=== PATIENT | male | born 1960 | race Caucasian/White ===

== ENCOUNTER 2025-09-22 07:32 | Day surgery (SDC) | payer MEDICARE, SELFPAY ==
[2025-09-22] VITALS (10 sets, daily range): BP systolic 64–116; BP diastolic 53–86; PULSE 65–85; RESP 16–18; TEMP 36.3–36.9; O2SAT 93–98; BMI 33.7
--- NOTE | 2025-09-22 07:41 | PCM.HP.STD ---
HPI - General General Date of Admission: 09/22/25 Date of Service: 09/22/25 Chief Complaint: GERD and screening colonoscopy HPI Narrative MOHINI RODRIGUEZ, is a 65 M who presents [ Chief Complaint: I want to get an upper and lower GI Details: - long history of GERD - esophageal burning - Tums PRN - has not needed this since starting Omeprazole - Omeprazole daily for the past couple months - reports last colon was at least 12 years ago - denies any family h/o colon CA - personal h/o prostate CA and a rare throat CA - surgery, chemo and radiation to throat 2011, constant trouble swallowing, does not produce enough saliva - no issues with intubation - denies any coughing with swallowing - denies any change in bowel habits - hemorrhoids, can see blood on toilet tissue - reports he also sees more bleeding when taking NSAIDS PFSH Medical History Loss of hearing Wears glasses Cancer Arthritis High cholesterol Back pain Difficulty swallowing History of diverticulitis Gastric reflux Non-smoker Leg cramps History of edema Hx of fracture of pelvis History of deviated nasal septum Prostate cancer 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 Obesity Home Medications ?Medication ?Instructions ?Recorded ?Last Taken ?Type cetirizine 5 mg tablet 5 mg PO QDAY PRN allergy symptoms 08/01/25 Unknown History coenzyme Q10 10 mg capsule 10 mg PO QDAY 08/01/25 Unknown History krill oil 500 mg capsule 500 mg PO DAILY 08/01/25 Unknown History milk thistle seed extract 175 mg 175 mg PO QDAY 08/01/25 Unknown History capsule multivitamin 1 tab PO QAM 08/01/25 Unknown History omeprazole 20 mg tablet,delayed 20 mg PO QDAY 08/01/25 Unknown History release tizanidine 2 mg capsule 2 mg PO Q8H PRN muscle spasticity 08/01/25 Unknown History aspirin 81 mg tablet,delayed 81 mg PO DAILY 09/21/25 Unknown History release clopidogrel 75 mg tablet 75 mg PO DAILY 09/21/25 Unknown History Allergy/AdvReac Type Severity Reaction Status Date / Time No Known Allergies Allergy Verified 09/21/25 14:04 Surgical History Hx of vascular surgery History of umbilical hernia repair Hx of colonoscopy History of throat surgery Social History Smoking Status: Never smoker alcohol intake: never substance use type: does not use ROS Constitutional Constitutional: Denies fatigue, fever(s), poor appetite, weight gain or weight loss Gastrointestinal Gastrointestinal: Denies belching, bloating, change in bowel habits, change in stool character, chewing difficulty, coffee ground emesis, constipation, cramping, diarrhea, dyspepsia, dysphagia, early satiety, excessive flatus, fecal incontinence, heartburn, hematemesis, hematochezia, hemorrhoids, loose stools, melena, nausea, odynophagia, rectal bleeding, tenesmus, vomiting or weight changes Physical Exam Const alert, oriented x3, no apparent distress and healthy appearing General Appearance: cooperative GI normal to inspection, nondistended, normoactive bowel sounds, soft to palpation, non-tender and non-distended Percussion: normal to percussion Rectal Exam: deferred Assessment & Plan Assessment/Plan (1) GERD (gastroesophageal reflux disease): (2) Screening for colon cancer: PLAN: Assessment and Plan Assessment and Plan (1) Screening for colon cancer: Status: Acute (2) GERD (gastroesophageal reflux disease): Status: Acute Plan 64-year-old male with a history of prostate cancer and hybrid throat cancer, now presenting with concerns surrounding gastrointestinal health, namely chronic Gastroesophageal Reflux Disease (GERD) and suspected hiatal hernia. His GERD symptoms are presently managed with omeprazole. He also experiences dysphagia secondary to prior throat surgeries and treatments. Given the frequency and nature of his symptoms, appropriate consideration for both upper GI and lower GI endoscopy is warranted at this time. Patient Instructions: Colon & EGD - patient has Golytely at home]
--- OUTSIDE RECORDS SUMMARY | 2025-09-22 07:52 | XMS RPT_ITS | CCD ---
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 Name Role Phone Lenin Palacios Unavailable Unavailable LEUKHARDTWILD Unavailable Unavailable LEUKHARDT, WILD H Unavailable Unavailable LEUKHARDT, WILD H Unavailable Unavailable Lenin Palacios Unavailable Unavailable Marko, Lynette A Unavailable Unavailable Marko, Lynette A Unavailable Unavailable Lenin Palacios Unavailable Unavailable ERICK ALTAMIRANO Unavailable Unavailable Unknown, Referring Provider Unavailable Unav ailable Unavailable Unavailable Malik Palacios MD Primary Care Provider [phone] Markel BARBER, Domenica Unavailable [phone] Nav Moctezuma PA-C Unavailable [phone] Nav Moctezuma PA-C Unavailable Wild Stewart MD Unavailable Sadaf TREVINO, Kimberlyn Unavailable [phone] Malik Palacios MD Primary Care Provider MALIK PALACIOS Primary Care Unavailable Unavailable Primary Care Provider Unavailzaria Dejesus MD, Christopher Bledsoe Primary Care Provider Frank Devries APRN, CNP S Unavailable Roddy ACEVES - ONDINA, Frank S Unavailable Mihai Thomas MD Unavailable [phone] Nav Mas MD Unavailable Teri Bose MD Unavailable Norma CLEMONS, Dr. Phelps Primary Care Physician [phone] Dr. Lenin Palacios MD Referring Provider Jonas SHORTHAND REPORTER-C, Ani Attending Physician [phone] Norma, Lenin Primary Care Unavailable Lenin Palacios Referring Unavailable Ani Mcdaniel Attending Unavailable Arturok, Lenin Primary Care Unavailable Crow Becker Attending Unavailable TERI BOSE Referring Unavailable TERI BOSE Attending Unavailable ANJELICA, CHRISTOPHER Primary Care Unavailable ANJELICA, CHRISTOPHER Primary Care Unavailable MARIEL PEREYRAY Attending Unavailable ANJELICA, CHRISTOPHER Primary Care Unavailable NABEEL BANKS Attending Unavailable RODDY, FRANK Referring Unavailable ANJELICA, CHRISTOPHER Primary Care Unavailable NETNAV LECHUGA Attending Unavailable ANJELICA, CHRISTOPHER Primary Care Unavailable NAV BRISCOE Attending Unavailable TERI BOSE Attending Unavailable ANJELICA, CHRISTPOHER Primary Care Unavailable RODDY, FRANK Referring Unavailable ANJELICA, CHRISTOPHER Primary Care Unavailable HARTZLER, CAT Referring Unavailable HARTZLERCAT Attending Unavailable NETHING, NAV Attending Unavailable NETHING NAV Admitting Unavailable ANJELICA, CHRISTOPHER Primary Care Unavailable ANJELICA, CHRISTOPHER Primary Care Unavailable HARTZLER, CAT Attending Unavailable HARTZLER, CAT Referring Unavailable ANJELICA, CHRISTOPHER Primary Care Unavailable HARTZLER, CAT Referring Unavailable HARTZLER, CAT Attending Unavailable TERI BOSE Attending Unavailable ANJELICA, CHRISTOPHER Primary Care Unavailable ANJELICA, CHRISTOPHER Primary Care Unavailable ANJELICA, CHRISTOPHER Primary Care Unavailable RODDY FRANK Attending Unavailable MILAN STEELE Attending Unavailable ANJELICA, CHRISTOPHER Primary Care Unavailable RODDY, FRANK Referring Unavailable ANJELICA, CHRISTOPHER Primary Care Unavailable RODDYMARIELY Attending Unavailable RODDY, FRANK Referring Unavailable ANJELICA, CHRISTOPHER Primary Care Unavailable RODDY FRANK Attending Unavailable RODDY, FRANK Referring Unavailable ANJELICA, CHRISTOPHER Primary Care Unavailable RODDY FRANK Attending Unavailable RODDY, FRANK Referring Unavailable ANJELICA, CHRISTOPHER Primary Care Unavailable RODDYMARIELY Attending Unavailable Allergies Allergy Classification Reported Allergen(s) Allergy Type Date of Onset Reaction(s) Facility (20 sources) Dog; Translations: [DOGS] Propensity to adverse reactions (disorder) 1 Cough, Other: See Comments [facility] Repository (20 sources) Seasonal allergy; Translations: [SEASONAL ALLERGIES] Propensity to adverse reactions (disorder) 1 Cough, Other: See Comments [facility] Repository (20 sources) Seasonal allergy Propensity to adverse reactions 5 [facility] Medications Current Medications Medication Drug Class(es) Dates Sig (Normalized) Sig (Original) aspirin 81 mg delayed release oral tablet (5 sources) Platelet Aggregation Inhibitor, Nonsteroidal Anti-inflammatory Drug Start: 08-17-2025 End: 08-17-2026 take 1 tablet by mouth once daily aspirin 81 MG EC tablet Take 1 tablet (81 mg) by mouth daily. 30 tablet 11 08/17/2025 08/17/2026 Active Calcium Carbonate (3 sources) calcium carbonate (TUMS ORAL) Take by mouth as needed (Heart Burn). Active cephalexin 500 mg oral capsule (1 source) Cephalosporin Antibacterial Start: 08-18-2024 End: 08-25-2024 take 1 capsule by mouth three times daily cephALEXin (KEFLEX) 500 mg capsule Take 1 capsule by mouth three times a day for 7 days. 21 capsule 08/18/2024 08/25/2024 Active cetirizine hydrochloride 5 mg oral tablet (20 sources) Histamine-1 Receptor Antagonist Start: 08-01-2025 take 1 tablet by mouth once daily as needed Cetirizine HCl ( ZYRTEC PO) Take by mouth as needed. Active CETIRIZINE HCL/PSEUDOEPHEDRINE (ZYRTEC-D ORAL) (18 sources) Start: 08-01-2023 take 1 tablet by mouth once daily as needed CETIRIZINE HCL/PSEUDOEPHEDRINE (ZYRTEC-D ORAL) Take 1 tablet by mouth once daily as needed (allergies). 08/01/2023 Active Start: 08-01-2023 take 1 tablet by anitha th once daily as needed CETIRIZINE HCL/PSEUDOEPHEDRINE (ZYRTEC-D ORAL) Take 1 tablet by mouth once daily as needed (allergies). 0 08/01/2023 Active Start: 08-01-2023 CETIRIZINE HCL /PSEUDOEPHEDRINE (ZYRTEC-D ORAL) Take 1 tablet by mouth as needed (allergies). 0 08/01/2023 Active CETIRIZINE HCL/P SEUDOEPHEDRINE (ZYRTEC-D ORAL) Take 1 tablet by mouth as needed. 0 Active Comment on above: Take 1 tablet by anitha th as needed. Take 1 tablet by anitha th as needed (allergies). Take 1 tablet by anitha th once daily as needed (allergies). clopidogrel 75 mg oral tablet (5 sources) P2Y12 Platelet Inhibitor Start: 2024 End: 2025 take 1 tablet by mouth once daily clopidogrel (Plavix) 75 MG tablet Take 1 tablet (75 mg) by mouth daily. 30 tablet 11 08/17/2025 08/17/2026 Active CPAP (18 sources) Start: 2015 CPAP Indications: Obstructive sleep apnea Initiate Auto PAP @ 6-20 cm of water with heated humidification. Mask (per patient preference) optional chin strap (if indicated) , filters, tubing, humidifier and lifetime supplies. 1 Device 0 12/15/2015 Active Comment on above: Initiate Auto PAP @ 6-20 cm of water with heated humidification. Mask (per patient preference) optional chin strap (if indicated) , filters, tubing, humidifier and lifetime supplies. cyanocobalamin, vitamin B-12, (VITAMIN B-12 ORAL) (3 sources) cyanocobalamin, vitamin B-12, (VITAMIN B-12 ORAL) Take by mouth once daily. Active Dandelion root extract (3 sources) DANDELION ROOT O RAL Take by mouth once daily. Active diphenhydrAMINE 12.5 mg/5 mL lidocaine visc 2% MAALOX 200-200-20 mg/5 mL oral liquid 1:1:1 (ARM-CPD) (1 source) Start: 2023 End: 2023 take 5 mL by mouth every eight hours as needed diphenhydrAMINE 12.5 mg/5 mL lidocaine visc 2% MAALOX 200-200-20 mg/5 mL oral liquid 1:1:1 (ARM-CPD) Take 5 mL by mouth three times a day as needed for up to 5 days. Swish and spit 75 mL 08/18/2024 08/23/2024 Active doxycycline hyclate 100 mg oral tablet (1 source) Tetracycline-class Drug Start: 2023 End: 2023 doxycycline (VIBRA-TABS) 100 mg tablet Take 1 tablet by mouth two times a day for 7 days. Wait 2 hours between other medications/suppleme nts 14 tablet 08/18/2024 08/25/2024 Active 0.3 ml enoxaparin sodium 100 mg/ml prefilled syringe (12 sources) Low Molecular Weight Heparin Start: 2022 End: 2022 inject 30 mg by subcutaneous injection every twelve hours enoxaparin (LOVENOX) 30 mg/0.3 mL injection Inject 0.3 mL subcutaneously every 12 hours for 41 doses. 12.3 mL 0 07/29/2023 08/19/2023 Active Comment on above: Inject 0.3 mL subcut aneously every 12 hours for 41 doses. Esomeprazole (3 sources) Proton Pump Inhibitor esomeprazole magnesium (NEXIUM ORAL) Take by mouth as needed (Heartburn). Active krill oil 500 mg oral capsule (1 source) Start: 2024 take 1 mg by mouth once daily KRILL OIL ORAL (3 sources) KRILL OIL ORAL T jag by mouth once daily. Active KRILL OIL PO (20 sources) KRILL OIL PO Mario e by mouth. Active lidocaine 0.04 mg/mg medicated patch (4 sources) Antiarrhythmic, Amide Local Anesthetic Start: 2022 End: 2022 apply 1 dose transdermal route once daily lidocaine (SALONPAS) 4 % patch Apply 1 Patch as directed once daily for 5 days. 5 Patch 0 07/29/2023 08/03/2023 Active Comment on above: Apply 1 Patch as dir ected once daily for 5 days. Milk Thistle Seed Extract (20 sources) Start: 2024 take 1 capsule by mouth once daily take 1 tablet by mouth once erlinda y milk thistle 175 MG tablet Take 175 mg by mouth daily. Active MILK THISTLE ORA L Take by mouth once daily. Active Multiple Vitamin (multivitamin) tablet (20 sources) take 1 tablet by mouth once daily Multiple Vitamin (multivitamin) tablet Take 1 tablet by mouth daily. Active multivit-min/ferrous fumarate (MULTI VITAMIN ORAL) (18 sources) Start: 08-01-2023 take 1 tablet by mouth once daily multivit-min/ferrous fumarate (MULTI VITAMIN ORAL) Take 1 tablet by mouth once daily. 08/01/2023 Active Start: 08-01-2023 take 1 tablet by anitha th once daily multivit-min/ferrous fumarate (MULTI VITAMIN ORAL) Take 1 tablet by mouth once daily. 0 08/01/2023 Active multivit-min/mookie hiram fumarate (MULTI VITAMIN ORAL) Take by mouth. 0 Active Comment on above: Take by mouth. Take 1 tablet by anitha th once daily. Multivitamin tablet (1 source) Start: 08-01-2025 nystatin [id number] unt/ml oral suspension (1 source) Polyene Antifungal Start: 08-18-2024 End: 08-25-2024 take 5 mL by mouth four times daily nystatin (MYCOSTATIN) 100,000 units/mL oral liquid Take 5 mL by mouth four times daily for 28 doses. Swish and swallow. 140 mL 08/18/2024 08/25/2024 Active omeprazole 20 mg delayed release oral tablet (20 sources) Proton Pump Inhibitor Start: 08-01-2025 take 1 tablet by mouth once daily Start: 05-09-2025 End: 11-05-2025 take 1 capsule by mouth once daily omeprazole (PriLOSEC) [address] capsule Indications: Upper abdominal pain Take 1 capsule (20 mg) by mouth daily. Do not crush or chew. 90 capsule 1 05/09/2025 11/05/2025 Active PHOSPHATIDYL SERINE, BULK, MISC (3 sources) PHOSPHATIDYL SER INE, BULK, MISC NeruoPS Active tiZANidine 2 mg oral capsule (20 sources) Central alpha-2 Adrenergic Agonist Start: take 2 tablets by mouth every eight hours Start: 05-09-2025 tiZANidine (Za naflex) 2 MG tablet Indications: Muscle spasms of neck Take 1 tablet by mouth every 8 hours as needed for muscle spasms. May take 2 tablets before bed if needed. 30 tablet 05/09/2025 Active ubidecarenone 10 mg oral cap raymond (20 sources) Start: 08-01-2025 Walker misc (17 sources) Start: 07-29-2023 Walker misc In dications: Closed minimally displaced zone I fracture of sacrum, initial encounter (HCC) , Closed fracture of transverse process of lumbar vertebra, initial encounter (HCC) 1 Device once daily. Wheeled walker 1 Each 07/29/2023 Active Start: 07-29-2023 Walker misc In dications: Closed minimally displaced zone I fracture of sacrum, initial encounter (HCC) , Closed fracture of transverse process of lumbar vertebra, initial encounter (HCC) 1 Device once daily. Wheeled walker 1 Each 0 07/29/2023 Active Comment on above: 1 Device once daily. Wheeled walker Completed/Discontinued Medications Medication Drug Class(es) Dates Sig (Normalized) Sig (Original) acetaminophen 500 mg oral tablet (19 sources) Start: 07-19-2025 End: 07-19-2025 1,000 mg, Oral, Once, On Fri07/19/25 at 0745, For 1 dose, Preprocedure, Administer 60 minutes prior to surgery. Start: 07-29-2023 take 2 tablets by [facility] every six hours as needed acetaminophen (TYLENOL) 325 mg tablet Take 2 tablets by mouth every 6 hours as needed for pain. 07/29/2023 Active Comment on above: Take [address] [facility] every 6 hours as needed for pain. acetaminophen 325 mg / oxyCODONE hydrochloride 5 mg oral tablet (5 sources) Opioid Agonist Start: 08-01-2025 End: 08-02-2025 Oxycodone-Acetaminophen 5-325 mg tablet Discontinued 1 {tbl} PO EVERY 6 HOURS as needed 0 July 31, 2025 11:00pm August 02, 2025 10:19am Start: 07-19-2025 End: 07-24-2025 take 1 tablet by mouth every six hours as needed for pain oxyCODONE-acetaminophen (Percocet) 5-325 MG tablet Indications: Right testicular pain , Cyst of epididymis Take 1 tablet by mouth every 6 hours as needed for severe pain (7-10) for up to 5 days. 15 tablet 07/19/2025 07/24/2025 Active calcium chloride 0.0014 meq/ml / potassium chloride 0.004 meq/ml / sodium chloride 0.103 meq/ml / sodium lactate 0.028 meq/ml injectable solution (2 sources) Start: 07-19-2025 End: 07-19-2025 take 50 mL intravenously every hour 50 mL/hr, IntraVENous, Continuous, Starting on Fri07/19/25 at 0745, Preprocedure, Upon admission to sameday - please start iv if patient does not have iv access. Use 500ml NS for patients on dialysis. cyclobenzaprine hydrochloride 10 mg oral tablet (5 sources) Muscle Relaxant Start: 08-21-2023 End: 08-26-2023 take 1 tablet by mouth every eight hours as needed cyclobenzaprine (FLEXERIL) 10 mg tablet Take 1 tablet by mouth every 8 hours as needed for up to 5 days. 10 tablet 0 08/21/2023 08/26/2023 End: 05-09-2025 take 1 tablet by mouth three times daily as needed for muscle spasms cyclobenzaprine (Flexeril) 5 MG tablet Take 5 mg by mouth 3 times daily as needed for muscle spasms. 05/09/2025 Discontinued (Formulary change) Comment on above: Take 1 tablet by anitha every 8 hours as needed for up to 5 days. 1 ml diphenhydrAMINE hydrochloride 50 mg/ml cartridge (2 sources) Histamine-1 Receptor Antagonist Start: 07-19-20 End: 07-19-20 12.5 mg, IntraVENous, Once PRN, itching, Starting on Fri07/19/25 at 0944, For 1 dose, Recovery (only) docusate sodium 50 mg / sennosides, mcfp 8.6 mg oral tablet (6 sources) Start: 07-29-20 End: 08-05-20 take 1 tablet by mouth twice daily senna-docusate (SENNA-S) 8.6-50 mg per tablet Take 1 tablet by mouth two times a day for 7 days. 14 tablet 0 07/29/2023 08/05/2023 Comment on above: Take 1 tablet by [facility] two times a day for 7 days. Glucosamine (2 sources) Glucosamine CAPS TAKE 1 CAPSULE DAILY WITH MEALS. Quantity: 0 Refills: 0 Ordered: 13-Dec-2021 DO Active 1 ml HYDROmorphone hydrochloride 1 mg/ml cartridge (4 sources) Opioid Agonist Start: 07-19-20 End: 07-19-20 0.5 mg, IntraVENous, Every 5 min PRN, severe pain (7-10), Starting on Fri07/19/25 at 0944, For 4 doses, Recovery (only), For Phase I. If Phase II oral narcotics have been administered in the last 60 minutes, do not administer IV narcotics unless specifically approved by provider. Start: 07-19-2025 End: 07-19-2025 0.25 mg, IntraVENous, Every 5 min PRN, moderate pain (4-6), Starting on Fri07/19/25 at 0944, For 4 doses, Recovery (only), For Phase I. If Phase II oral narcotics have been administered in the last 60 minutes, do not administer IV narcotics unless specifically approved by provider. iopamidol (Isovue-370) 76 % injection 75 mL (4 sources) Start: 08-18-2025 End: 08-18-2025 take 75 mL intravenously once as needed 75 mL, IntraVENous, IMG once PRN, contrast, Starting on Karmen 08/18/25 at 1239, For 1 dose Start: 05-24-2025 End: 05-24-2025 take 75 mL intravenously once as needed 75 mL, IntraVENous, IMG once PRN, contrast, Starting on Fri05/24/25 at 1238, For 1 dose labetalol (Normodyne,Trandate) injection 5 mg (2 sources) Start: 07-19-2025 End: 07-19-2025 labetalol (Normodyne,Trandate) injection 5 mg 1 ml LORazepam 2 mg/ml injection (2 sources) Benzodiazepine Start: 07-19-2025 End: 07-19-2025 0.5 mg, IntraVENous, Once PRN, for anxiety or muscle spasm., Starting on Fri07/19/25 at 0944, For 1 dose, Recovery (only), For IV doses dilute dose with 1ml NS. Multi Vitamin TABS (2 sources) Multi Vitamin TA BS TAKE 1 TABLET DAILY. Quantity: 0 Refills: 0 Ordered: 13-Dec-2021 DO Active 2 ml ondansetron 2 mg/ml injection (2 sources) Serotonin-3 Receptor Antagonist Start: 07-19-2025 End: 07-19-2025 4 mg, IntraVENous, Once PRN, nausea, Starting on Fri07/19/25 at 0944, For 1 dose, Recovery (only), Initial antiemetic therapy. oxyCODONE (16 sources) Opioid Agonist Start: 07-19-2025 End: 07-19-2025 take 1 tablet by mouth every four hours as needed for pain oxyCODONE (Roxicodone) immediate release tablet 5 mg Start: 08-19-2023 take 1 tablet by anitha th every eight hours as needed for pain oxyCODONE IR (ROXICODONE) 5 mg immediate release tablet Indications: Closed minimally displaced zone I fracture of sacrum, initial encounter (HCC) Take 1 tablet by mouth every 8 hours as needed for pain. for pain. 10 tablet 0 08/19/2023 Active Start: 07-29-2023 End: 08-05-2023 take 1 tablet by mouth every six hours as needed oxyCODONE IR (ROXICODONE) 5 mg immediate release tablet Indications: Closed minimally displaced zone I fracture of sacrum, initial encounter ([facility]) Take 1-2 tablets by mouth every 6 hours as needed for pain. for pain. 21 tablet 0 08/06/2023 Active Comment on above: Take 1 tablet by anitha th every 6 hours as needed for pain for up to 7 days. Take 1-2 tablets by mouth every 6 hours as needed for pain. for pain. Take 1 tablet by anitha th every 8 hours as needed for pain. for pain. raNITIdine (15 sources) Histamine-2 Receptor Antagonist RANITIDINE HCL (ZANTAC ORAL) Take 1 tablet by mouth as needed. 0 Active Comment on above: Take 1 tablet by anitha th as needed. rosuvastatin calcium 40 mg oral tablet (2 sources) HMG-CoA Reductase Inhibitor Start: 2 take 1 tablet by mouth once daily Rosuvastatin Calcium 40 MG Oral Tablet TAKE 1 TABLET DAILY. Quantity: 90 Refills: 3 Ordered: 13-Dec-[address] MD Start : 13-Dec-2021 Active 50 ml sodium chloride 9 mg/ml injection (8 sources) Start: 5 End: 5 500 mL, IntraVENous, at 1,000 mL/hr, Administer over 0.5 Hours, PRN, Anti-nausea, Starting on Fri07/19/25 at 0944, Recovery (only), Indications: Anti-nausea Start: 07-19-2025 End: 07-19-2025 5-40 mL, IntraVENous, PRN, l ine care, After every IV line use, Starting on Fri07/19/25 at 0735, Preprocedure, For Line Patency: Peripheral IV = 5 mL; Midline or Central Line = 10 mL/lumen. If following IV push medication, administer flush at same rate as the IV push. Flush volume is determined by type of infusion therapy being given. For non-viscous solutions use: Peripheral IV = 5 mL Midline or Central Line = 10 mL/lumen For viscous solutions (i.e. blood components, parenteral nutrition, contrast media, or after obtaining blood sample) use: Peripheral IV = 10 mL Midline or Central Line = 20 mL/lumen Start: 07-19-2025 End: 07-19-2025 take 5-40 mL intravenously every twelve hours 5-40 mL, IntraVENous, Every 12 hours, First dose on Fri07/19/25 at 0745, Preprocedure, For Line Patency: Peripheral IV = 5 mL; Midline or Central Line = 10 mL/lumen. If following IV push medication, administer flush at same rate as the IV push. Flush volume is determined by type of infusion therapy being given. For non-viscous solutions use: Peripheral IV = 5 mL Midline or Central Line = 10 mL/lumen For viscous solutions (i.e. blood components, parenteral nutrition, contrast media, or after obtaining blood sample) use: Peripheral IV = 10 mL Midline or Central Line = 20 mL/lumen Problems Active Problems Problem Classification Problem Date Documented Date Episodic/Chronic Adjustment disorders (18 sources) Adjustment disorder with mixed anxiety and depressed mood; Translations: [Adjustment disorder with mixed anxiety and depressed mood] Onset: 11-30-2012 11-30-2012 Chronic Alcohol-related disorders (18 sources) Nondependent alcohol abuse in remission; Translations: [Alcohol abuse, in remission] Onset: 11-30-2012 11-30-2012 Chronic Cancer of head and neck (2 sources) History of malignant neoplasm of ear, nose AND/OR throat; Translations: [Personal history of malignant neoplasm of other and unspecified oral cavity and pharynx] Episodic Cancer of prostate (3 sources) History of malignant neoplasm of prostate; Translations: [Personal history of malignant neoplasm of prostate] 06-28-2025 Episodic Diabetes mellitus without complication (20 sources) Prediabetes; Translations: [Prediabetes] Onset: 06-06-2025 06-08-2025 Episodic Disorders of lipid metabolism (20 sources) Hyperlipidemia; Translations: [Hyperlipidemia, unspecified] Onset: 05-09-2025 05-09-2025 Chronic Esophageal disorders (3 sources) Gastroesophageal reflux disease; Translations: [Gastro-esophageal reflux disease without esophagitis] Onset: 08-22-2025 08-02-2025 Chronic Malignant neoplasm without specification of site (18 sources) Malignant neoplastic disease; Translations: [Malignant (primary) neoplasm, unspecified] Onset: 11-17-2011 11-17-2011 Chronic Mood disorders (18 sources) Depressive disorder; Translations: [Depression] Onset: 10-29-2012 10-29-2012 Chronic Neoplasms of unspecified nature or uncertain behavior (5 sources) 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; Translations: [Neoplasm of uncertain behavior of skin] Onset: 07-18-2025 06-08-2025 Episodic Occlusion or stenosis of precerebral arteries (20 sources) Carotid artery stenosis; Translations: [Occlusion and stenosis of carotid artery without mention of cerebral infarction] Onset: 05-09-2025 Resolved: 05-09-2025 05-09-2025 Chronic Other ear and sense organ disorders (18 sources) Hearing loss; Translations: [Unspecified hearing loss, unspecified ear] Onset: 11-20-2012 11-20-2012 Chronic Other fractures (1 source) Closed fracture sacrum; Translations: [Minimally displaced Zone I fracture of sacrum, initial encounter for closed fracture] 08-06-2023 Episodic Other fractures (19 sources) Compression fracture of lumbar spine; Translations: [Wedge compression fracture of first lumbar vertebra, initial encounter for closed fracture] 05-30-2025 Episodic Other fractures (2 sources) Wedge compression fracture of third lumbar vertebra, initial encounter for closed fracture; Translations: [Wedge compression fracture of third lumbar vertebra, initial encounter for closed fracture (HCC)] Onset: 07-18-2025 Episodic Other fractures (2 sources) Wedge compression fracture of first lumbar vertebra, initial encounter for closed fracture; Translations: [Wedge compression fracture of first lumbar vertebra, initial encounter for closed fracture (HCC)] Onset: 06-08-2025 Episodic Other liver diseases (20 sources) Steatosis of liver; Translations: [Fatty (change of) liver, not elsewhere classified] Onset: 05-30-2025 05-30-2025 Chronic Other liver diseases (2 sources) Fatty (change of) liver, not elsewhere classified; Translations: [Fatty (change of) liver, not elsewhere classified] Onset: 05-30-2025 Chronic Other male genital disorders (11 sources) Pain of right testicle; Translations: [Right testicular pain] 05-09-2025 Episodic Other male genital disorders (15 sources) Cyst of epididymis; Translations: [Cyst of epididymis] Onset: 06-08-2025 05-30-2025 Episodic Other male genital disorders (11 sources) Adult hydrocele; Translations: [Hydrocele, unspecified] 05-30-2025 Episodic Other male genital disorders (1 source) Spermatocele; Translations: [Spermatocele of epididymis, unspecified] 08-03-2025 Episodic Other male genital disorders (2 sources) Spermatocele of epididymis, unspecified; Translations: [Spermatocele of epididymis, unspecified] Onset: 08-03-2025 Episodic Other male genital disorders (2 sources) Hydrocele, unspecified; Translations: [Hydrocele, unspecified] Onset: 06-08-2025 Episodic Other male genital disorders (1 source) Cyst of epididymis; Translations: [Cyst of epididymis] Onset: 06-08-2025 Episodic Other male genital disorders (2 sources) Right testicular pain; Translations: [Right testicular pain] Onset: 06-08-2025 Episodic Other nutritional; endocrine; and metabolic disorders (20 sources) Obesity caused by energy imbalance; Translations: [Class 1 obesity due to excess calories without serious comorbidity with body mass index (BMI) of 33.0 to 33.9 in adult] Onset: 05-09-2025 05-09-2025 Chronic Other nutritional; endocrine; and metabolic disorders (2 sources) Other obesity due to excess calories; Translations: [Other obesity due to excess calories] Onset: 05-09-2025 Chronic Other nutritional; endocrine; and metabolic disorders (2 sources) Body mass index (BMI) 33.0-33.9, adult; Translations: [Body mass index (BMI) 33.0-33.9, adult] Onset: 05-09-2025 Chronic Residual codes; unclassified (18 sources) Obstructive sleep apnea syndrome; Translations: [Obstructive sleep apnea (adult) (pediatric)] Onset: 11-15-2012 11-15-2012 Chronic Residual codes; unclassified (2 sources) History of antineoplastic chemotherapy; Translations: [Personal history of antineoplastic chemotherapy] Episodic Skin and subcutaneous tissue infections (3 sources) Cellulitis of right lower limb; Translations: [Cellulitis of right lower limb] Onset: 08-16-2024 08-16-2024 Episodic Transient cerebral ischemia (6 sources) Amaurosis fugax; Translations: [Amaurosis fugax] Onset: 08-12-2025 08-12-2025 Chronic Unclassified (1 source) Unknown / UNK(Unknown) Onset: 02-24-2018 Unclassified (2 sources) Other; Translations: [Other] Onset: 06-28-2025 Unclassified (1 source) Obesity, class 1; Translations: [Obesity, class 1] Onset: 05-09-2025 Past or Other Problems Problem Classification Problem Date Documented Da te Episodic/Chronic Abdominal pain (15 sources) Upper abdominal pain; Translations: [Upper abdominal pain, unspecified] Onset: 05-24-2025 05-09-2025 Episodic Administrative/social admission (5 sources) First encounter by subject; Translations: [Persons encountering health services in other specified circumstances] Onset: 05-09-2025 05-09-2025 Episodic Cancer of prostate (20 sources) Malignant tumor of prostate; Translations: [Malignant neoplasm of prostate] Onset: 03-24-2007 Resolved: 05-09-2025 09-19-2020 Chronic Cancer; other and unspecified primary (20 sources) History of malignant neoplasm of neck; Translations: [Personal history of malignant neoplasm of other organs and systems] Onset: 05-09-2025 05-09-2025 Episodic Cancer; other and unspecified primary (2 sources) Personal history of malignant neoplasm of other organs and systems; Translations: [Personal history of malignant neoplasm of other organs and systems] Onset: 05-09-2025 Episodic Crushing injury or internal injury (18 sources) Traumatic pneumothorax; Translations: [Traumatic pneumothorax, initial encounter] Onset: 02-23-2018 03-24-2018 Episodic E Codes: Fall (20 sources) Fall from ladder; Translations: [Fall on and from ladder, initial encounter] Onset: 02-23-2018 Resolved: 02-24-2018 07-29-2023 Episodic Other aftercare (18 sources) Radiotherapy follow-up; Translations: [Encounter for follow-up examination after completed treatment for conditions other than malignant neoplasm] Onset: 06-26-2012 06-26-2012 Episodic Other aftercare (18 sources) Follow-up status; Translations: [Encounter for follow-up examination after completed treatment for conditions other than malignant neoplasm] Onset: 06-26-2012 06-26-2012 Episodic Other connective tissue disease (20 sources) Muscle spasm of cervical muscle of neck; Translations: [Other muscle spasm] Onset: 05-09-2025 05-09-2025 Episodic Other connective tissue disease (2 sources) Other muscle spasm; Translations: [Other muscle spasm] Onset: 05-09-2025 Episodic Other ear and sense organ disorders (18 sources) Tinnitus; Translations: [Tinnitus, unspecified ear] Onset: 11-20-2012 11-20-2012 Episodic Other fractures (18 sources) Multiple closed fractures of pelvis with disruption of pelvic mcgrath; Translations: [Multiple fractures of pelvis with unstable disruption of pelvic ring, initial encounter for closed fracture] Onset: 07-28-2023 07-29-2023 Episodic Other fractures (17 sources) Closed fracture of multiple ribs; Translations: [Multiple fractures of ribs, right side, subsequent encounter for fracture with routine healing] Onset: 07-29-2023 07-29-2023 Episodic Other fractures (17 sources) Closed fracture lumbar vertebra, transverse process ; Translations: [Unspecified fracture of unspecified lumbar vertebra, subsequent encounter for fracture with routine healing] Onset: 07-29-2023 07-29-2023 Episodic Other injuries and conditions due to external causes (3 sources) Traumatic injury; Translations: [Injury, unspecified, initial encounter] Onset: 02-22-2018 Resolved: 02-24-2018 02-24-2018 Episodic Other screening for suspected conditions (not mental disorders or infectious disease) (20 sources) Patient encounter status; Translations: [Encounter for screening for malignant neoplasm of colon] Onset: 05-09-2025 05-09-2025 Episodic Other skin disorders (3 sources) Mass of neck; Translations: [Localized swelling, mass and lump, neck] Onset: 11-01-2011 Resolved: 12-06-2011 12-06-2011 Episodic Other upper respiratory disease (20 sources) Deviated nasal septum; Translations: [Deviated nasal septum] Onset: 11-20-2012 Resolved: 05-09-2025 11-20-2012 Episodic Pleurisy; pneumothorax; pulmonary collapse (1 source) Pneumothorax, unspecified; Translations: [Pneumothorax, unspecified] Onset: 02-22-2018 Episodic Secondary malignancies (20 sources) Secondary malignant neoplasm of lymph nodes of neck; Translations: [Secondary and unspecified malignant neoplasm of lymph nodes of head, face and neck] Onset: 12-06-2011 Resolved: 05-09-2025 09-30-2017 Chronic Unclassified (1 source) Unspecified fall, initial encounter Onset: 02-22-2018 Unclassified (3 sources) Patient encounter status 05-09-2025 Unclassified (1 source) Obesity, class 1; Translations: [Obesity, class 1] Onset: 06-08-2025 Results Test Name Value Interpretation Reference Range Facility [id number] 08-24-2025 [id number] Messaged Maureen [facility] th, MECHANICAL MANUFACTURING TECHNICIAN-CATTYMAN from Anesthesia, via Secure Chat, regarding patient having taken Krill oil, milk thistle and Neuro-PS on 08/23/25 and surgery is on 08/25/25. Maureen replied, via Secure Chat, it is okay. [facility] [id number] 08-23-2025 [id number] Medication List Accurate as of August 23, 2025 8:55 AM. Always use your most recent med list. aspirin 81 MG EC tablet Take 1 tablet (81 mg) by mouth daily. Medication Adjustments for Surgery: Take morning of surgery Notes to patient: CONTINUE TO TAKE PRIOR TO SURGERY clopidogrel 75 MG tablet Commonly known as: Plavix Take 1 tablet (75 mg) by mouth daily. Medication Adjustments for Surgery: Take morning of surgery Notes to patient: CONTINUE TO TAKE PRIOR TO SURGERY. coenzyme Q-10 10 MG capsule Medication Adjustments for Surgery: Hold morning of surgery KRILL OIL PO Medication Adjustments for Surgery: Hold morning of surgery milk thistle 175 MG tablet Medication Adjustments for Surgery: Hold morning of surgery multivitamin tablet Medication Adjustments for Surgery: Hold morning of surgery NON FORMULARY Medication Adjustments for Surgery: Hold morning of surgery Notes to patient: NEURO -PS SUPPLEMENT omeprazole [address] capsule Commonly known as: PriLOSEC Take 1 capsule (20 mg) by mouth daily. Do not crush or chew. Medication Adjustments for Surgery: Take morning of surgery QC TUMERIC COMPLEX PO Medication Adjustments for Surgery: Hold morning of surgery tiZANidine 2 MG tablet Commonly known as: Zanaflex Take 1 tablet by mouth every 8 hours as needed for muscle spasms. May take 2 tablets before bed if needed. Medication Adjustments for Surgery: Take morning of surgery Notes to patient: IF NEEDED ZYRTEC PO Medication Adjustments for Surgery: Take morning of surgery Additional Instructions: You may take your prescription pain medication. You may take Tylenol for pain. NO Motrin, ibuprofen or Advil for 24 hours prior to surgery or longer if instructed by your surgeon. NO Aleve or Naprosyn for 5 days prior to surgery or longer if instructed by your surgeon. IF YOU TAKE BLOOD THINNERS OR ASPIRIN: CONTINUE TO TAKE ASPIRIN AND PLAVIX MEDICATION PRIOR TO SURGERY. Follow any instructions given to you by Dr. BOSE Shower with an antibacterial soap such as Dial or Safeguard or shower kit provided to you before coming to the hospital. No makeup, lotion, powder, deodorant or body sprays. No hair products. Remove all jewelry and leave it at home. Wear loose comfortable clothing to go home in. You may brush your teeth morning of surgery. Do not wear contacts day of surgery. No marijuana (THC), smoking, vaping, chewing tobacco, snuff, cigars, or alcohol for 24 hours prior to surgery. Please arrange for a responsible adult to drive you home after your surgery and that there is a responsible adult with you for 24 hours post discharge. If you have specific questions, please call your surgeon. You will receive a call the day before your surgery to verify your arrival time and date. You will be asked to arrive at least two hours prior to your scheduled surgery time. Please bring your [facility] Surgical folder and medication list with you day of surgery. We encourage you to write down any questions you may have for the surgeon, anesthesiologist, or other members of the surgical team and bring it with you the day of surgery. Please bring photo ID and insurance information. Normal [facility] [id number] 08-23-2025 [id number] Messaged Mari richards MA, at Dr. Bose's office, via Secure Chat, regarding if patient is supposed to be on a Statin medication prior to surgery. Mari replied, via Secure Chat, Dr Bose started him on Plavix and ASA. Statin possible post op. Normal [facility] BASIC METABOLIC PANELon 08-13 Anion gap [Moles/Vol] 6 mmol/L Normal - [facility] Comment on above: Performed By: #### L AB15 ####Universal Banker: TERESA DANIELS ([id number])[facility] ([facility])[address] [place] [address] Calcium [Mass/Vol] 9.3 mg/dL Normal 8.8-10.0 [facility] Comment on above: Performed By: #### L AB15 ####[employer] Banker: TERESA DANIELS ([phone])[facility] ([facility])[address] [place] [address] Chloride [Moles/Vol] 108 mmol/L High 98-107 [facility] Comment on above: Performed By: #### L AB15 ####[employer] Banker: TERESA DANIESL ([id number])[facility] ([facility])[address] [place] [address] CO2 [Moles/Vol] 26 mmol/L Normal 23-31 [facility] Comment on above: Performed By: #### L AB15 ####[employer] Banker: TERESA DANIELS ([id number])[facility] ([facility])[address] [place] [address] Creatinine [Mass/Vol] 0.96 mg/dL Normal 0.67-1.27 [facility] Comment on above: Performed By: #### L AB15 ####[employer] Banker: TERESA DANIELS ([id number])[facility] ([facility])[address] [place] [address] GLOMERULAR FILTRATION RATE ML/MIN/1.73 SQ M.PREDICTED 87.7 mL/min/1.73m*2 Normal >60.0 [facility] Comment on above: Result Comment: Calc ulation based on the Chronic Kidney Disease Epidemiology Collaboration (CKD-EPI) equation refit without adjustment for race Performed By: #### L AB15 ####[employer] Banker: TERESA DANIELS ([id number])[facility] ([facility])[address] [place] [address] [place] Glucose [Mass/Vol] 94 mg/dL Normal 82-115 [facility] Comment on above: Performed By: #### L AB15 ####[employer] Banker: TERESA DANIELS ([id number])[facility] ([facility])[address] [place] [address] [place] Potassium [Moles/Vol] 4.4 mmol/L Normal 3.5-5.1 [facility] Comment on above: Result Comment: Plas ma potassium values may be up to 0.5 mmol/L lower than serum values. Performed By: #### L AB15 ####[employer] Banker: TERESA DANIELS ([id number])[facility] ([facility])[address] [place] [address] Sodium [Moles/Vol] 140 mmol/L Normal 136-145 [facility] Comment on above: Performed By: #### L AB15 ####Universal Banker: TERESA DANIELS ([id number])[facility])[address] [place] [address] Urea nitrogen [Mass/Vol] 16 mg/dL Normal 9-23 [facility] Comment on above: Performed By: #### L AB15 ####Universal Banker: TERESA DANIELS ([phone])[facility])[address] [place] [address] BLOOD TYPE AND SCREEN GELon 08-23-2025 ABO GROUPING O Normal [facility] Comment on above: Performed By: #### L [id number] ####[employer] Banker: TERESA DANIELS ([id number])[facility] ([facility])[address] [place] [address] RH TYPE IN BLOOD Negative Normal [facility] Comment on above: Performed By: #### L [id number] ####Universal Banker: TERESA DANIELS ([id number])[facility] ([facility])[address] [place] [address] CBC (HEMOGRAM)on 08-23-2025 Erythrocyte distribution width (RBC) [Ratio] 13.0 % Normal 11.5-15.0 [facility] Comment on above: Performed By: #### L [id number] ####[employer] Banker: TERESA DANIELS ([id number])[facility] ([facility])[address] [place] [address] Hematocrit (Bld) [Volume fraction] 45.0 % Normal 40.0-52.0 [facility] Comment on above: Performed By: #### L [id number] ####[employer] Banker: TERESA DANIELS ([id number])[facility] ([facility])[address] [place] [address] Hemoglobin (Bld) [Mass/Vol] 14.9 g/dL Normal 13.0-18.0 [facility] Comment on above: Performed By: #### L [id number] ####[employer] Banker: TERESA DANIELS ([id number])[facility] ([facility])[address] [place] [address] MCH (RBC) [Entitic mass] 31.4 pg Normal 26.0-34.0 [facility] Comment on above: Performed By: #### L [id number] ####Universal Banker: TERESA DANIELS ([id number])[facility])[address] [place] [address] MCHC 33.1 % Normal 30.5-36.0 [facility] Comment on above: Performed By: #### L [id number] ####[employer] Banker: TERESA DANIELS ([id number])[facility] ([facility])[address] [place] [address] MCV (RBC) [Entitic vol] 94.9 fL Normal 77.0-99.0 [facility] Comment on above: Performed By: #### L AB294 ####Universal Banker: TERESA DANIELS ([phone])[facility])[address] [place] [address] Platelet mean volume (Bld) [Entitic vol] 9.4 fL Normal 9.0-12.7 [facility] Comment on above: Performed By: #### L [id number] ####Universal Banker: TERESA DANIELS ([id number])[facility])[address] [place] [address] Platelets (Bld) [#/Vol] 198 10*3/uL Normal 140-440 [facility] Comment on above: Performed By: #### L AB294 ####[employer] Banker: TERESA DANIELS ([id number])[facility])[address] [place] [address] RBC (Bld) [#/Vol] 4.74 10*6/uL Normal 4.40-5.90 [facility] Comment on above: Performed By: #### L [id number] ####Universal Banker: TERESA DANIELS ([id number])[facility])[address] [place] [address] WBC (Bld) [#/Vol] 3.5 10*3/uL Low 3.6-10.7 [facility] Comment on above: Performed By: #### L [id number] ####Universal Banker: TERESA DANIELS ([id number])[facility])[address] [place] [address] PRU TEST (P2Y12)on 5 PRU TEST (P2Y12) 157 Low >=180 [facility] Comment on above: Result Comment: >180 - 376 PRU [P2Y12 Reaction Units] - No drug present 10-180 PRU [P2Y12 Reaction Units] - Decreased platelet reactivity to P2Y12 inhibitor. Performed By: #### L [id number] #### [employer] Banker: TERESA DANIELS ([id number]) [facility]) [address] [place] [address] Progress Noteon 08-23-2025 Progress Note [facility] Rodriguez : 1960 Primary Care Physician: Christopher Dejesus MD The patient and/or family/surrogate voluntarily agreed to participate in ACP services. Has and will bring in dos Patient?s cognitive capacity: A/o x3 Code Status: [x] [FULL CODE - Continue all advanced life support: CPR,intubation,invasive procedures] [_] [DNR-CCA - DO NOT do CPR, intubation] [_] [DNR-PROPERTY ACCOUNTANT - Comfort care only] [_] DNR form [was/was not] signed Summary of discussion: The patient health care POA/ surrogate is the following: Adriana Rodriguez . [Condition that instigated the ACP on this DOS, relevant PMH, functional status, goals of care, and whom this was discussed with including names and relationship to the patient, and any relevant advance care documentation discussion] I answered all the patient/family questions that I could within the range and scope of the current medical situation. We discussed the medical conditions, risks, benefits, outcomes, and goals of care at this time for the patient's medical issues at hand in the face of the patient's chronic issues and current presentation. Total time spent: 3 minutes were spent discussing the patient's resuscitation status, advance care planning, and end of life care, with patient and/or family/surrogate. Mely Machado, KETAN - CATTYMAN Acute care solutions 08/23/2025, 8:51 AM Normal [facility] 36on 08-19-2025 36 Vascular Surgery Scheduling Surgery TRANSCAROTID ARTERY REVASCULARIZATION Date/time 08/25/2025 @ 12:00 PM ICD 10 I65.22 CPT 91680 PAT 08/23/2025 @ 8:00 AM Clearance NONE Device NONE Anticoagulants Comment: Keep taking ASA and plavix Meds NO VITAMINS THE DAY OF SURGERY Mailed/MC message 08/22/2025 PO/OV 09/07/25 @ 10:15 AM Notified 08/19/2025 Authorization [id number] [employer]eps ISABELLA PERDOMO [employer] Equipment NONE Normal [facility] CT NECK ANGIO W AND WO IV CO NTRASTon 08-18-2025 CT NECK ANGIO W AND WO IV CONTRAST Patient Name: MOHINI RODRIGUEZ : 1960 [facility]#: [id number] Exam Date/Time: 08/18/2025 12:39 Procedure: CT NECK ANGIO W AND WO IV CONTRAST Ordering Provider: BOSE ANDREW Reason For Exam: Carotid artery stenosis; surigcal planning, right ICA stenosis on duplex with amaurosis fugax CT NECK ANGIO W AND WO IV CONTRAST HISTORY: Carotid artery stenosis; surigcal planning, right ICA stenosis on duplex with amaurosis fugax TECHNIQUE: CTA of the neck was performed after the intravenous administration of contrast. Post-processed 3-D images were created, reviewed and archived. Contrast: IV administration of 75 cc Isovue-370 Dose reduction was employed with automated exposure control. COMPARISON: Duplex ultrasound 08/12/2025 RESULT: NECK: Soft tissues: The mandibular gland is not identified, either absent or atrophic. Spine: Alignment is normal. Mild spondylosis. Lungs: Mild emphysematous changes of the imaged upper lungs. CT ARTERIOGRAM: EXTRACRANIAL CIRCULATION: Aortic arch and branch vessels: Conventional 3-vessel arch branch anatomy. Mixed atherosclerotic plaques of the proximal right subclavian artery with mild stenosis. Carotid Stenosis: Right Common: Mixed atherosclerotic plaques with approximately 4 cm segment of mild stenosis of the mid to distal common carotid artery. Additional [id number]-[id number] focal stenosis of the distal common carotid artery just proximal to the bifurcation. Right Internal Carotid Plaque: Severe plaque, mixed, predominantly noncalcified Right Internal Carotid Stenosis (% by NASCET Criteria): Approximately 90% Left Common: Mixed atherosclerotic plaques with approximately 3 cm segment of mild stenosis of the mid to distal common carotid artery. Left Internal Carotid Plaque: Mild mixed atherosclerotic plaque Left Internal Carotid Stenosis (% by NASCET Criteria): Approximately 20% Cervical Vertebral Arteries: Atherosclerotic calcification of the right subclavian artery near the origin of the right vertebral artery with up to mild stenosis of the right vertebral artery origin. Otherwise the dominant right vertebral artery is patent. Diminutive left vertebral artery with nonenhancement of the origin, V1, proximal V2 and V3 segments. Segmental patency noted of the V2 segment at the C2-C4 levels. Enhancement of diminutive left V4 segment is visualized, likely due to retrograde flow/collaterals. There may be a superimposed severe stenosis/occlusion of the mid left V4 segment (series 3 image 474). IMPRESSION: Mixed atherosclerotic plaque of the proximal right cervical ICA with high-grade, approximately 90% stenosis by NASCET criteria. Approximately 20% stenosis of the left cervical ICA by NASCET criteria. Diminutive left V4 segment with long segments of nonenhancement concerning for superimposed severe stenoses/occlusion, age uncertain. Mild to moderate focal stenosis of the distal right common carotid artery and additional mild long segment stenoses of both common carotid arteries. Additional mild stenoses as described. CRITICAL TEST RESULT COMMUNICATION: Notification of these findings was made to TERI BOSE via [employer] Secure Chat on 08/18/2025 1:39 PM EST. Receipt was confirmed. Report Dictated on Electronically Signed By: Denny Zee MD Electronically Signed Date/Time: 08/18/2025 1:39 PM EST Fu r sided blockage seen on US. Normal [facility] CTA Neck vessels WO and W co ntrast Fan 08-18-2025 Mixed atherosclerotic plaque of the proximal right cervical ICA with high-grade, approximately 90% stenosis by NASCET criteria. Approximately 20% stenosis of the left cervical ICA by NASCET criteria. Diminutive left V4 segment with long segments of nonenhancement concerning for superimposed severe stenoses/occlusion, age uncertain. Mild to moderate focal stenosis of the distal right common carotid artery and additional mild long segment stenoses of both common carotid arteries. Additional mild stenoses as described. CRITICAL TEST RESULT COMMUNICATION: Notification of these findings was made to TERI BOSE via [employer] Secure Chat on 08/18/2025 1:39 PM EST. Receipt was confirmed. Report Dictated on Electronically Signed By: Denny Zee MD Electronically Signed Date/Time: 08/18/2025 1:39 PM EST [facility] [place] [facility] Patient Name[facility]LLER : 1960 [id number] Exam Date/Time: 08/18/2025 12:39 Procedure: CT NECK ANGIO W AND WO IV CONTRAST Ordering Provider: BOSE ANDREW Reason For Exam: Carotid artery stenosis; surigcal planning, right ICA stenosis on duplex with amaurosis fugax CT NECK ANGIO W AND WO IV CONTRAST HISTORY: Carotid artery stenosis; surigcal planning, right ICA stenosis on duplex with amaurosis fugax TECHNIQUE: CTA of the neck was performed after the intravenous administration of contrast. Post-processed 3-D images were created, reviewed and archived. Contrast: IV administration of 75 cc Isovue-370 Dose reduction was employed with automated exposure control. COMPARISON: Duplex ultrasound 08/12/2025 RESULT: NECK: Soft tissues: The mandibular gland is not identified, either absent or atrophic. Spine: Alignment is normal. Mild spondylosis. Lungs: Mild emphysematous changes of the imaged upper lungs. CT ARTERIOGRAM: EXTRACRANIAL CIRCULATION: Aortic arch and branch vessels: Conventional 3-vessel arch branch anatomy. Mixed atherosclerotic plaques of the proximal right subclavian artery with mild stenosis. Carotid Stenosis: Right Common: Mixed atherosclerotic plaques with approximately 4 cm segment of mild stenosis of the mid to distal common carotid artery. Additional [id number] focal stenosis of the distal common carotid artery just proximal to the bifurcation. Right Internal Carotid Plaque: Severe plaque, mixed, predominantly noncalcified Right Internal Carotid Stenosis (% by NASCET Criteria): Approximately 90% Left Common: Mixed atherosclerotic plaques with approximately 3 cm segment of mild stenosis of the mid to distal common carotid artery. Left Internal Carotid Plaque: Mild mixed atherosclerotic plaque Left Internal Carotid Stenosis (% by NASCET Criteria): Approximately 20% Cervical Vertebral Arteries: Atherosclerotic calcification of the right subclavian artery near the origin of the right vertebral artery with up to mild stenosis of the right vertebral artery origin. Otherwise the dominant right vertebral artery is patent. Diminutive left vertebral artery with nonenhancement of the origin, V1, proximal V2 and V3 segments. Segmental patency noted of the V2 segment at the C2-C4 levels. Enhancement of diminutive left V4 segment is visualized, likely due to retrograde flow/collaterals. There may be a superimposed severe stenosis/occlusion of the mid left V4 segment (series 3 image 474). [facility] [place] RAD[facility]OLOG[facility] Denny Zee MD - 08/18/2025 Patient Name: MOHINI RODRIGUEZ : 1960 [id number] Exam Date/Time: 08/18/2025 12:39 Procedure: CT NECK ANGIO W AND WO IV CONTRAST Ordering Provider: BOSE ANDREW Reason For Exam: Carotid artery stenosis; surigcal planning, right ICA stenosis on duplex with amaurosis fugax CT NECK ANGIO W AND WO IV CONTRAST HISTORY: Carotid artery stenosis; surigcal planning, right ICA stenosis on duplex with amaurosis fugax TECHNIQUE: CTA of the neck was performed after the intravenous administration of contrast. Post-processed 3-D images were created, reviewed and archived. Contrast: IV administration of 75 cc Isovue-370 Dose reduction was employed with automated exposure control. COMPARISON: Duplex ultrasound 08/12/2025 RESULT: NECK: Soft tissues: The mandibular gland is not identified, either absent or atrophic. Spine: Alignment is normal. Mild spondylosis. Lungs: Mild emphysematous changes of the imaged upper lungs. CT ARTERIOGRAM: EXTRACRANIAL CIRCULATION: Aortic arch and branch vessels: Conventional 3-vessel arch branch anatomy. Mixed atherosclerotic plaques of the proximal right subclavian artery with mild stenosis. Carotid Stenosis: Right Common: Mixed atherosclerotic plaques with approximately 4 cm segment of mild stenosis of the mid to distal common carotid artery. Additional [id number] focal stenosis of the distal common carotid artery just proximal to the bifurcation. Right Internal Carotid Plaque: Severe plaque, mixed, predominantly noncalcified Right Internal Carotid Stenosis (% by NASCET Criteria): Approximately 90% Left Common: Mixed atherosclerotic plaques with approximately 3 cm segment of mild stenosis of the mid to distal common carotid artery. Left Internal Carotid Plaque: Mild mixed atherosclerotic plaque Left Internal Carotid Stenosis (% by NASCET Criteria): Approximately 20% Cervical Vertebral Arteries: Atherosclerotic calcification of the right subclavian artery near the origin of the right vertebral artery with up to mild stenosis of the right vertebral artery origin. Otherwise the dominant right vertebral artery is patent. Diminutive left vertebral artery with nonenhancement of the origin, V1, proximal V2 and V3 segments. Segmental patency noted of the V2 segment at the C2-C4 levels. Enhancement of diminutive left V4 segment is visualized, likely due to retrograde flow/collaterals. There may be a superimposed severe stenosis/occlusion of the mid left V4 segment (series 3 image 474). IMPRESSION: Mixed atherosclerotic plaque of the proximal right cervical ICA with high-grade, approximately 90% stenosis by NASCET criteria. Approximately 20% stenosis of the left cervical ICA by NASCET criteria. Diminutive left V4 segment with long segments of nonenhancement concerning for superimposed severe stenoses/occlusion, age uncertain. Mild to moderate focal stenosis of the distal right common carotid artery and additional mild long segment stenoses of both common carotid arteries. Additional mild stenoses as described. CRITICAL TEST RESULT COMMUNICATION: Notification of these findings was made to TERI BOSE via [employer] Secure Chat on 08/18/2025 1:39 PM EST. Receipt was confirmed. Report Dictated on Electronically Signed By: Denny Zee MD Electronically Signed Date/Time: 08/18/2025 1:39 PM EST [facility] Style on Screen Radiology Study observation (narrative) [facility] CTA Neck vessels WO and W co ntrast IVOrdered By: Denny Zee on 08-18-2025 [employer] Work Phone: 36on 08-17-2025 36 Thank you Jolanta. Normal [facility] 36 Faxed to number provided. Normal [facility] Style on Screen [facility] 36 Name of caller: Adriana Contact phone number: [phone] Relationship to Patient: patient Provider: Dr Dejesus Practice: [facility] MARTINE[facility] Chief Complaint/Reason for Call: Adriana called stating they need the results from the sonogram sent to [facility], Dr Adorno. Their fax is [phone]. Their phone number is [phone]. Please advise. Best time of day caller can be reached: any Patient advised that office/PCP has 24-48 business hours to return their call: Yes [facility] Office Visiton 08-17-2025 Follow-up visit [id number] Chelsea Rodriguez selene S 1960 M [place] Provider Department Center 08/17/2025 [id number] HORTA [facility] JEANINE BAR None Family History Problem Relation Age of Onset Breast cancer Mother Ovarian cancer Mother Prostate cancer Brother Pancreatic cancer Maternal Grandmother Cancer Mother Cancer Maternal Grandmother Family Status - Relation Status Age at Mother Father Sister Alive Brother Alive Maternal Grandmother Maternal Grandfather Paternal Grandmother Paternal Grandfather Level of Service:86119 [place] OFFICE/OUTPATIENT NEW MODERATE MDM 45 MINUTES Reason for Visit and Comments: New Patient [542] - (ref Frank Pereyra SHORTHAND REPORTER) SHORTHAND REPORTER eval for carotid stenosis over 70%- amaurosis fugax 08/12/25, CU 08/12/[address] [facility] VASC US CAROTID ARTERY DUPLE X BILATERALon 08-15-2025 VAS US CAROTID ARTERY DUPLEX BILATERAL This is a summary report. The complete report is available in the patient's medical record. If you cannot access the medical record, please contact the sending organization for a detailed fax or copy. Patient Name: MOHINI RODRIGUEZ : 1960 Exam Date/Time: 08/12/2025 13:39 Procedure: VASC US CAROTID ARTERY DUPLEX BILATERAL Ordering Provider: PEREYRA HOLLY Reason For Exam: Amaurosis fugax BILATERAL CAROTID ULTRASOUND: CLINICAL INDICATION: Amaurosis fugax, involving the right eye. TECHNIQUE: Two-dimensional, Color-flow and spectral Doppler sonography of the extracranial arterial circulation was performed. COMPARISON: None. FINDINGS: RIGHT: Plaque: Moderate echogenic shadowing and non-shadowing plaque identified CCA peak systolic: 66 cm/sec CCA end diastolic: 19 cm/sec ICA peak systolic: 237 cm/sec ICA end diastolic: 108 cm/sec ICA/CCA ratio: 3.6 Estimated ICA stenosis: Greater than 70% ECA systolic: 93 cm/sec Vertebral: Antegrade LEFT: Plaque: Mild degree of atherosclerotic plaque CCA peak systolic: 105 cm/sec CCA end diastolic: 34 cm/sec ICA peak systolic: 112 cm/sec ICA end diastolic: 44 cm/sec ICA/CCA ratio: 1.1 Estimated ICA stenosis: Less than 50% ECA systolic: 81 cm/sec Vertebral: Antegrade IMPRESSION: 1. Significant stenosis in the right proximal internal carotid artery in the range of greater than 70 percent luminal narrowing. Vascular surgery evaluation recommended 2. No hemodynamically significant in the stenosis in the left internal carotid artery 3. Patent antegrade vertebral arteries This radiologist maintains RVT certification. Reference: Measurement of carotid stenosis is a ratio based on conventional angiographic data from the NASCET trials with the smallest caliber of the internal carotid as the numerator and normal post-stenotic internal carotid caliber as denominator. Stenosis based upon Society of Radiologists in Ultrasound consensus (2002): <50%: ICA PS <125 cm/sec, ICA ED <40 cm/sec, ICA/CCA ratio <2.0 50-69%: ICA PS 125-230 cm/sec , ICA ED 40-100 cm/sec, ICA/CCA ratio 2-4 >70%: ICA PS >230 cm/sec, ICA ED >100 cm/sec, ICA/CCA ratio >4 Recommended Modification of Stenosis estimation from IAC (2022): <50%: ICA PS <180 cm/sec, ICA ED <40 cm/sec, ICA/CCA ratio <2.0 50-69%: ICA PS 180-230 cm/sec , ICA ED 40-100 cm/sec, ICA/CCA ratio 2-4 >70%: ICA PS >230 cm/sec, ICA ED >100 cm/sec, ICA/CCA ratio >4 CRITICAL TEST RESULT COMMUNICATION: I communicated these findings via [employer] Secure Chat to FRANK PEREYRA on 08/15/2025 at 12:32 PM EST. Message was acknowledged. Report Dictated on Electronically Signed By: Lenin Adair MD Electronically Signed Date/Time: 08/15/2025 12:[address] [facility] 36on 08-10-2025 36 Labs faxed marko smith via right fax. [facility] 36 Called and spoke aneglica Quintana and his , Adriana, on the phone. States they recently saw Dr. Adorno at the [facility] who diagnosed him with amaurosis fugax and is recommending he get a bilateral carotid ultrasound completed. Would also like us to fax his labs from 05/09/2025 to their office. Fax number is [phone]. Please fax labs per request and order placed for carotid ultrasound. Provided with phone number for central scheduling. [facility] 36 Name of caller: Adriana Contact phone number: [phone] Relationship to Patient: spouse/SO Provider: Roddy Practice: Karli MATRINEZ Chief Complaint/Reason for Call: Adriana states this patient needs lab work and a sonogram done as well for carotid artery states this is what the eye doctor said. Please advise Adriana for further questions. Best time of day caller can be reached: any Patient advised that office/PCP has 24-48 business hours to return their call: Yes [facility] Office Visiton 08-03-2025 Follow-up visit [id number] SrinivasChelsea Jimenez 1960 M Date Provider Department Center 08/03/2025 [id number] BRISCOE [facility] URO None Family History Problem Relation Age of Onset Breast cancer Mother Ovarian cancer Mother Prostate cancer Brother Pancreatic cancer Maternal Grandmother Cancer Mother Cancer Maternal Grandmother Family Status - Relation Status Age at Mother Father Sister Alive Brother Alive Maternal Grandmother Maternal Grandfather Paternal Grandmother Paternal Grandfather Level of Service:16949 [place] POSTOP FOLLOW UP VISIT RELATED TO ORIGINAL PX Reason for Visit and Comments: Post-op [483] - Orchiectomy [facility] Progress Noteon 08-03-2025 Progress Note Nav Briscoe, MSN, A PRN, AGNP-C 08/03/2025 Urology Office Visit [facility] UROLOGY [address], [address] [facility] [id number] PATIENT NAME: Mohini Rodriguez DATE OF : 1960 REFERRING PROVIDER: No ref. provider found PCP: Christopher Dejesus MD TODAY'S DATE: 08/03/2025 Visit type: Established patient HPI: Mohini is a 64 y.o. male who presents today with chief complaints of: post surgery Referral/records review: N\A -- Urology history: 07/19/2025: Nething: right simple orchiectomy Patient states that is not having pain. Not having drainage. Wore a jock strap for the initial healing. Denies fever. Anjelica is monitoring PSA for history of brachytherapy/prostate cancer in 2003. Review of Systems: All pertinent positives and negatives per HPI as stated above. Medical History[1] Surgical History[2] Allergies[3] Physical Exam: BP 124/72 Physical Exam Vitals and nursing note reviewed. Constitutional: General: He is not in acute distress. Appearance: Normal appearance. He is not ill-appearing or toxic-appearing. Pulmonary: Effort: Pulmonary effort is normal. Genitourinary: Comments: Surgical incisions sites clean and dry. Absent right testicle. No bruising, erythema, swelling. Neurological: Mental Status: He is alert and oriented to person, place, and time. Psychiatric: Behavior: Behavior normal. Judgment: Judgment normal. Pertinent Labs: CBC: Lab Results Component Value Date WBC 3.2 (L) 05/09/2025 HGB 16.3 05/09/2025 HCT 49.2 05/09/2025 MCV 97.6 05/09/2025 PLT 183 05/09/2025 CMP: Lab Results Component Value Date CO2 24 05/09/2025 BUN 14 05/09/2025 CREATININE 1.00 05/09/2025 GLUCOSE 42 (L) 05/09/2025 ALT 42 05/09/2025 AST 29 05/09/2025 ALKPHOS 65 05/09/2025 Hemoglobin A1C: Lab Results Component Value Date HGBA1C 6.0 (H) 05/09/2025 Imaging and results/record review: Imaging: N\A Other results/records reviewed: N\A Assessment and Plan: Diagnosis Plan 1. Spermatocele Diagnosis 1: Spermatocele Tissue pathology reviewed: spermatocele Continue wearing supportive underwear Continue using ice as needed Continue using NSAIDS as needed for pain control. 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 Restrictions: Avoid strenuous activity (running, jumping etc.) for 1 weeks, avoid heavy lifting/pushing/pulling (>20 lb) for 5 days, avoid driving/operating heavy machinery for 1 week or while on narcotics for pain, avoid submerging into bath tub/hot tub/swimming pool for 2-3 weeks. All patient questions answered. Patient voiced understanding. Patient agreed with treatment plan. Discussed adverse effects and side effects of medication treatment. Follow up: as needed Nav Briscoe, MSN, MECHANICAL MANUFACTURING TECHNICIAN, AGNP-C [facility] Urology Please note that portions of this chart were dictated using [employer] electronic voice recognition software. It is possible that typos and/or omissions and/or substitutions of words and/or phrases may exist, which may alter the intended meaning of the dictating provider. 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 Nasal septal deviation 11/20/2012 Pelvis fracture (HCC) Prostate cancer (HCC) 2003 Throat cancer (HCC) [2] Past Surgical History: Procedure Laterality Date NASAL SEPTUM SURGERY ORCHIECTOMY Right 07/19/2025 simple orchiectomy PELVIC FRACTURE SURGERY PROSTATE SURGERY 2004 REPAIR INCIS HERNIA W MESH (HISTORICAL) THROAT SURGERY [3] Allergies Allergen Reactions Seasonal Normal [facility] Gastroenterology Visit Repor ton 08-02-2025 Gastroenterology Visit Report [facility] Gastroenterology [address] [place] [address] OFFICE VISIT Date of Service: 08/02/25 MR#: [id number] Acct: [id number] Name: MOHINI RODRIGUEZ Rep #: [id number] : 1960 Provider: LUNA corbett Age/Sex: 64/M Location: [facility] Status: Signed Intake Vital Signs 08/02/25 11:22 Height 6 ft 2 in Weight: 262 lb 2 oz BMI 33.6 BP 115/79 Respiration 16 Pulse 80 Temp 98.2 F Temp Source Temporal Pulse Oximetry (%) 95 Oxygen Delivery Method room air Intake Visit Reasons: PRE SCOPE ABDOMINAL ISSUES Chief Complaint: I want to get an upper and lower GI Complex Human Resources Manager Required: No Accompanied by: Is patient in pain?: No Allergies No Known Allergies Allergy (Verified 08/02/25 11:27) Medications ???Medication ???Instructions ???Recorded ???Confirmed ???Type cetirizine 5 mg tablet 5 mg PO QDAY PRN 08/01/25 08/01/25 History coenzyme Q10 10 mg capsule 10 mg PO QDAY 08/01/25 08/01/25 Hi story krill oil 500 mg capsule mg PO .QD 08/01/25 08/01/25 Histor y milk thistle seed extract 175 mg 175 mg PO QDAY 08/01/25 08/01/25 H istory capsule multivitamin 1 tab PO QAM 08/01/25 08/01/25 His tory omeprazole 20 mg tablet,delayed 20 mg PO QDAY 08/01/25 08/01/25 Hi story release tizanidine 2 mg capsule 2 mg PO Q8H PRN 08/01/25 08/01/25 History Have you fallen in the past year?: No PFSH Medical History Prostate cancer 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 Nasal septal deviation Stenosis of carotid artery Muscle spasms of neck Obesity History of malignant neoplasm of neck Social History Smoking Status: Never smoker alcohol intake: never substance use type: does not use HPI HPI Chief Complaint: I want to get an upper and lower GI Details: - long history of GERD - esophageal burning - Tums PRN - has not needed this since starting Omeprazole - Omeprazole daily for the past couple months - reports last colon was at least 12 years ago - denies any family h/o colon CA - personal h/o prostate CA and a rare throat CA - surgery, chemo and radiation to throat 2011, constant trouble swallowing, does not produce enough saliva - no issues with intubation - denies any coughing with swallowing - denies any change in bowel habits - hemorrhoids, can see blood on toilet tissue - reports he also sees more bleeding when taking NSAIDS ROS Const Constitutional: No fatigue, fever(s) or weight change ENT ENT: No difficulty swallowing Gastro GI: No abdominal pain, belching, bloating, change in bowel habits, change in stool character, coffee ground emesis, constipation, cramping, diarrhea, heartburn, difficulty swallowing, feeling full early, excessive flatus, incontinent of stools, Vomiting blood/hematemesis, Blood in stool, loose stools, Black,tarry stools, nausea/dyspepsia, pain with swallowing, vomiting or other Musc Musculoskeletal: No joint pain Skin Skin: No yellowing of the eye or itchy eyes Psych Psychiatric: No anxiety and No depression Endo Endocrine: No fatigue or weight change Aller/Imm Allergy/Immunologic: No itchy eyes Jordan/Lymp Hematologic/Lymphatic: No easy bleeding or easy bruising ROS Narrative - Gastrointestinal: Reports acid reflux, dysphagia with dry foods, variable bowel habits, hemorrhoid bleeding. Denies recent esophageal pain or blockage. - Otorhinolaryngological: Reports xerostomia; denies recent esophageal pain or obstructive sensations when swallowing. - Neurological: Denies persistent pain but acknowledges dysphagia-related challenges. - Respiratory: Denies current breathing issues or symptoms suggestive of GERD-related lung symptoms. - Musculoskeletal: Reports past significant falls leading to pelvic fractures. - Family history: Reports 's colon cancer stage 4, unspecified cancer history in maternal lineage. Exam Const General: cooperative, healthy appearing, no acute distress and well developed Nutritional Appearance: well nourished and overweight Orientation: alert and oriented x3 HENMT Head: normocephalic Ears: hearing grossly normal bilaterally Mouth: moist mucous membranes Teeth and gingiva: dentition normal Eyes Conjunctivae: conjunctivae normal Sclera: sclerae normal Neck Neck: normal visual inspection, full ROM and trachea midline Resp Effort Inspection: normal respiratory effort, able to speak in complete sentences and symmetric chest movement Neuro General: patient alert and patient oriented x3 Cranial Nerves: other (CN's grossly intact, non-focal exam) Cognition: normal cognition Speech: speech normal Gait: normal gait Psych Appearance: grossly normal (more content not included)... Normal [facility] 36on 07-20-2025 36 Spoke with pt [facility] 36on 07-19-2025 36 FU scheduled 5 @1pm with LV Alyson at [address] [facility] 36 FU alyson in 2-4 weeks [facility] Nursing Noteon 07-19-2025 Nursing Note Phase II indicated, pt awake and talking, VS stable, pt dressed and ambulated to wheelchair without difficulty, home going instructions reviewed with patient, verbal understanding demonstrated and opportunity given for questions Pt and family verbalized understanding of recovery instructions, pt verbalized a readiness to be discharged home. Pt discharged home via wheelchair accompanied by RN/volunteer. Pt has had all their belongings returned to them at discharge [facility] Nursing Note Pt received from OR via cart, spont. Resp. With MALWARE ANALYST in attendance. Placed on monitor. Monitor alarms on in PACU [facility] Op Noteon 07-19-2025 Op Note Operative Report Pre Op Diagnosis Right spermatic cysts, right Orchalgia Post Op Diagnosis Same, Right hydrocele Operating Simple Right orchiectomy Surgeon Nething Relationship Mgr none EBL 5ml Specimen right testicle Fluids crystalloid Drains none Indications This is a 64 year old male who presents with scrotal discomfort related to right scrotal Hydrocele and Spermatocele. After having a discussion on the surgical and nonsurgical options and all risks, benefits and alternatives he does wish to proceed forward with surgical removal. He has elected for orchiectomy over spermatocelectomy, hydrocelectomy Operative Report Patient was brought to the operative suite. A thorough time out was performed and everyone present was in agreement. He was placed on the table in the supine position. SCDs were on and functional. Pressure points padded. Anesthesia was induced and maintained by the OR team. He was prepped and draped in a usual sterile fashion. A midline incision in the scrotal raphe was made and dissection was carried down through the subcuticular tissue. The plane of dissection was carried down the right side and the scrotal dartos divided. The testicle and Hydrocele and Spermatocele were delivered. The spermatic cord was isolated. Lipoma was dissected away from spermatic cord. The cord was in two packets, isolating the vas deferens The cords was ligated using 2-0 vicryl and the spermatic cord divided and testicle removed The two packets were suture ligated using 2-0 vicryl There was no bleeding A 2 layer closure of the tunica vaginalis and scrotal dartos was performed using 3-0 vicryl. The wound was irrigated. The skin was closed using 4-0 monocryl. 10ml Lidocaine was instilled into the incision. Patient was awoken from anesthesia and tolerated this well. [facility] Office Visiton 07-18-2025 Follow-up visit [id number] Chelsea Rodriguez 1960 M Date Provider Department Center 07/18/2025 [id number] PEREYRA [facility] Family History Problem Relation Age of Onset Breast cancer Mother Ovarian cancer Mother Prostate cancer Brother Pancreatic cancer Maternal Grandmother Cancer Mother Cancer Maternal Grandmother Family Status - Relation Status Age at Mother Father Sister Alive Brother Alive Maternal Grandmother Maternal Grandfather Paternal Grandmother Paternal Grandfather Level of Service:82722 [place] OFFICE/OUTPT VISIT,PROCEDURE ONLY Reason for Visit and Comments: Procedure [88] - Shave biopsy- back [facility] Progress Noteon 07-18-2025 Progress Note Patient Mohini Escamilla ow 64 y.o. male, presents today with Chief Complaint Patient presents with Procedure . HPI- Mohini Rodriguez presents today for a shave biopsy of a lesion on his upper back that has been present for over a year, but it can become itchy and irritated. Uncertain if it has changed in size or appearance. Medical History[1] Surgical History[2] Family History[3] Social History Socioeconomic History Marital status: Spouse name: Not on file Number of children: Not on file Years of education: Not on file Highest education level: Not on file Occupational History Not on file Tobacco Use Smoking status: Never Smokeless tobacco: Never Vaping Use Vaping status: Never Used Substance and Sexual Activity Alcohol use: Not Currently Drug use: Never Sexual activity: Not Currently Partners: Female Other Topics Concern Not on file Social History Narrative Not on file Social Drivers of Health Financial Resource Strain: Low Risk (05/08/2025) Overall Financial Resource Strain (CARDIA) Difficulty of Paying Living Expenses: Not hard at all Food Insecurity: No Food Insecurity (05/08/2025) Hunger Vital Sign Worried About Running Out of Food in the Last Year: Never true Ran Out of Food in the Last Year: Never true Transportation Needs: No Transportation Needs (05/08/2025) PRAPARE - Transportation Lack of Transportation (Medical): No Lack of Transportation (Non-Medical): No Physical Activity: Insufficiently Active (05/08/2025) Exercise Vital Sign Days of Exercise per Week: 1 day Minutes of Exercise per Session: 10 min Stress: No Stress Concern Present (05/08/2025) [employer] [place] [employer] - Occupational Stress Questionnaire Feeling of Stress : Not at all Social Connections: Socially Integrated (05/08/2025) Social Connection and Isolation Panel [NHANES] Frequency of Communication with Friends and Family: More than three times a week Frequency of Social Gatherings with Friends and Family: More than three times a week Attends Scientology Services: More than 4 times per year Active Member of Clubs or Organizations: Yes Attends Club or Organization Meetings: More than 4 times per year Marital Status: Intimate Partner Violence: Not At Risk (05/08/2025) Humiliation, Afraid, Rape, and Kick questionnaire Fear of Current or Ex-Partner: No Emotionally Abused: No Physically Abused: No Sexually Abused: No Housing Stability: Unknown (05/08/2025) Housing Stability Vital Sign Unable to Pay for Housing in the Last Year: No Number of Times Moved in the Last Year: Not on file Homeless in the Last Year: No Health Maintenance Topic Date Due Colorectal Cancer Screening Never done Derm Melanoma Skin Check Never done Influenza Vaccine (1) Never done COVID-19 Vaccine (1 - season) Never done DTaP/Tdap/Td Vaccines (1 - Tdap) 05/09/2026 (Originally 1978) Pneumococcal Vaccine: 50+ Years (1 of 1 - PCV) 05/09/2026 (Originally 2009) Zoster Vaccines (1 of 2) 05/09/2026 (Originally 2009) Hepatitis C Screening 05/09/2026 (Originally 1977) Diabetes Screening 05/09/2026 Depression Screening 06/08/2026 Lipid Panel 05/09/2030 RSV Immunization for Adults (1 - 1-dose 75+ series) 2034 Medicare Advantage Annual Wellness Visit Completed Medicare Initial Physical (IPPE) Completed RSV Immunization under 20 Months Aged Out HIB Vaccines Aged Out Hepatitis B Vaccines Aged Out IPV Vaccines Aged Out Hepatitis A Vaccines Aged Out Meningococcal Vaccine Aged Out Rotavirus Vaccines Aged Out HPV Vaccines Aged Out Meningococcal B Vaccine Aged Out MMR Vaccines Discontinued Allergies[4] Review of Systems Skin: Raised area upper back. There were no vitals taken for this visit. Physical Exam Constitutional: General: He is not in acute distress. Appearance: He is not ill-appearing or diaphoretic. Pulmonary: Effort: Pulmonary effort is normal. Skin: General: Skin is warm and dry. Comments: Raised, brown, scaling lesion noted on right upper back. Neurological: Mental Status: He is alert and oriented to person, place, and time. Psychiatric: Mood and Affect: Mood normal. Behavior: Behavior normal. Thought Content: Thought content normal. Judgment: Judgment normal. Shave Biopsy: Reason: Neoplasm of uncertain behavior Location: upper back Size: 1 cm Procedure Consent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 Occupational Stress Questionnaire Feeling of Stress : Not at all Social Connections: Socially Integrated (05/08/2025) Social Connection and Isolation Panel [NHANES] Frequency of Communication with Friends and Family: More than three times a week Frequency of Social Gatherings with Friends and Family: More than three times a week Attends Scientology Services: More than 4 times per year Active Member of Clubs or Organizations: Yes Attends Club or Organization Meetings: More than 4 times per year Marital Status: Intimate Partner Violence: Not At Risk (05/08/2025) Humiliation, Afraid, Rape, and Kick questionnaire Fear of Current or Ex-Partner: No Emotionally Abused: No Physically Abused: No Sexually Abused: No Housing Stability: Unknown (05/08/2025) Housing Stability Vital Sign Unable to Pay for Housing in the Last Year: No Number of Times Moved in the Last Year: Not on file Homeless in the Last Year: No Family History: Medications Prior to Admission medications Medication Sig Start Date End Date Taking? Authorizing Provider Cetirizine HCl (ZYRTEC PO) Take by mouth as needed. Yes Historical Provider, coenzyme Q-10 10 MG capsule Take 10 mg by mouth daily. Yes Historical Provider, KRILL OIL PO Take by mouth. Yes Historical Provider, milk thistle 175 MG tablet Take 175 mg by mouth daily. Yes Historical Provider, Multiple Vitamin (multivitamin) tablet Take 1 tablet by mouth daily. Yes Historical Provider, omeprazole (PriLOSEC) [address] capsule Take 1 capsule (20 mg) by mouth daily. Do not crush or chew. 05/09/25 11/05/25 Yes KETAN Holguin CNP tiZANidine (Zanaflex) 2 MG tablet Take 1 tablet by mouth every 8 hours as needed for muscle spasms. May take 2 tablets before bed if needed. 05/09/25 Yes KETAN Holguin CNP Vitals: BP (!) 135/91 Physical Exam General: alert, appears stated age, and cooperative Abdomen: soft and nondistended Back: straight, CVA tenderness absent : Right testicular cysts Labs: WBC Lab Results Component Value Date WBC 3.2 (L) 05/09/2025 BMP Lab Results Component Value Date CO2 24 05/09/2025 BUN 14 05/09/2025 CREATININE 1.00 05/09/2025 GLUCOSE 42 (L) 05/09/2025 CALCIUM 9.5 05/09/2025 PSA No results found for: PSA UANo results found for: APPEARANCE, COLORU, LABSPEC, LABPH, URINE, GLUCOSEU, UROBILINOGEN, BILIRUBINUR, OCBU Review: ULTRASOUND SCROTUM: CLINICAL INDICATION: right testicular pain. TECHNIQUE: Ultrasonographic evaluation of the scrotal contents, including color flow and spectral Doppler imaging was performed. COMPARISON: None. FINDINGS: RIGHT: Testicle: Normal in size and echotexture without focal lesion. Normal color and Doppler wavefo (more content not included)... [facility] 06-27-2025 36 We have been unable to reach your patient to schedule their testing. Test Name: Physical Therapy 1st Attempt: 06.24.25 2nd Attempt: 06.27.[address] [facility] 36on 06-17-2025 36 Adriana notified [place] [id number] Does not care about location maybe in [place] and see when he is able to get in Normal [facility] 36 Does he have a prefe rence for location? [facility] [id number] 06-16-2025 [id number] Received voicemail f rom Adriana about scheduling. Called back and spoke with her, let her know it will be a 6-8 month wait before he can be scheduled for consultation. Let her know they can be referred to another GI office for a sooner appointment if they would like. She will contact his PCP. No further questions at this time. [facility] 36on 06-16-2025 36 Name of caller: Adriana Contact phone number: [phone] Relationship to Patient: spouse/SO Provider: Anjelica Practice: [facility] Chief Complaint/Reason for Call: The patient states the patient needs a new referral for Gastroenterology because the current referral office is scheduling 6 to 8 months out. They do not want to wait that long. Please advise. Note: The patient Insurance on file is correct. Best time of day caller can be reached: After 9:00 am Patient advised that office/PCP has 24-48 business hours to return their call: Yes [facility] Office Visiton 06-14-2025 Follow-up visit [id number] Chelsea Rodriguez 1960 M lEmira Provider Department Center 06/14/2025 [id number] VALENZUELA [facility] URO None Family History Problem Relation Age of Onset Breast cancer Mother Ovarian cancer Mother Prostate cancer Brother Pancreatic cancer Maternal Grandmother Cancer Mother Cancer Maternal Grandmother Family Status - Relation Status Age at Mother Father Sister Alive Brother Alive Maternal Grandmother Maternal Grandfather Paternal Grandmother Paternal Grandfather Level of Service:30748 [place] OFFICE/OUTPATIENT NEW MODERATE MDM 45 MINUTES Reason for Visit and Comments: New Patient [542] Testicle Pain [260] - Patient states he has pain in the right testicle and some cysts on that side [facility] Progress Noteon 06-14-2025 Progress Note . Urology Office Visit [facility] [address], [address] [facility] [id number] Visit type: New Patient Reason for Visit: New Patient and Testicle Pain (Patient states he has pain in the right testicle and some cysts on that side) Assessment and Plan Diagnoses and all orders for this visit: Testicular pain, right Comments: Ongoing for 35 years and getting worse. History of epididymal cysts that are getting larger. Not currently taking anything for pain. Cyst of epididymis Comments: Ongoing for 35 yrs. Cysts are getting larger/ more painful. Patient would like to discuss sx options for removal. Will schedule with Dr. Mas to discuss. Orders: - [facility] Urology Hydrocele in adult - [facility] Urology No follow-ups on file. Subjective HPI Mohini is a 64-year-old male referred for complaints of right testicle pain. Ongoing for about 35 years. 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 Does not do any follow up. Pt has cysts of the right testicle that he states he has known about but states the cysts are getting bigger. Pt states they don't typically bother him until he moves and feels they hit a nerve and states the pain is so bad that he sometimes just wants to cut them out. Ongoing x 35 years. Does pain radiate? Does not radiate. Pain characteristics (dull, sharp, throbbing, aching): sharp Pain on a scale of 1-10: 4-5/10 now. Will shoot to a 10/10 when shifting positing. Any trauma or injury? denies Recent strenuous activity, heavy lifting or long distance travel: denies Swelling, redness, or warmth: denies Any lumps noted: yes Concern for STI: no History of surgeries in the groin or scrotum? denies DEJA from 05/24/25 showed: IMPRESSION: 1. No intratesticular lesion 2. Several simple cysts in the region of the right epididymis largest measuring up to 4.7 cm 3. Simple hydroceles Assessment/plan: Epididymal cysts have been ongoing for 35 years. Pain is getting worse and cysts are getting bigger. Pt would like to discuss surgical removal of cysts. Plan to schedule with Dr. Mas to discuss surgical options. Review of Systems Allergies[1] Current Medications[2] Medical History[3] Social History[4] Surgical History[5] Surgical History[6] Family History[7] Objective BP 129/82 (BP Location: Right arm, Patient Position: Sitting, BP Cuff Size: Large adult) Pulse 69 Physical Exam Constitutional: Appearance: Normal appearance. Neurological: Mental Status: He is alert. Psychiatric: Mood and Affect: Mood normal. Behavior: Behavior normal. Thought Content: Thought content normal. Data Reviewed POCT: Labs: Imaging/Testing: Chart Clean Up: There are no discontinued medications. Nabeel Banks, MECHANICAL MANUFACTURING TECHNICIAN - [employer] 06/14/2025 10:41 AM [1] Allergies Allergen Reactions Seasonal [2] Current Outpatient Medications: Cetirizine HCl (ZYRTEC PO), Take by mouth as needed., Disp: , Rfl: coenzyme Q-10 10 MG capsule, Take 10 mg by mouth daily., Disp: , Rfl: KRILL OIL PO, Take by mouth., Disp: , Rfl: milk thistle 175 MG tablet, Take 175 mg by mouth daily., Disp: , Rfl: Multiple Vitamin (multivitamin) tablet, Take 1 tablet by mouth daily., Disp: , Rfl: omeprazole (PriLOSEC) [address] capsule, Take 1 capsule (20 mg) by mouth daily. Do not crush or chew., Disp: 90 capsule, Rfl: 1 tiZANidine (Zanaflex) 2 MG tablet, Take 1 tablet by mouth every 8 hours as needed for muscle spasms. 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 Pelvis fracture (HCC) Prostate cancer (HCC) 2004 Throat cancer ([facility]) [4] Social History Socioeconomic History Marital status: Tobacco Use Smoking status: Never Smokeless tobacco: Never Vaping Use Vaping status: Never Used Substance and Sexual Activity Alcohol use: Not Currently Drug use: Not Currently Sexual activity: Not Currently Partners: Female Social Drivers of Health Financial Resource Strain: Low Risk (05/08/2025) Overall Financial Resource Strain (CARDIA) Difficulty of Paying Living Expenses: Not hard at all Food Insecurity: No Food Insecurity (05/08/2025) Hunger Vital Sign Worried About Running Out of Food in the Last Year: Never true Ran Out of Food in the Last Year: Never true Transportation Needs: No Transportation Needs (05/08/2025) PRAPARE - Transportation Lack of Transportation (Medical): No Lack of Transportation (Non-Medical): No Physical Activity: Insufficiently Active (05/08/2025) Exercise Vital Sign Days of Exercise per Week: 1 day Minutes of Exercise per Session: 10 min (more content not included)... [facility] Office Visiton 06-10-2025 Follow-up visit [id number] Chelsea Rodriguez 1960 M Date Provider Department Center 06/10/2025 [id number] STEELE [facility] NROSURG None Family History Problem Relation Age of Onset Breast cancer Mother Ovarian cancer Mother Prostate cancer Brother Pancreatic cancer Maternal Grandmother Family Status - Relation Status Age at Mother Father Sister Alive Brother Alive Maternal Grandmother Maternal Grandfather Paternal Grandmother Paternal Grandfather Level of Service:02159 [place] OFFICE/OUTPATIENT NEW MODERATE MDM 45 MINUTES Reason for Visit and Comments: New Patient [542] - Compression fracture of L1 vertebr [facility] Progress Noteon 06-10-2025 Progress Note NEUROSURGERY CONSULT NOTE Patient Name: Mohini Rodriguez Patient : 1960 PCP: Christopher Dejesus MD History of Present Illness: 64 y.o. male presents as a referral for lumbar compression fractures. He has a history of longstanding low back pain. He denies any recent traumas or inciting events. He states he did fall off a ladder several years ago. No recent physical therapy, no bracing. He had a CT abdomen completed recently which reported age-indeterminate L1 and L3 compression fractures. He is here to establish care with a neurosurgeon. Chief Complaint Patient presents with New Patient Compression fracture of L1 vertebr Past Medical History: Medical History[1] Past Surgical History: Surgical History[2] Home Medications: Prior to Admission medications Medication Sig Start Date End Date Taking? Authorizing Provider coenzyme Q-10 10 MG capsule Take 10 mg by mouth daily. Yes Historical Provider, KRILL OIL PO Take by mouth. Yes Historical Provider, milk thistle 175 MG tablet Take 175 mg by mouth daily. Yes Historical Provider, Multiple Vitamin (multivitamin) tablet Take 1 tablet by mouth daily. Yes Historical Provider, omeprazole (PriLOSEC) [address] capsule Take 1 capsule (20 mg) by mouth daily. Do not crush or chew. 05/09/25 11/05/25 Yes KETAN Holguin CNP tiZANidine (Zanaflex) 2 MG tablet Take 1 tablet by mouth every 8 hours as needed for muscle spasms. May take 2 tablets before bed if needed. Patient taking differently: as needed. Take 1 tablet by mouth every 8 hours as needed for muscle spasms. May take 2 tablets before bed if needed. 05/09/25 Yes KETAN Holguin CNP Allergies: Seasonal Social History: TOBACCO: reports that he has never smoked. He has never used smokeless tobacco. ETOH: reports that he does not currently use alcohol. RECREATIONAL DRUG USE: Social History Substance and Sexual Activity Drug Use Not Currently Family History: Family History[3] Review of Systems: Review of Systems Negative unless otherwise documented Physical Examination: Vitals: 06/10/25 1116 BP: 93/63 Pulse: 91 Physical Exam Neurological Exam Awake and alert, oriented BUE 5/5 No drift BLE 5/5 SILT DTR 2+ Negative Pace's Lumbar tenderness to palpation Results Labs: Last 24hrs No results found for this or any previous visit (from the past 24 hours). Radiology Personal review: CT abd/pelvis reviewed and discussed. We also reviewed historical scans and compared the reports to his current studies. My interpretation is documented below. ASSESSMENT / PLAN : Mohini presents to clinic to establish care having known lumbar compression fractures. Neurological exam reassuring. He is non focal with mild lower back pain. We reviewed his CT and discussed its findings. Imaging shows L1, L3 compression deformities. No significant retropulsion. When compared to prior OSH radiological reports these were present prior and overall appear chronic in nature. He is not interested in lumbar bracing or more invasive interventions at this time. This is reasonable given his level of functioning, intact exam and their chronic appearance. I did discuss lifestyle changes with Mohini to try and limit exacerbating maneuvers while we pursue conservative management. We'll proceed with 6 weeks of physical therapy and have Mohini return to clinic at that time for re assessment and re evaluation of his progress. Milan Steele MD [facility] Neurosurgery Diagnosis Plan 1. Closed compression fracture of L3 vertebra, initial encounter ([facility]) External referral to Physical Therapy 2. Compression fracture of L1 vertebra, initial encounter ([facility]) [facility] Neurosurgery Spine Surgery External referral to Physical Therapy I have spent 45 minutes reviewing previous notes, test results, and face to face with the patient discussing the diagnosis and importance of compliance with the treatment plan, as well as documenting on the day of the visit. 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 37on 06-08-2025 37 Personalized Prevent ative Plan for Mohini Rodriguez - 06/08/2025 Medicare offers a range of preventative health benefits. Some of the tests and screenings are paid in full while others may be subject to a deductible, co-insurance, and / or copay. Some of these benefits include a comprehensive review of your medical history including lifestyle, illnesses that may run in your family, and various assessments and screenings as appropriate. After reviewing your medical record and screening and assessments performed today, your provider may have ordered immunizations, labs, imaging, and / or referrals for you. A list of these orders (if applicable) as well as your Preventative Care list are included within your After Visit Summary for your review. Referred to Department: [facility] - [place] Address: [address] Referred to Department: [facility] Gastroenterology - [place] Address: [address] [place] [address] Other Preventative Recommendations: A preventive eye exam by an eyewear consultant is recommended every 1-2 years to screen for glaucoma, cataracts, macular degeneration, and other eye disorders. A preventive dental visit is recommended every 6 months. Try to get at least 150 minutes of exercise per week or 10,000 steps per day on a pedometer. You need 1200-1500mg of calcium and 9541-8165 international units of vitamin D per day. It is possible to meet your calcium requirement with diet alone, but a vitamin D supplement is usually necessary to meet this goal. When exposed to the sun, use a sunscreen that protects against both UVA and UVB radiation with an SPF of 30 or greater. Reapply every 2-3 hours or after sweating, drying off with a towel, or swimming. Always wear a seat belt when traveling in a car. Always wear a helmet when riding a bicycle or a motorcycle [facility] No Panel Informationon 06-08 [facility] Office Visiton 06-08-2025 Follow-up visit [id number] Chelsea Rodriguez 1960 M Date Provider Department Center 06/08/2025 [id number] PEREYRA [facility] Family History Problem Relation Age of Onset Breast cancer Mother Ovarian cancer Mother Prostate cancer Brother Pancreatic cancer Maternal Grandmother Family Status - Relation Status Age at Mother Father Sister Alive Brother Alive Maternal Grandmother Maternal Grandfather Paternal Grandmother Paternal Grandfather Level of Service:[id number] [place] INITIAL PREVENTIVE EXAM Reason for Visit and Comments: Results [95] - Discuss results Medicare Annual Wellness Visit Initial [676] - Mole on back that is changing in color and size Discuss ordering of colonoscopy [facility] Progress Noteon 06-08-2025 Progress Note [facility] [place] [address] [address] [facility] [address] Dept: [phone] Dept Chief Complaint: Mohini Rodriguez is an 64 y.o. male here for an annual wellness visit. Assessment/Plan : Assessment & Plan Routine general medical examination at health care facility - Encouraged a healthy diet low in cholesterol and saturated fats. - Encouraged regular exercise. Orders: ECG 12 lead - CLINIC PERFORMED Mixed hyperlipidemia - Chronic, not well controlled - Continues to decline medication for management of cholesterol levels - Discussed a healthy diet low in cholesterol and saturated fats and the importance of regular cardiovascular exercise - Will plan to recheck levels again in 5 months for follow up Fatty liver - Discussed a healthy diet low in cholesterol and saturated fats and the importance of regular cardiovascular exercise Compression fracture of L1 vertebra, initial encounter (HCC) - Chronic, stable - Pain is relatively well controlled - Follow up with specialist as scheduled Prediabetes - Discussed a healthy diet low in carbohydrates and sugar and the importance of regular exercise - Will recheck hemoglobin A1c in 5 months for follow up Hydrocele in adult - Chronic, stable - Experiencing right testicular pain - Provided referral information to call and schedule appointment with urologist Cyst of epididymis - Chronic, stable - Experiencing right testicular pain - Provided referral information to call and schedule appointment with urologist Pain in right testicle - Chronic, stable - Experiencing right testicular pain - Provided referral information to call and schedule appointment with urologist Class 1 obesity due to excess calories without serious comorbidity with body mass index (BMI) of 33.0 to 33.9 in adult - Chronic, stable - Discussed the importance of a healthy diet and regular exercise 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 - Return for shave biopsy I have reviewed and reconciled the medication list with the patient today. Current Outpatient Medications Medication Sig Dispense Refill coenzyme Q-10 10 MG capsule Take 10 mg by mouth daily. KRILL OIL PO Take by mouth. milk thistle 175 MG tablet Take 175 mg by mouth daily. Multiple Vitamin (multivitamin) tablet Take 1 tablet by mouth daily. omeprazole (PriLOSEC) [address] capsule Take 1 capsule (20 mg) by mouth daily. Do not crush or chew. 90 capsule 1 tiZANidine (Zanaflex) 2 MG tablet Take 1 tablet by mouth every 8 hours as needed for muscle spasms. May take 2 tablets before bed if needed. 30 tablet 0 No current facility-administered medications for this visit. Also reviewed during this visit: The following health maintenance schedule was reviewed with the patient and provided in printed form in the after visit summary: Health Maintenance Topic Date Due Medicare Initial Physical (IPPE) Never done Colorectal Cancer Screening Never done DTaP/Tdap/Td Vaccines (1 - Tdap) 05/09/2026 (Originally 1978) Pneumococcal Vaccine: 50+ Years (1 of 1 - PCV) 05/09/2026 (Originally 2009) Zoster Vaccines (1 of 2) 05/09/2026 (Originally 2009) Hepatitis C Screening 05/09/2026 (Originally 1977) COVID-19 Vaccine (1 - 2023-25 season) 2026 (Originally 06/13/2024) Influenza Vaccine (1) 06/13/2025 Diabetes Screening 05/09/2026 Depression Screening 06/08/2026 Lipid Panel 05/09/2030 RSV Immunization for Adults (1 - 1-dose 75+ series) 2034 Medicare Advantage Annual Wellness Visit Completed RSV Immunization under 20 Months Aged Out HIB Vaccines Aged Out Hepatitis B Vaccines Aged Out IPV Vaccines Aged Out Hepatitis A Vaccines Aged Out Meningococcal Vaccine Aged Out Rotavirus Vaccines Aged Out HPV Vaccines Aged Out Meningococcal B Vaccine Aged Out MMR Vaccines Discontinued List of current healthcare providers: Patient Care Team: Christopher Dejesus MD as PCP - General (Family Medicine) Frank Pereyra APRN - [place] as Nurse Practitioner (Nurse Practitioner Family) Mihai Thomas MD as Surgeon (Urology) Orders Placed This Encounter Procedures ECG 12 lead - CLINIC PERFORMED Reason for exam:: Other Explanatory comment:: AWV- Welcome Review of Systems Constitutional: Negative for chills and fever. HENT: Positive for hearing loss. Negative for trouble swallowing. Eyes: Negative for pain and visual disturbance. Respiratory: Negative for cough, chest tightness, shortness of breath and wheezing. Cardiovascular: Negative for chest pain, palpitations and leg swelling. Gastrointestinal: Negative for abdominal distention, blood in stool, constipation and diarrhea. Endocrine: Negative for polydipsia, polyphagia and polyuria. Genitourinary: Positive for testicular pain (right). Negative for difficulty urinating, dysuria and hematuria. Skin: Positive for color change (more content not included)... [facility] Progress Note - Discussed a health y diet low in cholesterol and saturated fats and the importance of regular cardiovascular exercise [facility] Progress Note - Chronic, stable - Discussed the importance of a healthy diet and regular exercise [facility] Progress Note - Chronic, not well controlled - Continues to decline medication for management of cholesterol levels - Discussed a healthy diet low in cholesterol and saturated fats and the importance of regular cardiovascular exercise - Will plan to recheck levels again in 5 months for follow up [facility] Progress Note - Discussed a health y diet low in carbohydrates and sugar and the importance of regular exercise - Will recheck hemoglobin A1c in 5 months for follow up [facility] 29on 05-30-2025 29 Addended by: FRANK PEREYRA on: 05/30/2025 11:18 AM Modules accepted: Orders Normal [facility] CT ABDOMEN W IV CONTRASTon 0 05-29-2025 CT ABDOMEN W IV CONTRAST Patient Name: MOHINI RODRIGUEZ : 1960 Exam Date/Time: 05/24/2025 12:38 Procedure: CT ABDOMEN W IV CONTRAST Ordering Provider: PEREYRA HOLLY Reason For Exam: upper abdominal pain, history of neck cancer CT ABDOMEN WITH CONTRAST CLINICAL INDICATION: upper abdominal pain, history of neck cancer. TECHNIQUE: Multidetector spiral transaxial sequence was performed through the abdomen with dynamic intravenous infusion of contrast media. Coronal and sagittal reconstructions were reviewed as well. Dose reduction was employed with automated exposure control. COMPARISON: None. FINDINGS: Chest base: Normal. Liver: Diminished attenuation throughout the liver relative the spleen corresponds to fatty infiltration. No focal lesion. Biliary tree: No biliary dilatation. No calcified gallstones Spleen: Normal. Adrenals: Normal. Pancreas: Normal. Kidneys: Symmetric contrast enhancement without evidence of hydronephrosis. No focal renal lesion is identified. Free fluid: None. Lymphadenopathy: None. Aorta: Normal caliber with atherosclerotic calcification. Bowel: No dilatation is noted. Osseous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 2% MAALOX 200-200-20 mg/5 mL oral liquid 1:1:1 ([facility]) Take 5 mL by mouth three times a day as needed for up to 5 days. Swish and spit doxycycline 100 mg tablet Commonly known as: vibra-tabs Take 1 tablet by mouth two times a day for 7 days. Wait 2 hours between other medications/supplements nystatin 100,000 units/mL oral liquid Commonly known as: MYCOSTATIN Take 5 mL by mouth four times daily for 28 doses. Swish and swallow. CONTINUE taking these medications acetaminophen 325 mg tablet Commonly known as: TYLENOL Take 2 tablets by mouth every 6 hours as needed for pain. CPAP Initiate Auto PAP @ 6-20 cm of water with heated humidification. Mask (per patient preference) optional chin strap (if indicated) , filters, tubing, humidifier and lifetime supplies. DANDELION ROOT ORAL KRILL OIL ORAL MILK THISTLE ORAL MULTI VITAMIN ORAL NEXIUM ORAL PHOSPHATIDYL SERINE (more content not included)... Normal [facility] CREATININE BLDon 08-18-2024 Creatinine [Mass/Vol] 0.70 mg/dL Low 0.73-1.22 [facility] Comment on above: Order Comment: Speci men Type: BLOOD SPECIMEN Ordering Facility: [facility] Address: [address] [place] [address] Performed By: #### 2 4321-2 #### [facility] CLIA [id number] [address] [place] [address] [place] Creatinine and Glomerular filtration rate.predicted panel (S/P/Bld) 103 mL/min/1.73m??? Normal >=60 [facility] Comment on above: Order Comment: Speci men Type: BLOOD SPECIMEN Ordering Facility: [facility] Address: [address], [place] [address] Result Comment: Samaria means Glomerular Filtration Rate (eGFR) is calculated using the 2020 CKD-EPI creatinine equation. This equation utilizes serum creatinine, sex, and age as parameters. The creatinine assay has traceable calibration to isotope dilution-mass spectrometry. Refer to KDIGO guidelines for clinical interpretation. In patients with unstable renal function, e.g. those with acute kidney injury, the eGFR may not accurately reflect actual GFR. Performed By: #### 2 4321-2 #### [facility] CLIA [id number] [address] CONSULT PROGon 08-17-2024 CONSULT PROG HNO ID: [id number] Author: BERNA PATRICK RPh Service: Pharmacy Author Type: Pharmacist Type: Consult Progress Note Filed: 08/17/2024 07:27 Note Text: PHARMACY VANCOMYCIN DOSING NOTE Patient Name: Mohini Rodriguez Admission Date: 08/15/2024 Date of Consult: 08/17/2024 Time of Consult: 7:18 AM Indication: Skin/soft tissue Goal Range: 10-20 mcg/mL RECOMMENDATIONS/PLAN: Pharmacy consulted for vancomycin dosing for Mohini Rodriguez, a 63 year old male. 1. Patient is currently ordered Vancomycin 1.75 g IV q12h. Today is day 3 of therapy. 2. The most recent vancomycin level was 12.2 mcg/mL drawn at 0627 on 08/17. This is a 10 hour level on the 3rd day of therapy. 3. The present dose of vancomycin is the recommended dosage for this patient at this time. Continue therapy as prescribed. Seeing as patient is at therapeutic level, continuing with current dose. 4. The next vancomycin level has been ordered for 08/19 @0730. (Completed) Level ordered prior to fifth dose to ensure patient is therapeutic as today's level was drawn early. If next level is therapeutic, can consider ordering on the fifth day. We will follow patient renal function, vancomycin levels and doses with you during the course of therapy. Additional recommendations will appear in follow up notes. If you have any questions, please contact Berna Patrick at [facility]. Age: [age] year old Allergies: ALLERGIES Allergen Reactions Dogs Cough, Other: See Comments Nasal congestion Seasonal Allergies Cough, Other: See Comments Nasal congestion Last 3 Encounter Wt Readings: Date: Wt: 08/15/2024 112.5 kg (248 lb) 09/09/2023 113.4 kg (250 lb) 08/21/2023 113.4 kg (250 lb) Last 1 Encounter Ht Readings: Date: Ht: 08/15/2024 189 cm (6' 2.41) CrCl: 104.3 mL/min Temp (24hrs), Av.2 ?C (98.9 ?F), Min:36.9 ?C (98.5 ?F), Max:37.4 ?C (99.4 ?F) - Current Temp: 37.4 ?C (99.4 ?F) Labs BUN (mg/dL) Date Value 08/16/2024 14 08/15/2024 13 08/21/2023 12 Creatinine (mg/dL) Date Value 08/16/2024 0.96 08/15/2024 1.05 08/21/2023 0.88 WBC (k/uL) Date Value 08/16/2024 12.58 (H) 08/15/2024 13.01 (H) 08/21/2023 6.78 Vancomycin Levels: Vancomycin (ug/mL) Date/Time Value 08/17/2024 0627 12.2 Berna Patrick, [facility] Normal [facility] US DVT LOWER RTon 08-17-2024 US DVT LOWER RT * * *Final Report* * * DATE OF EXAM: Aug 17 2024 11:31AM [facility] 1007 - US DVT LOWER RT / PROCEDURE REASON: Leg pain or tenderness * * * * Physician Interpretation * * * * EXAMINATION: RIGHT LOWER EXTREMITY DEEP VENOUS ULTRASOUND WITH DOPPLER IMAGING CLINICAL HISTORY: Lower extremity swelling and pain TECHNIQUE: Grayscale with compression maneuvers, color Doppler and spectral Doppler imaging of the right proximal deep veins was performed. Grayscale with compression maneuvers of the peroneal and posterior tibial veins was performed. The right great and small saphenous veins were evaluated at their insertion to the deep system. The contralateral common femoral vein was imaged for comparison. Images were obtained and stored in a permanent archive. MQ: [id number] COMPARISON: CT pelvis 08/15/2024, 07/27/2023 RESULT: RIGHT LOWER EXTREMITY PROXIMAL DEEP VEINS Distal External Iliac, Common Femoral and proximal Profunda Veins: Compression: Normal Doppler: Normal, spontaneous respirophasic flow. Normal response to augmentation. Femoral vein: Compression: Normal Doppler: Normal, spontaneous flow. Normal response to augmentation. Popliteal vein: Compression: Normal Doppler: Normal, spontaneous flow. Normal response to augmentation. CALF DEEP VEINS Peroneal veins: Normal compression. Posterior tibial veins: Normal compression. Gastrocnemius and Soleal veins: Not imaged. SUPERFICIAL VEINS Great saphenous: Patent and compressible at insertion into common femoral vein; not otherwise assessed. Small Saphenous: Patent and compressible in the proximal calf, not otherwise assessed. Mildly prominent lymph node within the right groin measuring 14 mm in short axis. This shows a normal echogenic fatty hilum and likely represents a hyperplastic node. LEFT LOWER EXTREMITY (FOR COMPARISON) Common Femoral Vein: Compression: Normal Doppler: Normal, spontaneous respirophasic flow. Normal response to augmentation. IMPRESSION: Negative study for proximal DVT in the right lower extremity. Negative study for calf DVT in the right lower extremity. Negative study for superficial thrombophlebitis in the imaged segments of the right lower extremity. Firer [employer]que Kil[employer]: [facility] Transcribe Date/Time: Aug 17 2024 4:01P Dictated by : RAYNE FLORES MD This examination was interpreted and the report reviewed and electronically signed by: RAYNE FLORES MD on Aug 17 2024 4:03PM EST [id number] Normal [facility] Vancomycin random [Mass/Vol] on 08-17-2024 Vancomycin [Mass/Vol] 12.2 ug/mL Normal 10.0-20.0 [facility] Comment on above: Order Comment: Speci men Type: BLOOD SPECIMENOrdering Facility: [facility] Address: [address] [place] [address] Result Comment: Refe rence ranges and high/low indicator flags are provided as general guidelines only. The treating physician must determine appropriate target levels/dosing based on the specific clinical situation. Performed By: #### 4 091-5 ####[facility] [id number] [place] [address] [place] Basic metabolic 2000 panelon 08-16-2024 Anion gap [Moles/Vol] 11 mmol/L Normal 8-15 [facility] Comment on above: Order Comment: Speci men Type: BLOOD SPECIMEN Ordering Facility: [facility] Address: [address] [place] [address] Performed By: #### 2 4321-2 #### [facility] CLIA [id number] 1 [place] [address] [place] Calcium [Mass/Vol] 8.5 mg/dL Normal 8.5-10.2 [facility] Comment on above: Order Comment: Speci men Type: BLOOD SPECIMEN Ordering Facility: [facility] Address: [address] [place] [address] Performed By: #### 2 4321-2 #### [facility] CLIA [id number] [address] [place] Chloride [Moles/Vol] 99 mmol/L Normal 98-107 [facility] Comment on above: Order Comment: Speci men Type: BLOOD SPECIMEN Ordering Facility: [facility] Address: [address] [place] [address] Performed By: #### 2 4321-2 #### [facility] CLIA [id number] [address] [place] CO2 [Moles/Vol] 22 mmol/L Normal 22-30 [facility] Comment on above: Order Comment: Speci men Type: BLOOD SPECIMEN Ordering Facility: [facility] Address: [address] [place] [address] Performed By: #### 2 4321-2 #### [facility] CLIA [id number] [address] [place] Creatinine [Mass/Vol] 0.96 mg/dL Normal 0.73-1.22 [facility] Comment on above: Order Comment: Speci men Type: BLOOD SPECIMEN Ordering Facility: [facility] Address: [address] [place] [address] Performed By: #### 2 4321-2 #### [facility] CLIA [id number] 1 [place] [address] [place] Creatinine and Glomerular filtration rate.predicted panel (S/P/Bld) 88 mL/min/1.73m??? Normal >=60 [facility] Comment on above: Order Comment: Reynaldo john Type: BLOOD SPECIMEN Ordering Facility: [facility] Address: [address] [place] [address] Result Comment: Samaria mated Glomerular Filtration Rate (eGFR) is calculated using the 2020 CKD-EPI creatinine equation. This equation utilizes serum creatinine, sex, and age as parameters. The creatinine assay has traceable calibration to isotope dilution-mass spectrometry. Refer to KDIGO guidelines for clinical interpretation. In patients with unstable renal function, e.g. those with acute kidney injury, the eGFR may not accurately reflect actual GFR. Performed By: #### 2 4321-2 #### [facility] CLIA [id number] [address] [place] [address] [place] Glucose [Mass/Vol] 117 mg/dL High 74-99 [facility] Comment on above: Order Comment: Reynaldo john Type: BLOOD SPECIMEN Ordering Facility: [facility] Address: [address] [place] [address] Result Comment: The [place] Diabetes Association (ADA) provides guidance for cutoff values for fasting glucose and random glucose. The ADA defines fasting as no caloric intake for at least 8 hours. Fasting plasma glucose results between 100 to 125 mg/dL indicate increased risk for diabetes (prediabetes). Fasting plasma glucose results greater than or equal to 126 mg/dL meet the criteria for diagnosis of diabetes. In the absence of unequivocal hyperglycemia, results should be confirmed by repeat testing. In a patient with classic symptoms of hyperglycemia or hyperglycemic crisis, random plasma glucose results greater than or equal to 200 mg/dL meet the criteria for diagnosis of diabetes. Reference: Standards of Medical Care in Diabetes 2016, [place] Diabetes Association. Diabetes Care. 2016.39(Suppl 1). Performed By: #### 2 4321-2 #### [facility] CLIA [id number] [address] [place] [address] [place] Potassium [Moles/Vol] 3.9 mmol/L Normal 3.7-5.1 [facility] Comment on above: Order Comment: Speci men Type: BLOOD SPECIMEN Ordering Facility: [facility] Address: [address] [place] [address] Performed By: #### 2 4321-2 #### [facility] CLIA [id number] [address] STATES OF [facility] Sodium [Moles/Vol] 132 mmol/L Low 136-144 [facility] Comment on above: Order Comment: Speci men Type: BLOOD SPECIMEN Ordering Facility: [facility] Address: [address] [place] [address] Performed By: #### 2 4321-2 #### [facility] CLIA [id number] [address] [place] Urea nitrogen [Mass/Vol] 14 mg/dL Normal 9-24 [facility] Comment on above: Order Comment: Speci men Type: BLOOD SPECIMEN Ordering Facility: [facility] Address: [address] [place] [address] Performed By: #### 2 4321-2 #### [facility] CLIA [id number] [address] [place] CBC panel Auto (Bld)on 08-16 Erythrocyte distribution width (RBC) [Ratio] 13.7 % Normal 11.5-15.0 [facility] Comment on above: Order Comment: Speci men Type: BLOOD SPECIMENOrdering Facility: [facility] Address: [address] [place] [address] Performed By: #### 5 8410-2 ####[facility] [id number] [address] Hematocrit (Bld) [Volume fraction] 39.1 % Normal 39.0-51.0 [facility] Comment on above: Order Comment: Speci men Type: BLOOD SPECIMENOrdering Facility: [facility] Address: [address] [place] [address] Performed By: #### 5 8410-2 ####[facility] [id number] [address] [place] Hemoglobin (Bld) [Mass/Vol] 13.0 g/dL Normal 13.0-17.0 [facility] Comment on above: Order Comment: Speci men Type: BLOOD SPECIMENOrdering Facility: [facility] Address: [address] [place] [address] Performed By: #### 5 8410-2 ####[facility]CL[facility] [id number] [address] MCH (RBC) [Entitic mass] 31.9 pg Normal 26.0-34.0 [facility] Comment on above: Order Comment: Speci men Type: BLOOD SPECIMENOrdering Facility: [facility] Address: [address] [place] [address] Performed By: #### 5 8410-2 ####[facility] [id number] [address] [facility] MCHC (RBC) [Mass/Vol] 33.2 g/dL Normal 30.5-36.0 [facility] Comment on above: Order Comment: Speci men Type: BLOOD SPECIMENOrdering Facility: [facility] Address: [address] [place] [address] Performed By: #### 5 8410-2 ####[facility] [id number] [address] [facility] MCV (RBC) [Entitic vol] 95.8 fL Normal 80.0-100.0 [facility] Comment on above: Order Comment: Speci men Type: BLOOD SPECIMENOrdering Facility: [facility] Address: [address] [place] [address] Performed By: #### 5 8410-2 ####[facility] [id number] [address] Nucleated RBC (Bld) [#/Vol] 10*3/uL Normal <0.01 [facility] Comment on above: Order Comment: Speci men Type: BLOOD SPECIMENOrdering Facility: [facility] Address: [address] [place] [address] Performed By: #### 5 8410-2 ####[facility]IA [id number] [address] [place] Platelet mean volume (Bld) [Entitic vol] 9.0 fL Normal 9.0-12.7 [facility] Comment on above: Order Comment: Speci men Type: BLOOD SPECIMENOrdering Facility: [facility] Address: [address] [place] [address] Performed By: #### 5 8410-2 ####[facility]IA [id number] [address] [place] Platelets (Bld) [#/Vol] 142 10*3/uL Low 150-400 [facility] Comment on above: Order Comment: Speci men Type: BLOOD SPECIMENOrdering Facility: [facility] Address: [address] [place] [address] Performed By: #### 5 8410-2 ####[facility]CLIA [id number] [place] [address] [place] RBC (Bld) [#/Vol] 4.08 10*6/uL Low 4.20-6.00 [facility] Comment on above: Order Comment: Speci men Type: BLOOD SPECIMENOrdering Facility: [facility] Address: [address] [place] [address] Performed By: #### 5 8410-2 ####[facility]CLIA [id number] [address] [place] WBC (Bld) [#/Vol] 12.58 10*3/uL High 3.70-11.00 [facility] Comment on above: Order Comment: Speci men Type: BLOOD SPECIMENOrdering Facility: [facility] Address: [address] [place] [address] Performed By: #### 5 8410-2 ####[facility]CLIA [id number] [address] OF [facility] CONSULTon 08-16-2024 CONSULT HNO ID: [id number] Author: WILD STEWART MD Service: Orthopaedic Surgery Author Type: Physician Type: Consults Filed: 08/16/2024 10:43 Note Text: ORTHOPAEDIC SURGERY CONSULT Pt: MOHINI RODRIGUEZ Date of Consultation: 08/16/2024 Physician Consulted: Dr. Stewart Reason for Consultation: concern for septic arthritis HPI: 63 year old male presented to [facility] with worsening lower back and hip pain. Patient states he's had chronic lower back pain but this morning he woke up with excruciating pain in his hips and lower back. Pt states right hip worse than left and describes the back pain as back where my glutes are. Pt denies pain radiating down his legs. Denies numbness or tingling. He was unable to ambulate due to the pain and needed to use a wheelchair. He reports a remote fall about a month ago but states it did not result in the severe pain he is experiencing today. Pt reports a temperature of 105 F that was taken at home. He has been experiencing fevers and chills. Of note, patient previously underwent pelvic fixation with Dr. Stewart 07/2023. PAST MEDICAL HISTORY Diagnosis Date Multiple closed fractures of pelvis with unstable disruption of pelvic mcgrath (HCC) 07/28/2023 Neck mass 10/2011 Cancerous mass -Radiation Prostate cancer (HCC) 2006 Tongue cancer (HCC) PAST SURGICAL HISTORY Procedure Laterality Date BIOPSY TONGUE,WOOD LAST MAKER 10/15 PAST SURGICAL HISTORY OF 2006 seed implanted for prostate RPR UMBILICAL HRNA 5 YRS/> REDUCIBLE 2005 Hernia repair, umbilical >5yr TONSILLECTOMY HX 11/2011 right side for cancer Allergies: Dogs and Seasonal Allergies Current Facility-Administered Medications Medication Dose Route Frequency NaCl 0.9% iv flush bag 20 mL INTRAVENOUS PRN iv contrast (radiology procedure) INTRAVENOUS DIRECTED PRN iv contrast (radiology procedure) INTRAVENOUS DIRECTED PRN Current Outpatient Medications Medication Sig oxyCODONE IR (ROXICODONE) 5 mg immediate release tablet Take 1 tablet by mouth every 8 hours as needed for pain. for pain. acetaminophen (TYLENOL) 325 mg tablet Take 2 tablets by mouth every 6 hours as needed for pain. Walker misc 1 Device once daily. Wheeled walker multivit-min/ferrous fumarate (MULTI VITAMIN ORAL) Take 1 tablet by mouth once daily. RANITIDINE HCL (ZANTAC ORAL) Take 1 tablet by mouth as needed. CETIRIZINE HCL/PSEUDOEPHEDRINE (ZYRTEC-D ORAL) Take 1 tablet by mouth once daily as needed (allergies). CPAP Initiate Auto PAP @ 6-20 cm of water with heated humidification. Mask (per patient preference) optional chin strap (if indicated) , filters, tubing, humidifier and lifetime supplies. FAMILY HISTORY Problem Relation Age of Onset Cancer Mother Cancer Maternal Grandmother Negative for family history of bleeding and clotting disorders. Social History Tobacco Use Smoking status: Never Smokeless tobacco: Never Vaping Use Vaping status: Never Used Substance Use Topics Alcohol use: No Comment: Previous heavy drinker. quit 9 yrs ago Drug use: No Comment: Remote use ROS: 10 pt ROS neg except in HPI O: Vitals: BP 94/64 Pulse (!) 97 Temp 37.8 ?C (100.1 ?F) (Oral) Resp 23 Wt 112.5 kg (248 lb) SpO2 (!) 93% BMI 31.84 kg/m? Physical exam: General: Alert, answers all questions appropriately, no acute distress. Cooperative throughout entire interview and exam Left Lower Extremity: Some pain with passive range of motion. Able to actively range left hip. No pain with short arc ROM. Positive TIAGO test. Alignment normal. No gross deformities. No swelling, ecchymosis, or erythema. No open wounds or lacerations. Compartments of the thigh and leg are soft and compressible. The patient tolerates passive stretch of the digits SILT Rangel/Sa/DP/SP/T. Motor intact EHL/DF/PF. DP/PT pulses palpable; BCR all digits. Right Lower Extremity Some pain with passive range of motion. Able to actively range right hip. No pain with short arc ROM. Positive TIAGO test. Area of possible cellulitis distal lower leg Alignment normal. No gross deformities. No open wounds or lacerations. Compartments of the thigh and leg are soft and compressible. The patient tolerates passive stretch of the digits SILT Rangel/Sa/DP/SP/T. Motor intact EHL/DF/PF. DP/PT pulses palpable; BCR all digits. Labs: BMP: Sodium 135 08/15/2024 Potassium 3.8 08/15/2024 Chloride 101 08/15/2024 CO2 20 08/15/2024 BUN 13 08/15/2024 Creatinine, Whole Blood (iSTAT) 1.05 08/15/2024 Glucose 119 08/15/2024 CBC: WBC 13.01 08/15/2024 HGB 14.5 08/15/2024 Hematocrit 43.0 08/15/2024 Platelet Count 163 08/15/2024 COAGS: APTT 25.9 07/27/2023 PT INR 1.0 07/27/2023 SED RATE/CRP: CRP 2.2 08/15/2024 Imaging: -XR of the hips and pelvis: Reviewed and demonstrates no acute fractures or dislocations. Prior surgical fixation of the pelvis is visualized with stable hardware. -CT abdomen and pelvis: Reviewed and demons (more content not included)... Normal [facility] CONSULT PROGon 08-16-2024 CONSULT PROG HNO ID: [id number] Author: MARY KAY PRAKASH RPh Service: Pharmacy Author Type: Pharmacist Type: Consult Progress Note Filed: 08/16/2024 04:00 Note Text: PHARMACY VANCOMYCIN DOSING NOTE Patient Name: Mohini Rodriguez Admission Date: 08/15/2024 Date of Consult: 08/16/2024 Time of Consult: 3:57 AM Indication: Skin/soft tissue Goal Range: 10-20 mcg/mL RECOMMENDATIONS/PLAN: Pharmacy consulted for vancomycin dosing for Mohini Rodriguez, a 63 year old male. 1. Patient is currently ordered Vancomycin 1.75 g IV q12h. Today is day 2 of therapy. First dose was 08/15 2. No vancomycin level has been drawn for this dosing regimen. 3. The present dose of vancomycin is the recommended dosage for this patient at this time. Continue therapy as prescribed. Will get level before 4th dose 4. The next vancomycin level has been ordered for 730 on 08/17. (Completed) We will follow patient renal function, vancomycin levels and doses with you during the course of therapy. Additional recommendations will appear in follow up notes. If you have any questions[place] [phone]. Age: [age] year old Allergies: ALLERGIES Allergen Reactions Dogs Cough, Other: See Comments Nasal congestion Seasonal Allergies Cough, Other: See Comments Nasal congestion Last 3 Encounter Wt Readings: Date: Wt: 08/15/2024 112.5 kg (248 lb) 09/09/2023 113.4 kg (250 lb) 08/21/2023 113.4 kg (250 lb) Last 1 Encounter Ht Readings: Date: Ht: 08/15/2024 189 cm (6' 2.41) CrCl: 95.4 mL/min Temp (24hrs), Av.3 ?C (99.1 ?F), Min:36.2 ?C (97.2 ?F), Max:37.8 ?C (100.1 ?F) - Current Temp: 36.2 ?C (97.2 ?F) Labs BUN (mg/dL) Date Value 08/15/2024 13 08/21/2023 12 07/29/2023 14 Creatinine (mg/dL) Date Value 08/15/2024 1.05 08/21/2023 0.88 07/29/2023 0.87 WBC (k/uL) Date Value 08/15/2024 13.01 (H) 08/21/2023 6.78 07/29/2023 4.95 Vancomycin Levels: No results found for: ORAL Prakash [facility] ED NOTEon 08-16-2024 ED NOTE HNO ID: [id number] Author: JAMES SUAZO RN Service: ? Author Type: Registered Nurse Type: ED Notes Filed: 08/16/2024 03:25 Note Text: Inpatient RN informed this RN she has no further questions on patient. [facility] ED PROV NOTEon 08-16-2024 ED PROV NOTE HNO ID: [id number] Author: BREE ANN MD Service: Emergency Medicine Author Type: Resident Type: ED Provider Notes Filed: 09/10/2024 22:45 Note Text: -- Attestation signed by Bree Ann MD at 09/10/2024 10:45 PM Signature: Bree Ann MD Date: 09/10/2024 Time: 10:45 PM -- ED CONTINUATION OF CARE NOTE Code Status: Prior Assumed care from: Dr. Weir Presentation / Findings / Interventions / Plan / Items to Follow Up: Briefly, 63-year-old male presenting to the emergency department for evaluation of fever. Severe pain in his right hip and ischial region initially. Also had some erythema to the right lower leg. Concern for septic arthritis versus right lower extremity cellulitis. Did meet sepsis criteria with a leukocytosis of 13 and a lactate of 2.0. Given fluids, covered with vancomycin and Rocephin. Pending formal orthopedic consultation. Clinical Impressions as of 08/16/24 0227 Sepsis (HCC) Cellulitis of right lower extremity Medical Decision Making Orthopedic surgery saw and evaluated the patient at the bedside. No indication for taking the patient to the operating room. They stated that they would follow the patient inpatient and should he be admitted to the medical team. Do believe he requires IV antibiotics given his sepsis. At this time the source is right lower extremity cellulitis. Spoke with the [facility] inpatient medical team, accepted the patient for admission. Adolfo Mcdermott Emergency Medicine Resident Physician, PGY-2 [facility] This note was created using [employer] dictation software. Every attempt was made to proofread, however you may find errors regardless of how insignificant they may be. They are purely unintentional and if there are any concerns regarding this dictation, please do not hesitate to call the dictating provider for clarification. SIGNATURE: Adolfo Mcdermott DO PATIENT NAME: Mohini Rodriguez DATE: August 16, 2024 TIME: 2:27 AM PAGER/CONTACT #: ADOLFO MCDERMOTT 08/16/24 [id number] BREE ANN 09/10/24 2245 Normal [facility] HISTORY PHYSICALon HISTORY PHYSICAL HNO ID: [id number] Author: CORBY SEALS II, MD Service: Hospital Medicine Author Type: Physician Type: H&P Filed: 08/16/2024 04:24 Note Text: DEPARTMENT OF HOSPITAL MEDICINE HISTORY AND PHYSICAL EXAM SERVICE DATE: 08/16/2024 SERVICE TIME: 3:09 AM Primary Care Physician: Malik Palacios MD NIGHT AND WEEKEND COVERAGE: From 7am - 7pm, please call Sound attending After 7pm, please call cross cover pager #[phone] ASSESSMENT AND PLAN: 1) Cellulitis of RLE, right hip pain - Admit to Inpatient - Vancomycin 1.75 g Q12H IV, will monitor BMP daily for renal function - ceftriaxone 1 g IV daily - morphine 4 mg IV Q6H prn mod/severe pain - BMP in am - CBC in am - ortho consult Chief Complaint:, No pain, right hip pain HPI: Mohini Rodriguez is a 63 year old male with history of tongue Ca and hx of prostate CA who presents to the hospital due to progressively worsening abdominal pain and right hip pain that started shortly after breakfast yesterday. The patient also endorses fevers but denies any other symptoms, such as shortness of breath, cough, wheezing, chest pain, palpitations, nausea, vomiting, diarrhea, dysuria or lower extremity swelling. He has a erythematous rash on the anterior aspect of his right méndez. Labs revealed WBCs of 13.01, otherwise normal CBC, Na of 135, Cr of 1.05 (baseline 1.00) and bicarb of 20. CT L-Spine w/ recon data showed multilevel degenerative disc disease, multilevel canal stenosis which appears to be severe at L3-L4 and at least moderate at L2-L3 and L4-L5. CT HIP W IVCON RIGHT showed no acute pathology. CT Abd/Pelvis w/ contrast showed mild colonic diverticulosis. Portable CXR showed no acute pathology. XR HIP BILATERAL 5V PEL/AP/LAT EACH HIP showed no acute pathology. XR right ankle showed no acute pathology. The ED gave 1.0L NS, 650 of Tylenol, 0.5 of Dilaudid, 4 of morphine and started vanc and ceftriaxone. ########################## ########################## # ########################## ########################## # ########################## ########################## # OTHER HISTORY################### ################### ########################## ########################## # ########################## ########################## # ########################## ########################## # ROS: Negative except those noted in HPI above PHYSICAL EXAM GENERAL: Alert, no distress, cooperative SKIN : Warm, dry intact, no open lesions, no rashes HEAD / SINUSES : Normocephalic, atraumatic, oral mucosa moist EYES : PERRLA, EOMI NECK : No jugulovenous distention, Supple, no adenopathy LUNGS : Lungs clear to auscultation, no wheezes, rhonchi, or rales CARDIAC : RRR, Normal S1 and S2; no rubs, murmurs, or gallops ABDOMEN : Abdomen soft, non - tender, BS normal, No masses or organomegaly EXTREMITIES : Extremities normal, no deformities, edema, clubbing or skin discoloration erythematous, warm and tender rash on the anterior aspect of right méndez. Rash has been outlined in pen. NEURO : Sensation grossly intact, Cranial nerves II - XII intact, moves all 4 extremities, speech was clear and coherent - no chronic morejon All pertinent labs, imaging, medical Hx, Surgical Hx, Family Hx, Social Hx, home medications, and allergies reviewed. See below. 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 quit 9 yrs ago Drug use: No Comment: Remote use HOME MEDICATIONS ALLERGIES Dogs Cough, Other: See Comments Seasonal Allergies Cough, Other: See Comments VITALS BP: 95/68 HR: 96 RR: 22 Temp: 100.1 LABS Na: 135 (L) K: 3.8 Cr: 1.05 bicarb: 20 (L) glucose: 119 (H) A Ca: 9.2 total protein: 6.7 (more content not included)... Normal [facility] Lactate (Bld) [Moles/Vol]on 08-16-2024 Lactate [Moles/Vol] 1.6 mmol/L Normal 0.5-2.2 [facility] Comment on above: Order Comment: Speci men Type: BLOOD SPECIMENOrdering Facility: [facility] Address: [address] [place] [address] Performed By: #### 3 2693-4 ####[facility] [id number] [address] Urinalysis complete panel (U )on 08-16-2024 Bilirubin Ql (U) Negative Normal Negative [facility] Comment on above: Order Comment: Speci men Type: BLOOD SPECIMEN Ordering Facility: [facility] Address: [address] [place] [address] Performed By: #### 2 4321-2 #### [facility] CLIA [id number] [address] Clarity (Unsp spec) Clear Normal Clear [facility] Comment on above: Order Comment: Speci men Type: BLOOD SPECIMEN Ordering Facility: [facility] Address: [address] [place] [address] Performed By: #### 2 4321-2 #### [facility] CLIA [id number] [address] Color (U) Yellow Normal yellow [facility] Comment on above: Order Comment: Speci men Type: BLOOD SPECIMEN Ordering Facility: [facility] Address: [address] [place] [address] Performed By: #### 2 4321-2 #### [facility] CLIA [id number] [address] Epithelial cells LM.HPF (Urine sed) [#/Area] Few Abnormal None Seen [facility] Comment on above: Order Comment: Speci men Type: BLOOD SPECIMEN Ordering Facility: [facility] Address: [address] [place] [address] Performed By: #### 2 4321-2 #### [facility] CLIA [id number] [address] OF [place] Glucose Test strip (U) [Mass/Vol] Negative Normal Trace, Negative [facility] Comment on above: Order Comment: Speci men Type: BLOOD SPECIMEN Ordering Facility: [facility] Address: [address] [place] [address] Performed By: #### 2 4321-2 #### [facility] CLIA [id number] [address] Hemoglobin Ql (U) Negative Normal Negative, Trace [facility] Comment on above: Order Comment: Speci men Type: BLOOD SPECIMEN Ordering Facility: [facility] Address: [address] [place] [address] Performed By: #### 2 4321-2 #### [facility] CLIA [id number] [address] [facility] Hyaline casts (Urine sed) [#/Area] 1-3 /LPF Abnormal 0 /LPF [facility] Comment on above: Order Comment: Speci men Type: BLOOD SPECIMEN Ordering Facility: [facility] Address: [address] [place] [address] Performed By: #### 2 4321-2 #### [facility] CLIA [id number] [address] OF [place] Ketones Ql (U) Negative Normal Negative, Trace [facility] Comment on above: Order Comment: Speci men Type: BLOOD SPECIMEN Ordering Facility: [facility] Address: [address] [place] [address] Performed By: #### 2 4321-2 #### [facility] CLIA [id number] [address] [place] Leukocyte esterase Test strip Ql (U) Negative Normal Negative, 25 Maddie/uL [facility] Comment on above: Order Comment: Speci men Type: BLOOD SPECIMEN Ordering Facility: [facility] Address: [address] [place] [address] Performed By: #### 2 4321-2 #### [facility] CLIA [id number] [address] [place] Nitrite Ql (U) Negative Normal Negative [facility] Comment on above: Order Comment: Speci men Type: BLOOD SPECIMEN Ordering Facility: [facility] Address: [address] [place] [address] Performed By: #### 2 4321-2 #### [facility] CLIA [id number] [address] pH (U) 6.0 [pH] Normal 5.0-8.0 [facility] Comment on above: Order Comment: Speci men Type: BLOOD SPECIMEN Ordering Facility: [facility] Address: [address] [place] [address] Performed By: #### 2 4321-2 #### [facility] CLIA [id number] [address] [place] Protein (U) [Mass/Vol] Trace Normal Trace, Negative [facility] Comment on above: Order Comment: Speci men Type: BLOOD SPECIMEN Ordering Facility: [facility] Address: [address] [place] [address] Performed By: #### 2 4321-2 #### [facility] CLIA [id number] [address] STATES OF [facility] RBC LM.HPF (Urine sed) [#/Area] 0-3 /HPF Normal 0-3 /HPF [facility] Comment on above: Order Comment: Speci men Type: BLOOD SPECIMEN Ordering Facility: [facility] Address: [address] [place] [address] Performed By: #### 2 4321-2 #### [facility] CLIA [id number] [address] OF [place] Specific gravity (U) [Rel density] >1.040 High 1.005-1.030 [facility] Comment on above: Order Comment: Speci men Type: BLOOD SPECIMEN Ordering Facility: [facility] Address: [address] [place] [address] Performed By: #### 2 4321-2 #### [facility] CLIA [id number] [address] [place] Urobilinogen Ql (U) Normal Normal Normal [facility] Comment on above: Order Comment: Speci men Type: BLOOD SPECIMEN Ordering Facility: [facility] Address: [address] [place] [address] Performed By: #### 2 4321-2 #### [facility] CLIA [id number] [address] WBC LM.HPF (Urine sed) [#/Area] 0-5 /HPF Normal 0-5 /HPF [facility] Comment on above: Order Comment: Speci men Type: BLOOD SPECIMEN Ordering Facility: [facility] Address: [address] [place] [address] Performed By: #### 2 4321-2 #### [facility] CLIA [id number] [address] Bacteria Bld Culton 08-15-20 24 Bacteria identified Cx Nom (Bld) CULTURE, BLOOD: No growth 5 days Normal [facility] Comment on above: Performed By: #### 6 00-7 ####[facility]CLIA [id number] [address] CBC W Auto Differential pane l (Bld)on 08-15-2024 Basophils (Bld) [#/Vol] 10*3/uL Normal <0.11 [facility] Comment on above: Order Comment: Speci men Type: BLOOD SPECIMENOrdering Facility: [facility] Address: [address] [place] [address] Performed By: #### 5 7021-8 ####[facility]ORYCLIA [id number] [address] Basophils/100 WBC (Bld) 0.2 % Normal [facility] Comment on above: Order Comment: Speci men Type: BLOOD SPECIMENOrdering Facility: [facility] Address: [address] [place] [address] Performed By: #### 5 7021-8 ####[facility]ORYCLIA [id number] [address] Differential cell count method Nom (Bld) Auto Normal [facility] Comment on above: Order Comment: Speci men Type: BLOOD SPECIMENOrdering Facility: [facility] Address: [address] [place] [address] Performed By: #### 5 7021-8 ####[facility] [id number] [address] Eosinophils (Bld) [#/Vol] 10*3/uL Normal <0.46 [facility] Comment on above: Order Comment: Speci men Type: BLOOD SPECIMENOrdering Facility: [facility] Address: [address] [place] [address] Performed By: #### 5 7021-8 ####[facility] [id number] [address] Eosinophils/100 WBC (Bld) 0.0 % Normal [facility] Comment on above: Order Comment: Speci men Type: BLOOD SPECIMENOrdering Facility: [facility] Address: [address] [place] [address] Performed By: #### 5 7021-8 ####[facility]ORYCLIA [id number] [address] Erythrocyte distribution width (RBC) [Ratio] 13.6 % Normal 11.5-15.0 [facility] Comment on above: Order Comment: Speci men Type: BLOOD SPECIMENOrdering Facility: [facility] Address: [address] [place] [address] Performed By: #### 5 7021-8 ####[facility]CL[facility] [id number] [address] Hematocrit (Bld) [Volume fraction] 43.0 % Normal 39.0-51.0 [facility] Comment on above: Order Comment: Speci men Type: BLOOD SPECIMENOrdering Facility: [facility] Address: [address] [place] [address] Performed By: #### 5 7021-8 ####[facility]CLIA [id number] [address] Hemoglobin (Bld) [Mass/Vol] 14.5 g/dL Normal 13.0-17.0 [facility] Comment on above: Order Comment: Speci men Type: BLOOD SPECIMENOrdering Facility: [facility] Address: [address] [place] [address] Performed By: #### 5 7021-8 ####[facility]CLIA [id number] [place] [address] [place] Immature granulocytes (Bld) [#/Vol] 0.06 10*3/uL Normal <0.10 [facility] Comment on above: Order Comment: Speci men Type: BLOOD SPECIMENOrdering Facility: [facility] Address: [address] [place] [address] Performed By: #### 5 7021-8 ####[facility]ORYCLIA [id number] [place] [address] [place] Immature granulocytes/100 WBC (Bld) 0.5 % Normal [facility] Comment on above: Order Comment: Speci men Type: BLOOD SPECIMENOrdering Facility: [facility] Address: [address] [place] [address] Performed By: #### 5 7021-8 ####[facility]ORYCLIA [id number] [place] [address] [place] Lymphocytes (Bld) [#/Vol] 0.42 10*3/uL Low 1.00-4.00 [facility] Comment on above: Order Comment: Speci men Type: BLOOD SPECIMENOrdering Facility: [facility] Address: [address] [place] [address] Performed By: #### 5 7021-8 ####[facility]CLIA [id number] [place] [address] [place] Lymphocytes/100 WBC (Bld) 3.2 % Normal [facility] Comment on above: Order Comment: Speci men Type: BLOOD SPECIMENOrdering Facility: [facility] Address: [address] [place] [address] Performed By: #### 5 7021-8 ####[facility]ORYCLIA [id number] [address] MCH (RBC) [Entitic mass] 32.2 pg Normal 26.0-34.0 [facility] Comment on above: Order Comment: Speci men Type: BLOOD SPECIMENOrdering Facility: [facility] Address: [address] [place] [address] Performed By: #### 5 7021-8 ####[facility]ORYCLIA [id number] [address] [place] MCHC (RBC) [Mass/Vol] 33.7 g/dL Normal 30.5-36.0 [facility] Comment on above: Order Comment: Speci men Type: BLOOD SPECIMENOrdering Facility: [facility] Address: [address] [place] [address] Performed By: #### 5 7021-8 ####[facility]ORYCLIA [id number] [address] [place] MCV (RBC) [Entitic vol] 95.3 fL Normal 80.0-100.0 [facility] Comment on above: Order Comment: Speci men Type: BLOOD SPECIMENOrdering Facility: [facility] Address: [address] [place] [address] Performed By: #### 5 7021-8 ####[facility]ORYCLIA [id number] [address] [place] Monocytes (Bld) [#/Vol] 1.06 10*3/uL High <0.87 [facility] Comment on above: Order Comment: Speci men Type: BLOOD SPECIMENOrdering Facility: [facility] Address: [address] [place] [address] Performed By: #### 5 7021-8 ####[facility]ORYCLIA [id number] [address] Monocytes/100 WBC (Bld) 8.1 % Normal [facility] Comment on above: Order Comment: Speci men Type: BLOOD SPECIMENOrdering Facility: [facility] Address: [address] [place] [address] Performed By: #### 5 7021-8 ####[facility]ORYCLIA [id number] [address] [place] Neutrophils (Bld) [#/Vol] 11.45 10*3/uL High 1.45-7.50 [facility] Comment on above: Order Comment: Speci men Type: BLOOD SPECIMENOrdering Facility: [facility] Address: [address] [place] [address] Performed By: #### 5 7021-8 ####[facility] LABORATORYCLIA [id number] [address] [place] Neutrophils/100 WBC (Bld) 88.0 % Normal [facility] Comment on above: Order Comment: Speci men Type: BLOOD SPECIMENOrdering Facility: [facility] Address: [address] [place] [address] Performed By: #### 5 7021-8 ####[facility] LABORATORYCLIA [id number] [address] [facility] Nucleated RBC (Bld) [#/Vol] 10*3/uL Normal <0.01 [facility] Comment on above: Order Comment: Speci men Type: BLOOD SPECIMENOrdering Facility: [facility] Address: [address] [place] [address] Performed By: #### 5 7021-8 ####[facility] LABORATORYCLIA [id number] [address] Nucleated RBC/100 WBC (Bld) [Ratio] 0.0 /100 WBC Normal [facility] Comment on above: Order Comment: Speci men Type: BLOOD SPECIMENOrdering Facility: [facility] Address: [address] [place] [address] Performed By: #### 5 7021-8 ####[facility] LABORATORYCLIA [id number] [address] Platelet mean volume (Bld) [Entitic vol] 9.3 fL Normal 9.0-12.7 [facility] Comment on above: Order Comment: Speci men Type: BLOOD SPECIMENOrdering Facility: [facility] Address: [address] [place] [address] Performed By: #### 5 7021-8 ####[facility] LABORATORYCLIA [id number] [address] STATES OF [facility] Platelets (Bld) [#/Vol] 163 10*3/uL Normal 150-400 [facility] Comment on above: Order Comment: Speci men Type: BLOOD SPECIMENOrdering Facility: [facility] Address: [address] [place] [address] Performed By: #### 5 7021-8 ####[facility] LABORATORYCLIA [id number] [place] [address] [place] RBC (Bld) [#/Vol] 4.51 10*6/uL Normal 4.20-6.00 [facility] Comment on above: Order Comment: Speci men Type: BLOOD SPECIMENOrdering Facility: [facility] Address: [address] [place] [address] Performed By: #### 5 7021-8 ####[facility] LABORATORYCLIA [id number] [address] STATES OF [facility] WBC (Bld) [#/Vol] 13.01 10*3/uL High 3.70-11.00 [facility] Comment on above: Order Comment: Speci men Type: BLOOD SPECIMENOrdering Facility: [facility] Address: [address] [place] [address] Performed By: #### 5 7021-8 ####[facility] LABORATORYCLIA [id number] [address] OF [place] CRP SerPl-mCncon 08-15-2024 CRP [Mass/Vol] 2.2 mg/dL High <0.9 [facility] Comment on above: Order Comment: Speci men Type: BLOOD SPECIMENOrdering Facility: [facility] Address: [address] [place] [address] Performed By: #### 2 4323-8, 1988-02 ####[facility] LABORATORYCLIA [id number] [place] [address] [place] [address] ABD/PEL W IVCONon 03-[address]BD/PEL W IVCON * * *Final Report* * * DATE OF EXAM: Aug 15 2024 7:52PM [facility] 0530 - CT ABD/PEL W IVCON / PROCEDURE REASON: Abdominal abscess/infection suspected * * * * Physician Interpretation * * * * EXAMINATION: CT ABDOMEN AND PELVIS WITH IV CONTRAST; CT right hip with contrast CLINICAL HISTORY: Abdominal pain and back pain and right hip pain TECHNIQUE: CT of the abdomen and pelvis was performed using standard technique, scanning from just above the dome of the diaphragm to the symphysis pubis. Axial, coronal and sagittal reformatted images were created of the right hip. MQ: CTAP_3 Contrast: IV: 100 ml of Omnipaque 350 : ml of CT Radiation dose: Integrated Dose-length product (DLP) for this visit = 1676 mGy*cm. CT Dose Reduction Employed: Automated exposure control(AEC) and iterative recon COMPARISON: CT abdomen 07/27/2023 RESULT: CT ABDOMEN PELVIS: Liver: No mass. Biliary: No bile duct dilation. Gallbladder is unremarkable. Spleen: No mass. No splenomegaly. Pancreas: No mass or duct dilation. Adrenals: No mass. Kidneys: No mass, calculus or hydronephrosis. GI tract: No dilation or wall thickening. Stomach and small bowel are unremarkable. Mild colonic diverticulosis. Appendix appears normal. Lymph nodes: No abdominal or pelvic lymphadenopathy. Mesentery/Peritoneum: No ascites or mass. Retroperitoneum: No mass. Vasculature: No aortic aneurysm. Major abdominal vasculature appears patent. Pelvis: No mass, ascites or fluid collection. There are brachytherapy seeds within the prostate. Bones/Soft Tissues: Lumbar spine will be reported separately. CT PELVIS AND RIGHT HIP: There is a large screw which traverses the right SI joint and much of the sacrum. No osseous abnormality surrounding the screw. There is no evidence of sacral fracture or osseous destructive change. Prior right superior ramus fracture appears healed. There is a screw which traverses the right superior acetabulum and ramus. Right inferior pubic ramus fracture has healed. There is no evidence of a new fracture. No suspicious osseous lesion. No fracture or suspicious osseous lesion of the right hip. No evidence of a joint effusion. The soft tissues surrounding the right hip are unremarkable. Lower thorax: Unremarkable. Localizer images: IMPRESSION: CT ABDOMEN AND PELVIS: 1. No acute intra-abdominal abnormality is seen 2. Mild colonic diverticulosis CT RIGHT HIP: 1. No acute osseous abnormality is seen. Prior fractures appear healed. Firer Bisque Kiln: FLORI Transcribe Date/Time: Aug 15 2024 8:39P Dictated by : PAULIE SHOOK MD This examination was interpreted and the report reviewed and electronically signed by: PAULIE SHOOK MD on Aug 15 2024 8:48PM EST [id number] Normal [facility] CT HIP W IVCON RTon 08-15-20 CT HIP W IVCON RT * * *Final Report* * * DATE OF EXAM: Aug 15 2024 7:52PM [facility] 0047 - CT HIP W IVCON RT / PROCEDURE REASON: Prior pelvic fixation, now septic with hip pain * * * * Physician Interpretation * * * * EXAMINATION: CT ABDOMEN AND PELVIS WITH IV CONTRAST; CT right hip with contrast CLINICAL HISTORY: Abdominal pain and back pain and right hip pain TECHNIQUE: CT of the abdomen and pelvis was performed using standard technique, scanning from just above the dome of the diaphragm to the symphysis pubis. Axial, coronal and sagittal reformatted images were created of the right hip. MQ: CTAP_3 Contrast: IV: 100 ml of Omnipaque 350 : ml of CT Radiation dose: Integrated Dose-length product (DLP) for this visit = 1676 mGy*cm. CT Dose Reduction Employed: Automated exposure control(AEC) and iterative recon COMPARISON: CT abdomen 07/27/2023 RESULT: CT ABDOMEN PELVIS: Liver: No mass. Biliary: No bile duct dilation. Gallbladder is unremarkable. Spleen: No mass. No splenomegaly. Pancreas: No mass or duct dilation. Adrenals: No mass. Kidneys: No mass, calculus or hydronephrosis. GI tract: No dilation or wall thickening. Stomach and small bowel are unremarkable. Mild colonic diverticulosis. Appendix appears normal. Lymph nodes: No abdominal or pelvic lymphadenopathy. Mesentery/Peritoneum: No ascites or mass. Retroperitoneum: No mass. Vasculature: No aortic aneurysm. Major abdominal vasculature appears patent. Pelvis: No mass, ascites or fluid collection. There are brachytherapy seeds within the prostate. Bones/Soft Tissues: Lumbar spine will be reported separately. CT PELVIS AND RIGHT HIP: There is a large screw which traverses the right SI joint and much of the sacrum. No osseous abnormality surrounding the screw. There is no evidence of sacral fracture or osseous destructive change. Prior right superior ramus fracture appears healed. There is a screw which traverses the right superior acetabulum and ramus. Right inferior pubic ramus fracture has healed. There is no evidence of a new fracture. No suspicious osseous lesion. No fracture or suspicious osseous lesion of the right hip. No evidence of a joint effusion. The soft tissues surrounding the right hip are unremarkable. Lower thorax: Unremarkable. Localizer images: IMPRESSION: CT ABDOMEN AND PELVIS: 1. No acute intra-abdominal abnormality is seen 2. Mild colonic diverticulosis CT RIGHT HIP: 1. No acute osseous abnormality is seen. Prior fractures appear healed. Firer Bisque Kiln: FLORI Transcribe Date/Time: Aug 15 2024 8:39P Dictated by : PAULIE SHOOK MD This examination was interpreted and the report reviewed and electronically signed by: PAULIE SHOOK MD on Aug 15 2024 8:48PM EST [id number] Normal [facility] CT LUMBAR SPINE W RECON DATA -NBon 08-15-2024 CT LUMBAR SPINE W RECON DATA -NB * * *Final Report* * * DATE OF EXAM: Aug 15 2024 7:52PM [facility] 0481 - CT LUMBAR SPINE W RECON DATA -NB / PROCEDURE REASON: Low back pain, trauma * * * * Physician Interpretation * * * * EXAMINATION: CT LUMBAR SPINE W RECON DATA -NB CLINICAL HISTORY: Low back pain, trauma; back pain and right hip pain TECHNIQUE: Spiral, high resolution axial unenhanced images were obtained from the thoracolumbar junction to the sacrum with sagittal and coronal planar reconstructions. MQ: CTLSPWO_3 CT Radiation dose: Integrated Dose-Length Product (DLP) for this visit = 1676 mGy*cm. CT Dose Reduction Employed: Automated exposure control(AEC) and iterative recon COMPARISON: CT abdomen 07/27/2023 RESULT: Counting reference: Lumbosacral junction. For the purposes of this report, L4-5 is considered the level of the iliac crest and assume there are 5 lumbar-type vertebrae. Anatomic variant: None. Child And Adolescent Psychiatrist (topogram) images: Alignment: Alignment is anatomic. Bone marrow /fracture: No evidence of a lytic or blastic process in the visualized spine. Moderate to severe chronic fracture of L1. No significant change compared to prior. There is a mild chronic fracture superior endplate of L3, similar compared to prior. No evidence of a new fracture. No suspicious osseous lesion. Paraspinal soft tissues: The paraspinal soft tissues planes are maintained. Lower thoracic spine: The visualized lower thoracic bony canal and foramina are patent. L1-L2: There is posterior disc osteophyte. There is at least a moderate central canal stenosis. Mild bilateral foraminal stenosis. L2-L3: There is degenerative disc disease with loss of disc height. There is mild broad-based posterior disc bulging. There are congenitally shortened pedicles with facet arthritis and ligamentum flavum thickening. There is at least a moderate appearing spinal canal stenosis. Mild bilateral foraminal stenosis. L3-L4: Degenerative disc disease with loss of disc height and broad-based posterior disc osteophyte. Congenitally shortened pedicles, ligamentum flavum thickening and facet arthritis appear to contribute to a severe central canal stenosis. L4-L5: Severe degenerative disc space narrowing. Broad-based posterior disc bulging. Congenitally shortened pedicles, ligamentum flavum thickening and facet arthritis. At least moderate appearing central canal stenosis. L5-S1: Severe degenerative disc space narrowing with no significant central canal stenosis. Sacrum and iliac wings: The visualized sacrum and iliac wings are within normal limits. IMPRESSION: 1. No evidence of acute fracture. There are chronic fractures as detailed above. 2. Multilevel degenerative disc disease as detailed above. Multilevel canal stenosis which appears to be severe at L3-L4 and at least moderate at L2-L3 and L4-L5. This could be further assessed with MRI. Anatomic Lumbar Variant: None. L4-5 is considered the level of the iliac crest and assume there are 5 lumbar-type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 Normal [facility] CHEST 1 VIEWon 03-25-2018 CHEST 1 VIEW Performed at [facility] APPROVED BY: Corby Alfonso MD EXAM TITLE: PA VIEW OF THE CHEST DATE: 03/25/2018 13:50 COMPARISON: 03/21/2018, 02/24/2018, 02/23/2018 CLINICAL INDICATION/HISTORY: Right pleural effusion. The patient is immediately status post ultrasound-guided right thoracentesis. TECHNIQUE: A single PA view of the chest is presented. FINDINGS: Tubes and lines: None Cardiomediastinal silhouette: The cardiac silhouette is within normal limits. The thoracic aorta and mediastinum are unremarkable. The pulmonary vascularity is within normal limits. Lungs and pleura: There is slight blunting of the right costophrenic angle suspicious for small residual right pleural effusion. The left costophrenic angle is clear. There is eventration of the right hemidiaphragm. No focal infiltrates are identified. There is no evidence of pneumothorax. IMPRESSION: 1. Interval decrease in right pleural effusion without evidence of pneumothorax. 2. Otherwise no significant interval change and no acute disease. Normal [facility] US THORACENTESIS WITH IMAGIN G GUIDANCE [id number] 03-25-2018 US THORACENTESIS WITH IMAGING GUIDANCE [id number] Performed at [facility] APPROVED BY: Lynette Zhu CNP EXAM TITLE: ULTRASOUND GUIDED RIGHT THORACENTESIS DATE: 03/25/2018 12:51 COMPARISON: Chest x-ray dated 03/21/2018 CLINICAL INDICATION/HISTORY: Right-sided pleural effusion TECHNIQUE: Informed consent was obtained from the patient. The patient was placed in an erect position with the arms over a tray table and ultrasound interrogated the right hemithorax. An appropriate skin entrance site was identified, prepped, and anesthetized. Under ultrasound guidance a 4-St Helenian Yueh needle was passed into the pleural space and fluid was aspirated with the aid of a vacuum bottle. A specimen was not sent for laboratory analysis. An image was captured documenting the needle in the pleural space. FINDINGS: Ultrasound reveals a moderate amount of fluid. 400 cc of dark sonali fluid was obtained. IMPRESSION: Technically successful ultrasound-guided right thoracentesis yielded 400 cc of dark sonali fluid which was sent for laboratory analysis. A follow-up chest radiograph will be obtained to determine the presence or absence of pneumothorax. Normal [facility] CHEST 2 VIEWS [id number] 2017 CHEST 2 VIEWS [id number] Performed at [facility] APPROVED BY: ROCCO MARTINEZ MD EXAMINATION: CHEST RADIOGRAPH (2 VIEW FRONTAL & LATERAL) Clinical History: Removal of chest tube. Right lung injury. MQ: XC2_5Comparison: 02/24/2018 RESULT: There is no pneumothorax. Persistent blunting of the right costophrenic angle, consistent with a stable pleural effusion. The heart is normal in size. There is mild biapical pleural thickening. Mild bibasilar atelectasis. There is no pulmonary venous congestion. The heart is normal in size. Thoracic aorta is somewhat tortuous. There is mild multilevel degenerative change within the thoracic spine. Stable mild wedge compression deformity seen involving a midthoracic vertebral body. IMPRESSION: No pneumothorax. Persistent right-sided pleural effusion. Normal [facility] Basic Panelon 02-24-2018 Creatinine 0.95 mg/dL Normal 0.67-1.17 [facility] Comment on above: Performed By: #### P 8 ####[facility] [place] [address] Glucose mass conc 121 mg/dL High 70-99 [facility] Comment on above: Performed By: #### P 8 ####[place] [address] Urea nitrogen 10 mg/dL Normal 7-18 [facility] Comment on above: Performed By: #### P 8 ####[place] [address] Anion gap 7 mmol/L Low 8-16 [facility] Comment on above: Performed By: #### P 8 ####[facility] [place] [address] Calcium 8.6 mg/dL Normal 8.5-10.1 [facility] Comment on above: Performed By: #### P 8 ####[facility] [place] [address] CO2 28 mmol/L Normal 21-32 [facility] Comment on above: Performed By: #### P 8 ####[facility] [place] [address] Chloride 110 mmol/L High 98-107 [facility] Comment on above: Performed By: #### P 8 ####[place] [address] Potassium molar conc 4.2 mmol/L Normal 3.5-5.1 [facility] Comment on above: Performed By: #### P 8 ####[facility] [place], [place] [address] Sodium 141 mmol/L Normal 136-145 [facility] Comment on above: Performed By: #### P 8 ####[facility] [place], [place] [address] CHEST 1 VIEWon 02-24-2018 CHEST 1 VIEW Performed at [facility] APPROVED BY: Brady Marrufo MD EXAMINATION: CHEST RADIOGRAPH (SINGLE VIEW AP OR PA) Clinical History: The patient is a 57-year-old male suffered a traumatic pneumothorax and has been treated with a Heimlich-type chest tube. The chest tube has been clamped for approximately 2 hours.M: XC1_4Comparison: Chest radiograph from earlier on the same day at 8:17 AM as well as chest radiographs from the past 2 days. RESULT: Lines, tubes, and devices: The Heimlich chest tube is unchanged in position with the pigtail in the apex of the right hemithorax. Lungs and pleura: There is no residual or recurrent pneumothorax. No consolidation. No lung mass. No pleural effusion. Cardiomediastinal silhouette: Normal cardiomediastinal silhouette. Other: The right hemidiaphragm remains slightly elevated but unchanged. No other abnormality is appreciated. IMPRESSION: There is no evidence of residual or recurrent pneumothorax after the Heimlich chest tube was clamped for 2 hours. Following this chest radiograph the patient proceeded to the interventional suite and the tube was removed and a Vaseline dressing was applied to the skin entrance site. Normal [facility] CHEST 2 VIEWSon 02-24-2018 CHEST 2 VIEWS Performed at [facility] APPROVED BY: Lenin Plasencia MD EXAMINATION: CHEST RADIOGRAPH (2 VIEW FRONTAL & LATERAL) Clinical History: Status post right pleural catheter removal.MQ: XC2_5Comparison: Daily prior chest radiographs. RESULT: Two frontal chest radiographs are submitted. Lines, tubes, and devices: Right-sided pleural catheter is no longer visualized. Lungs and pleura: No definitive pneumothorax. No acute parenchymal consolidation. No sizable pleural effusion. Cardiomediastinal silhouette: Stable cardiac and mediastinal silhouette. Other: None. IMPRESSION: Interval removal of right-sided pleural catheter. No definitive pneumothorax. A wet reading is made available at time of dictation as requested. Normal [facility] CHEST 2 VIEWS Performed at [facility] APPROVED BY: Destin Brandon MD EXAMINATION: CHEST RADIOGRAPH (2 VIEW FRONTAL & LATERAL) Clinical History: Follow-up pigtail catheter placement. MQ: XC2_5Comparison: 02/23/2018 at 2048 RESULT: Lines, tubes, and devices: Right-sided pigtail catheter overlying the superior and lateral portion of the right chest. Lungs and pleura: Lungs are grossly clear. No pneumothorax. Cardiomediastinal silhouette: Heart size normal. Other: None. IMPRESSION: Right-sided pigtail chest tube in stable position. No residual right-sided pneumothorax. Normal [facility] Hemogramon 02-24-2018 Erythrocyte distribution width Auto Ratio (RBC) 13.2 % Normal 11.6-14.4 [facility] Comment on above: Performed By: #### C BC1 ####[place] [address] Erythrocytes (RBC) 3.97 mil/cmm Low 4.63-6.08 [facility] Comment on above: Performed By: #### C BC1 ####[place] [address] Hematocrit (HCT) 39.0 % Low 40.1-51.0 [facility] Comment on above: Performed By: #### C BC1 ####[place] [address] Hemoglobin mass conc (Bld) 12.7 g/dL Low 13.7-17.5 [facility] Comment on above: Performed By: #### C BC1 ####[place] [address] MCH 32.0 pg Normal 25.7-32.2 [facility] Comment on above: Performed By: #### C BC1 ####[place] [address] MCHC mass conc (RBC) 32.6 % Normal 32.3-36.5 [facility] Comment on above: Performed By: #### C BC1 ####[place] [address] MCV 98.2 fL High 83.2-95.6 [facility] Comment on above: Performed By: #### C BC1 ####[place] [id number] Platelet mean volume (PMV) 9.6 fL Normal 8.7-12.0 [facility] Comment on above: Performed By: #### C BC1 ####[place] [id number] Platelets 136 thou/cmm Low 141-365 [facility] Comment on above: Performed By: #### C BC1 ####[place] [address] RDW SD 47.6 fl High 36.1-45.8 [facility] Comment on above: Performed By: #### C BC1 ####[place] [address] WBC (Leukocytes) 4.50 thou/cmm Normal 4.23-9.07 [facility] Comment on above: Performed By: #### C BC1 ####[place] [id number] MDRD GFRon 02-24-2018 eGFR (non-black) mL/min/{1.73_m2} Normal >60mL/m in/1. 73m2 [facility] Comment on above: Result Comment: If t he patient is , multiply the result by 1.210. Performed By: #### G FR ####[place] [address] Basic Panelon 02-23-2018 Creatinine 0.97 mg/dL Normal 0.67-1.17 [facility] Comment on above: Performed By: #### P 8 ####[place] [address] Anion gap 8 mmol/L Normal 8-16 [facility] Comment on above: Performed By: #### P 8 ####[place] [address] CO2 30 mmol/L Normal 21-32 [facility] Comment on above: Performed By: #### P 8 ####[facility] [place], [place] [address] Glucose mass conc 109 mg/dL High 70-99 [facility] Comment on above: Performed By: #### P 8 ####[facility] [place], [place] [address] Urea nitrogen 14 mg/dL Normal 7-18 [facility] Comment on above: Performed By: #### P 8 ####[facility] [place], [place] [address] Calcium 8.8 mg/dL Normal 8.5-10.1 [facility] Comment on above: Performed By: #### P 8 ####[facility] [place] [address] Chloride 107 mmol/L Normal 98-107 [facility] Comment on above: Performed By: #### P 8 ####[facility] [place] [address] Potassium molar conc 4.1 mmol/L Normal 3.5-5.1 [facility] Comment on above: Performed By: #### P 8 ####[facility] [place] [address] Sodium 141 mmol/L Normal 136-145 [facility] Comment on above: Performed By: #### P 8 ####[facility] [place], [place] [address] CHEST 1 VIEWon 02-23-2018 CHEST 1 VIEW Performed at [facility] APPROVED BY: Irvin Ortez MD EXAMINATION: CHEST RADIOGRAPH (PORTABLE SINGLE VIEW AP) Exam Date/Time: 02/23/2018 8:51 PMClinical History: Follow-up for right pneumothorax status post chest tube placement.M: XCP_3Comparison: Chest x-ray earlier the same day. RESULT: See impression. IMPRESSION: Limitations: None. Lines, tubes, and devices: Interval placement of right pleural pigtail catheter, directed towards the medial right lung apex. Lungs and pleura: No visualized pneumothorax. Stable mild bibasilar atelectasis. No sizable pleural effusion. Cardiomediastinal silhouette: Remains stable. Other: Visualized osseous structures are unchanged. Normal [facility] CHEST 2 VIEWSon 02-23-2018 CHEST 2 VIEWS Performed at [facility] APPROVED BY: Paulie Shook MD EXAMINATION: CHEST RADIOGRAPH (2 VIEW FRONTAL & LATERAL) Indication: Recent fall off a ladder; right-sided pneumothorax with painM: XC2_3Comparison: Chest x-ray done the prior day RESULT: Lines, tubes, and devices: None. Lungs and pleura: There is a moderate-sized right apical pneumothorax. This measures 4 cm at the apex and has increased compared to the prior, however the differences could be related to positioning. There is mild bibasilar subsegmental atelectasis. Small right-sided pleural effusion. Cardiomediastinal silhouette: Normal cardiomediastinal silhouette. Other: Bony thorax is unremarkable for the patient's age. The right-sided ribs are not well assessed. IMPRESSION: Moderate right apical pneumothorax as detailed above. No evidence of tension component. This is suspected to have increased in size compared to the exam done the prior day. Small right pleural effusion with basilar atelectasis. Normal [facility] Hemogramon 02-23-2018 Erythrocyte distribution width Auto Ratio (RBC) 13.3 % Normal 11.6-14.4 [facility] Comment on above: Performed By: #### C BC1 ####[place] [address] Erythrocytes (RBC) 3.90 mil/cmm Low 4.63-6.08 [facility] Comment on above: Performed By: #### C BC1 ####[facility] [place] [address] Hematocrit (HCT) 38.4 % Low 40.1-51.0 [facility] Comment on above: Performed By: #### C BC1 ####[facility] [place] [address] Hemoglobin mass conc (Bld) 12.6 g/dL Low 13.7-17.5 [facility] Comment on above: Performed By: #### C BC1 ####[facility] [place], [place] [address] MCH 32.3 pg High 25.7-32.2 [facility] Comment on above: Performed By: #### C BC1 ####[facility] [place], [place] [address] MCHC mass conc (RBC) 32.8 % Normal 32.3-36.5 [facility] Comment on above: Performed By: #### C BC1 ####[facility] [place], [place] [address] MCV 98.5 fL High 83.2-95.6 [facility] Comment on above: Performed By: #### C BC1 ####[address] [address] Platelet mean volume (PMV) 9.7 fL Normal 8.7-12.0 [facility] Comment on above: Performed By: #### C BC1 ####[address] [address] Platelets 151 thou/cmm Normal 141-365 [facility] Comment on above: Performed By: #### C BC1 ####[place] [id number] RDW SD 47.8 fl High 36.1-45.8 [facility] Comment on above: Performed By: #### C BC1 ####[address] [address] WBC (Leukocytes) 4.70 thou/cmm Normal 4.23-9.07 [facility] Comment on above: Performed By: #### C BC1 ####[address] [address] MDRD GFRon 02-23-2018 eGFR (non-black) mL/min/{1.73_m2} Normal >60mL/m in/1. 73m2 [facility] Comment on above: Result Comment: If t he patient is , multiply the result by 1.210. Performed By: #### G FR ####[address] [address] PLEURAL DRAINAGE W/CATH WITH IMAGE GUIDANCE [id number] 02-23-2018 PLEURAL DRAINAGE W/CATH WITH IMAGE GUIDANCE [address] Performed at [facility] APPROVED BY: Brady Marrufo MD EXAM TITLE: RIGHT-SIDED HEIMLICH-TYPE CHEST TUBE PLACEMENT WITH FLUOROSCOPIC GUIDANCE DATE: 02/23/2018 14:00 COMPARISON: Chest radiographs from today and February 22, 2018 CLINICAL INDICATION/HISTORY: The patient is a 57-year-old male with posttraumatic pneumothorax which is increasing in size. TECHNIQUE: The risks benefits and alternatives to the procedure were explained to the patient and his daughter. The patient understands and agrees to the procedure. With fluoroscopic guidance an appropriate skin entrance site in the anterolateral chest between the second and third ribs was identified, prepped, and anesthetized. The trocar was placed into the Heimlich chest tube and was directed up the lateral right pleural space with the pigtail formed. The assembly was then hooked to wall suction and the pneumothorax was evacuated. The Heimlich chest tube was secured to the skin. 3 minutes and 1 seconds of fluoroscopy time was utilized during the procedure. 3 spot films were obtained. There were no apparent complications. Fluoroscopic Radiation dose: Integrated dose-area product (DAP) for this visit = 31 mGy*cm. FINDINGS: The Heimlich chest tube passes superiorly and medially from the entrance site and the pigtail forms in the apex of the right hemithorax. Following placement of the catheter and application of wall suction the pneumothorax was resolved. The patient's difficulty breathing improved. IMPRESSION: Technically successful placement of Heimlich type chest tube for evacuation of worsening posttraumatic right pneumothorax. The patient is scheduled for clamping of chest tube followed by chest radiograph one hour later tomorrow around noon. Normal [facility] Protimeon 02-23-2018 INR Coag RelTime (PPP) 1.07 {INR} Normal [facility] Comment on above: Result Comment: Jama dard Therapy 2.0-3.0High Dose 2.5-3.5 Performed By: #### P T ####[place] [address] Prothrombin time (PT) Coag time (PPP) 11.2 s Normal 9.3-11.9 [facility] Comment on above: Performed By: #### P T ####[place] [address] CBC and Differentialon 02-22 Abs Baso 0.03 k/uL Normal <0.11 [facility] Comment on above: Performed By: #### C BCDIF, CMP ####[facility] [address] [place] [address] Abs Taylor 0.59 k/uL Normal <0.87 [facility] Comment on above: Performed By: #### C BCDIF, CMP ####[place] [address] Abs Neut 4.53 k/uL Normal 1.45-7.50 [facility] Comment on above: Performed By: #### C BCDIF, CMP ####[place] [address] Basophils/100 WBC Auto (Bld) 0.5 % Normal [facility] Comment on above: Performed By: #### C BCDIF, CMP ####[place] [address] Eosinophils Auto #/vol (Bld) 0.12 10*3/uL Normal <0.46 [facility] Comment on above: Performed By: #### C BCDIF, CMP ####[place] [address] Eosinophils/100 WBC Auto (Bld) 1.9 % Normal [facility] Comment on above: Performed By: #### C BCDIF, CMP ####[place] [address] Erythrocyte distribution width Auto Ratio (RBC) 13.5 % Normal 11.5-15.0 [facility] Comment on above: Performed By: #### C BCDIF, CMP ####[place] [address] Hematocrit Auto Volume Fraction (Bld) 45.2 % Normal 39.0-51.0 [facility] Comment on above: Performed By: #### C BCDIF, CMP ####[place] [address] Hemoglobin mass conc (Bld) 15.0 g/dL Normal 13.0-17.0 [facility] Comment on above: Performed By: #### C BCDIF, CMP ####[place] [address] Lymphocytes Auto #/vol (Bld) 0.97 10*3/uL Low 1.00-4.00 [facility] Comment on above: Performed By: #### C BCDYANA CMP ####[place] [address] Lymphocytes/100 WBC Auto (Bld) 15.5 % Normal [facility] Comment on above: Performed By: #### C BCDYANA, CMP ####[place] [address] MCH Auto Entitic mass (RBC) 32.1 pG Normal 26.0-34.0 [facility] Comment on above: Performed By: #### C KENYETTA CMP ####[place] [address] MCHC Auto mass conc (RBC) 33.2 g/dL Normal 30.5-36.0 [facility] Comment on above: Performed By: #### C KENYETTA CMP ####[place] [address] MCV Auto Entitic volume (RBC) 96.6 fL Normal 80.0-100.0 [facility] Comment on above: Performed By: #### C BCDYANA CMP ####[place] [address] Monocytes/100 WBC Auto (Bld) 9.5 % Normal [facility] Comment on above: Performed By: #### C BCDYANA, CMP ####[place] [address] Neutrophils/100 WBC Auto (Bld) 72.6 % Normal [facility] Comment on above: Performed By: #### C BCSWETAF, CMP ####[place] [address] Platelet mean volume Auto Entitic volume (Bld) 9.5 fL Normal 9.0-12.7 [facility] Comment on above: Performed By: #### C BCDIF, CMP ####[place] [address] Platelets Auto #/vol (Bld) 191 10*3/uL Normal 150-400 [facility] Comment on above: Performed By: #### C BCDIF, CMP ####[facility] [address] [place] [address] RBC Auto #/vol (Bld) 4.68 10*6/uL Normal 4.20-6.00 [facility] Comment on above: Performed By: #### C BCDIF, CMP ####[facility] [address] [place] [address] WBC Auto #/vol (Bld) 6.24 10*3/uL Normal 3.70-11.00 [facility] Comment on above: Performed By: #### C BCDIF, CMP ####[facility] [id number] [place] [address] CHEST 1 VIEWon 02-22-2018 CHEST 1 VIEW Performed at [facility] APPROVED BY: Lenin Plasencia MD PORTABLE FRONTAL CHEST, 1910 HOURS: CLINICAL INDICATION: Known pneumothorax. COMPARISON: Chest radiograph and CT chest study 09/16/2012. The radiograph is obtained in apical lordotic patient position and underpenetrated. Multiple monitoring wires overlie the chest. Mild asymmetric elevation of the right hemidiaphragm with blunted lateral costophrenic angle. Small right apical pneumothorax. No parenchymal consolidation. Midline cardiac and mediastinal structures with prominent cardiac silhouette. Air below the right hemidiaphragm presumed within bowel. Mild levoscoliosis of the thoracic spine. IMPRESSION: Small right apical pneumothorax. Normal [facility] CK, Total and CKMBon 018 CK enzyme act/vol 179 U/L Normal 51-298 [facility] Comment on above: Performed By: #### C KCKMB ####[facility] [address] [place] [address] CK MB % 1.8 % Normal 0.0-4.0 [facility] Comment on above: Performed By: #### C KCKMB ####[facility] [address] [place] [address] MB 3.2 ng/mL Normal <7.7 [facility] Comment on above: Performed By: #### C KCKMB ####[facility] [address] [place] [address] CT ABD/PEL W IVCONon 05-13-[address] ABD/PEL W IVCON * * *Final Report* * *DATE OF EXAM: Feb 22 2018 4:39PM [facility] 0530 - CT ABD/PEL W IVCON / REASON: Trauma--Right flank pain * * * * Physician Interpretation * * * * EXAMINATION: CT CHEST WITH CONTRASTCT ABDOMEN AND PELVIS WITH CONTRASTHISTORY: Trauma--Right flank painTECHNIQUE: Spiral CT acquisition following IV contrast.Contrast:IV: 150 mL of Omnipaque 300CT Radiation dose: Integrated Dose-length product (DLP) for this visit = 1184 mGy*cm.CT Dose Reduction Employed: Automated exposure control (AEC)COMPARISON: Chest CT 08/21/2012 and PET/CT 04/13/2012RESULT:Chest:Randle itations: Streak artifact in the lung apices.Lines, tubes, and devices: None.Lung parenchyma and pleura: The central airways are patent. There is a small-moderate right pneumothorax. Atelectasis in the right middle lobe. Trace right pleural effusion. No suspicious pulmonary nodule.Thoracic inlet, heart, and mediastinum: No lymphadenopathy in the axillary, mediastinal, or hilar regions. The thoracic aorta and main pulmonary artery are normal in caliber. The cardiac chambers are normal in size. Coronary artery atherosclerotic calcifications are noted, although the study is not optimized for coronary assessment. No pericardial effusion or thickening.Bones and soft tissues: No acute osseous abnormality. Thoracic spondylosis. Chest wall is unremarkable.Abdomen and pelvis:Liver: No mass.Biliary: No bile duct dilation. Gallbladder is unremarkable.Spleen: No mass. No splenomegaly.Pancreas: No mass or duct dilation.Adrenals: No mass.Kidneys: No mass, calculus or hydronephrosis.Vasculature : The celiac axis and SMA are patent. The portal vein and branches, splenic vein, SMV, and hepatic veins are patent. There are atherosclerotic calcifications without aneurysmal dilation.GI tract: No dilation or wall thickening. Mild colonic diverticulosis. Appendix within normal limits.Lymph nodes: No abdominal or pelvic lymphadenopathy.Mesentery/ Peritoneum: No ascites or mass.Pelvis: No mass, ascites or fluid collection. Brachytherapy seeds in the prostate.Bones/Soft Tissues: Degenerative changes. Compression deformities of the inferior endplate of L1 and superior endplate of L3 appear chronic. No acute osseous abnormality.IMPRESSION:ARTIS ST:SMALL-MODERATE RIGHT PNEUMOTHORAX WITH TRACE RIGHT PLEURAL EFFUSION. NO RIB FRACTURE IS SEEN.ABDOMEN AND PELVIS:NO ACUTE TRAUMATIC INJURY IN THE ABDOMEN OR PELVIS.COMMUNICATION: Communicated with: Dr. Altamirano on 02/22/2018 at 17:10.Firer Bisque Kiln: FLORI Transcribe Date/Time: Feb 22 2018 4:57PDictated by : ANIA GOULD MDThis examination was interpreted and the report reviewed and electronically signed by: ANIA GOULD MD on Feb 22 2018 5:10PM [id number] [facility] CHEST W IVCONon 8 CT CHEST W IVCON * * *Final Report* * *DATE OF EXAM: Feb 22 2018 4:39PM [facility] 0539 - CT CHEST W IVCON / REASON: Trauma--Rib pain on right side * * * * Physician Interpretation * * * * EXAMINATION: CT CHEST WITH CONTRASTCT ABDOMEN AND PELVIS WITH CONTRASTHISTORY: Trauma--Right flank painTECHNIQUE: Spiral CT acquisition following IV contrast.Contrast:IV: 150 mL of Omnipaque 300CT Radiation dose: Integrated Dose-length product (DLP) for this visit = 1184 mGy*cm.CT Dose Reduction Employed: Automated exposure control (AEC)COMPARISON: Chest CT 08/21/2012 and PET/CT 04/13/2012RESULT:Chest:Randle itations: Streak artifact in the lung apices.Lines, tubes, and devices: None.Lung parenchyma and pleura: The central airways are patent. There is a small-moderate right pneumothorax. Atelectasis in the right middle lobe. Trace right pleural effusion. No suspicious pulmonary nodule.Thoracic inlet, heart, and mediastinum: No lymphadenopathy in the axillary, mediastinal, or hilar regions. The thoracic aorta and main pulmonary artery are normal in caliber. The cardiac chambers are normal in size. Coronary artery atherosclerotic calcifications are noted, although the study is not optimized for coronary assessment. No pericardial effusion or thickening.Bones and soft tissues: No acute osseous abnormality. Thoracic spondylosis. Chest wall is unremarkable.Abdomen and pelvis:Liver: No mass.Biliary: No bile duct dilation. Gallbladder is unremarkable.Spleen: No mass. No splenomegaly.Pancreas: No mass or duct dilation.Adrenals: No mass.Kidneys: No mass, calculus or hydronephrosis.Vasculature : The celiac axis and SMA are patent. The portal vein and branches, splenic vein, SMV, and hepatic veins are patent. There are atherosclerotic calcifications without aneurysmal dilation.GI tract: No dilation or wall thickening. Mild colonic diverticulosis. Appendix within normal limits.Lymph nodes: No abdominal or pelvic lymphadenopathy.Mesentery/ Peritoneum: No ascites or mass.Pelvis: No mass, ascites or fluid collection. Brachytherapy seeds in the prostate.Bones/Soft Tissues: Degenerative changes. Compression deformities of the inferior endplate of L1 and superior endplate of L3 appear chronic. No acute osseous abnormality.IMPRESSION:ARTIS ST:SMALL-MODERATE RIGHT PNEUMOTHORAX WITH TRACE RIGHT PLEURAL EFFUSION. NO RIB FRACTURE IS SEEN.ABDOMEN AND PELVIS:NO ACUTE TRAUMATIC INJURY IN THE ABDOMEN OR PELVIS.COMMUNICATION: Communicated with: Dr. Altamirano on 02/22/2018 at 17:10.Firer Bisque Kiln: FLORI Transcribe Date/Time: Feb 22 2018 4:57PDictated by : ANIA GOULD MDThis examination was interpreted and the report reviewed and electronically signed by: ANIA GOULD MD on Feb 22 2018 5:10PM [id number] Normal [facility] Comp Metabolic Panelon 02-22 Albumin mass conc 4.7 g/dL Normal 3.9-4.9 [facility] Comment on above: Performed By: #### C MARYAN KUMARI ####[facility] [address] [place] [address] ALP enzyme act/vol 69 U/L Normal 36-108 [facility] Comment on above: Performed By: #### C KENYETTA CMP ####[facility] [address] [place] [address] ALT enzyme act/vol 47 U/L Normal 10-54 [facility] Comment on above: Performed By: #### C KENYETTA CMP ####[facility] [id number] [place] [address] Anion gap 3 molar conc 14 mmol/L Normal 9-18 [facility] Comment on above: Performed By: #### C KENYETTA CMP ####[facility] [address] [place] [address] AST enzyme act/vol 40 U/L Normal 14-40 [facility] Comment on above: Performed By: #### C BCDIF, CMP ####[facility] [address] [place] [address] Bilirubin mass conc 0.5 mg/dL Normal 0.2-1.3 [facility] Comment on above: Performed By: #### C BCDIF, CMP ####[facility] [address] [place] [address] Calcium mass conc 9.8 mg/dL Normal 8.5-10.2 [facility] Comment on above: Performed By: #### C BCDIF, CMP ####[facility] [address] [place] [address] Chloride molar conc 101 mmol/L Normal 97-105 [facility] Comment on above: Performed By: #### C BCDIF, CMP ####[facility] [address] [place] [address] CO2 molar conc 26 mmol/L Normal 22-30 [facility] Comment on above: Performed By: #### C BCDIF, CMP ####[facility] [address] [place] [address] Creatinine mass conc 0.98 mg/dL Normal 0.73-1.22 [facility] Comment on above: Performed By: #### C BCDIF, CMP ####[facility] [address] [place] [address] eGFR- Amer. >60 Normal [facility] Comment on above: Performed By: #### C BCDIF, CMP ####[facility] [address] [place] [address] GFR/1.73 sq M predicted among non-blacks MDRD vol rate/area (S/P/Bld) mL/min/{1.73_m2} Normal [facility] Comment on above: Result Comment: eGFR (Estimated GFR) Units of measure: mL/min/1.73 meters squaredeGFR is derived from the reexpressed MDRD Study equation using the following parameters: serum creatinine, age, gender and race. The creatinine assay has been calibrated to be traceable to IDMS.An eGFR <60 mL/min/1.73m2 for >3 months is consistent with chronic kidney disease. Refer to KDOQI guidelines for clinical interpretation.In patients with unstable renal function, e.g. those with acute kidney injury, the eGFR may not accurately reflect actual GFR. Performed By: #### C MARYAN KUMARI ####[facility] [address] [place] [address] Glucose mass conc 126 mg/dL High 74-99 [facility] Comment on above: Result Comment: The [place] [employer] Association (ADA) provides guidance for cutoff values for fasting glucose and random glucose. The ADA defines fasting as no caloric intake for at least 8 hours. Fasting plasma glucose results between 100 to 125 mg/dL indicate increased risk for diabetes (prediabetes).Fasting plasma glucose results greater than or equal to 126 mg/dL meet the criteria for diagnosis of diabetes. In the absence of unequivocal hyperglycemia, results should be confirmed by repeat testing. In a patient with classic symptoms of hyperglycemia or hyperglycemic crisis, random plasma glucose results greater than or equal to 200 mg/dL meet the criteria for diagnosis of diabetes.Reference: Standards of Medical Care in Diabetes 2016, [place] [employer]. Diabetes Care. 2016.39(Suppl 1). Performed By: #### C MARYAN KUMARI ####[place] [address] Potassium molar conc 4.3 mmol/L Normal 3.7-5.1 [facility] Comment on above: Performed By: #### C MARYAN KUMARI ####[place] [address] Protein mass conc 7.7 g/dL Normal 6.3-8.0 [facility] Comment on above: Performed By: #### C MARYAN KUMARI ####[place] [address] Sodium molar conc 141 mmol/L Normal 136-144 [facility] Comment on above: Performed By: #### C MARYAN KUMARI ####[place] [address] Urea nitrogen mass conc 13 mg/dL Normal 9-24 [facility] Comment on above: Performed By: #### C MARYAN KUMARI ####[place] [address] ED NOTEon 02-22-2018 ED NOTE HNO ID: [id number] thor: Nicky Espino (Rn), RNService: (none)Author Type: Registered NurseType: ED NotesFiled: 02/22/2018 6:29 PMNote Text: Pt was transferred Per ground critical care [facility] Pt was transferredwith his personal belongings Family Is bedside [facility] ED NOTE HNO ID: [id number] Author: Nicky Espino (Rn), RN Service: (none) Author Type: Registered Nurse Type: ED Notes Filed: 02/22/2018 6:06 PM Note Text: Pt report was called to [facility] ER To Myriam BARBER [facility] ED NOTE HNO ID: [id number] thor: Nicky Espino (Rn), RNService: (none)Author Type: Registered NurseType: ED NotesFiled: 02/22/2018 5:15 PMNote Text: Pt is in a position of semi comfort He is SOB with any movementBreathing is regular although his breaths are shallow [facility] ED NOTE HNO ID: [id number] Author: Nicky Espino (Rn), RN Service: (none) Author Type: Registered Nurse Type: ED Notes Filed: 02/22/2018 5:13 PM Note Text: Dr Altamirano rounds and is talking to the pt and to his family members at the bedside [facility] ED NOTE HNO ID: [id number] thor: Erick Altamirano, MDService: (none)Author Type: PhysicianType: ED NotesFiled: 02/22/2018 6:10 PMNote Text:Attending NoteI have personally performed a face to face assessment of the patient andhave reviewed the PA/THREADING MACHINE FEEDER AUT[employer]ATIC note. My germain findings include:History - Mr. Rodriguez is a pleasant 57-year-old male survivor of throatcancer resenting today after he slipped from a ladder and fell, hittingthe right side of his chest after falling about 6 feet, with a lot ofdiscomfort over his lower anterior right ribs. He doesn't have as muchabdominal discomfort. He denies nausea or vomiting, but is having troubletaking a deep breath and breathing in general because of the right-sidedlower chest discomfort. He denies hitting his head or injuring his heador his neck or his middle of his back. He denies any unilateral weaknessor numbness or trouble speaking or swallowing.Exam - mild tachycardia, R lower rib obvious discomfort and tenderness, ?RUQ tenderness, clear lungs, no resp distress, no focal midline C/T/Lspine tenderness or step off, moves all 4 extremitiesAssessment/Plan - Mr. Rodriguez is pleasant 57-year-old male presentingtoday after he fell from a ladder onto a retaining wall, injuring hisright lower chest. We will obtain CT of the chest/abdomen/pelvis andreassess, also w/ labs and pain control.R small-mod ptx, minimal effusion (presumably blood). Doing well. accepts to [facility] as a trauma transfer. Gave O2, held off onthoracostomy for now as tolerating ptx well clinically, discussed w/ himthere is (very low) [facility] of [facility] could do [facility] here, but reasonable and probably appropriate towait for higher level of care as not flying.Other additions or changes: NoneSignature: Erick Altamirano, MDDate: 02/22/2018Time: 4:19 PM [facility] ED NOTE HNO ID: [id number] thor: Krupa Altamirano (Rn), RNService: Emergency MedicineAuthor Type: Registered NurseType: ED NotesFiled: 02/22/2018 3:51 PMNote Text:Pt was standing on a ladder, fell off onto a brick retaining wall,injuring the right side of his chest [facility] ED PROV NOTEon 02-22-2018 Protein mass conc HNO ID: [id number] thor: Sol Friedman (Pa-C)Service: (none)Author Type: Physician AssistantType: ED Provider NotesFiled: 02/22/2018 5:45 PMNote Text: -------Attestation signed by Erick Altamirano MD at 02/22/2018 6:11 PMAttending NoteI have personally performed a face to face assessment of the patient and?havereviewed the PA/THREADING MACHINE FEEDER AUTOMATIC note.?My germain findings include:History - Mr. Rodriguez is a pleasant 57-year-old male survivor of throat cancerresenting today after he slipped from a ladder and fell, hitting the right sideof his chest after falling about 6 feet, with a lot of discomfort over hislower anterior right ribs. He doesn't have as much abdominal discomfort. Hedenies nausea or vomiting, but is having trouble taking a deep breath andbreathing in general because of the right-sided lower chest discomfort. Hedenies hitting his head or injuring his head or his neck or his middle of hisback. He denies any unilateral weakness or numbness or trouble speaking orswallowing.Exam - mild tachycardia, R lower rib obvious discomfort and tenderness, ? RUQtenderness, clear lungs, no resp distress, no focal midline C/T/L spinetenderness or step off, moves all 4 extremitiesAssessment/Plan - Mr. Rodriguez is pleasant 57-year-old male presenting todayafter he fell from a ladder onto a retaining wall, injuring his right lowerchest. We will obtain CT of the chest/abdomen/pelvis and reassess, also w/labs and pain control.?R small-mod ptx, minimal effusion (presumably blood). Doing well. Dr. Luevanoaccepts to [facility]. 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 Patient states that he was ontop of a 5 foot step ladder and due to the latter being slippery becauseit was raining the patient's foot slipped and he fell onto the nearbybrick retaining wall landing on the right side of his chest. The patientdenies striking his head or LOC. He states he felt as if the pain wasknocked out of him however after taking a few deep breaths he was able toget up and ambulate. He immediately noticed severe pain in the rightanterior and side of his chest as well as his right flank prompting him tocome to the ED. The patient states that any movement at all includingbreathing exacerbates his pain. He is unable to find a comfortableposition however does feel standing is the most mitigating pain relief.He did not take anything before coming to the ED for pain. He denies anydizziness, head pain, acute visual disturbances, neck pain, hemoptysis,nausea or vomiting, abdominal pain, gross hematuria, focal weakness ornumbness in the extremities or confusion. No current anticoagulationtherapy.PAS T MEDICAL HISTORYDiagnosis Date- Neck mass 10/2011 Cancerous mass -Radiation- Prostate cancer (HCC) 2006- Tongue cancer (HCC)PAST SURGICAL HISTORYProcedure Laterality Date- BIOPSY TONGUE,WOOD LAST MAKER 10/15- PAST SURGICAL HISTORY OF 2006 seed implanted for prostate- REPAIR UMBILICAL IGNACIO,5+Y/O,REDUC 2005 Hernia repair, umbilical >5yr- TONSILLECTOMY HX 11/2011 right side for cancerFAMILY HISTORYProblem Relation Age of Onset- Cancer Mother- Cancer Maternal GrandmotherSocial HistorySocial History Main Topics- Smoking status: Never Smoker- Smokeless tobacco: Never Used- Alcohol use No Comment: Previous heavy drinker. quit 9 yrs ago- Drug use: No Comment: Remote use- Sexual activity: Yes Partners: FemaleALLERGIESAllergen Reactions- Dogs Cough, Other: See Comments Nasal congestion- Seasonal Allergies Cough, Other: See Comments Nasal congestionReview of SystemsConstitutional: Negative for chills and fever.Eyes: Negative for visual disturbance.Respiratory: Positive for shortness of breath (2/2 to pain per patient).Negative for cough.Cardiovascular: Positive for chest pain (right anterior and lateral (justunder axililary region) pain 2/2 to blunt trauma). Negative for legswelling.Gastrointestin al: Negative for abdominal pain, nausea and vomiting.Genitourinary: Negative for difficulty urinating and hematuria.Musculoskeletal: Positive for back pain (right flank). Negative for neckpain.Skin: Negative for wound.Neurological: Negative for dizziness, syncope, speech difficulty,weakness, light-headedness, numbness and headaches.Hematological: Does not bruise/bleed easily.Psychiatric/Behavio ral: Negative for confusion.Physical ExamBP 135/83 Pulse 83 Temp (Src) 97.6 (Oral) Resp 20 SpO2 100%Physical ExamConstitutional: He is oriented to person, place, and time. He appearswell-developed and well-nourished. He appears distressed (Patient appearsto be very uncomfortable 2/2 to pain, grimacing and yelling out in painduring exam as well as with any movement at all).HENT:Head: Normocephalic and atraumatic.Mouth/Throat: Oropharynx is clear and moist.Eyes: Conjunctivae and EOM are normal. Pupils are equal, round, andreactive to light.Neck: Neck supple.No cervical midline tenderness to percussion or step-offs.Cardiovascular: Normal rate and regular rhythm.Pulmonary/Chest: He is in respiratory distress (mild respiratory distress2/2 to pain ). He has no wheezes. He has no rales. He exhibits tenderness(no ecchymosis initially noted. no open wounds. Very tender with minimalpalpation over right anterior chest wall and laterally just distal toaxillary region. no rib step-offs palpated ).There are diminished breath sounds in right upper lung field.Abdominal: Soft. He exhibits distension (obese). He exhibits no mass.There is no tenderness. There is no rebound and no guarding.No ecchymosis noted to abdominal wall.Genitourinary:Genitou rinary Comments: No ecchymosis noted to right flank region howeverpatient reports severe pain with minimal palpation over right flank.Musculoskeletal:DE LEON x 4.Spine: no ecchymosis or open wounds appreciated over posterior torso. Nomidline spine ttp or step-offs.Neurological: He is alert and oriented to person, place, and time. Nocranial nerve deficit.Skin: Skin is warm and dry.Nursing note and vitals reviewed.Diagnostic TestingResults for orders placed or performed during the hospital encounter of02/22/18CBC + DIFFResult Value Ref Range WBC 6.24 3.70 - 11.00 k/uL RBC 4.68 4.20 - 6.00 m/uL Hemoglobin 15.0 13.0 - 17.0 g/dL Hematocrit 45.2 39.0 - 51.0 % MCV 96.6 80.0 - 100.0 fL MCH 32.1 26.0 - 34.0 pG MCHC 33.2 30.5 - 36.0 g/dL RDW-CV 13.5 11.5 - 15.0 % Platelet Count 191 150 - 400 k/uL MPV 9.5 9.0 - 12.7 fL Neut% 72.6 % Abs Neut (ANC) 4.53 1.45 - 7.50 k/uL Lymph% 15.5 % Abs Lymph 0.97 (L) 1.00 - 4.00 k/uL Taylor% 9.5 % Abs Taylor 0.59 <0.87 k/uL Eosin% 1.9 % Abs Eosin 0.12 <0.46 k/uL Baso% 0.5 % Abs Baso 0.03 <0.11 k/uLCOMP METABOLIC PANELResult Value Ref Range Protein, Total 7.7 6.3 - 8.0 g/dL Albumin 4.7 3.9 - 4.9 g/dL Calcium 9.8 8.5 - 10.2 mg/dL Bilirubin, Total 0.5 0.2 - 1.3 mg/dL Alkaline Phosphatase 69 36 - 108 U/L AST 40 14 - 40 U/L Glucose 126 (H) 74 - 99 mg/dL BUN 13 9 - 24 mg/dL Creatinine 0.98 0.73 - 1.22 mg/dL Sodium 141 136 - 144 mmol/L Potassium 4.3 3.7 - 5.1 mmol/L Chloride 101 97 - 105 mmol/L CO2 26 22 - 30 mmol/L Anion Gap 14 9 - 18 mmol/L ALT 47 10 - 54 U/L eGFR- >60 eGFR-All Other Races >60 .CK TOTAL AND CK-MBResult Value Ref Range CK 179 51 - 298 U/L MB 3.2 <7.7 ng/mL CK MB % 1.8 0.0 - 4.0 %TROPONIN TResult Value Ref Range Troponin T <0.010 0.000 - 0.029 ng/mLTYPE + SCREENResult Value Ref Range ABO/RH(D) O NEGATIVE Antibody Screen NEG Order Type Blood Bank Blood Bank Historical Ab Scr Status NEGATIVECT ABD/PEL W IVCON (Final result)Result time 02/22/18 17:12:19Final result by Radiology, Oru In (02/22/18 17:12:19)Impression: IMPRESSION:CHEST:SMALL-MOD ERATE RIGHT PNEUMOTHORAX WITH TRACE RIGHT PLEURAL EFFUSION. ?NORIB FRACTURE IS SEEN.ABDOMEN AND PELVIS:NO ACUTE TRAUMATIC INJURY IN THE ABDOMEN OR PELVIS.COMMUNICATION: ?Communicated with: Dr. Altamirano on 02/22/2018 at 17:10.Firer [employer]: FLORI ?Transcribe Date/Time: Feb 22 2018 ?4:57PDictated by : ANIA GOULD MDThis examination was interpreted and the report reviewed andelectronically signed by:ANIA GOULD MD on Feb 22 2018 ?5:10PM ?ESTProceduresMedical Decision MakingMDMThis is a 57-year-old male who presents to the ED with right sided chestand flank pain that developed following blunt trauma to the right side ofthe chest wall after a mechanical fall off a 5 foot step ladder. Uponarrival to the ED the patient is visibly uncomfortable howeverhemodynamically stable. There is no hypoxia. He does have some mildrespiratory distress secondary to the pain. Routine labs obtained andrelatively unremarkable. The CT imaging of his chest, abdomen and pelviswith IV contrast noteworthy for a mild to moderate right sidedpneumothorax. No other acute cardiopulmonary or intra-abdominal findingsper the radiologist. Given the patient has a traumatic pneumothorax he'llbe transferred to a trauma center, see ED attending note for documentedphysician to physician discussion regarding trauma transfer.ED Course / Clinical Impression-Given Dilaudid for pain-hydrated with IVF's-2 L oxygen NC supplemental ordered.Clinical Impressions as of Feb 23 1728Pneumothorax on rightPlanThe patient was TRANSFERRED to: Trauma CenterCondition at time of disposition: stableSIGNATURE: Nan Evans (Maame) Ddqaqs10/13/18 1745Erick Altamirano MD02/22/18 1811 [facility] PROGRESSon 02-22-2018 Protein mass conc HNO ID: [id number] thor: Elaine (Ct) Yasmany Henao, CTService: (none)Author Type: Clinical TechnicianType: Progress NotesFiled: 09/29/2018 6:29 PMNote Text: Radiology Service Progress NotePATIENT NAME: Mohini RodriguezMRN: [id number] OF SERVICE: February 22, 2018TIME: 4:40 PMPATIENT IDENTITY VERIFICATION COMPLETED USING TWO (2) METHODS: Patientconfirmed name verbally and ID band matches..PATIENT GENDER DATA: MalePATIENT RELEVANT IMPLANT DATA REVIEWED: YesCONTRAST INDUCED NEPHROPATHY RISK FACTORS: Not applicableCREATININE:Creat inineDate Value Ref Range Vqowak0209/24/2017 1.06 0.73 - 1.22 mg/dL Final03/21/2017 0.99 0.73 - 1.22 mg/dL Final12/22/2012 0.80 0.70 - 1.40 mg/dL Final eGFR-All Other RacesDate Value Ref Range Utadex0609/24/2017 >60 . FinalComment:eGFR (Estimated GFR) Units of measure: mL/min/1.73 meters squaredeGFR is derived from the reexpressed MDRD Study equation using thefollowingparameters: serum creatinine, age, gender and race. The creatinine assayhasbeen calibrated to be traceable to IDMS.An eGFR <60 mL/min/1.73m2 for >3 months is consistent with chronic kidneydisease. Refer to KDOQI guidelines for clinical interpretation.In patients with unstable renal function, e.g. those with acute kidneyinjury,the eGFR may not accurately reflect actual GFR. eGFR- AmericanDate Value Ref Range Ncenqb6309/24/2017 >60 Final P.O.C.T. RESULTS: POC done: Yes, See Lab Tab February 22, 2018RADIOLOGIST NOTIFIED?: NoALLERGIES: Reviewed and unchangedCONTRAST ALLERGY: NO.PERIPHERAL IV ACCESS: Inpatient: see LDA documentationRADIOLOGY DEPARTMENT: CT; Exam(s) Completed: Chest Abdomen PelvisSIGNED BY: Elaine Henao, CTMay 2017 4:40 PM Normal [facility] Troponin Ton 02-22-2018 Troponin T.cardiac mass conc ug/L Normal 0.000-0.029 [facility] Comment on above: Performed By: #### T NT ####[facility] [id number] [phone] Type and Screenon 02-22-2018 ABO/RH(D) Negative Normal [facility] Comment on above: Performed By: #### C BCDIF, CMP ####[facility] [id number] [phone] XR PELVIS 1V AP [facility] Vital Signs Date Time Vital Sign Value Performing Clinician Facility 08-17-2025 15:22-0500 Body height 188 cm Teri Bose MD Work Phone: [facility] 08-17-2025 15:22-0500 Body mass index (BMI) [Ratio] 33.64 kg/m2 Teri Bose MD Work Phone: [facility] 08-17-2025 15:22-0500 Body weight 118.84 kg Teri Bose MD Work Phone: [facility] 08-17-2025 15:22-0500 Diastolic blood pressure 86 mm[Hg] Teri Bose MD Work Phone: [facility] 08-17-2025 15:22-0500 Heart rate 86 /min Teri Bose MD Work Phone: [facility] 08-17-2025 15:22-0500 Respiratory rate 18 /min Teri Bose MD Work Phone: [facility] 08-17-2025 15:22-0500 SaO2% (BldA) [Mass fraction] 97 % Teri Bose MD Work Phone: [facility] 08-17-2025 15:22-0500 Systolic blood pressure 130 mm[Hg] Teri Bose MD Work Phone: [facility] 08-03-2025 13:15-0400 Diastolic blood pressure 72 mm[Hg] Nav Briscoe MECHANICAL MANUFACTURING TECHNICIAN - [employer] Work Phone: [facility] 08-03-2025 13:15-0400 Systolic blood pressure 124 mm[Hg] Nav Briscoe MECHANICAL MANUFACTURING TECHNICIAN - [employer] Work Phone: [facility] 08-02-2025 11:22-0400 Body height 187.[address] Lenin Palacios MD Work Phone: [facility] 08-02-2025 11:22-0400 Body mass index (BMI) [Ratio] 33.6 kg/m2 Dr. Lenin Palacios MD Work Phone: [facility] 08-02-2025 11:22-0400 Body temperature 98.2 [degF] Dr. Lenin Palacios MD Work Phone: [facility] 08-02-2025 11:22-0400 Body weight 118.[address] eLnin Palacios MD Work Phone: [facility] 08-02-2025 11:22-0400 Diastolic blood pressure 79 mm[Hg] Dr. Lenin Palacios MD Work Phone: [facility] 08-02-2025 11:22-0400 Heart rate 80 /min Dr. Lenin Palacios MD Work Phone: [facility] 08-02-2025 11:22-0400 Respiratory rate 16 /min Dr. Lenin Palacios MD Work Phone: [facility] 08-02-2025 11:22-0400 SaO2% (BldA) [Mass fraction] 95 % Dr. Lenin Palacios MD Work Phone: [facility] 08-02-2025 11:22-0400 Systolic blood pressure 115 mm[Hg] Dr. Lenin Palacios MD Work Phone: [facility] 07-19-2025 11:00-0400 Body temperature 98.01 [degF] Nav Mas MD Work Phone: [facility] [employer] 07-19-2025 11:00-0400 Diastolic blood pressure 66 mm[Hg] Nav Mas MD Work Phone: [facility] 07-19-2025 11:00-0400 Heart rate 60 /min Nav Mas MD Work Phone: [facility] 07-19-2025 11:00-0400 Respiratory rate 16 /min Nav Mas MD Work Phone: [facility] 07-19-2025 11:00-0400 SaO2% (BldA) [Mass fraction] 97 % Nav Mas MD Work Phone: [facility] 07-19-2025 11:00-0400 Systolic blood pressure 110 mm[Hg] Nav Mas MD Work Phone: [facility] 07-19-2025 07:54-0400 Body mass index (BMI) [Ratio] 33.13 kg/m2 Nav Mas MD Work Phone: [facility] 07-19-2025 07:54-0400 Body weight 117.03 kg Nav Mas MD Work Phone: [facility] 06-28-2025 08:50-0400 Diastolic blood pressure 91 mm[Hg] Nav Mas MD Work Phone: [facility] 06-28-2025 08:50-0400 Systolic blood pressure 135 mm[Hg] Nav Mas MD Work Phone: [facility] 06-14-2025 09:51-0400 Diastolic blood pressure 82 mm[Hg] Nabeel Banks APRN - [employer] Work Phone: [facility] [employer] 06-14-2025 09:51-0400 Heart rate 69 /min Nabeel Gombaski MECHANICAL MANUFACTURING TECHNICIAN - [employer] Work Phone: [facility] [employer] 06-14-2025 09:51-0400 Systolic blood pressure 129 mm[Hg] Nabeel Banks MECHANICAL MANUFACTURING TECHNICIAN - [employer] Work Phone: [facility] [employer] 06-10-2025 11:16-0400 Body height 188 cm Milan Steele MD Work Phone: [facility] [employer] 06-10-2025 11:16-0400 Body mass index (BMI) [Ratio] 33.77 kg/m2 Milan Steele MD Work Phone: [facility] [employer] 06-10-2025 11:16-0400 Body weight 119.3 kg Milan Steele MD Work Phone: [facility] 06-10-2025 11:16-0400 Diastolic blood pressure 63 mm[Hg] Milan Steele MD Work Phone: [facility] 06-10-2025 11:16-0400 Heart rate 91 /min Milan Steele MD Work Phone: [facility] [employer] 06-10-2025 11:16-0400 Systolic blood pressure 93 mm[Hg] Milan Steele MD Work Phone: [facility] [employer] 06-08-2025 13:10-0400 Body height 188 cm Frank Pereyra MECHANICAL MANUFACTURING TECHNICIAN - [employer] Work Phone: [facility] [employer] 06-08-2025 13:10-0400 Body mass index (BMI) [Ratio] 33.92 kg/m2 Frank Pereyra MECHANICAL MANUFACTURING TECHNICIAN - [employer] Work Phone: [facility] [employer] 06-08-2025 13:10-0400 Body weight 119.84 kg Frank Pereyra MECHANICAL MANUFACTURING TECHNICIAN - [employer] Work Phone: [facility] [employer] 06-08-2025 13:10-0400 Diastolic blood pressure 71 mm[Hg] Frank Pereyra MECHANICAL MANUFACTURING TECHNICIAN - [employer] Work Phone: [facility] [employer] 06-08-2025 13:10-0400 Heart rate 86 /min Frank Pereyra MECHANICAL MANUFACTURING TECHNICIAN - [employer] Work Phone: [facility] 06-08-2025 13:10-0400 SaO2% (BldA) [Mass fraction] 94 % Frank Pereyra MECHANICAL MANUFACTURING TECHNICIAN - [employer] Work Phone: [facility] 06-08-2025 13:10-0400 Systolic blood pressure 109 mm[Hg] Frank Pereyra MECHANICAL MANUFACTURING TECHNICIAN - [employer] Work Phone: [facility] 05-09-2025 09:58-0400 Diastolic blood pressure 62 mm[Hg] Frank Pereyra MECHANICAL MANUFACTURING TECHNICIAN - [employer] Work Phone: [facility] 05-09-2025 09:58-0400 Systolic blood pressure 106 mm[Hg] Frank Pereyra MECHANICAL MANUFACTURING TECHNICIAN - [employer] Work Phone: [facility] 05-09-2025 09:23-0400 Body height 188 cm Frank Pereyra MECHANICAL MANUFACTURING TECHNICIAN - [employer] Work Phone: [facility] 05-09-2025 09:23-0400 Body mass index (BMI) [Ratio] 33.66 kg/m2 Frank Pereyra MECHANICAL MANUFACTURING TECHNICIAN - [employer] Work Phone: [facility] 05-09-2025 09:23-0400 Body weight 118.93 kg Frank Pereyra MECHANICAL MANUFACTURING TECHNICIAN - [employer] Work Phone: [facility] 05-09-2025 09:23-0400 Heart rate 80 /min Frank Pereyra MECHANICAL MANUFACTURING TECHNICIAN - [employer] Work Phone: [facility] [employer] 05-09-2025 09:23-0400 SaO2% (BldA) [Mass fraction] 95 % Frank Pereyra MECHANICAL MANUFACTURING TECHNICIAN - [employer] Work Phone: [facility] [employer] 08-21-2023 09:49-0500 Body temperature 98.4 [degF] Kimberlyn Talavera PT Work Phone: [facility] 08-21-2023 09:49-0500 Diastolic blood pressure 84 mm[Hg] Kimberlyn Talavera PT Work Phone: [facility] 08-21-2023 09:49-0500 Heart rate 102 /min Kimberlyn Talavera PT Work Phone: [facility] 08-21-2023 09:49-0500 Respiratory rate 22 /min Kimberlyn Talavera PT Work Phone: [facility] 08-21-2023 09:49-0500 SaO2% (BldA) [Mass fraction] 97 % Kimberlyn Talavera PT Work Phone: [facility] 08-21-2023 09:49-0500 Systolic blood pressure 140 mm[Hg] Kimberlyn Talavera PT Work Phone: [facility] 08-18-2023 14:08-0500 Body temperature 97.81 [degF] Kati Harley REPAIR DEPARTMENT SUPERVISOR Work Phone: [facility] 08-18-2023 14:08-0500 Diastolic blood pressure 78 mm[Hg] Kati Harley REPAIR DEPARTMENT SUPERVISOR Work Phone: [facility] 08-18-2023 14:08-0500 Heart rate 72 /min Kati Harley REPAIR DEPARTMENT SUPERVISOR Work Phone: [facility] 08-18-2023 14:08-0500 Respiratory rate 18 /min Kati Harley REPAIR DEPARTMENT SUPERVISOR Work Phone: [facility] 08-18-2023 14:08-0500 SaO2% (BldA) [Mass fraction] 95 % Kati Harley REPAIR DEPARTMENT SUPERVISOR Work Phone: [facility] 08-18-2023 14:08-0500 Systolic blood pressure 120 mm[Hg] Kati Harley REPAIR DEPARTMENT SUPERVISOR Work Phone: [facility] 08-12-2023 13:10-0400 Body height 188 cm Wild Stewart MD Work Phone: [facility] 08-12-2023 13:10-0400 Body weight 114.58 kg Wild Stewart MD Work Phone: [facility] 08-12-2023 13:10-0400 Respiratory rate 20 /min Wild Stewart MD Work Phone: [facility] 08-12-2023 10:08-0400 Body temperature 96.49 [degF] Kati Harley REPAIR DEPARTMENT SUPERVISOR Work Phone: [facility] 08-12-2023 10:08-0400 Diastolic blood pressure 76 mm[Hg] Kati Harley REPAIR DEPARTMENT SUPERVISOR Work Phone: [facility] 08-12-2023 10:08-0400 Heart rate 79 /min Kati Harley REPAIR DEPARTMENT SUPERVISOR Work Phone: [facility] 08-12-2023 10:08-0400 Respiratory rate 18 /min Kati Harley REPAIR DEPARTMENT SUPERVISOR Work Phone: [facility] 08-12-2023 10:08-0400 SaO2% (BldA) [Mass fraction] 97 % Kati Harley REPAIR DEPARTMENT SUPERVISOR Work Phone: [facility] 08-12-2023 10:08-0400 Systolic blood pressure 118 mm[Hg] Kati Harley REPAIR DEPARTMENT SUPERVISOR Work Phone: [facility] 08-06-2023 11:43-0400 Body temperature 97.59 [degF] Kati Harley REPAIR DEPARTMENT SUPERVISOR Work Phone: [facility] 08-06-2023 11:43-0400 Diastolic blood pressure 84 mm[Hg] Kati Harley REPAIR DEPARTMENT SUPERVISOR Work Phone: [facility] 08-06-2023 11:43-0400 Heart rate 84 /min Kati Harley REPAIR DEPARTMENT SUPERVISOR Work Phone: [facility] 08-06-2023 11:43-0400 Respiratory rate 18 /min Kati Harley REPAIR DEPARTMENT SUPERVISOR Work Phone: [facility] 08-06-2023 11:43-0400 SaO2% (BldA) [Mass fraction] 95 % Kati Harley REPAIR DEPARTMENT SUPERVISOR Work Phone: [facility] 08-06-2023 11:43-0400 Systolic blood pressure 118 mm[Hg] Kati Harley REPAIR DEPARTMENT SUPERVISOR Work Phone: [facility] 08-04-2023 11:37-0400 Body temperature 98.29 [degF] Kati Harley REPAIR DEPARTMENT SUPERVISOR Work Phone: [facility] 08-04-2023 11:37-0400 Diastolic blood pressure 78 mm[Hg] Kati Harley REPAIR DEPARTMENT SUPERVISOR Work Phone: [facility] 08-04-2023 11:37-0400 Heart rate 73 /min Kati Harley REPAIR DEPARTMENT SUPERVISOR Work Phone: [facility] 08-04-2023 11:37-0400 Respiratory rate 18 /min Kati Harley REPAIR DEPARTMENT SUPERVISOR Work Phone: [facility] 08-04-2023 11:37-0400 SaO2% (BldA) [Mass fraction] 97 % Kati Harley REPAIR DEPARTMENT SUPERVISOR Work Phone: [facility] 08-04-2023 11:37-0400 Systolic blood pressure 118 mm[Hg] Kati Harley REPAIR DEPARTMENT SUPERVISOR Work Phone: [facility] 08-01-2023 12:02-0400 Body temperature 97.7 [degF] Kimberlyn Talavera PT Work Phone: [facility] 08-01-2023 12:02-0400 Diastolic blood pressure 68 mm[Hg] Kimberlyn Prado-Chicho PT Work Phone: [facility] 08-01-2023 12:02-0400 Heart rate 83 /min Kimberlyn Talavera PT Work Phone: [facility] 08-01-2023 12:02-0400 Respiratory rate 18 /min Kimberlyn Talavera PT Work Phone: [facility] 08-01-2023 12:02-0400 SaO2% (BldA) [Mass fraction] 95 % Kimberlyn Talavera PT Work Phone: [facility] 08-01-2023 12:02-0400 Systolic blood pressure 138 mm[Hg] Kimberlyn Prado-Chicho PT Work Phone: [facility] 12-20-2021 11:08-0500 Body height 187.96 cm Referring Provider Unknown HE-Olscgdparf-[place] [address] Work Phone: 12-20-2021 11:08-0500 Body mass index (BMI) [Ratio] 32.1 kg/m2 Referring Provider Unknown NC-Nnalwnoyho-[place] [address] Work Phone: 12-20-2021 11:08-0500 Body surface area Derived from formula 2.39 m2 Referring Provider Unknown BD-Wrlixrucze-[place] [address] Work Phone: 12-20-2021 11:08-0500 Body temperature 97.6 [degF] Referring Provider Unknown EH-Gdnbaucdmh-N[place] [address] Work Phone: 12-20-2021 11:08-0500 Body weight 113.4 kg Referring Provider Unknown NQ-Kvfntlbuoy-Fkkx [place] [address] Work Phone: 12-13-2021 11:31-0500 Body temperature 97.1 [degF] Referring Provider Unknown OL-Eaxibceyap-Zyla ia 101 Work Phone: 12-13-2021 11:31-0500 Diastolic blood pressure 82 mm[Hg] Referring Provider Unknown TJ-Fdrhlpayhk-Ewde ia 101 Work Phone: 12-13-2021 11:31-0500 Heart rate 96 /min Referring Provider Unknown SW-Cyvpstcqat-Ledw ia 101 Work Phone: 12-13-2021 11:31-0500 Respiratory rate 18 /min Referring Provider Unknown XK-Jagceqictt-Dxrh ia 101 Work Phone: 12-13-2021 11:31-0500 SaO2% (BldA) [Mass fraction] 98 % Referring Provider Unknown RB-Uqkcwpqlwk-Dglp ia 101 Work Phone: 12-13-2021 11:31-0500 Systolic blood pressure 134 mm[Hg] Referring Provider Unknown EE-Ovmivcdikw-Aarz ia 101 Work Phone: Encounters Encounter Date Encounter Type Care Provider Facility Start: 09-22-2025 ambulatory Lenin Palacios Facility :[facility] Start: 08-23-2025 End: 08-23-2025 ambulatory [facility] Start: 08-23-2025 End: 08-23-2025 Encounter for other preprocedural examination TERI BOSE [facility] Start: 08-18-2025 End: 08-18-2025 Subsequent hospital visit by physician Teri Bose MD Work Phone: [facility] Comment on above: Stenosis of right ca rotid artery greater than 50% Start: 08-18-2025 End: 08-18-2025 ambulatory Teri Bose MD Work Phone: [facility] [place] Comment on above: Carotid stenosis, sy mptomatic w/o infarct, right (Primary Dx); Symptomatic stenosis of right carotid artery Start: 08-17-2025 End: 08-17-2025 ambulatory TERI BOSE [facility] Start: 08-17-2025 End: 08-17-2025 Office outpatient new 45 minutes Teri Bose MD Work Phone: [facility] Comment on above: Stenosis of right ca rotid artery greater than 50% (Primary Dx) Start: 08-17-2025 End: 08-17-2025 Telephone encounter Christopher Dejesus MD Work Phone: [facility] Comment on above: Record Request Start: 08-15-2025 End: 08-15-2025 Follow-up encounter Frank Pereyra APRN - CATTYMAN Work Phone: [facility] Comment on above: Vascular US carotid artery duplex bilateral Start: 08-12-2025 End: 08-12-2025 ambulatory [facility] Start: 08-12-2025 End: 08-12-2025 Subsequent hospital visit by physician Frank Pereyra MECHANICAL MANUFACTURING TECHNICIAN - CATTYMAN Work Phone: [facility] Comment on above: Amaurosis fugax Start: 08-03-2025 End: 08-03-2025 ambulatory [facility] Start: 08-03-2025 End: 08-03-2025 Postop follow up visit related to original px Nav Briscoe MECHANICAL MANUFACTURING TECHNICIAN - CATTYMAN Work Phone: [facility] Comment on above: Spermatocele (Primar y Dx) Start: 08-02-2025 End: 08-02-2025 Patient encounter procedure Ani CARRASCO -[facility] Work Phone: Start: 08-02-2025 End: 08-02-[address] Lenin Palacios MD Work Phone: -[facility] Start: 07-19-2025 End: 07-19-2025 Telephone encounter Nav Mas MD Work Phone: [facility] [place] Start: 07-19-2025 End: 07-19-2025 ambulatory NAV NETMEMAYTE [facility] Start: 07-19-2025 End: 07-19-2025 Subsequent hospital visit by physician Nav Mas MD Work Phone: [facility] MAIN OR Comment on above: Right testicular melvi n; Cyst of epididymis Start: 07-18-2025 End: 07-18-2025 Patient encounter procedure Frank Pereyra MECHANICAL MANUFACTURING TECHNICIAN - CATTYMAN Work Phone: [facility] Comment on above: 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) Start: 07-18-2025 End: 07-18-2025 ambulatory [facility] Start: 07-18-2025 End: 07-18-2025 ambulatory [facility] Start: 07-18-2025 End: 07-18-2025 Follow-up encounter Cat Solis PA-C Work Phone: [facility] [employer] [facility] [employer] [facility] Comment on above: Compression fracture of L1 vertebra, initial encounter (HCC) (Primary Dx); Closed compression fracture of L3 vertebra, initial encounter (HCC) Start: 07-12-2025 End: 07-12-2025 Follow-up encounter Cat Solis PA-C Work Phone: [facility] Comment on above: Compression fracture of L1 vertebra, initial encounter (HCC) (Primary Dx) Start: 07-12-2025 End: 07-12-2025 ambulatory [facility] Start: 07-07-2025 End: 07-07-2025 ambulatory Cat Solis PA-C Work Phone: [facility] Comment on above: Compression fracture of L1 vertebra, initial encounter (HCC); Closed compression fracture of L3 vertebra, initial encounter (HCC) Start: 07-06-2025 End: 07-06-2025 ambulatory [facility] Start: 06-28-2025 End: 06-28-2025 Telephone encounter Nav Mas MD Work Phone: [facility] Comment on above: Surgery Scheduling Start: 06-28-2025 End: 06-28-2025 Office outpatient visit 25 minutes Nav Mas MD Work Phone: [facility] Comment on above: Testicular pain, rig ht (Primary Dx); Cyst of epididymis; History of prostate cancer Start: 06-28-2025 End: 06-28-2025 [facility] Start: 06-27-2025 End: 06-28-2025 Telephone encounter Cat Solis PA-C Work Phone: [facility] Central Scheduling Comment on above: Other (Scheduling) Start: 06-14-2025 End: 06-14-2025 Office outpatient new 45 minutes Nabeel Banks APRN - ONDINA Work Phone: [facility] Comment on above: Testicular pain, rig ht (Primary Dx); Cyst of epididymis; Hydrocele in adult Start: 06-14-2025 End: 06-14-2025 [facility] Start: 06-10-2025 End: 06-10-2025 Office outpatient new 45 minutes Milan Steele MD Work Phone: [facility] Comment on above: Closed compression f racture of L3 vertebra, initial encounter (HCC) (Primary Dx); Compression fracture of L1 vertebra, initial encounter (HCC) Start: 06-10-2025 End: 06-10-2025 ambulatory MILAN STEELE [facility] Start: 06-08-2025 End: 06-08-2025 ambulatory CHRISTOPHER ANJELICA [facility] Start: 06-08-2025 End: 06-08-2025 Encounter for general adult medical examination without abnormal findings FRANK RODDY [facility] Start: 06-08-2025 End: 06-08-2025 Assay of hemosiderin, quant Frank Pereyra MECHANICAL MANUFACTURING TECHNICIAN - CATTYMAN Work Phone: [facility] Work Phone: Start: 06-08-2025 End: 06-08-2025 Patient encounter procedure Frank Pereyra MECHANICAL MANUFACTURING TECHNICIAN - CATTYMAN Work Phone: [facility] Comment on above: Routine general medi dayana examination at health care facility (Primary Dx); Mixed hyperlipidemia; Fatty liver; Compression fracture of L1 vertebra, initial encounter ([facility]); Prediabetes; Hydrocele in adult; Cyst of epididymis; Pain in right testicle; Class 1 obesity due to excess calories without serious comorbidity with body mass index (BMI) of 33.0 to 33.9 in adult; 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 Start: 05-30-2025 End: 05-30-2025 Telephone encounter Mihai Thomas MD Work Phone: [facility] [place] Start: 05-24-2025 End: 05-24-2025 Subsequent hospital visit by physician Frank Pereyra MECHANICAL MANUFACTURING TECHNICIAN - CATTYMAN Work Phone: [facility] Comment on above: Pain in right testic le History of malignant neoplasm of neck; Upper abdominal pain Start: 05-24-2025 End: 05-24-2025 ambulatory CHRISTOPHERNOE DEJESUS [facility] Start: 05-10-2025 End: 05-12-2025 Follow-up encounter Christopher Dejesus MD Work Phone: [facility] Comment on above: Comprehensive metabo lic panel, CBC auto differential, Lipid panel, Additional followed-up results: 3 Comprehensive metabo lic panel, CBC auto differential, Lipid panel, Additional followed-up results: 4 Start: 05-09-2025 End: 05-09-2025 Office outpatient new 30 minutes Frank Pereyra MECHANICAL MANUFACTURING TECHNICIAN - CATTYMAN Work Phone: [facility] Comment on above: [facility]counter to [facility] (Primary Dx); History of malignant neoplasm of neck; Muscle spasms of neck; Upper abdominal pain; Hyperlipidemia, unspecified hyperlipidemia type; Class 1 obesity due to excess calories without serious comorbidity with body mass index (BMI) of 33.0 to 33.9 in adult; Pain in right testicle; Screening for colon cancer; Screening for deficiency anemia; Screening for diabetes mellitus; Screening for prostate cancer Start: 05-09-2025 End: 05-09-2025 Office outpatient new 45 minutes Frank Pereyra MECHANICAL MANUFACTURING TECHNICIAN - CATTYMAN Work Phone: [facility] Comment on above: Encounter to [facility] (Primary Dx); History of malignant neoplasm of neck; Muscle spasms of neck; Upper abdominal pain; Hyperlipidemia, unspecified hyperlipidemia type; Class 1 obesity due to excess calories without serious comorbidity with body mass index (BMI) of 33.0 to 33.9 in adult; Pain in right testicle; Screening for colon cancer; Screening for deficiency anemia; Screening for diabetes mellitus; Screening for prostate cancer Start: 05-09-2025 End: 05-09-2025 ambulatory CHRISTOPHER ANJELICA [facility] Start: 04-27-2025 End: 04-27-2025 Telephone encounter Christopher Dejesus MD Work Phone: [facility] Comment on above: New Patient Start: 09-08-2024 End: 09-08-2024 Telephone encounter Malik Palacios MD Work Phone: N[facility] Comment on above: Transition Of Care Start: 09-01-2024 End: 09-01-2024 Telephone encounter Malik Palacios MD Work Phone: [facility] Start: 08-23-2024 End: 08-23-2024 Telephone encounter Nina Morales MD [facility] Department Comment on above: Fabric Transition of Care Start: 08-15-2024 Emergency department patient visit MALIK ORTEGATAK Facility:[facility] Start: 08-22-2023 End: 08-22-2023 Home visit Kimberlyn Sadaf PT Work Phone: [facility] Comment on above: PT AGENCY DC WO VISI T Start: 08-21-2023 End: 08-21-2023 Home visit Kimberlyn MirlauradarnellLuis PT Work Phone: [facility] Comment on above: PT REASSESSMENT Start: 08-18-2023 End: 08-18-2023 Home visit Kati Souza REPAIR DEPARTMENT SUPERVISOR Work Phone: [facility] Comment on above: REPAIR DEPARTMENT SUPERVISOR ROUTINE Start: 08-12-2023 End: 08-12-2023 Patient encounter procedure Wlid [place] MD Work Phone: [facility] Comment on above: Multiple closed frac tures of pelvis with unstable disruption of pelvic ring with routine healing, subsequent encounter (Primary Dx) Start: 08-12-2023 End: 08-12-2023 Home visit Kati Souza REPAIR DEPARTMENT SUPERVISOR Work Phone: [facility] Comment on above: REPAIR DEPARTMENT SUPERVISOR ROUTINE Start: 08-07-2023 End: 08-07-2023 Home visit Radha Silva OT/L Work Phone: [facility] Comment on above: OT EVAL Start: 08-06-2023 End: 08-06-2023 Orders Only Wild [place] MD Work Phone: [facility] Comment on above: Closed minimally dis placed zone I fracture of sacrum, initial encounter (HCC) (Primary Dx) REPAIR DEPARTMENT SUPERVISOR ROUTINE Start: 08-05-2023 End: 08-05-2023 Home visit Sintia Rosenthal RN Work Phone: [facility] Comment on above: CARE COORDINATION Start: 08-04-2023 End: 08-04-2023 Home visit Kati Souza REPAIR DEPARTMENT SUPERVISOR Work Phone: [facility] Comment on above: REPAIR DEPARTMENT SUPERVISOR ROUTINE Start: 08-01-2023 Telephone encounter Wild [place] MD Work Phone: [facility] Comment on above: Appointment Start: 08-01-2023 End: 08-01-2023 Home visit Kimberlyn Talavera PT Work Phone: [facility] Comment on above: PT SOC Start: 07-30-2023 Patient Outreach Domenica hopkins RN Work Phone: [employer] Comment on above: Transition Of Care ( TCM Initial [facility] Discharge 07/29/23/) Start: 07-29-2023 Telephone encounter Verna clement Work Phone: [facility] Comment on above: Home Care (Confirmat ion call) Start: 11-19-2022 ambulatory Malik quiñonez MD Work Phone: Family Practice Start: 12-20-2021 Phys/qhp telephone evaluation 11-20 min Referring Provider Unknown EZ-Ncmmhkyemv-Cwbvaqeh 320 Work Phone: Start: 12-13-2021 Office outpatient ne w 20 minutes Referring Provider Unknown AI-Srvarizgbe-Ctyzpd 101 Work Phone: Start: 03-25-2018 End: 03-25-2018 Evaluation and management of inpatient Lynette Zhu Facility:[facility] Start: 03-21-2018 Ambulatory WILD ARBOLEDA Facility:[facility] Start: 02-22-2018 End: 02-24-2018 Evaluation and management of inpatient Lenin Palacios Facility:[facility] Start: 02-22-2018 End: 02-22-2018 Emergency department patient visit [facility] Procedures Date Procedure Procedure Detail Performing Clinician Start: 08-23-2025 Antibody screen TERI BOSE Comment on above: Performed By: #### L [id number] ####[employer]er: TERESA DANIELS ([phone])[facility] ([facility])[address] [place] [address] Start: 08-18-2025 Ct angiography neck w/contrast/noncontrast Teri Bose MD Work Phone: Start: 06-08-2025 Ecg routine ecg w/le ast 12 lds w/i&r Frank Pereyra MECHANICAL MANUFACTURING TECHNICIAN - CATTYMAN Work Phone: Start: 06-08-2025 Adult depression screening assessment Frank Pereyra MECHANICAL MANUFACTURING TECHNICIAN - CATTYMAN Work Phone: Start: 05-09-2025 Complete blood count with white cell differential, automated Frank Pereyra MECHANICAL MANUFACTURING TECHNICIAN - CATTYMAN Work Phone: Start: 05-09-2025 Comprehensive metabo lic panel Frank Pereyra MECHANICAL MANUFACTURING TECHNICIAN - CATTYMAN Work Phone: Start: 05-09-2025 Lipid panel Frank Ashford MECHANICAL MANUFACTURING TECHNICIAN - CATTYMAN Work Phone: Start: 05-09-2025 PSA TOTAL (SCREENING) H zohra Pereyra MECHANICAL MANUFACTURING TECHNICIAN - CATTYMAN Work Phone: Start: 05-09-2025 Lipid 1996 panel - S marybeth or Plasma Frank Pereyra MECHANICAL MANUFACTURING TECHNICIAN - CATTYMAN Work Phone: Start: 05-08-2025 Adult depression screening assessment Frank Pereyra MECHANICAL MANUFACTURING TECHNICIAN - CATTYMAN Work Phone: Start: 08-12-2023 Radiologic examinati on pelvis 1/2 views Wild [place] MD Work Phone: Start: 2020 Lipid 1996 panel - S marybeth or Plasma Verna Shannon Work Phone: Start: 02-22-2018 Antibody screen ERICK ALTAMIRANO Comment on above: Performed By: #### C BCDIF, CMP ####[place] [phone] Start: 07-27-2012 Colonoscopy Malik myles MD Work Phone: History of radiation therapy History of radiation therapy Referring Provider Unknown Operation on tongue Referrin g Provider Unknown Tonsillectomy Referring Prov ider Unknown Plan of Treatment Date Care Activity Detail Author Start: 2034 RSV Immunization for Adults (1 - 1-dose 75+ series) RSV Immunization for Adults (1 - 1-dose 75+ series) [facility] Start: 2034 RSV Vaccine (1 - 1-d ose 75+ series) RSV Vaccine (1 - 1-dose 75+ series) [facility] Start: 05-09-2030 Lipid panel Lipid Panel [facility] Start: 08-16-2027 Diabetes Screening Diabetes Screenin g [facility] Start: 08-21-2026 Diabetes Screening Diabetes Screenin g [facility] Start: 07-29-2026 Diabetes Screening Diabetes Screenin g [facility] Start: 06-08-2026 Depression Screening Depression Scre ening [facility] Start: 05-09-2026 COVID-19 Vaccine ( season) COVID-19 Vaccine ( season) [facility] Comment on above: Postponed from 06/13 (Patient Refused) Start: 05-09-2026 Diabetes mellitus screening Diabetes Screening [facility] Start: 05-09-2026 DTaP/Tdap/Td Vaccine s (1 - Tdap) DTaP/Tdap/Td Vaccines (1 - Tdap) [facility] Comment on above: Postponed from 09/14 (Patient Refused) Start: 05-09-2026 Hepatitis C screening Hepatitis C Sc reening [facility] Comment on above: Postponed from 09/14 (Patient Refused) Start: 05-09-2026 Pneumococcal Vaccine : 50+ Years (1 of 1 - PCV) Pneumococcal Vaccine: 50+ Years (1 of 1 - PCV) [facility] Comment on above: Postponed from 09/14 (Patient Refused) Start: 05-09-2026 Zoster Vaccines (1 o f 2) Zoster Vaccines (1 of 2) [facility] Comment on above: Postponed from 09/14 (Patient Refused) Start: 05-08-2026 Depression Screening Depression Scre ening [facility] Start: 11-08-2025 [facility] Start: 10-10-2025 End: 10-10-2025 Patient encounter procedure 10/10/2025 1:20 PM EST Office Visit [facility] [address] [place] [address] Frank Pereyra, MECHANICAL MANUFACTURING TECHNICIAN - CATTYMAN [address] [facility] [address] [facility] Start: 09-19-2025 PROSTATE CANCER SCREENING DISCUSSION PROSTATE CANCER SCREENING DISCUSSION [facility] Start: 09-19-2025 Prostate specific antigen measurement Prostate Cancer Screening Discussion [facility] Start: 2025 Lipid 1996 panel - Serum or Plasma Lipid Screening [facility] Start: 2025 Lipid panel Lipid Screening [facility] Start: 2025 LIPID SCREEN LIPID SCREEN [facility] Start: 08-25-2025 Subsequent hospital visit by physician 08/25/2025 Hospital Encounter [facility] MAIN OR [address] [place] [phone] Teri Bose MD [address] [place] [address] [facility] OR Start: 08-18-2025 Subsequent hospital visit by physician 08/18/2025 12:45 PM EST Hospital Encounter [facility] CT [address] [place] [address] Teri Bose MD [address] [place] [address] [facility] [address] Start: 08-17-2025 End: 08-17-2025 Patient encounter procedure 08/17/2025 3:15 PM EST Office Visit [facility] [address] [place] [phone] Teri Bose MD [address] [place] [address] [facility] Start: 08-17-2025 End: 08-17-2026 CTA Neck vessels WO and W contrast IV CTA neck angio w and wo IV contrast Imaging STAT Stenosis of right carotid artery greater than 50% Expected: 08/17/2025, Expires: 08/17/2026 [facility] Work Phone: Comment on above: Expected: 08/17/2025 , Expires: 08/17/2026 Start: 08-03-2025 End: 08-03-2025 Patient encounter procedure 08/03/2025 1:00 PM EDT Office Visit [facility] [place] [address] [place] [address] Nav Briscoe APRN - CATTYMAN [address] [place] [address] [facility] [place] Start: 07-28-2025 End: 07-28-2025 Follow-up encounter 07/28/2025 9:45 AM EDT Follow-Up [facility] Therapy at [address] [place] [address] Cat Solis PA-C [address] [place] [id number] Juan Gama, PT [facility] Start: 07-26-2025 End: 07-26-2025 Follow-up encounter 07/26/2025 12:30 PM EDT Follow-Up [facility] at [address] [place] [address] Cat Solis PA-C [address] [place] [address] Juan Gama, PT [facility] Start: 07-22-2025 End: 07-22-2025 Patient encounter procedure 07/22/2025 11:00 AM EDT Office Visit [facility] [address] [phone] Milan Steele MD [address] [place] [address] [facility]ly Start: 07-19-2025 End: 07-19-2025 Admission to same day surgery center 07/19/2025 8:30 AM EDT - 07/19/2025 9:30 AM EDT Surgery [facility] MAIN OR [address] [place] [phone] Nav Mas MD [address] [place] [address] RIGHT SIMPLE ORCHIECTOMY [33058 (CPT )] [facility] MAIN OR Comment on above: RIGHT SIMPLE ORCHIEC PARRIS [51740 (CPT )] Start: 07-19-2025 End: 07-19-2025 Anesthesia consultation 07/19/2025 8:30 AM EDT Anesthesia Event [facility] MAIN OR [address] [place] [phone] Loida Alcala APRN - CATTYMAN [address] [place] [id number] [facility] MAIN OR Start: 07-19-2025 Subsequent hospital visit by physician 07/19/2025 8:30 AM EDT Hospital Encounter [facility] MAIN OR [address] [place] [phone] Nav Mas MD [address] [place] [address] [facility] MAIN OR Start: 07-19-2025 End: 07-19-2025 Orchiectomy simple scrotal/inguinal approach [facility] Operating Room Start: 07-18-2025 End: 07-18-2025 Patient encounter procedure 07/18/2025 2:00 PM EDT [facility] [address] [place] [address] Frank Pereyra, MECHANICAL MANUFACTURING TECHNICIAN - CATTYMAN [address] [facility] [address] [facility] [place] [address] [facility] Start: 07-18-2025 End: 07-18-2025 Follow-up encounter 07/18/2025 11:00 AM EDT Follow-Up [facility] at [address] [place] [address] Cat Solis PA-C [address] [place] [address] Franck Raymundo PTA [facility] at [facility] Start: 07-12-2025 End: 07-12-2025 Follow-up encounter 07/12/2025 11:15 AM EDT Follow-Up [facility] at [address] [place] [address] Cat Solis PA-C [address] [place] [address] Juan Gama, PT [facility] Start: 07-06-2025 End: 07-06-2025 Admission to establishment 07/06/2025 12:00 PM EDT Pre-Admission Testing [facility] Pre-Admit Testing [address] [facility] [place] [address] [facility] Pre-Admit Testing Start: 07-02-2025 End: 07-02-2025 ambulatory 07/02/2025 12:00 PM EDT Evaluation [facility] at [address] [place] [address] Cat Solis PA-C [address] [place] [address] Juan Gama, PT [facility] at [facility] Start: 06-28-2025 End: 06-28-2025 Patient encounter procedure 06/28/2025 8:50 AM EDT Office Visit [facility] [place] [address] [place] [id number] Nav Mas MD [address] [place] [address] [facility] Start: 06-14-2025 End: 06-14-2025 Patient encounter procedure 06/14/2025 10:00 AM EDT Office Visit [facility] [place] [address] [place] [address] Nabeel Banks, MECHANICAL MANUFACTURING TECHNICIAN - [place] [address] [place] [address] [facility] Start: 06-13-2025 COVID-19 Vaccine ( season) COVID-19 Vaccine () [facility] Start: 06-13-2025 Influenza vaccination Influenza Vacc ine (#1) [facility] Start: 06-10-2025 End: 06-10-2025 Patient encounter procedure 06/10/2025 11:15 AM EDT Office Visit [facility] [address] [id number] Milan Steele MD [address] [place] [id number] [facility] Start: 06-08-2025 End: 06-08-2025 Patient encounter procedure 06/08/2025 1:00 PM EDT Office Visit [facility] [address] [place] [address] Frank Pereyra, MECHANICAL MANUFACTURING TECHNICIAN - CATTYMAN [address] [facility] [place] [address] [facility] Start: 05-09-2025 End: 05-09-2026 CBC W Auto Differential panel - Blood CBC auto differential Lab Routine History of malignant neoplasm of neck Muscle spasms of neck Upper abdominal pain Hyperlipidemia, unspecified hyperlipidemia type Class 1 obesity due to excess calories without serious comorbidity with body mass index (BMI) of 33.0 to 33.9 in adult Screening for deficiency anemia Expected: 05/09/2025 (Approximate), Expires: 05/09/2026 [facility] on Screen Comment on above: Expected: 05/09/2025 (Approximate), Expires: 05/09/2026 Start: 05-09-2025 End: 05-09-2026 Comprehensive metabolic 1998 panel - Serum or Plasma Comprehensive metabolic panel Lab Routine Muscle spasms of neck Upper abdominal pain Hyperlipidemia, unspecified hyperlipidemia type Class 1 obesity due to excess calories without serious comorbidity with body mass index (BMI) of 33.0 to 33.9 in adult Screening for diabetes mellitus Expected: 05/09/2025 (Approximate), Expires: 05/09/2026 [facility] on Screen Comment on above: Expected: 05/09/2025 (Approximate), Expires: 05/09/2026 Start: 05-09-2025 End: 05-09-2026 CT Abdomen W contrast IV CT abdomen w IV contrast Imaging Routine History of malignant neoplasm of neck Upper abdominal pain Expected: 05/09/2025, Expires: 05/09/2026 [facility] on Screen System Work Phone: Comment on above: Expected: 05/09/2025 , Expires: 05/09/2026 Start: 05-09-2025 End: 05-09-2026 Hemoglobin A1c measurement Hemoglobin A1c Lab Routine Screening for diabetes mellitus Expected: 05/09/2025 (Approximate), Expires: 05/09/2026 [facility] Style on Screen Comment on above: Expected: 05/09/2025 (Approximate), Expires: 05/09/2026 Start: 05-09-2025 End: 05-09-2026 Lipid 1996 panel - Serum or Plasma Lipid panel Lab Routine Hyperlipidemia, unspecified hyperlipidemia type Expected: 05/09/2025 (Approximate), Expires: 05/09/2026 [facility] on Screen Comment on above: Expected: 05/09/2025 (Approximate), Expires: 05/09/2026 Start: 05-09-2025 End: 05-09-2026 PSA screening PSA Screening Lab Routine Screening for prostate cancer Expected: 05/09/2025 (Approximate), Expires: 05/09/2026 [facility] on Screen Comment on above: Expected: 05/09/2025 (Approximate), Expires: 05/09/2026 Start: 05-09-2025 End: 05-09-2026 US Scrotum and testicle US scrotum Imaging Routine Pain in right testicle Expected: 05/09/2025, Expires: 05/09/2026 [facility] Comment on above: Expected: 05/09/2025 , Expires: 05/09/2026 Start: 10-13-2024 Medicare Advantage Annual Wellness Visit Medicare Advantage Annual Wellness Visit [facility] Start: 06-13-2024 Covid-19 Vaccine ( season) Covid-19 Vaccine ( season) [facility] Start: 06-13-2024 Influenza vaccination Influenza Vacc ine (#1) [facility] Start: 2023 DIABETES SCREEN DIABETES SCREEN [facility] Start: 06-13-2023 Influenza vaccination Influenza Vacc ine (#1) [facility] Start: 07-27-2022 Colonoscopy COLONOSCOPY [facility] Start: 07-27-2022 COLORECTAL CANCER SCREENING COLORECTAL CANCER SCREENING [facility] Start: 07-27-2022 Screening for malign ant neoplasm of colon [facility] Start: 06-27-2022 RADHA, Provider : Jim Lane, Status: Pen, Time: 2:00 PM RADHA, Provider: Jim Lane, Status: Pen, Time: 2:00 PM [id number] 320 Work Phone: Start: 06-13-2022 Influenza vaccination INFLUENZA (#1) [facility] Start: 12-20-2021 RADHA, Provider : Jim Lane, Status: Pen, Time: 10:50 AM RADHA, Provider: Jim Lane, Status: Pen, Time: 10:50 AM [id number] Work Phone: Start: 2019 RSV Immunization for Adults (1 - Risk 60-74 years 1-dose series) RSV Immunization for Adults (1 - Risk 60-74 years 1-dose series) [facility] Start: 2019 RSV Vaccine (1 - 1-d ose 60+ series) RSV Vaccine (1 - 1-dose 60+ series) [facility] Start: 2009 Pneumococcal Vaccine : 50+ Years (1 of 1 - PCV) Pneumococcal Vaccine: 50+ Years (1 of 1 - PCV) [facility] Start: 2009 SHINGRIX VACCINE (1 of 2) SHINGRIX VACCINE (1 of 2) [facility] Start: 2009 Zoster Vaccines (1 o f 2) Zoster Vaccines (1 of 2) [facility] Start: 2004 COLOGUARD (FIT-DNA) COLOGUARD (FIT-D NA) [facility] Start: [address] COLONOGRAPHY [facility] Start: 2004 FECAL OCCULT BLOOD FECAL OCCULT BLOO D [facility] Start: 2004 Screening for malign ant neoplasm of colon [facility] Start: 2004 SIGMOIDOSCOPY SIGMOIDOSCOPY [facility] Start: 1978 DTaP/Tdap/Td Vaccine s (1 - Tdap) DTaP/Tdap/Td Vaccines (1 - Tdap) [facility] Start: 1978 Urine microalbumin profile [facility] Start: 1977 Anxiety Screening Anxiety Screening [facility] Start: 1977 Diabetes mellitus screening Diabetes Screening [facility] Start: 1977 Hepatitis C screening Hepatitis C Sc reening [facility] Start: 1977 HIV SCREENING HIV SCREENING [facility] Start: 1977 HIV screening HIV Screening [facility] Start: 1971 Depression Screening Depression Scre ening [facility] Start: 1965 PNEUMOCOCCAL (1 - PCV) PNEUMOCOCCAL (1 - PCV) [facility] Start: 1965 Pneumococcal vaccination [facility] Start: 1960 MMR Vaccines (1 of 1 - Standard series) MMR Vaccines (1 of 1 - Standard series) [facility] Start: 03-15-1960 COVID-19 VACCINE (#1) COVID-19 VACCI NE (#1) [facility] Start: 03-15-1960 Examination of skin Derm Melanoma Sk in Check [facility] Start: 1959 Annual wellness visit Medicare Initial Physical (IPPE) [facility] Start: 1959 Lipid panel Lipid Panel [facility] Start: 1959 Screening for malign ant neoplasm of colon [facility] End: 05-24-2025 CT Abdomen W contrast IV [facility] Work Phone: Comment on above: Once for 1 Occurrenc es starting 05/24/2025 until 05/24/2025 Tcat iv stent crv cr td art embolic protecj PLACEMENT INTRAVASCULAR STENT(S) CAROTID PERCUTANEOUS W DISTAL EMBOLIC PROTECTION Symptomatic stenosis of right carotid artery [facility] Operating Room Tissue exam Tissue exam Path ology and Cytology Routine 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 Ordered: 07/18/2025 [facility] Work Phone: Comment on above: Ordered: 07/18/2025 Tissue exam [employer] Work Phone: Comment on above: Release Upon Orderin g for 1 Occurrences starting 07/19/2025 US Carotid arteries - bilateral Vascular US carotid artery duplex bilateral CV Vascular Ultrasound Routine Amaurosis fugax 08/12/2025 1:39 PM EDT [facility] Work Phone: End: 05-24-2025 US Scrotum and testicle [employer] Work Phone: Comment on above: Once for 1 Occurrenc es starting 05/24/2025 until 05/24/2025 [facility] Immunizations Immunization Date Immunization Notes Care Provider Julian bhardwaj 09-23-2017 influenza virus vacc ine, unspecified formulation Verna Shannon Work Phone: [facility] Payers Date Payer Category Payer Medicare [id number] 2025 Medicare [id number] 2025 Self-pay 2024 Medicare HMO [id number] 2024 Medicare [id number] 2023 Unknown 2020 Commercial Managed C are - HMO [id number] 2020 Unknown [id number] 2020 Unknown [id number] 2016 Private Health Insurance [facility] [employer] OPT[employer] PPO [id number] 2016-Present [phone] [address] [address] [place] [address] PPO [id number] Unknown [id number] Unknown [id number] Unknown [id number] Unknown [id number] Social History Date Type Detail Facility Start: 07-28-2023 End: 05-08-2025 Never a smoker Never a smoker [facility] Start: 08-30-2011 End: 05-09-2025 Tobacco smoking status VAIS Never smoked tobacco [facility] Work Phone: Start: 08-30-2011 End: 05-09-2025 Tobacco use and exposure Smokeless tobacco non-user [facility] Work Phone: Start: 09-19-2020 End: 09-09-2023 Alcohol intake Current non-drinker of alcohol (finding) [facility] Start: 09-12-2020 History SDOH Housing Unable to Pay 3 [facility] Start: 11-12-2011 Alcohol Comment Previous heavy drinker. quit 9 yrs ago [facility] Start: 1960 Sex Assigned At Not on file [facility] Start: 07-28-2023 End: 05-08-2025 Tobacco use panel [facility] How hard is it for y ou to pay for the very basics like food, housing, medical care, and heating Not hard at all [facility] (I/We) worried mitch er (my/our) food would run out before (I/we) got money to buy more. Never true [facility] In the past 12 month s, was there a time when you were not able to pay the mortgage or rent on time? No [facility] Tobacco smoking consumption unknown [facility] Start: 03-31-2025 Sex Male (finding) [facility] Start: 05-09-2025 End: 08-17-2025 Alcoholic beverage intake Ex-drinker (finding) [facility] How often do you nee d to have someone help you when you read instructions, pamphlets, or other written material from your doctor or pharmacy [SILS] Never [facility] Do you belong to any clubs or organizations such as anabaptist groups, unions, fraternal or athletic groups, or school groups? Yes [facility] Are you now , , , , never or living with a partner? [facility] Do you feel stress - tense, restless, nervous, or anxious, or unable to sleep at night because your mind is troubled all the time - these days [OSQ] Not at all [facility] Start: 05-08-2025 Gender identity Identifies as male gender (finding) [facility] Start: 1960 Sex Assigned At Male [facility] Medical Equipment Procedure Code Equipment Code Equipment Origin al Text Equipment Identifier Dates Cannulated Screw 135mm [id number] Start: 07-28-2023 Guidewire 2.8mm Stainless Steel 300mm Orthopedic Trocar Thread 7.3mm - [id number] Start: 07-28-2023 Screw 7.3mm 8.2m m Full Thread Stainless Steel 135mm 4mm Bone Cannulated - [id number] Start: 07-28-2023 Functional Status Date Assessment Result Facility 06-08-2025 Patient Health Questionnaire 2 item (PHQ- 2) [Reported] [facility] Clinical Notes 02-23-2018 to 08-23-2025 Telephone Encounter - KETAN Holguin CNP - 08/17/2025 4:30 PM ESTTelephone Encounter - KETAN Holguin CNP - 08/17/2025 4:30 PM Bhavesh Bose MD - 08/17/2025 3:15 PM EST Note Date & Type Note Facility 08-23-2025 Note Patient: Mohini shea Procedure Information Date/Time: 08/25/25 1200 Procedure: RIGHT TRANSCAROTID ARTERY REVASCULARIZATION (Right) - [place] 2.5 HOURS Location: [facility] Operating Room Surgeons: Teri Bose MD Relevant Problems Anesthesia (+) History of malignant neoplasm of neck (+) JEFF (obstructive sleep apnea) Cardio (+) Mixed hyperlipidemia (+) Stenosis of right carotid artery greater than 50% (+) Symptomatic stenosis of right carotid artery /Renal (+) Fatty liver Pulmonary (+) JEFF (obstructive sleep apnea) Cardiovascular (+) Stenosis of right carotid artery greater than 50% (+) Symptomatic stenosis of right carotid artery Past Medical History: Past Medical History: No date: Allergic No date: Arthritis 2014: Dysphagia Comment: Throat cancer No date: GERD (gastroesophageal reflux disease) 1985: HL (hearing loss) Comment: severer hearing loss 1985: Low back pain 12/06/2011: 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 He has never used smokeless tobacco. ETOH: reports no history of alcohol use. Social History Substance and Sexual Activity Drug Use Never Family History: Family History Family History Problem Relation Name Age of Onset ? Breast cancer Mother ? Ovarian cancer Mother ? Prostate cancer Brother ? Pancreatic cancer Maternal Grandmother ? Cancer Mother ? Cancer Maternal Grandmother Screening: unknown Clinical information reviewed: Tobacco Allergies Meds Med Hx Surg Hx Fam Hx Soc Hx Physical Exam Airway Mallampati: III TM distance: >3 FB Neck ROM: full Mouth Open: normal Cardiovascular Dental dentition normal Pulmonary Abdominal Anesthesia Plan Any family history or previous problems with anesthesia no ASA 3 Any family history or previous problems with anesthesia no The patient is not a current smoker. JEFF Screening Labs: Lab Results Component Value Date WBC 3.2 (L) 05/09/2025 HGB 16.3 05/09/2025 HCT 49.2 05/09/2025 MCV 97.6 05/09/2025 PLT 183 05/09/2025 Lab Results Component Value Date SODIUM 140 05/09/2025 POTASSIUM 4.3 05/09/2025 CHLORIDE 105 05/09/2025 CO2 24 05/09/2025 BUN 14 05/09/2025 CREATININE 1.00 05/09/2025 GLUCOSE 42 (L) 05/09/2025 CALCIUM 9.5 05/09/2025 PROT 7.5 05/09/2025 ALKPHOS 65 05/09/2025 AST 29 05/09/2025 ALT 42 05/09/2025 EGFR 84 05/09/2025 GLOB 2.8 05/09/2025 Pain Score: 4 No echocardiogram results found for the past 14 days 06/08/25 ECG 12-LEAD (Final) Equipment Requests: Additional Equipment Requests [facility] 08-23-2025 Note Comprehensive Pre Rangel rgical History and Physical Name: Mohini Rodriguez : 1960 (Age-64 y.o.) Date of Service: Pt seen/examined on 08/23/2025 Procedure Information Date/Time: 08/25/25 1200 Procedure: RIGHT TRANSCAROTID ARTERY REVASCULARIZATION (Right) - [place] 2.5 HOURS [facility] Operating Room Surgeons: Teri Bose MD Chief Complaint: : Symptomatic stenosis of right carotid artery ASSESSMENT/PLAN: Plan based on PAT protocol for this intermediate level 3 risk procedure/surgery. Based on the below evaluation, the benefits of the planned procedure likely exceed the risks. The patient is medically optimized to proceed with the planned procedure without any further cardiopulmonary testing. 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 -trouble swallowing dry foods, takes water with every bit of food -denies difficult intubation 8)hearing loss -no hearing aids used 9)chronic back pain -orthopedic evaluation states no worth the surgery EK06/08/25 reviewed ECHO and EF:None on file Pacer/Defib: N/A METS: >4 METS (Able to climb a flight of stairs with no chest pain or shortness of breath): Yes CLEARANCES: N/A Visit Type: Pre-Admission Testing Visit Labs Ordered: YES - PER PAT PROTOCOL Sleep Referral Ordered: NO - NEGATIVE SCREEN PER SLEEP REFERRAL PROTOCOL Total time spent (which include face to face and non face to face encounters) : 30 minutes Toxic drug monitoring/narrow therapeutic index drug monitoring : # Drug name : asa plavix # Route administered : po # Method of monitoring : cbc PAT Protocol referenced includes: 1. Anesthesia Lab Protocol Orders 2. Perioperative Cardiovascular Risk Assessment 3. Anesthesia Assessment 4. Pain Assessment and Acute Pain Service Consult (if appropriate) 5. Shower/Wash Order (for designated surgeries) 6. JEFF Screen and Sleep Clinic Referral (if appropriate) History Of Present Illness: 64 y.o. male who we are asked to see/evaluate by [facility] 04 for pre-operative evaluation prior to Case: [id number] Date/Time: 08/25/25 1200 Procedure: RIGHT TRANSCAROTID ARTERY REVASCULARIZATION (Right) [02836 CPT(R)] - [place] 2.5 HOURS Anesthesia type: General From last office visit with Alison Bose on 08/17/2025: Reason for Consult: Symptomatic right carotid stenosis. HISTORY OF PRESENT ILLNESS: The patient is a 64 y.o. male referred for right carotid stenosis. Patient was had 2 episodes of right visual field blacking out then turning white then back to normal, last about 2 minutes. Had one episode on the left as well. Patient denies history of stroke, hemiparesis, facial drooping, and dysarthria. He does not take ASA or a statin. Denies chest pain or dyspnea. Had neck XRT for tonsilar Ca in 2011. IMPRESSION/RECOMMENDATIONS: Problem List Items Addressed This Visit Stenosis of right carotid artery greater than 50% - Primary Relevant Orders CTA neck angio w and wo IV contrast 64M with symptomatic right carotid artery stenosis. I offered him revascularization, preferably TCAR if anatomy suitable given history of neck radiation and appearance of skin. - Will need to get a stat CTA neck given he is symptomatic. CR 1, GFR 84 in April, this is adequate enough to proceed with CTA. - Ordered ASA and Plavix OSH carotid duplex report: R ICA stenosis of 70-79% with PSV of 238 Discussed reason for revascularization, prevent further TIA or strokes. 2 year risk of stroke for truly symptomatic patients in 26% without revascularization. Discussed both TCAR, CEA, TFCAS. Discussed risks (bleeding, infection, stent failure, CN injury, stroke, heart attack, and ) and benefits. Discussed expected post operative course. Will call with results of CTA. Plan for surgery next week or following to reduce further TIA/stroke events. Teri Bose MD Vascular Surgery 08/17/2025 4:45 PM Patient denies exertional chest pain/shortness of breath. Patient denies hx of CAD, Cardiac stents, CHF, [place], TIA/CVA, diabetes, COPD, asthma, JEFF, DVT/PE or seizures. Past Medical History: Past Medical History: No date: Allergic No date: Arthritis 2013: Dysphagia Comment: Throat cancer No date: (more content not included)... [facility] 08-17-2025 Telephone encounter Note Thank you Jolanta. [facility] 08-17-2025 Miscellaneous Notes Thank you Jolanta. Faxed to number provided. Name of caller: Adriana Contact phone number: [phone] Relationship to Patient: patient Provider: Dr Dejesus Practice: [facility] Chief Complaint/Reason for Call: Adriana called stating they need the results from the sonogram sent to [facility], Dr Adorno. Their fax is [phone]. Their phone number is [phone]. Please advise. Best time of day caller can be reached: any Patient advised that office/PCP has 24-48 business hours to return their call: Yes documented in this encounter [facility] 08-17-2025 History of Presen t illness Narrative Vascular Surgery Outpatient Consultation Chief Complaint Patient presents with New Patient (ref Frank Pereyra SHORTHAND REPORTER) SHORTHAND REPORTER eval for carotid stenosis over 70%- amaurosis fugax 08/12/25, CU 08/12/25 Reason for Consult: Symptomatic right carotid stenosis. HISTORY OF PRESENT ILLNESS: The patient is a 64 y.o. male referred for right carotid stenosis. Patient was had 2 episodes of right visual field blacking out then turning white then back to normal, last about 2 minutes. Had one episode on the left as well. Patient denies history of stroke, hemiparesis, facial drooping, and dysarthria. He does not take ASA or a statin. Denies chest pain or dyspnea. Had neck XRT for tonsilar Ca in 2011. Past Medical History: Medical History[1] Past SurgicalHistory: Surgical History[2] Current Medications: Prior to Admission medications Medication Sig Start Date End Date Taking? Authorizing Provider Cetirizine HCl (ZYRTEC PO) Take by mouth as needed. Yes Historical Provider, coenzyme Q-10 10 MG capsule Take 10 mg by mouth daily. Yes Historical Provider, KRILL OIL PO Take by mouth. Yes Historical Provider, milk thistle 175 MG tablet Take 175 mg by mouth daily. Yes Historical Provider, Multiple Vitamin (multivitamin) tablet Take 1 tablet by mouth daily. Yes Historical Provider, omeprazole (PriLOSEC) [address] capsule Take 1 capsule (20 mg) by mouth daily. Do not crush or chew. 05/09/25 11/05/25 Yes Frank Pereyra APRN - [place] tiZANidine (Zanaflex) 2 MG tablet Take 1 tablet by mouth every 8 hours as needed for muscle spasms. May take 2 tablets before bed if needed. 05/09/25 Yes KETAN Holguin CNP Allergies: Seasonal Social History Socioeconomic History Marital status: Spouse name: Not on file Number of children: Not on file Years of education: Not on file Highest education level: Not on file Occupational History Not on file Tobacco Use Smoking status: Never Smokeless tobacco: Never Vaping Use Vaping status: Never Used Substance and Sexual Activity Alcohol use: Not Currently Drug use: Never Sexual activity: Not Currently Partners: Female Other Topics Concern Not on file Social History Narrative Not on file Social Drivers of Health Financial Resource Strain: Low Risk (05/08/2025) Overall Financial Resource Strain (CARDIA) Difficulty of Paying Living Expenses: Not hard at all Food Insecurity: No Food Insecurity (05/08/2025) Hunger Vital Sign Worried About Running Out of Food in the Last Year: Never true Ran Out of Food in the Last Year: Never true Transportation Needs: No Transportation Needs (05/08/2025) PRAPARE - Transportation Lack of Transportation (Medical): No Lack of Transportation (Non-Medical): No Physical Activity: Insufficiently Active (05/08/2025) Exercise Vital Sign Days of Exercise per Week: 1 day Minutes of Exercise per Session: 10 min Stress: No Stress Concern Present (05/08/2025) [employer] [place] [employer] - Occupational Stress Questionnaire Feeling of Stress : Not at all Social Connections: Socially Integrated (05/08/2025) Social Connection and Isolation Panel [NHANES] Frequency of Communication with Friends and Family: More than three times a week Frequency of Social Gatherings with Friends and Family: More than three times a week Attends Scientology Services: More than 4 times per year Active Member of Clubs or Organizations: Yes Attends Club or Organization Meetings: More than 4 times per year Marital Status: Intimate Partner Violence: Not At Risk (05/08/2025) Humiliation, Afraid, Rape, and Kick questionnaire Fear of Current or Ex-Partner: No Emotionally Abused: No Physically Abused: No Sexually Abused: No Housing Stability: Unknown (05/08/2025) Housing Stability Vital Sign Unable to Pay for Housing in the Last Year: No Number of Times Moved in the Last Year: Not on file Homeless in the Last Year: No Family History[3] Review of Systems Constitutional: Negative. HENT: Positive for hearing loss (no hearing aids). Eyes: Positive for visual disturbance (1x in L eye, 2x R eye, a few spells of vision going black). Respiratory: Negative. Cardiovascular: Positive for leg swelling. Gastrointestinal: Negative. Endocrine: Negative. Genitourinary: Negative. Musculoskeletal: Positive for back pain (chronic low back pain) and myalgias (intermittent L leg pain- a dull ache while walking). Skin: Negative. Allergic/Immunologic: Negative. Neurological: Positive for numbness (L hand - especially when sleeping). Hematological: Negative. Psychiatric/Behavioral: Negative. LABS: Lab Results Component Value Date CREATININE 1.00 05/09/2025 Lab Results Component Value Date WBC 3.2 (L) 05/09/2025 HGB 16.3 05/09/2025 HCT 49.2 05/09/2025 MCV 97.6 05/09/2025 PLT 183 05/09/2025 Lab Results Component Value Date INR 1 07/27/2023 No results found for: VLDL Physical Exam General: no apparent distress, resting comfortably, easily ambulates in room Neurologic: no focal deficits Respiratory: normal respiratory effort on room air Cardiac: regular rate Extremity: no LE edema, no wounds, ROM intact Skin: no lesions or rashes, right neck slightly thick/leather OSH carotid duplex report: R ICA stenosis of 70-79% with PSV of 238 IMPRESSION/RECOMMENDATIONS: Problem List Items Addressed This Visit Stenosis of right carotid artery greater than 50% - Primary Relevant Orders CTA neck angio w and wo IV contrast 64M with symptomatic right carotid artery stenosis. I offered him revascularization, preferably TCAR if anatomy suitable given history of neck radiation and appearance of skin. - Will need to get a stat CTA neck given he is symptomatic. CR 1, GFR 84 in April, this is adequate enough to proceed with CTA. - Ordered ASA and Plavix Discussed reason for revascularization, prevent further TIA or strokes. 2 year risk of stroke for truly symptomatic patients in 26% without revascularization. Discussed both TCAR, CEA, TFCAS. Discussed risks (bleeding, infection, stent failure, CN injury, stroke, heart attack, and ) and benefits. Discussed expected post operative course. Will call with results of CTA. Plan for surgery next week or following to reduce further TIA/stroke events. 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 Nasal septal deviation 11/20/2012 Pelvis fracture (HCC) Prostate cancer (HCC) 2003 Throat cancer (HCC) [2] Past Surgical History: Procedure Laterality Date NASAL SEPTUM SURGERY ORCHIECTOMY Right 07/19/2025 simple orchiectomy PELVIC FRACTURE SURGERY PROSTATE SURGERY 2003 REPAIR INCIS HERNIA W MESH (HISTORICAL) THROAT SURGERY [3] Family History Problem Relation Name Age of Onset Breast cancer Mother Ovarian cancer Mother Prostate cancer Brother Pancreatic cancer Maternal Grandmother Cancer Mother Cancer Maternal Grandmother documented in this encounter [facility] 08-17-2025 Note Vascular Surgery Out patient Consultation Chief Complaint Patient presents with New Patient (ref Frank Pereyra SHORTHAND REPORTER) SHORTHAND REPORTER eval for carotid stenosis over 70%- amaurosis fugax 08/12/25, CU 08/12/25 Reason for Consult: Symptomatic right carotid stenosis. HISTORY OF PRESENT ILLNESS: The patient is a 64 y.o. male referred for right carotid stenosis. Patient was had 2 episodes of right visual field blacking out then turning white then back to normal, last about 2 minutes. Had one episode on the left as well. Patient denies history of stroke, hemiparesis, facial drooping, and dysarthria. He does not take ASA or a statin. Denies chest pain or dyspnea. Had neck XRT for tonsilar Ca in 2011. Past Medical History: Medical History[1] Past SurgicalHistory: Surgical History[2] Current Medications: Prior to Admission medications Medication Sig Start Date End Date Taking? Authorizing Provider Cetirizine HCl (ZYRTEC PO) Take by mouth as needed. Yes Historical Provider, coenzyme Q-10 10 MG capsule Take 10 mg by mouth daily. Yes Historical Provider, KRILL OIL PO Take by mouth. Yes Historical Provider, milk thistle 175 MG tablet Take 175 mg by mouth daily. Yes Historical Provider, Multiple Vitamin (multivitamin) tablet Take 1 tablet by mouth daily. Yes Historical Provider, omeprazole (PriLOSEC) [address] capsule Take 1 capsule (20 mg) by mouth daily. Do not crush or chew. 05/09/25 11/05/25 Yes KETAN Holguin CNP tiZANidine (Zanaflex) 2 MG tablet Take 1 tablet by mouth every 8 hours as needed for muscle spasms. May take 2 tablets before bed if needed. 05/09/25 Yes KETAN Holguin CNP Allergies: Seasonal Social History Socioeconomic History Marital status: Spouse name: Not on file Number of children: Not on file Years of education: Not on file Highest education level: Not on file Occupational History Not on file Tobacco Use Smoking status: Never Smokeless tobacco: Never Vaping Use Vaping status: Never Used Substance and Sexual Activity Alcohol use: Not Currently Drug use: Never Sexual activity: Not Currently Partners: Female Other Topics Concern Not on file Social History Narrative Not on file Social Drivers of Health Financial Resource Strain: Low Risk (05/08/2025) Overall Financial Resource Strain (CARDIA) Difficulty of Paying Living Expenses: Not hard at all Food Insecurity: No Food Insecurity (05/08/2025) Hunger Vital Sign Worried About Running Out of Food in the Last Year: Never true Ran Out of Food in the Last Year: Never true Transportation Needs: No Transportation Needs (05/08/2025) PRAPARE - Transportation Lack of Transportation (Medical): No Lack of Transportation (Non-Medical): No Physical Activity: Insufficiently Active (05/08/2025) Exercise Vital Sign Days of Exercise per Week: 1 day Minutes of Exercise per Session: 10 min Stress: No Stress Concern Present (05/08/2025) [employer] [place] [employer] - Occupational Stress Questionnaire Feeling of Stress : Not at all Social Connections: Socially Integrated (05/08/2025) Social Connection and Isolation Panel [NHANES] Frequency of Communication with Friends and Family: More than three times a week Frequency of Social Gatherings with Friends and Family: More than three times a week Attends [employer] Services: More than 4 times per year Active Member of Clubs or Organizations: Yes Attends Club or Organization Meetings: More than 4 times per year Marital Status: Intimate Partner Violence: Not At Risk (05/08/2025) Humiliation, Afraid, Rape, and Kick questionnaire Fear of Current or Ex-Partner: No Emotionally Abused: No Physically Abused: No Sexually Abused: No Housing Stability: Unknown (05/08/2025) Housing Stability Vital Sign Unable to Pay for Housing in the Last Year: No Number of Times Moved in the Last Year: Not on file Homeless in the Last Year: No Family History[3] Review of Systems Constitutional: Negative. HENT: Positive for hearing loss (no hearing aids). Eyes: Positive for visual disturbance (1x in L eye, 2x R eye, a few spells of vision going black). Respiratory: Negative. Cardiovascular: Positive for leg swelling. Gastrointestinal: Negative. Endocrine: Negative. Genitourinary: Negative. Musculoskeletal: Positive for back pain (chronic low back pain) and myalgias (intermittent L leg pain- a dull ache while walking). Skin: Negative. Allergic/Immunologic: Negative. Neurological: Positive for numbness (L hand - especially when sleeping). Hematological: Negative. Psychiatric/Behavioral: Negative. LABS: Lab Results Component Value Date CREATININE 1.00 05/09/2025 Lab Results Component Value Date WBC 3.2 (L) 05/09/2025 HGB 16.3 05/09/2025 HCT 49.2 05/09/2025 MCV 97.6 05/09/2025 PLT 183 05/09/2025 Lab Results Component Value Date INR 1 07/27/2023 No results found for: VLDL Phy (more content not included)... [facility] 08-17-2025 Telephone encounter Note Faxed to number provided. [facility] 08-17-2025 Telephone encounter Note Name of caller: Adriana Contact phone number: [phone] Relationship to Patient: patient Provider: Dr Dejesus Practice: [facility] Chief Complaint/Reason for Call: Adriana called stating they need the results from the sonogram sent to [facility], Dr Adorno. Their fax is [phone]. Their phone number is [phone]. Please advise. Best time of day caller can be reached: any Patient advised that office/PCP has 24-48 business hours to return their call: Yes [facility] 08-15-2025 Note Called and spoke wit camacho Quintana and his , Adriana, on the phone. Agreeable to referral to vascular surgery. Referral placed with [facility] location. Provided with central scheduling's number to call and schedule appointment. Recommended again to be on a medication to help lower his cholesterol and continues to decline. Will follow-up with vascular surgery as directed. [facility] 08-15-2025 Telephone encounter Note Called and spoke with Mohini and his , Adriana, on the phone. Agreeable to referral to vascular surgery. Referral placed with [facility] location. Provided with central scheduling's number to call and schedule appointment. Recommended again to be on a medication to help lower his cholesterol and continues to decline. Will follow-up with vascular surgery as directed. [facility] 08-15-2025 Miscellaneous Notes Called and spoke with Mohini and his , Adriana, on the phone. Agreeable to referral to vascular surgery. Referral placed with [facility] location. Provided with central scheduling's number to call and schedule appointment. Recommended again to be on a medication to help lower his cholesterol and continues to decline. Will follow-up with vascular surgery as directed. documented in this encounter [facility] 08-03-2025 History of Presen t illness Narrative Nav Briscoe, MSN, MECHANICAL MANUFACTURING TECHNICIAN, AGNP-C 08/03/2025 Urology Office Visit [facility] UROLOGY [address], [address] [facility] [id number] PATIENT NAME: Mohini Rodriguez DATE OF : 1960 REFERRING PROVIDER: No ref. provider found PCP: Christopher Dejesus MD TODAY'S DATE: 08/03/2025 Visit type: Established patient HPI: Mohini is a 64 y.o. male who presents today with chief complaints of: post surgery Referral/records review: N\A Urology history: 07/19/2025: Nething: right simple orchiectomy Patient states that is not having pain. Not having drainage. Wore a jock strap for the initial healing. Denies fever. Anjelica is monitoring PSA for history of brachytherapy/prostate cancer in 2003. Review of Systems: All pertinent positives and negatives per HPI as stated above. Medical History[1] Surgical History[2] Allergies[3] Physical Exam: BP 124/72 Physical Exam Vitals and nursing note reviewed. Constitutional: General: He is not in acute distress. Appearance: Normal appearance. He is not ill-appearing or toxic-appearing. Pulmonary: Effort: Pulmonary effort is normal. Genitourinary: Comments: Surgical incisions sites clean and dry. Absent right testicle. No bruising, erythema, swelling. Neurological: Mental Status: He is alert and oriented to person, place, and time. Psychiatric: Behavior: Behavior normal. Judgment: Judgment normal. Pertinent Labs: CBC: Lab Results Component Value Date WBC 3.2 (L) 05/09/2025 HGB 16.3 05/09/2025 HCT 49.2 05/09/2025 MCV 97.6 05/09/2025 PLT 183 05/09/2025 CMP: Lab Results Component Value Date CO2 24 05/09/2025 BUN 14 05/09/2025 CREATININE 1.00 05/09/2025 GLUCOSE 42 (L) 05/09/2025 ALT 42 05/09/2025 AST 29 05/09/2025 ALKPHOS 65 05/09/2025 Hemoglobin A1C: Lab Results Component Value Date HGBA1C 6.0 (H) 05/09/2025 Imaging and results/record review: Imaging: N\A Other results/records reviewed: N\A Assessment and Plan: Diagnosis Plan 1. Spermatocele Diagnosis 1: Spermatocele Tissue pathology reviewed: spermatocele Continue wearing supportive underwear Continue using ice as needed Continue using NSAIDS as needed for pain control. 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 Restrictions: Avoid strenuous activity (running, jumping etc.) for 1 weeks, avoid heavy lifting/pushing/pulling (>20 lb) for 5 days, avoid driving/operating heavy machinery for 1 week or while on narcotics for pain, avoid submerging into bath tub/hot tub/swimming pool for 2-3 weeks. All patient questions answered. Patient voiced understanding. Patient agreed with treatment plan. Discussed adverse effects and side effects of medication treatment. Follow up: as needed Nav Briscoe MSN, MECHANICAL MANUFACTURING TECHNICIAN, AGNP-C [facility] Urology Please note that portions of this chart were dictated using [employer] voice recognition software. It is possible that typos and/or omissions and/or substitutions of words and/or phrases may exist, which may alter the intended meaning of the dictating provider. 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 Nasal septal deviation 11/20/2012 Pelvis fracture (HCC) Prostate cancer (HCC) 2003 Throat cancer ([facility]) [2] Past Surgical History: Procedure Laterality Date NASAL SEPTUM SURGERY ORCHIECTOMY Right 07/19/2025 simple orchiectomy PELVIC FRACTURE SURGERY PROSTATE SURGERY 2004 REPAIR INCIS HERNIA W MESH (HISTORICAL) THROAT SURGERY [3] Allergies Allergen Reactions Seasonal documented in this encounter [facility] 08-02-2025 Progress note [facility] 08-02-2025 Evaluation note Diagnosis Onset Date Resolution GERD (gastroesophageal reflux disease) acute August 02 11:11am Screening for colon cancer acute August 02 11:11am [facility] Work Phone: [phone] Telephone encounter Note* Telephone Encounter - Francisca Reid - 07/20/2025 9:36 AM EDT [id number] Miscellaneous Notes* Telephone Encounter - Francisca Reid - 07/20/2025 9:36 AM EDT Spoke with pt * Telephone Encounter - Francisca Reid - 07/19/2025 10:22 AM EDT FU scheduled 08/03/25 @1pm with LV Alyson at [address] location * Telephone Encounter - Nav Mas MD - 07/19/2025 9:38 AM EDT FU alyson in 2-4 weeks [facility]Ihjtcs26-54-9538 Miscellaneous Notes* Perioperative Nursing Note - Ani Geronimo RN - 07/19/2025 11:18 AM EDT Phase II indicated, pt awake and talking, VS stable, pt dressed and ambulated to wheelchair withoutdifficulty, home going instructions reviewed with patient, verbal understanding demonstrated and opportunity given for questions Pt and family verbalized understanding of recovery instructions, pt verbalized a readiness to be discharged home. Pt discharged home via wheelchair accompanied by RN/volunteer. Pt has had all their belongings returned to them at discharge * Perioperative Nursing Note - Ani Geronimo RN - 07/19/2025 9:35 AM EDT Pt received from OR via cart, spont. Resp. With MALWARE ANALYST in attendance. Placed on monitor. Monitor alarms on in PACU * Op Note - Nav Mas MD - 07/19/2025 8:47 AM EDT Operative Report Pre Op Diagnosis Right spermatic cysts, right Orchalgia Post Op Diagnosis Same, Right hydrocele Operating Simple Right orchiectomy Surgeon Chace Relationship Mgr none EBL 5ml Specimen right testicle Fluids crystalloid Drains none Indications This is a 64 year old male who presents with scrotal discomfort related to right scrotal Hydrocele and Spermatocele. After having a discussion on the surgical and nonsurgical options and all risks, benefits and alternatives he does wish to proceed forward with surgical removal. He has elected for orchiectomy over spermatocelectomy, hydrocelectomy Operative Report Patient was brought to the operative suite. A thorough time out was performed and everyone present was in agreement. He was placed on the table in the supine position. SCDs were on and functional. Pressure points padded. Anesthesia was induced and maintained by the OR team. He was prepped and draped in a usual sterile fashion. A midline incision in the scrotal raphe was made and dissection was carried down through the subcuticular tissue. The plane of dissection was carried down the right side and the scrotal dartos divided. The testicle and Hydrocele and Spermatocele were delivered. The spermatic cord was isolated. Lipoma was dissected away from spermatic cord. The cord was in two packets, isolating the vas deferens The cords was ligated using 2-0 vicryl and the spermatic cord divided and testicle removed The two packets were suture ligated using 2-0 vicryl There was no bleeding A 2 layer closure of the tunica vaginalis and scrotal dartos was performed using 3-0 vicryl. The wound was irrigated. The skin was closed using 4-0 monocryl. 10ml Lidocaine was instilled into the incision. Patient was awoken from anesthesia and tolerated this well. documented in this [facility]10-07-2025 Nurse Note* Perioperative Nursing Note - Ani Geronimo RN - 07/19/2025 11:18 AM EDT Phase II indicated, pt awake and talking, VS stable, pt dressed and ambulated to wheelchair withoutdifficulty, home going instructions reviewed with patient, verbal understanding demonstrated and opportunity given for questions Pt and family verbalized understanding of recovery instructions, pt verbalized a readiness to be discharged home. Pt discharged home via wheelchair accompanied by RN/volunteer. Pt has had all their belongings returned to them at discharge [facility] [employer] Work Phone: 1(653) 668-644410-07-2025 NotePatient: Mohini Rodriguez Procedure Summary Date: 07/19/25 Room / Location: [address] Operating Room Anesthesia Start: 846 Anesthesia Stop: 936 Procedure: RIGHT SIMPLE ORCHIECTOMY (Right: Scrotum) Diagnosis: Right testicular pain Cyst of epididymis Surgeons: Nav Mas MD Responsible Provider: No Anesthesiologist - Gina/MD Jazmin Anesthesia Type: general ASA Status: 2 Anesthesia Type: general Vitals Value Taken Time BP 91/59 07/19/25 10:35 Temp 36.4 ?C (97.5 ?F) 07/19/25 09:35 Pulse 64 07/19/25 10:35 Resp 23 07/19/25 10:35 SpO2 94 % 07/19/25 10:35 Vitals shown include unfiled device data. Anesthesia Post Evaluation Patient location during evaluation: PACU Patient participation: complete - patient participated Level of consciousness: alert and responsive Pain management: satisfactory to patient Airway patency: patent Dental Injury: no Cardiovascular status: acceptable, blood pressure returned to baseline and hemodynamically stable Respiratory status: acceptable, spontaneous ventilation, nonlabored ventilation and room air Hydration status: euvolemic Nausea/Vomiting: controlled No notable events documented. Patient can be discharged once all PACU criteria has been met.[facility]10-07-2025 Telephone encounter Note* Telephone Encounter - Francisca Reid - 07/19/2025 10:22 AM EDT FU scheduled 08/03/25 @1pm with LV Alyson at [address] location [id number] Miscellaneous Notes* Telephone Encounter - Francisca Reid - 07/19/2025 10:22 AM EDT FU scheduled 08/03/25 @1pm with LV Alyson at [address] location * Telephone Encounter - Nav Mas MD - 07/19/2025 9:38 AM EDT FU alyson in 2-4 weeks documented in this encounterSOhio[facility] [id number] Telephone encounter Note* Telephone Encounter - Nav Mas MD - 07/19/2025 9:38 AM EDT FU alyson in 2-4 weeks [id number] NotePatient: Mohini Rodriguez Procedure Summary Date: 07/19/25 Room / Location: [address] Operating Room Anesthesia Start: 846 Anesthesia Stop: 936 Procedure: RIGHT SIMPLE ORCHIECTOMY (Right: Scrotum) Diagnosis: Right testicular pain Cyst of epididymis Surgeons: Nav Mas MD Responsible Provider: No Anesthesiologist - Gina/MscMD Anesthesia Type: general ASA Status: 2 Anesthesia Type: general Vitals Value Taken Time BP 118/79 07/19/25 09:35 Temp 97 07/19/25 09:37 Pulse 81 07/19/25 09:37 Resp 12 07/19/25 09:37 SpO2 93 % 07/19/25 09:37 Vitals shown include unfiled device data. Anesthesia Post Evaluation Patient participation: complete - patient cannot participate Level of consciousness: sleepy Pain management: satisfactory to patient Multimodal analgesia pain management approach Airway patency: patent Two or more strategies used to mitigate risk of obstructive sleep apnea Respiratory status: acceptable and spontaneous ventilation Cardiovascular status: acceptable Hydration status: acceptable PONV: none No notable events documented. MIPS #[id number] PONV Patient received an inhalational anesthetic (4554F) Patient exhibits three or more risk factors for PONV (4556F) Patient received at leaset 2 prophylactic Rx PONV anti-emtic agents of different classes preop and/or intraop (G9775) MIPS # 424 Perioperative Temperature Management Anesthesia time was 60 minutes or longer (4255F) Anesthesai administered was General (inhalational or TIVA) or Neuraxial block (X0424) At least one body temperature greater than 95.8F/35.5C achieved within the 30 mins immediately prior to or the 15 minutes immediately following anesthesia end time (G9771) MIPS #477 Multimodal Pain Management Not emergent case Patient was administered multimodal pain management (two or more drugs and/or interventions excluding systemic opioids) in the periopeartive period occurring at some time between 6 hours prior to anesthesia start time until discharged from PACU (G2148) MIPS #404 Anesthesiology Smoking Abstinence The patient is not a current smoker (e.g. cigarette, cigar, pipe, e-cigarette/vaping/marijuana) If no stop here (XX404) I completed my handoff to the receiving clinician during which we: 1. Identified the patient 2. Identified the responsible provider 3. Reviewed the pertinent medical history 4. Discussed the surgical course 5. Reviewed intra-op anesthesia management and issues during anesthesia 6. Set expectations for post-procedure period 7. Allowed opportunity for questions and acknowledgement of understanding.[facility]10-07-2025 Nurse Note* Perioperative Nursing Note - Ani Geronimo RN - 07/19/2025 9:35 AM EDT Pt received from OR via cart, spont. Resp. With MALWARE ANALYST in attendance. Placed on monitor. Monitor alarms on in PACU [id number] NoteAirway Date/Time: 07/19/2025 8:52 AM Reason: scheduled Airway not difficult General Information and Staff Patient location during procedure: Procedural Resident/MALWARE ANALYST: Eliza Dobbins, MECHANICAL MANUFACTURING TECHNICIAN - MALWARE ANALYST Performed: MALWARE ANALYST Patient Condition Indications for airway management: anesthesia Patient position: sniffing Sedation level: Asleep Final Airway Details Preoxygenated: yes Final airway type: supraglottic airway Successful airway: Igel Size: 5 Number of attempts at approach: [address] [place], [place] 2253810-07-2025 Procedure note* Op Note - Nav Mas MD - 07/19/2025 8:47 AM EDT Operative Report Pre Op Diagnosis Right spermatic cysts, right Orchalgia Post Op Diagnosis Same, Right hydrocele Operating Simple Right orchiectomy Surgeon Chace Relationship Mgr none EBL 5ml Specimen right testicle Fluids crystalloid Drains none Indications This is a 64 year old male who presents with scrotal discomfort related to right scrotal Hydrocele and Spermatocele. After having a discussion on the surgical and nonsurgical options and all risks, benefits and alternatives he does wish to proceed forward with surgical removal. He has elected for orchiectomy over spermatocelectomy, hydrocelectomy Operative Report Patient was brought to the operative suite. A thorough time out was performed and everyone present was in agreement. He was placed on the table in the supine position. SCDs were on and functional. Pressure points padded. Anesthesia was induced and maintained by the OR team. He was prepped and draped in a usual sterile fashion. A midline incision in the scrotal raphe was made and dissection was carried down through the subcuticular tissue. The plane of dissection was carried down the right side and the scrotal dartos divided. The testicle and Hydrocele and Spermatocele were delivered. The spermatic cord was isolated. Lipoma was dissected away from spermatic cord. The cord was in two packets, isolating the vas deferens The cords was ligated using 2-0 vicryl and the spermatic cord divided and testicle removed The two packets were suture ligated using 2-0 vicryl There was no bleeding A 2 layer closure of the tunica vaginalis and scrotal dartos was performed using 3-0 vicryl. The wound was irrigated. The skin was closed using 4-0 monocryl. 10ml Lidocaine was instilled into the incision. Patient was awoken from anesthesia and tolerated this well. [id number] Attending History and physical note* Nav Mas MD - 07/19/2025 8:30 AM EDT H&P reviewed. The patient was examined and there are no changes to the H&P. Source Note - Nav Pina APRN - [place] ANALYST - 07/19/2025 8:19 AM EDT Telemedicine: Patient was seen today via Telehealth by agreement and consent. I used the following Telehealth technology: Audio & Video Visit This patient encounter is appropriate and reasonable under the circumstances given the patient's particular presentation at this time. The patient has been advised of the potential risks and limitations of this mode of treatment (including but not limited to the absence of in-person examination) and has agreed to be treated in a remote fashion in spite of them. Anyand all of the patient's/patient's family's questions on this issue have been answered and I have made no promises or guarantees to the patient. The patient has also been advised to contact their PCPor surgeon's office for worsening conditions or problems, and seek emergency medical treatment and/or call 911 if the patient deems either necessary. [facility] If the patient is a minor, permission has been obtained by the parent or guardian for the patient to receive medical care at this visit. The patient verbally consented to the visit held via telephone/video call. The patient understands the limitations of not being physically examined and that we may not be able to address all issues via a telehealth visit. Pre-Surgical History Name: Mohini Rodriguez : 1960 (Age-64 y.o.) Date of Service: Pt seen/examined on 07/19/2025 Chief Complaint: Pre-surgical evaluation, right testicular pain History Of Present Illness: We are asked to see/evaluate Mohini Rodriguez, a 64 y.o. male for pre-operative evaluation prior to Procedure Information Date/Time: 07/19/25829 Procedure: RIGHT SIMPLE ORCHIECTOMY (Right: Scrotum) - 60 MIN Location: [address] Operating Room Surgeons: Nav Mas MD Mohini Rodriguez presents with c/o progressivley worsening right testicular pain x 2 years. Endorses an increasingly painful and enlarging cysts. Currently rates pain as a 4/10. Conservative measures have provided little relief. Proceeding with the above. Anesthesia Assessment BMI Classification: Obese (BMI 30.0-39.9) Allergies: Seasonal If patient has opioid allergy, is it okay to take Acetaminophen: N/A Any Problems with Anesthesia?: Past General Anesthetic without complications Family History of Problems with Anesthesia?: None noted History of Difficult Intubation?: None reported History of Blood Transfusion Postoperatively?: None reported Overall Dentition: Teeth intact with none loose, permanent lower bridge Dentures: None Partials: None Mallampati PAT assesment: 2 Mouth Size: WNL TMD: >4cm Neck: WNL GERD:Controlled Implantable Devices:None PAT Pain Score:4 METs (>4 METS implies low cardiovascular risk from surgery): Reports >4 METs- Able to climb a flight of stairs without chest pain Cardiac Stents:No History of CVA:No History of Seizures:No COPD/Asthma:No JEFF: Resolved Anticoagulant/Antiplatelet Therapy: No Chronic Steroid Use:No Chronic Narcotic Use: No Social History: ETOH: reports that he does not currently use alcohol. Social History Substance and Sexual Activity Drug Use Never TOBACCO: reports that he has never smoked. He has never used smokeless tobacco. ASA Score:2 Cardiac EK06/08/25 ECG 12-LEAD (Final) Sinus Rhythm WITHIN NORMAL LIMITS ECHO and EF: No results found for this or any previous visit. ASSESSMENT/PLAN: Based on the above evaluation, the benefits of the planned procedure likely exceed the risks. The patient is medically optimized to proceed with no reducible risk factor and without any further cardiopulmonary testing. 1)Right testicular pain [N50.811] Cyst of epididymis [N50.3] - Deferred to surgeon - Pre-surgical instructions given to patient - No further workup required per PAT Protocol Labs Ordered: No EKG Ordered: No Sleep Referral Ordered: NO - NEGATIVE SCREEN PER SLEEP REFERRAL PROTOCOL #) Pre-operative Anesthesia Evaluation - Anesthesia Assessment complete, noted above - Surgery Site: [facility] - Anesthesia Type: GA #)JEFF -Reports resolved after nasal septum surgery. Has not worn a CPAP in years #)Hx of throat cancer -Diagnosed in 2011 -S/p neck radiation in 2011 -Denies difficulty swallowing -Reports had pelvis surgery in 2022, denies history of difficult intubation #)GERD -Controlled on PPI #)Lipid disorder, Fatty liver -Managed with lifestyle modifications #)Seasonal allergies -Managed with Zyrtec #)Hard of hearing -Upcoming hearing test to evaluate for hearing aids REVIEW OF SYSTEMS: Review of Systems Constitutional: Negative for chills and fever. HENT: Negative for trouble swallowing. Eyes: Negative for visual disturbance. Respiratory: Negative for shortness of breath. Cardiovascular: Negative for chest pain. Gastrointestinal: Negative for abdominal pain. Genitourinary: Positive for testicular pain. Negative for difficulty urinating. Musculoskeletal: Negative for gait problem. Skin: Negative for color change. Neurological: Negative for speech difficulty. Psychiatric/Behavioral: Negative for agitation. Labs: Lab Results Component Value Date WBC 3.2 (L) 05/09/2025 HGB 16.3 05/09/2025 HCT 49.2 05/09/2025 MCV 97.6 05/09/2025 PLT 183 05/09/2025 Lab Results Component Value Date CO2 24 05/09/2025 BUN 14 05/09/2025 CREATININE 1.00 05/09/2025 GLUCOSE 42 (L) 05/09/2025 CALCIUM 9.5 05/09/2025 PROT 7.5 05/09/2025 BILITOT 0.5 05/09/2025 ALKPHOS 65 05/09/2025 AST 29 05/09/2025 ALT 42 05/09/2025 AGRATIO 1.7 05/09/2025 GLOB 2.8 05/09/2025 Past Medical History: Past Medical History: No date: Allergic No date: Arthritis 2014: Dysphagia Comment: Throat cancer No date: GERD (gastroesophageal reflux disease) 1985: HL (hearing loss) Comment: severer hearing loss 1985: Low back pain 12/06/2011: 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 Authorizing Provider Cetirizine HCl (ZYRTEC PO) Take by mouth as needed. Historical Provider, coenzyme Q-10 10 MG capsule Take 10 mg by mouth daily. Historical Provider, KRILL OIL PO Take by mouth. Historical Provider, milk thistle 175 MG tablet Take 175 mg by mouth daily. Historical Provider, Multiple Vitamin (multivitamin) tablet Take 1 tablet by mouth daily. Historical Provider, omeprazole (PriLOSEC) [address] capsule Take 1 capsule (20 mg) by mouth daily. Do not crush or chew.05/09/25 11/05/25 KETAN Holguin CNP tiZANidine (Zanaflex) 2 MG tablet Take 1 tablet by mouth every 8 hours as needed for muscle spasms.May take 2 tablets before bed if needed. 05/09/25 KETAN Holguin CNP Family History: Family History[2] Electronically signed by: KETAN Cisneros CRNA Date: 07/19/2025 at 8:19 AM Physical Exam Pre-Surgical Physical Vitals: Vitals Value Taken Time BP 126/77 07/19/25 07:54 Temp 35.6 C (96 F) 07/19/25 07:54 Pulse 69 07/19/25 07:54 Resp 16 07/19/25 07:54 SpO2 94 % 07/19/25 07:54 Constitutional: No apparent distress, well nourished, and in stable condition. Cardiac: Regular rate and rhythm Abdomen: Soft and nonacute Pulmonary: Clear bilaterally and no wheezing Neuro: Moves extremities X4 with no tremors HEENT: No gross cranial nerve defects and anicteric sclera Skin: Skin warm and dry with no visible rashes Vascular: Adequate perfusion of extremities with no cyanosis Psych: Alert and oriented x3 with appropriate affect Lymphatics: No swelling of arms/hands with no pedal edema Neck: FROM with no JVD [1] Past Surgical History: Procedure Laterality Date NASAL SEPTUM SURGERY PELVIC FRACTURE SURGERY PROSTATE SURGERY 2004 REPAIR INCIS HERNIA W MESH (HISTORICAL) THROAT SURGERY [2] Family History Problem Relation Name Age of Onset Breast cancer Mother Ovarian cancer Mother Prostate cancer Brother Pancreatic cancer Maternal Grandmother Cancer Mother Cancer Maternal Grandmother [id number] History and physical note* Nav Mas MD - 07/19/2025 8:30 AM EDT H&P reviewed. The patient was examined and there are no changes to the H&P. Source Note - KETAN Lam CRNA - 07/19/2025 8:19 AM EDT Telemedicine: Patient was seen today via Telehealth by agreement and consent. I used the following Telehealth technology: Audio & Video Visit This patient encounter is appropriate and reasonable under the circumstances given the patient's particular presentation at this time. The patient has been advised of the potential risks and limitations of this mode of treatment (including but not limited to the absence of in-person examination) and has agreed to be treated in a remote fashion in spite of them. Anyand all of the patient's/patient's family's questions on this issue have been answered and I have made no promises or guarantees to the patient. The patient has also been advised to contact their PCPor surgeon's office for worsening conditions or problems, and seek emergency medical treatment and/or call 911 if the patient deems either necessary. [facility] If the patient is a minor, permission has been obtained by the parent or guardian for the patient to receive medical care at this visit. The patient verbally consented to the visit held via telephone/video call. The patient understands the limitations of not being physically examined and that we may not be able to address all issues via a telehealth visit. Pre-Surgical History Name: Mohini Rodriguez : 1960 (Age-64 y.o.) Date of Service: Pt seen/examined on 07/19/2025 Chief Complaint: Pre-surgical evaluation, right testicular pain History Of Present Illness: We are asked to see/evaluate Mohini Rodriguez, a 64 y.o. male for pre-operative evaluation prior to Procedure Information Date/Time: 07/19/25829 Procedure: RIGHT SIMPLE ORCHIECTOMY (Right: Scrotum) - 60 MIN Location: [address] Operating Room Surgeons: Nav Mas MD Mohini Rodriguez presents with c/o progressivley worsening right testicular pain x 2 years. Endorses an increasingly painful and enlarging cysts. Currently rates pain as a 4/10. Conservative measures have provided little relief. Proceeding with the above. Anesthesia Assessment BMI Classification: Obese (BMI 30.0-39.9) Allergies: Seasonal If patient has opioid allergy, is it okay to take Acetaminophen: N/A Any Problems with Anesthesia?: Past General Anesthetic without complications Family History of Problems with Anesthesia?: None noted History of Difficult Intubation?: None reported History of Blood Transfusion Postoperatively?: None reported Overall Dentition: Teeth intact with none loose, permanent lower bridge Dentures: None Partials: None Mallampati PAT assesment: 2 Mouth Size: WNL TMD: >4cm Neck: WNL GERD:Controlled Implantable Devices:None PAT Pain Score:4 METs (>4 METS implies low cardiovascular risk from surgery): Reports >4 METs- Able to climb a flight of stairs without chest pain Cardiac Stents:No History of CVA:No History of Seizures:No COPD/Asthma:No JEFF: Resolved Anticoagulant/Antiplatelet Therapy: No Chronic Steroid Use:No Chronic Narcotic Use: No Social History: ETOH: reports that he does not currently use alcohol. Social History Substance and Sexual Activity Drug Use Never TOBACCO: reports that he has never smoked. He has never used smokeless tobacco. ASA Score:2 Cardiac EK06/08/25 ECG 12-LEAD (Final) Sinus Rhythm WITHIN NORMAL LIMITS ECHO and EF: No results found for this or any previous visit. ASSESSMENT/PLAN: Based on the above evaluation, the benefits of the planned procedure likely exceed the risks. The patient is medically optimized to proceed with no reducible risk factor and without any further cardiopulmonary testing. 1)Right testicular pain [N50.811] Cyst of epididymis [N50.3] - Deferred to surgeon - Pre-surgical instructions given to patient - No further workup required per PAT Protocol Labs Ordered: No EKG Ordered: No Sleep Referral Ordered: NO - NEGATIVE SCREEN PER SLEEP REFERRAL PROTOCOL #) Pre-operative Anesthesia Evaluation - Anesthesia Assessment complete, noted above - Surgery Site: [facility] - Anesthesia Type: GA #)JEFF -Reports resolved after nasal septum surgery. Has not worn a CPAP in years #)Hx of throat cancer -Diagnosed in 2011 -S/p neck radiation in 2011 -Denies difficulty swallowing -Reports had pelvis surgery in 2022, denies history of difficult intubation #)GERD -Controlled on PPI #)Lipid disorder, Fatty liver -Managed with lifestyle modifications #)Seasonal allergies -Managed with Zyrtec #)Hard of hearing -Upcoming hearing test to evaluate for hearing aids REVIEW OF SYSTEMS: Review of Systems Constitutional: Negative for chills and fever. HENT: Negative for trouble swallowing. Eyes: Negative for visual disturbance. Respiratory: Negative for shortness of breath. Cardiovascular: Negative for chest pain. Gastrointestinal: Negative for abdominal pain. Genitourinary: Positive for testicular pain. Negative for difficulty urinating. Musculoskeletal: Negative for gait problem. Skin: Negative for color change. Neurological: Negative for speech difficulty. Psychiatric/Behavioral: Negative for agitation. Labs: Lab Results Component Value Date WBC 3.2 (L) 05/09/2025 HGB 16.3 05/09/2025 HCT 49.2 05/09/2025 MCV 97.6 05/09/2025 PLT 183 05/09/2025 Lab Results Component Value Date CO2 24 05/09/2025 BUN 14 05/09/2025 CREATININE 1.00 05/09/2025 GLUCOSE 42 (L) 05/09/2025 CALCIUM 9.5 05/09/2025 PROT 7.5 05/09/2025 BILITOT 0.5 05/09/2025 ALKPHOS 65 05/09/2025 AST 29 05/09/2025 ALT 42 05/09/2025 AGRATIO 1.7 05/09/2025 GLOB 2.8 05/09/2025 Past Medical History: Past Medical History: No date: Allergic No date: Arthritis 2014: Dysphagia Comment: Throat cancer No date: GERD (gastroesophageal reflux disease) 1985: HL (hearing loss) Comment: severer hearing loss 1985: Low back pain 12/06/2011: 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 Authorizing Provider Cetirizine HCl (ZYRTEC PO) Take by mouth as needed. Historical Provider, coenzyme Q-10 10 MG capsule Take 10 mg by mouth daily. Historical Provider, KRILL OIL PO Take by mouth. Historical Provider, milk thistle 175 MG tablet Take 175 mg by mouth daily. Historical Provider, Multiple Vitamin (multivitamin) tablet Take 1 tablet by mouth daily. Historical Provider, omeprazole (PriLOSEC) [address] capsule Take 1 capsule (20 mg) by mouth daily. Do not crush or chew.05/09/25 11/05/25 KETAN Holguin CNP tiZANidine (Zanaflex) 2 MG tablet Take 1 tablet by mouth every 8 hours as needed for muscle spasms.May take 2 tablets before bed if needed. 05/09/25 KETAN Holguin CNP Family History: Family History[2] Electronically signed by: KETAN Cisneros CRNA Date: 07/19/2025 at 8:19 AM Physical Exam Pre-Surgical Physical Vitals: Vitals Value Taken Time BP 126/77 07/19/25 07:54 Temp 35.6 C (96 F) 07/19/25 07:54 Pulse 69 07/19/25 07:54 Resp 16 07/19/25 07:54 SpO2 94 % 07/19/25 07:54 Constitutional: No apparent distress, well nourished, and in stable condition. Cardiac: Regular rate and rhythm Abdomen: Soft and nonacute Pulmonary: Clear bilaterally and no wheezing Neuro: Moves extremities X4 with no tremors HEENT: No gross cranial nerve defects and anicteric sclera Skin: Skin warm and dry with no visible rashes Vascular: Adequate perfusion of extremities with no cyanosis Psych: Alert and oriented x3 with appropriate affect Lymphatics: No swelling of arms/hands with no pedal edema Neck: FROM with no JVD [1] Past Surgical History: Procedure Laterality Date NASAL SEPTUM SURGERY PELVIC FRACTURE SURGERY PROSTATE SURGERY 2003 REPAIR INCIS HERNIA W MESH (HISTORICAL) THROAT SURGERY [2] Family History Problem Relation Name Age of Onset Breast cancer Mother Ovarian cancer Mother Prostate cancer Brother Pancreatic cancer Maternal Grandmother Cancer Mother Cancer Maternal Grandmother * KETAN Lam CRNA - 07/19/2025 8:19 AM EDT Telemedicine: Patient was seen today via Telehealth by agreement and consent. I used the following Telehealth technology: Audio & Video Visit This patient encounter is appropriate and reasonable under the circumstances given the patient's particular presentation at this time. The patient has been advised of the potential risks and limitations of this mode of treatment (including but not limited to the absence of in-person examination) and has agreed to be treated in a remote fashion in spite of them. Anyand all of the patient's/patient's family's questions on this issue have been answered and I have made no promises or guarantees to the patient. The patient has also been advised to contact their PCPor surgeon's office for worsening conditions or problems, and seek emergency medical treatment and/or call 911 if the patient deems either necessary. [facility] If the patient is a minor, permission has been obtained by the parent or guardian for the patient to receive medical care at this visit. The patient verbally consented to the visit held via telephone/video call. The patient understands the limitations of not being physically examined and that we may not be able to address all issues via a telehealth visit. Pre-Surgical History Name: Mohini Rodriguez : 1960 (Age-64 y.o.) Date of Service: Pt seen/examined on 07/19/2025 Chief Complaint: Pre-surgical evaluation, right testicular pain History Of Present Illness: We are asked to see/evaluate Mohini Rodriguez, a 64 y.o. male for pre-operative evaluation prior to Procedure Information Date/Time: 07/19/25 0830 Procedure: RIGHT SIMPLE ORCHIECTOMY (Right: Scrotum) - 60 MIN Location: [place] [id number] / [facility] Operating Room Surgeons: Nav Mas MD Mohini Rodriguez presents with c/o progressivley worsening right testicular pain x 2 years. Endorses an increasingly painful and enlarging cysts. Currently rates pain as a 4/10. Conservative measures have provided little relief. Proceeding with the above. Anesthesia Assessment BMI Classification: Obese (BMI 30.0-39.9) Allergies: Seasonal If patient has opioid allergy, is it okay to take Acetaminophen: N/A Any Problems with Anesthesia?: Past General Anesthetic without complications Family History of Problems with Anesthesia?: None noted History of Difficult Intubation?: None reported History of Blood Transfusion Postoperatively?: None reported Overall Dentition: Teeth intact with none loose, permanent lower bridge Dentures: None Partials: None Mallampati PAT assesment: 2 Mouth Size: WNL TMD: >4cm Neck: WNL GERD:Controlled Implantable Devices:None PAT Pain Score:4 METs (>4 METS implies low cardiovascular risk from surgery): Reports >4 METs- Able to climb a flight of stairs without chest pain Cardiac Stents:No History of CVA:No History of Seizures:No COPD/Asthma:No JEFF: Resolved Anticoagulant/Antiplatelet Therapy: No Chronic Steroid Use:No Chronic Narcotic Use: No Social History: ETOH: reports that he does not currently use alcohol. Social History Substance and Sexual Activity Drug Use Never TOBACCO: reports that he has never smoked. He has never used smokeless tobacco. ASA Score:2 Cardiac EK06/08/25 ECG 12-LEAD (Final) Sinus Rhythm WITHIN NORMAL LIMITS ECHO and EF: No results found for this or any previous visit. ASSESSMENT/PLAN: Based on the above evaluation, the benefits of the planned procedure likely exceed the risks. The patient is medically optimized to proceed with no reducible risk factor and without any further cardiopulmonary testing. 1)Right testicular pain [N50.811] Cyst of epididymis [N50.3] - Deferred to surgeon - Pre-surgical instructions given to patient - No further workup required per PAT Protocol Labs Ordered: No EKG Ordered: No Sleep Referral Ordered: NO - NEGATIVE SCREEN PER SLEEP REFERRAL PROTOCOL #) Pre-operative Anesthesia Evaluation - Anesthesia Assessment complete, noted above - Surgery Site: [facility] - Anesthesia Type: GA #)JEFF -Reports resolved after nasal septum surgery. Has not worn a CPAP in years #)Hx of throat cancer -Diagnosed in 2011 -S/p neck radiation in 2011 -Denies difficulty swallowing -Reports had pelvis surgery in 2022, denies history of difficult intubation #)GERD -Controlled on PPI #)Lipid disorder, Fatty liver -Managed with lifestyle modifications #)Seasonal allergies -Managed with Zyrtec #)Hard of hearing -Upcoming hearing test to evaluate for hearing aids REVIEW OF SYSTEMS: Review of Systems Constitutional: Negative for chills and fever. HENT: Negative for trouble swallowing. Eyes: Negative for visual disturbance. Respiratory: Negative for shortness of breath. Cardiovascular: Negative for chest pain. Gastrointestinal: Negative for abdominal pain. Genitourinary: Positive for testicular pain. Negative for difficulty urinating. Musculoskeletal: Negative for gait problem. Skin: Negative for color change. Neurological: Negative for speech difficulty. Psychiatric/Behavioral: Negative for agitation. Labs: Lab Results Component Value Date WBC 3.2 (L) 05/09/2025 HGB 16.3 05/09/2025 HCT 49.2 05/09/2025 MCV 97.6 05/09/2025 PLT 183 05/09/2025 Lab Results Component Value Date CO2 24 05/09/2025 BUN 14 05/09/2025 CREATININE 1.00 05/09/2025 GLUCOSE 42 (L) 05/09/2025 CALCIUM 9.5 05/09/2025 PROT 7.5 05/09/2025 BILITOT 0.5 05/09/2025 ALKPHOS 65 05/09/2025 AST 29 05/09/2025 ALT 42 05/09/2025 AGRATIO 1.7 05/09/2025 GLOB 2.8 05/09/2025 Past Medical History: Past Medical History: No date: Allergic No date: Arthritis 2014: Dysphagia Comment: Throat cancer No date: GERD (gastroesophageal reflux disease) 1985: HL (hearing loss) Comment: severer hearing loss 1985: Low back pain 12/06/2011: 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 Authorizing Provider Cetirizine HCl (ZYRTEC PO) Take by mouth as needed. Historical Provider, coenzyme Q-10 10 MG capsule Take 10 mg by mouth daily. Historical Provider, KRILL OIL PO Take by mouth. Historical Provider, milk thistle 175 MG tablet Take 175 mg by mouth daily. Historical Provider, Multiple Vitamin (multivitamin) tablet Take 1 tablet by mouth daily. Historical Provider, omeprazole (PriLOSEC) [address] capsule Take 1 capsule (20 mg) by mouth daily. Do not crush or chew.05/09/25 11/05/25 KETAN Holguin CNP tiZANidine (Zanaflex) 2 MG tablet Take 1 tablet by mouth every 8 hours as needed for muscle spasms.May take 2 tablets before bed if needed. 05/09/25 KETAN Holguin CNP Family History: Family History[2] Electronically signed by: KETAN Cisneros CRNA Date: 07/19/2025 at 8:19 AM Physical Exam Pre-Surgical Physical Vitals: Vitals Value Taken Time BP 126/77 07/19/25 07:54 Temp 35.6 C (96 F) 07/19/25 07:54 Pulse 69 07/19/25 07:54 Resp 16 07/19/25 07:54 SpO2 94 % 07/19/25 07:54 Constitutional: No apparent distress, well nourished, and in stable condition. Cardiac: Regular rate and rhythm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 crush or chew., Disp: 90 capsule, Rfl: 1 tiZANidine (Zanaflex) 2 MG tablet, Take 1 tablet by mouth every 8 hours as needed for muscle spasms. 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 Pelvis fracture (HCC) Prostate cancer (HCC) 2003 Throat cancer (HCC) [4] Social History Socioeconomic History Marital status: Tobacco Use Smoking status: Never Smokeless tobacco: Never Vaping Use Vaping status: Never Used Substance and Sexual Activity Alcohol use: Not Currently Drug use: Not Currently Sexual activity: Not Currently Partners: Female Social Drivers of Health Financial Resource Strain: Low Risk (05/08/2025) Overall Financial Resource Strain (CARDIA) Difficulty of Paying Living Expenses: Not hard at all Food Insecurity: No Food Insecurity (05/08/2025) Hunger Vital Sign Worried About Running Out of Food in the Last Year: Never true Ran Out of Food in the Last Year: Never true Transportation Needs: No Transportation Needs (05/08/2025) PRAPARE - Transportation Lack of Transportation (Medical): No Lack of Transportation (Non-Medical): No Physical Activity: Insufficiently Active (05/08/2025) Exercise Vital Sign Days of Exercise per Week: 1 day Minutes of Exercise per Session: 10 min Stress: No Stress Concern Present (05/08/2025) [employer] [place] [employer] - Occupational Stress Questionnaire Feeling of Stress : Not at all Social Connections: Socially Integrated (05/08/2025) Social Connection and Isolation Panel [NHANES] Frequency of Communication with Friends and Family: More than three times a week Frequency of Social Gatherings with Friends and Family: More than three times a week Attends [employer] Services: More than 4 times per year Active Member of Clubs or Organizations: Yes Attends Club or Organization Meetings: More than 4 times per year Marital Status: Intimate Partner Violence: Not At Risk (05/08/2025) Humiliation, Afraid, Rape, and Kick questionnaire Fear of Current or Ex-Partner: No Emotionally Abused: No Physically Abused: No Sexually Abused: No Housing Stability: Unknown (05/08/2025) Housing Stability Vital Sign Unable to Pay for Housing in the Last Year: No Homeless in the Last Year: No [5] Past Surgical History: Procedure Laterality Date HERNIA REPAIR 2004 PELVIC FRACTURE SURGERY PROSTATE SURGERY 2004 REPAIR INCIS HERNIA W MESH (HISTORICAL) THROAT SURGERY [6] Past Surgical History: Procedure Laterality Date HERNIA REPAIR 2003 PELVIC FRACTURE SURGERY PROSTATE SURGERY 2003 REPAIR INCIS HERNIA W MESH (HISTORICAL) THROAT SURGERY [7] Family History Problem Relation Name Age of Onset Breast cancer Mother Ovarian cancer Mother Prostate cancer Brother Pancreatic cancer Maternal Grandmother Cancer Mother Cancer Maternal Grandmother documented in this [facility]08-29-2025 History of Present illness Narrative* Milan Steele MD - 06/10/2025 11:15 AM EDT NEUROSURGERY CONSULT NOTE Patient Name: Mohini Rodriguez Patient : 1960 PCP: Christopher Dejesus MD History of Present Illness: 64 y.o. male presents as a referral for lumbar compression fractures. He has a history of longstanding low back pain. He denies any recent traumas or inciting events. Hestates he did fall off a ladder several years ago. No recent physical therapy, no bracing. He had a CT abdomen completed recently which reported age-indeterminate L1 and L3 compression fractures. He is here to establish care with a neurosurgeon. Chief Complaint Patient presents with New Patient Compression fracture of L1 vertebr Past Medical History: Medical History[1] Past Surgical History: Surgical History[2] Home Medications: Prior to Admission medications Medication Sig Start Date End Date Taking? Authorizing Provider coenzyme Q-10 10 MG capsule Take 10 mg by mouth daily. Yes Historical Provider, KRILL OIL PO Take by mouth. Yes Historical Provider, milk thistle 175 MG tablet Take 175 mg by mouth daily. Yes Historical Provider, Multiple Vitamin (multivitamin) tablet Take 1 tablet by mouth daily. Yes Historical Provider, omeprazole (PriLOSEC) [address] capsule Take 1 capsule (20 mg) by mouth daily. Do not crush or chew.05/09/25 11/05/25 Yes KETAN Holguin CNP tiZANidine (Zanaflex) 2 MG tablet Take 1 tablet by mouth every 8 hours as needed for muscle spasms.May take 2 tablets before bed if needed. Patient taking differently: as needed. Take 1 tablet by mouth every 8 hours as needed for muscle spasms. May take 2 tablets before bed if needed. 05/09/25 Yes KETAN Holguin CNP Allergies: Seasonal Social History: TOBACCO: reports that he has never smoked. He has never used smokeless tobacco. ETOH: reports that he does not currently use alcohol. RECREATIONAL DRUG USE: Social History Substance and Sexual Activity Drug Use Not Currently Family History: Family History[3] Review of Systems: Review of Systems Negative unless otherwise documented Physical Examination: Vitals: 06/10/25 1116 BP: 93/63 Pulse: 91 Physical Exam Neurological Exam Awake and alert, oriented BUE 5/5 No drift BLE 5/5 SILT DTR 2+ Negative Pace's Lumbar tenderness to palpation Results Labs: Last 24hrs No results found for this or any previous visit (from the past 24 hours). Radiology Personal review: CT abd/pelvis reviewed and discussed. We also reviewed historical scans and compared the reports tohis current studies. My interpretation is documented below. ASSESSMENT / PLAN : Mohini presents to clinic to establish care having known lumbar compression fractures. Neurological exam reassuring. He is non focal with mild lower back pain. We reviewed his CT and discussed its findings. Imaging shows L1, L3 compression deformities. No significant retropulsion. When compared to prior OSH radiological reports these were present prior and overall appear chronic in nature. He is not interested in lumbar bracing or more invasive interventions at this time. This is reasonable given his level of functioning, intact exam and their chronic appearance. I did discuss lifestyle changes with Mohini to try and limit exacerbating maneuvers while we pursue conservative management. We'll proceed with 6 weeks of physical therapy and have Mohini return to clinic at that time for re assessment and re evaluation of his progress. Milan Steele MD [facility] Neurosurgery Diagnosis Plan 1. Closed compression fracture of L3 vertebra, initial encounter ([facility]) External referral to Physical Therapy 2. Compression fracture of L1 vertebra, initial encounter ([facility]) [facility] Neurosurgery Spine Surgery External referral to Physical Therapy I have spent 45 minutes reviewing previous notes, test results, and face to face with the patient discussing the diagnosis and importance of compliance with the treatment plan, as well as documentingon the day of the visit. 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 Pelvis fracture (HCC) Prostate cancer (HCC) Throat cancer (HCC) [2] Past Surgical History: Procedure Laterality Date PELVIC FRACTURE SURGERY REPAIR INCIS HERNIA W MESH (HISTORICAL) THROAT SURGERY [3] Family History Problem Relation Name Age of Onset Breast cancer Mother Ovarian cancer Mother Prostate cancer Brother Pancreatic cancer Maternal Grandmother [id number] Evaluation + Plan note* Assessment & Plan Note - KETAN Holguin CNP - 06/08/2025 1:00 PM EDT Associated Problem(s): Mixed hyperlipidemia - Chronic, not well controlled - Continues to decline medication for management of cholesterol levels - Discussed a healthy diet low in cholesterol and saturated fats and the importance of regular cardiovascular exercise - Will plan to recheck levels again in 5 months for follow up [id number] Evaluation + Plan note* Assessment & Plan Note - KETAN Holguin CNP - 06/08/2025 1:00 PM EDTAssociated Problem(s): Fatty liver - Discussed a healthy diet low in cholesterol and saturated fats and the importance of regular cardiovascular exercise [facility] [id number] Evaluation + Plan note* Assessment & Plan Note - KETAN Holguin CNP - 06/08/2025 1:00 PM EDTAssociated Problem(s): Prediabetes - Discussed a healthy diet low in carbohydrates and sugar and the importance of regular exercise - Will recheck hemoglobin A1c in 5 months for follow up [facility] [id number] Evaluation + Plan note* Assessment & Plan Note - KETAN Holguin CNP - 06/08/2025 1:00 PM EDTAssociated Problem(s): Class 1 obesity due to excess calories without serious comorbidity with bodymass index (BMI) of 33.0 to 33.9 in adult - Chronic, stable - Discussed the importance of a healthy diet and regular exercise [id number] History of Present illness Narrative* KETAN Holguin CNP - 06/08/2025 1:00 PM EDT Images from the original note were not included. [address] [address] Dept: [phone] Dept Chief Complaint: Mohini Rodriguez is an 64 y.o. male here for an annual wellness visit. Assessment/Plan : Assessment & Plan Routine general medical examination at health care facility - Encouraged a healthy diet low in cholesterol and saturated fats. - Encouraged regular exercise. Orders: ECG 12 lead - CLINIC PERFORMED Mixed hyperlipidemia - Chronic, not well controlled - Continues to decline medication for management of cholesterol levels - Discussed a healthy diet low in cholesterol and saturated fats and the importance of regular cardiovascular exercise - Will plan to recheck levels again in 5 months for follow up Fatty liver - Discussed a healthy diet low in cholesterol and saturated fats and the importance of regular cardiovascular exercise Compression fracture of L1 vertebra, initial encounter (HCC) - Chronic, stable - Pain is relatively well controlled - Follow up with specialist as scheduled Prediabetes - Discussed a healthy diet low in carbohydrates and sugar and the importance of regular exercise - Will recheck hemoglobin A1c in 5 months for follow up Hydrocele in adult - Chronic, stable - Experiencing right testicular pain - Provided referral information to call and schedule appointment with urologist Cyst of epididymis - Chronic, stable - Experiencing right testicular pain - Provided referral information to call and schedule appointment with urologist Pain in right testicle - Chronic, stable - Experiencing right testicular pain - Provided referral information to call and schedule appointment with urologist Class 1 obesity due to excess calories without serious comorbidity with body mass index (BMI) of 33.0 to 33.9 in adult - Chronic, stable - Discussed the importance of a healthy diet and regular exercise 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 - Return for shave biopsy I have reviewed and reconciled the medication list with the patient today. Current Outpatient Medications Medication Sig Dispense Refill coenzyme Q-10 10 MG capsule Take 10 mg by mouth daily. KRILL OIL PO Take by mouth. milk thistle 175 MG tablet Take 175 mg by mouth daily. Multiple Vitamin (multivitamin) tablet Take 1 tablet by mouth daily. omeprazole (PriLOSEC) [address] capsule Take 1 capsule (20 mg) by mouth daily. Do not crush or chew.90 capsule 1 tiZANidine (Zanaflex) 2 MG tablet Take 1 tablet by mouth every 8 hours as needed for muscle spasms.May take 2 tablets before bed if needed. 30 tablet 0 No current facility-administered medications for this visit. Also reviewed during this visit: The following health maintenance schedule was reviewed with the patient and provided in printed form in the after visit summary: Health Maintenance Topic Date Due Medicare Initial Physical (IPPE) Never done Colorectal Cancer Screening Never done DTaP/Tdap/Td Vaccines (1 - Tdap) 05/09/2026 (Originally 1978) Pneumococcal Vaccine: 50+ Years (1 of 1 - PCV) 05/09/2026 (Originally 2009) Zoster Vaccines (1 of 2) 05/09/2026 (Originally 2009) Hepatitis C Screening 05/09/2026 (Originally 1977) COVID-19 Vaccine ( - 2023-25 season) 2026 (Originally 06/13/2024) Influenza Vaccine (1) 06/13/2025 Diabetes Screening 05/09/2026 Depression Screening 06/08/2026 Lipid Panel 05/09/2030 RSV Immunization for Adults (1 - 1-dose 75+ series) 2034 Medicare Advantage Annual Wellness Visit Completed RSV Immunization under 20 Months Aged Out HIB Vaccines Aged Out Hepatitis B Vaccines Aged Out IPV Vaccines Aged Out Hepatitis A Vaccines Aged Out Meningococcal Vaccine Aged Out Rotavirus Vaccines Aged Out HPV Vaccines Aged Out Meningococcal B Vaccine Aged Out MMR Vaccines Discontinued List of current healthcare providers: Patient Care Team: Christopher Dejesus MD as PCP - General (Family Medicine) Frank Pereyra APRN - [place] as Nurse Practitioner (Nurse Practitioner Family) Mihai Thomas MD as Surgeon (Urology) Orders Placed This Encounter Procedures ECG 12 lead - CLINIC PERFORMED Reason for exam:: Other Explanatory comment:: AWV- Welcome Review of Systems Constitutional: Negative for chills and fever. HENT: Positive for hearing loss. Negative for trouble swallowing. Eyes: Negative for pain and visual disturbance. Respiratory: Negative for cough, chest tightness, shortness of breath and wheezing. Cardiovascular: Negative for chest pain, palpitations and leg swelling. Gastrointestinal: Negative for abdominal distention, blood in stool, constipation and diarrhea. Endocrine: Negative for polydipsia, polyphagia and polyuria. Genitourinary: Positive for testicular pain (right). Negative for difficulty urinating, dysuria andhematuria. Skin: Positive for color change (skin of back). Neurological: Negative for syncope and weakness. Hematological: Does not bruise/bleed easily. Psychiatric/Behavioral: Negative for dysphoric mood. The patient is not nervous/anxious. Physical Exam Constitutional: General: Not in acute distress. Appearance: Not ill-appearing or diaphoretic. HENT: Head: Normocephalic and atraumatic. Right Ear: Tympanic membrane, ear canal and external ear normal. There is no impacted cerumen. Left Ear: Tympanic membrane, ear canal and external ear normal. There is no impacted cerumen. Nose: Nose normal. No congestion or rhinorrhea. Mouth/Throat: Mouth: Mucous membranes are moist. Pharynx: Oropharynx is clear. No oropharyngeal exudate or posterior oropharyngeal erythema. Eyes: General: No scleral icterus. Extraocular Movements: Extraocular movements intact. Pupils: Pupils are equal, round, and reactive to light. Neck: Thyroid: No thyroid mass or thyromegaly. Vascular: No carotid bruit. Cardiovascular: Rate and Rhythm: Normal rate and regular rhythm. Pulses: Normal pulses. Heart sounds: Normal heart sounds. No murmur heard. No friction rub. Pulmonary: Effort: Pulmonary effort is normal. Breath sounds: Normal breath sounds. No wheezing, rhonchi or rales. Abdominal: General: Bowel sounds are normal. There is no distension. Palpations: Abdomen is soft. There is no hepatomegaly, splenomegaly or mass. Tenderness: There is no abdominal tenderness. There is no guarding or rebound. Protuberant abdomen impairing examination. Musculoskeletal: General: No deformity. Normal range of motion. Cervical back: Normal range of motion and neck supple. Right lower leg: No edema. Left lower leg: No edema. Lymphadenopathy: Cervical: No cervical adenopathy. Skin: General: Skin is warm and dry. Raised, brown, scaling lesion noted on right upper back. Capillary Refill: Capillary refill takes less than 2 seconds. Coloration: Skin is not jaundiced or pale. Findings: No erythema or rash. Neurological: Mental Status: Alert and oriented to person, place, and time. Motor: No weakness. Coordination: Coordination normal. Gait: Gait normal. Psychiatric: Mood and Affect: Mood normal. Behavior: Behavior normal. Thought Content: Thought content normal. Judgment: Judgment normal. Objective : BP 109/71 Pulse 86 Ht 6' 2 (1.88 m) Wt 264 lb 3.2 oz (120 kg) SpO2 94% BMI 33.92 kg/m Vision Screening Right eye Left eye Both eyes Without correction 20/40 20/50 20/30 With correction Subjective : Mohini presents today for his annual [employer] physical. He had fasting blood work drawn prior to his appointment, so he does not need to do this today. Hyperlipidemia/Fatty Liver: Continues to decline medication for his cholesterol. Had a CT of his abdomen on 05/24/25 that showed, signs of fatty liver as well as signs of compression fractures in thelumbar vertebrae with degenerative changes. There was also note of atherosclerotic calcification onthe aorta. Is scheduled to see a specialist for his back on 06/10/25. Cholesterol levels were high when checked on 05/09/25. Component Ref Range & Units 05/09/25 CHOLESTEROL, TOTAL <200 mg/dL 222 High HDL CHOLESTEROL > OR = 40 mg/dL 48 TRIGLYCERIDES <150 mg/dL 196 High LDL-CHOLESTEROL mg/dL (calc) 140 High CHOL/HDLC RATIO <5.0 (calc) 4.6 NON HDL CHOLESTEROL <130 mg/dL (calc) 174 High Pre-Diabetes: States he is working on improving his diet and to start exercising more regularly. His hemoglobin A1c was 6% on 05/09/25. Hydrocele/Epididymal Cysts/Right Testicular Pain: Had an ultrasound of his scrotum on 05/24/25 that showed, several simple cysts in the region of the right epididymis with the largest measuring up to4.7 cm as well as simple hydroceles, which are a type of swelling in the scrotum caused by fluid accumulation. Had a referral placed with urology and still needs to schedule an appointment with them. Also has concerns regarding a mole on his upper back that he would like looked at today. States that has present for over a year but it can become itchy and irritated. Health Maintenance: Declines to be vaccinated for COVID-19. Declines to be vaccinated for shingles.Declines a pneumococcal vaccination. Declines a Tdap vaccination. Declines screening for hepatitis C. States he had measles and mumps as a child. Would like a colonoscopy for colon cancer screening- had a referral placed with GI. Health Risk Assessment: General: General In general, how would you say your health is?: Very good In the past 7 days, have you experienced any of the following: New or Increased Pain, New or Increased Fatigue, Loneliness, Social Isolation, Stress or Anger?: No Do you get the social and emotional suppport you need?: Yes Health Habits/Nutrition: Health Habits / Nutrition On average, how many days per week do you engage in moderate to strenous exercise (like a brisk walk)?: (!) 0 days On average, how man minutes do you engage in exercise at this level?: (!) 0 min Have you lost any weight without trying in the past 3 months? : No Have you seen the dentist within the past year?: Yes Encouraged regular exercise. Hearing/ Vision: Hearing / Vision Do you or your family notice any trouble with your hearing that hasn't been managed with hearing aids?: (!) Yes Do you have difficulty driving, watching TV, or doing any of your daily activities because of your eyesight?: (!) Yes Have you had an eye exam within the past year?: Yes Vision Screening Right eye Left eye Both eyes Without correction 20/40 20/50 20/30 With correction Has an appointment scheduled with his eye and ear specialists. Safety: Safety Do you have a working smoke detector?: Yes Do you have any tripping hazards - loose or unsecured carpets or rugs?: No Do you have any tripping hazards - clutter in doorways, halls, or stairs?: No Do you have either shower bars, grab bars, non-slip mats or non-slip surfaces in your shower or bathtub? : Yes Do all your stairways have a railing or banister? : Yes Do you fasten your seatbelt when you are in a car?: Yes ADL: ADL In the past 7 days, did you need help from others to perform any of the following everyday activities: Eating, dressing, grooming,bathing, toileting, or walking / balance? : No In the past 7 days, did you need help from others to take care of any of the following: laundry, housekeeping, banking / finances,shopping, telephone use, food preparation, transportation, or taking medications? : No Living Will: Living Will Do you have a living will?: Yes Cognitive: Cognitive Screening: Mini-Cog Clock Drawing Test (CDT): 2 Words Recalled: 3 Total Score: 5 Total Score Interpretation: Normal Mini-Cog Hypertension: No Fall Risk: Fall Risk One or more falls in the last year:: No Advised to use a cane or walker to get around safely:: No Feels unsteady when walking:: No Steadies self on furniture while walking at home:: No Worried about falling:: No Depression Screening: Over the past 2 weeks, how often have you been bothered by any of the following problems? Little interest or pleasure in doing things: Not at all Feeling down, depressed, or hopeless: Not at all Patient Health Questionnaire-2 Score: 0 Tobacco Use: Social History Tobacco Use Smoking Status Never Smokeless Tobacco Never Alcohol Use: Social Drivers of Health: SDOH risk assessment performed and documented today by members of the health care team. A total time of 15+ minutes was spent obtaining information from the patient and discussing options to address the patient's social risk factors and unmet needs. Social Drivers of Health with Concerns Concerns Present Physical Activity: Insufficiently Active (05/08/2025) Unknown Concern Housing Stability: Unknown (05/08/2025) documented in this [facility]08-27-2025 Instructions* Patient Instructions* KETAN Holguin CNP - 06/08/2025 1:00 PM EDT Personalized Preventative Plan for Mohini Rodriguez - 06/08/2025 Medicare offers a range of preventative health benefits. Some of the tests and screenings are paid in full while others may be subject to a deductible, co- insurance, and / or copay. Some of these benefits include a comprehensive review of your medical history including lifestyle, illnesses that mayrun in your family, and various assessments and screenings as appropriate. After reviewing your medical record and screening and assessments performed today, your provider may have ordered immunizations, labs, imaging, and / or referrals for you. A list of these orders (if applicable) as well as your Preventative Care list are included within your After Visit Summary for your review. Referred to Department: [facility] Address: [address] [facility] Referred to Department: [facility] Gastroenterology [facility] Address: [address] [place] [address] Other Preventative Recommendations: A preventive eye exam by an eyewear consultant is recommended every 1-2 years to screen for glaucoma, cataracts, macular degeneration, and other eye disorders. A preventive dental visit is recommended every 6 months. Try to get at least 150 minutes of exercise per week or 10,000 steps per day on a pedometer. You need 1200-1500mg of calcium and [id number] international units of vitamin D per day. It is possible to meet your calcium requirement with diet alone, but a vitamin D supplement is usually necessary to meet this goal. When exposed to the sun, use a sunscreen that protects against both UVA and UVB radiation with an SPF of 30 or greater. Reapply every 2-3 hours or after sweating, drying off with a towel, or swimming. Always wear a seat belt when traveling in a car. Always wear a helmet when riding a bicycle or a motorcycle * Attachments The following attachments cannot be sent through Care Everywhere. * Low Carbohydrate Diet ([place]) * Low Cholesterol, Saturated Fat, and Trans Fat Diet ([place]) documented in this [facility]08-27-2025 Miscellaneous Notes* Assessment & Plan Note - KETAN Holguin CNP - 06/08/2025 1:00 PM EDT Associated Problem(s): Mixed hyperlipidemia - Chronic, not well controlled - Continues to decline medication for management of cholesterol levels - Discussed a healthy diet low in cholesterol and saturated fats and the importance of regular cardiovascular exercise - Will plan to recheck levels again in 5 months for follow up * Assessment & Plan Note - KETAN Holguin CNP - 06/08/2025 1:00 PM EDT Associated Problem(s): Fatty liver - Discussed a healthy diet low in cholesterol and saturated fats and the importance of regular cardiovascular exercise * Assessment & Plan Note - KETAN Holguin CNP - 06/08/2025 1:00 PM EDT Associated Problem(s): Prediabetes - Discussed a healthy diet low in carbohydrates and sugar and the importance of regular exercise - Will recheck hemoglobin A1c in 5 months for follow up * Assessment & Plan Note - KETAN Holguin CNP - 06/08/2025 1:00 PM EDT Associated Problem(s): Class 1 obesity due to excess calories without serious comorbidity with bodymass index (BMI) of 33.0 to 33.9 in adult - Chronic, stable - Discussed the importance of a healthy diet and regular exercise documented in this [facility]08-18-2025 NoteReferral received for hydrocele and multiple epididymal cysts. Reached out to pt, no answer. [facility]08-18-2025 Telephone encounter Note* Telephone Encounter - Yazmin Riley - 05/30/2025 2:41 PM EDT Referral received for hydrocele and multiple epididymal cysts. Reached out to pt, no answer. [facility] [place] [id number] Miscellaneous Notes* Telephone Encounter - Yazmin Lin - 05/30/2025 2:41 PM EDT Referral received for hydrocele and multiple epididymal cysts. Reached out to pt, no answer. [facility] documented in this [facility]SOhio[facility] [id number] Note* Addendum Note - KETAN Holguin CNP - 05/30/2025 11:18 AM EDTAddended by: FRANK PEREYRA on: 05/30/2025 11:18 AM Modules accepted: Orders [place] [id number] Note* Addendum Note - KETAN Holguin CNP - 05/30/2025 11:18 AM EDTAddended by: FRANK PEREYRA on: 05/30/2025 11:18 AM Modules accepted: Orders [place] [id number] Note* Addendum Note - KETAN Holguin CNP - 05/30/2025 11:18 AM EDTAddended by: FRANK PEREYRA on: 05/30/2025 11:18 AM Modules accepted: Orders [place] [id number] Note* Addendum Note - KETAN Holguin CNP - 05/30/2025 11:18 AM EDTAddended by: FRANK PEREYRA on: 05/30/2025 11:18 AM Modules accepted: Orders [place] [id number] Miscellaneous Notes* Addendum Note - KETAN Holguin CNP - 05/30/2025 11:18 AM EDTAddended by: FRANK PEREYRA on: 05/30/2025 11:18 AM Modules accepted: Orders * Telephone Encounter - KETAN Holguin CNP - 05/30/2025 11:17 AM EDT Referral placed with urology and it infrastructure specialist. Both locations are in [place]. * Telephone Encounter - Christopher Dejesus MD - 05/11/2025 3:36 PM EDT Okay, would recommend rechecking in 6 months after very strict low-fat low- cholesterol low-carb diet. Increase exercise. documented in this [facility]08-18-2025 NoteReferral placed with urology and it infrastructure specialist. Both locations are in [place].[facility]08-18-2025 Telephone encounter Note* Telephone Encounter - KETAN Holguin CNP - 05/30/2025 11:17 AM EDT Referral placed with urology and it infrastructure specialist. Both locations are in [place]. [id number] Telephone encounter Note* Telephone Encounter - Christopher Dejesus MD - 05/11/2025 3:36 PM EDT Okay, would recommend rechecking in 6 months after very strict low-fat low- cholesterol low-carb diet. Increase exercise. [facility] [employer] [facility] Phone: [phone]) 899-165807-30-2025 Miscellaneous Notes* Telephone Encounter - Christopher Dejesus MD - 05/11/2025 3:36 PM EDT Okay, would recommend rechecking in 6 months after very strict low-fat low- cholesterol low-carb diet. Increase exercise. documented in this [facility]07-28-2025 History of Present illness Narrative* Frank Pereyra, KETAN - [place] - 05/09/2025 9:20 AM EDT Images from the original note were not included. [facility] - [address] [address] Dept: [phone] Dept Loc: [phone] HPI: I obtained verbal consent from the patient and/or patient s guardian to use ambient listening technology during this encounter before the ambient technology was engaged. Mohini Rodriguez is a 64 y.o. male who presents today for his medical conditions/complaints as noted below. Mohini Rodriguez is c/o of New Patient (Pain in right side of neck from throat cancer 13 years ago (jim horse sensation in neck) ), Other (CRS- agree/MMR- refused/Hep C- refused/Tdap-refused/P NA-refused/Zoster-refused/COVID- refused), Heartburn (Acid reflex ), Fatigue, and Leg Pain (At joints in right leg ) History of Present Illness Mohini Rodriguez, a 64-year-old male, presents today with his as a new patient for establishment of care with multiple concerns. Previous PCP was Dr. Palacios through the [facility]-recently goton summa care Medicare and Dr. Palacios no longer took his insurance. Does not follow up with other specialists. The patient reports a history of neck cancer, for which he underwent treatment in the past. The patient complains of neck muscle spasms. He also reports experiencing upper abdominal pain, forwhich he has been taking aawe-ryj-wauvozv Tums with some relief. Additionally, he expresses concernabout pain in his right testicle, noting that the left side feels normal but there is more than what should be on the right side. States he also has a history of high cholesterol. Does not take medication for management of this. Will check his levels today for follow up. Mr. Rodriguez mentions that he rarely visits the doctor and acknowledges it's probably a good idea toget multiple health issues addressed. Health Maintenance: Declines to be vaccinated for COVID-19. Declines to be vaccinated for shingles.Declines a pneumococcal vaccination. Declines a Tdap vaccination. Declines screening for hepatitis C. Declines to be vaccinated for MMR. Would like a colonoscopy for colon cancer screening. See ROS for additional information. Medical History[1] Surgical History[2] Family History[3] Social History Tobacco Use Smoking status: Never Smokeless tobacco: Never Substance Use Topics Alcohol use: Not Currently Current Medications[4] Allergies[5] Health Maintenance Topic Date Due Medicare Initial Physical (IPPE) Never done Lipid Panel Never done Colorectal Cancer Screening Never done Diabetes Screening Never done Medicare Advantage Annual Wellness Visit Never done DTaP/Tdap/Td Vaccines (1 - Tdap) 05/09/2026 (Originally 1978) Pneumococcal Vaccine: 50+ Years (1 of 1 - PCV) 05/09/2026 (Originally 2009) Zoster Vaccines (1 of 2) 05/09/2026 (Originally 2009) Hepatitis C Screening 05/09/2026 (Originally 1977) COVID-19 Vaccine (1 - 2023-25 season) 2026 (Originally 06/13/2024) Influenza Vaccine (1) 06/13/2025 Depression Monitoring 11/08/2025 RSV Immunization for Adults (1 - 1-dose 75+ series) 2034 RSV Immunization under 20 Months Aged Out HIB Vaccines Aged Out Hepatitis B Vaccines Aged Out IPV Vaccines Aged Out Hepatitis A Vaccines Aged Out Meningococcal Vaccine Aged Out Rotavirus Vaccines Aged Out HPV Vaccines Aged Out Meningococcal B Vaccine Aged Out MMR Vaccines Discontinued Subjective: Review of Systems Constitutional: Negative for chills, fever and unexpected weight change. Respiratory: Negative for chest tightness and shortness of breath. Cardiovascular: Negative for chest pain. Gastrointestinal: Positive for abdominal pain. Negative for abdominal distention, blood in stool, nausea and vomiting. Endocrine: Negative for polydipsia, polyphagia and polyuria. Genitourinary: Positive for testicular pain (right). Negative for dysuria and hematuria. Skin: Negative for color change, pallor, rash and wound. Neurological: Negative for dizziness, syncope, weakness and headaches. Objective: BP 106/62 Pulse 80 Ht 6' 2 (1.88 m) Wt 262 lb 3.2 oz (119 kg) SpO2 95% BMI 33.66 kg/m Last 3 PHQ-2 Scores 05/08/2025 1833 Patient Health Questionnaire-2 Score: 0 Physical Exam Constitutional: Oriented to person, place, and time. Appears well-developed and well-nourished. No distress. HENT: Head: Normocephalic and atraumatic. Mouth/Throat: Oropharynx is clear and moist. No oropharyngeal exudate. Bilateral TM's pearly wen with a good cone of light bilaterally. Eyes: Conjunctivae and EOM are normal. Pupils are equal, round, and reactive to light. Right eye exhibits no discharge. Left eye exhibits no discharge. Neck: Normal range of motion. Neck supple. No thyromegaly present. Muscle tension noted. Cardiovascular: Normal rate, regular rhythm, normal heart sounds and intact distal pulses. Exam reveals no friction rub. No murmur heard. Carotid upstrokes brisk and without bruits bilaterally. Pulmonary/Chest: Effort normal and breath sounds normal. No respiratory distress. No wheezes. No rales. Abdominal: Soft. Bowel sounds are normal. No distension and no mass. There is no hepatosplenomegaly. There is no tenderness. Protuberant abdomen impairing examination. Genitourinary: No perirectal lesions or fissures noted. External sphincter tone intact. Rectal vault without masses. Prostate smooth and nontender with palpable medium sulcus. Circumcised male. No penile discharge or lesions. No scrotal swelling or discoloration. Testes descended bilaterally, smooth, and without masses. Epididymis nontender. No inguinal or femoral hernias. Lymphadenopathy: No cervical adenopathy. Neurological: Alert and oriented to person, place, and time. Coordination normal. Skin: Skin is warm and dry. No rash noted. No erythema. No pallor. Psychiatric: Normal mood and affect. Behavior is normal. Judgment and thought content normal. Assessment and Plan: Assessment/Plan 1. Encounter to establish care (Z76.89) - New patient visit completed - Follow-up appointment scheduled in one month for annual Medicare visit and to review test results 2. History of malignant neoplasm of neck (Z85.89) - Chronic, stable - No current signs of recurrence noted on examination - Continue routine monitoring 3. Muscle spasms of neck (M62.838) - Chronic, symptomatic - Prescription for muscle relaxer to be provided - Reassess effectiveness at follow-up visit - Home exercises provided. 4. Upper abdominal pain (R10.10) - Acute, under evaluation - Currently using krpn-knv-jhxieng Tums with some relief - Prescribed omeprazole, delayed-release capsule, to be taken once daily in the morning - Ordered CAT scan of abdomen for further evaluation - Referral to gastroenterology placed 5. Hyperlipidemia, unspecified hyperlipidemia type (E78.5) - Chronic, stability unknown - Will check cholesterol levels today and provide recommendations accordingly 6. Class 1 obesity due to excess calories without serious comorbidity with body mass index (BMI) of33.0 to 33.9 in adult (E66.811) - Encouraged a healthy diet and regular exercise 7. Pain in right testicle (N50.811) - Acute, under evaluation - No signs of infection or inguinal hernia on examination - Ordered scrotal ultrasound for further evaluation 8. Screening for colon cancer (Z12.11) - Patient request for colonoscopy noted - Referral to gastroenterology to include colonoscopy scheduling 9. Screening for deficiency anemia (Z13.0) - Routine blood work ordered, including complete blood count 10. Screening for diabetes mellitus (Z13.1) - Routine blood work ordered, including fasting glucose and HbA1c 11. Screening for prostate cancer (Z12.5) - PSA lab ordered for review today I performed the above service AI scribed on my behalf, and I have reviewed and confirmed the accuracy and completeness of the medical documentation. Mohini received counseling on the following healthy behaviors: return for routine annual checkups Patient given educational materials on: neck exercises Discussed use, benefit, and side effects of prescribed medications. Barriers to medication compliance addressed. All patient questions answered. Pt voiced understanding. Follow Up: Follow up in about 4 weeks (around 06/06/2025) for LAILA (Sandra)- will need eye exam and possible EKG. Orders Placed This Encounter Procedures CT abdomen w IV contrast Standing Status: Future Expected Date: 05/09/2025 Expiration Date: 05/09/2026 Does this patient require oral contrast for this exam?: No Per protocol CT IV contrast: Isovue 370/500ml; 75ml is dose given; IV; per exam; 0.9% Normal [id number] after contrast admin, may repeat 1x US scrotum Standing Status: Future Expected Date: 05/09/2025 Expiration Date: 05/09/2026 Comprehensive metabolic panel Standing Status: Future Number of Occurrences: 1 Expected Date: 05/09/2025 Expiration Date: 05/09/2026 CBC auto differential Standing Status: Future Number of Occurrences: 1 Expected Date: 05/09/2025 Expiration Date: 05/09/2026 Lipid panel Standing Status: Future Number of Occurrences: 1 Expected Date: 05/09/2025 Expiration Date: 05/09/2026 Hemoglobin A1c Standing Status: Future Number of Occurrences: 1 Expected Date: 05/09/2025 Expiration Date: 05/09/2026 PSA Screening Standing Status: Future Number of Occurrences: 1 Expected Date: 05/09/2025 Expiration Date: 05/09/2026 [facility] Standing Status: Future Expected Date: 05/09/2025 Expiration Date: 11/09/2025 Referral Priority: Routine Referral Type: Consultation Referral Reason: Specialty Services Required Requested Specialty: Gastroenterology Number of Visits Requested: 1 Frank Pereyra APRN - [place] 05/09/2025 9:58 AM [1] Past Medical History: Diagnosis Date Pelvis fracture (HCC) Prostate cancer (HCC) Throat cancer (HCC) [2] Past Surgical History: Procedure Laterality Date PELVIC FRACTURE SURGERY REPAIR INCIS HERNIA W MESH (HISTORICAL) THROAT SURGERY [3] Family History Problem Relation Name Age of Onset Breast cancer Mother Ovarian cancer Mother Prostate cancer Brother Pancreatic cancer Maternal Grandmother [4] Current Outpatient Medications Medication Sig Dispense Refill coenzyme Q-10 10 MG capsule Take 10 mg by mouth daily. KRILL OIL PO Take by mouth. milk thistle 175 MG tablet Take 175 mg by mouth daily. Multiple Vitamin (multivitamin) tablet Take 1 tablet by mouth daily. omeprazole (PriLOSEC) [address] capsule Take 1 capsule (20 mg) by mouth daily. Do not crush or chew.90 capsule 1 tiZANidine (Zanaflex) 2 MG tablet Take 1 tablet by mouth every 8 hours as needed for muscle spasms.May take 2 tablets before bed if needed. 30 tablet 0 No current facility-administered medications for this visit. [5] No Known Allergies documented in this [facility]07-28-2025 History of Present illness Narrative* KETAN Holguin CNP - 05/09/2025 9:20 AM EDT Images from the original note were not included. [facility] [address] [facility] [address] Dept: [phone] Dept Loc: [phone] HPI: I obtained verbal consent from the patient and/or patient s guardian to use ambient listening technology during this encounter before the ambient technology was engaged. Mohini Rodriguez is a 64 y.o. male who presents today for his medical conditions/complaints as noted below. Mohini Rodriguez is c/o of New Patient (Pain in right side of neck from throat cancer 13 years ago (jim horse sensation in neck) ), Other (CRS- agree/MMR- refused/Hep C- refused/Tdap-refused/P NA-refused/Zoster-refused/COVID- refused), Heartburn (Acid reflex ), Fatigue, and Leg Pain (At joints in right leg ) History of Present Illness Mohini Rodriguez, a 64-year-old male, presents today with his as a new patient for establishment of care with multiple concerns. Previous PCP was Dr. Palacios through the [facility]-recently goton summa care Medicare and Dr. Palacios no longer took his insurance. Does not follow up with other specialists. The patient reports a history of neck cancer, for which he underwent treatment in the past. The patient complains of neck muscle spasms. He also reports experiencing upper abdominal pain, forwhich he has been taking hogn-ixl-hheufzb Tums with some relief. Additionally, he expresses concernabout pain in his right testicle, noting that the left side feels normal but there is more than what should be on the right side. States he also has a history of high cholesterol. Does not take medication for management of this. Will check his levels today for follow up. Mr. Rodriguez mentions that he rarely visits the doctor and acknowledges it's probably a good idea toget multiple health issues addressed. Health Maintenance: Declines to be vaccinated for COVID-19. Declines to be vaccinated for shingles.Declines a pneumococcal vaccination. Declines a Tdap vaccination. Declines screening for hepatitis C. Declines to be vaccinated for MMR. Would like a colonoscopy for colon cancer screening. See ROS for additional information. Medical History[1] Surgical History[2] Family History[3] Social History Tobacco Use Smoking status: Never Smokeless tobacco: Never Substance Use Topics Alcohol use: Not Currently Current Medications[4] Allergies[5] Health Maintenance Topic Date Due Medicare Initial Physical (IPPE) Never done Lipid Panel Never done Colorectal Cancer Screening Never done Diabetes Screening Never done Medicare Advantage Annual Wellness Visit Never done DTaP/Tdap/Td Vaccines (1 - Tdap) 05/09/2026 (Originally 1978) Pneumococcal Vaccine: 50+ Years (1 of 1 - PCV) 05/09/2026 (Originally 2009) Zoster Vaccines (1 of 2) 05/09/2026 (Originally 2009) Hepatitis C Screening 05/09/2026 (Originally 1977) COVID-19 Vaccine (1 - 2023- season) 2026 (Originally 06/13/2024) Influenza Vaccine (1) 06/13/2025 Depression Monitoring 11/08/2025 RSV Immunization for Adults (1 - 1-dose 75+ series) 2034 RSV Immunization under 20 Months Aged Out HIB Vaccines Aged Out Hepatitis B Vaccines Aged Out IPV Vaccines Aged Out Hepatitis A Vaccines Aged Out Meningococcal Vaccine Aged Out Rotavirus Vaccines Aged Out HPV Vaccines Aged Out Meningococcal B Vaccine Aged Out MMR Vaccines Discontinued Subjective: Review of Systems Constitutional: Negative for chills, fever and unexpected weight change. Respiratory: Negative for chest tightness and shortness of breath. Cardiovascular: Negative for chest pain. Gastrointestinal: Positive for abdominal pain. Negative for abdominal distention, blood in stool, nausea and vomiting. Endocrine: Negative for polydipsia, polyphagia and polyuria. Genitourinary: Positive for testicular pain (right). Negative for dysuria and hematuria. Skin: Negative for color change, pallor, rash and wound. Neurological: Negative for dizziness, syncope, weakness and headaches. Objective: BP 106/62 Pulse 80 Ht 6' 2 (1.88 m) Wt 262 lb 3.2 oz (119 kg) SpO2 95% BMI 33.66 kg/m Last 3 PHQ-2 Scores 05/08/2025 1833 Patient Health Questionnaire-2 Score: 0 Physical Exam Constitutional: Oriented to person, place, and time. Appears well-developed and well-nourished. No distress. HENT: Head: Normocephalic and atraumatic. Mouth/Throat: Oropharynx is clear and moist. No oropharyngeal exudate. Bilateral TM's pearly wen with a good cone of light bilaterally. Eyes: Conjunctivae and EOM are normal. Pupils are equal, round, and reactive to light. Right eye exhibits no discharge. Left eye exhibits no discharge. Neck: Normal range of motion. Neck supple. No thyromegaly present. Muscle tension noted. Cardiovascular: Normal rate, regular rhythm, normal heart sounds and intact distal pulses. Exam reveals no friction rub. No murmur heard. Carotid upstrokes brisk and without bruits bilaterally. Pulmonary/Chest: Effort normal and breath sounds normal. No respiratory distress. No wheezes. No rales. Abdominal: Soft. Bowel sounds are normal. No distension and no mass. There is no hepatosplenomegaly. There is no tenderness. Protuberant abdomen impairing examination. Genitourinary: No perirectal lesions or fissures noted. External sphincter tone intact. Rectal vault without masses. Prostate smooth and nontender with palpable medium sulcus. Circumcised male. No penile discharge or lesions. No scrotal swelling or discoloration. Testes descended bilaterally, smooth, and without masses. Epididymis nontender. No inguinal or femoral hernias. Lymphadenopathy: No cervical adenopathy. Neurological: Alert and oriented to person, place, and time. Coordination normal. Skin: Skin is warm and dry. No rash noted. No erythema. No pallor. Psychiatric: Normal mood and affect. Behavior is normal. Judgment and thought content normal. Assessment and Plan: Assessment/Plan 1. Encounter to establish care (Z76.89) - New patient visit completed - Follow-up appointment scheduled in one month for annual Medicare visit and to review test results 2. History of malignant neoplasm of neck (Z85.89) - Chronic, stable - No current signs of recurrence noted on examination - Continue routine monitoring 3. Muscle spasms of neck (M62.838) - Chronic, symptomatic - Prescription for muscle relaxer to be provided - Reassess effectiveness at follow-up visit - Home exercises provided. 4. Upper abdominal pain (R10.10) - Acute, under evaluation - Currently using ggnd-oni-fiiuenv Tums with some relief - Prescribed omeprazole, delayed-release capsule, to be taken once daily in the morning - Ordered CAT scan of abdomen for further evaluation - Referral to gastroenterology placed 5. Hyperlipidemia, unspecified hyperlipidemia type (E78.5) - Chronic, stability unknown - Will check cholesterol levels today and provide recommendations accordingly 6. Class 1 obesity due to excess calories without serious comorbidity with body mass index (BMI) of33.0 to 33.9 in adult (E66.811) - Encouraged a healthy diet and regular exercise 7. Pain in right testicle (N50.811) - Acute, under evaluation - No signs of infection or inguinal hernia on examination - Ordered scrotal ultrasound for further evaluation 8. Screening for colon cancer (Z12.11) - Patient request for colonoscopy noted - Referral to gastroenterology to include colonoscopy scheduling 9. Screening for deficiency anemia (Z13.0) - Routine blood work ordered, including complete blood count 10. Screening for diabetes mellitus (Z13.1) - Routine blood work ordered, including fasting glucose and HbA1c 11. Screening for prostate cancer (Z12.5) - PSA lab ordered for review today I performed the above service AI scribed on my behalf, and I have reviewed and confirmed the accuracy and completeness of the medical documentation. Mohini received counseling on the following healthy behaviors: return for routine annual checkups Patient given educational materials on: neck exercises Discussed use, benefit, and side effects of prescribed medications. Barriers to medication compliance addressed. All patient questions answered. Pt voiced understanding. Follow Up: Follow up in about 4 weeks (around 06/06/2025) for LAILA Marsh)- will need eye exam and possible EKG. Orders Placed This Encounter Procedures CT abdomen w IV contrast Standing Status: Future Expected Date: 05/09/2025 Expiration Date: 05/09/2026 Does this patient require oral contrast for this exam?: No Per protocol CT IV contrast: Isovue 370/500ml; 75ml is dose given; IV; per exam; 0.9% Normal [id number] after contrast admin, may repeat 1x US scrotum Standing Status: Future Expected Date: 05/09/2025 Expiration Date: 05/09/2026 Comprehensive metabolic panel Standing Status: Future Number of Occurrences: 1 Expected Date: 05/09/2025 Expiration Date: 05/09/2026 CBC auto differential Standing Status: Future Number of Occurrences: 1 Expected Date: 05/09/2025 Expiration Date: 05/09/2026 Lipid panel Standing Status: Future Number of Occurrences: 1 Expected Date: 05/09/2025 Expiration Date: 05/09/2026 Hemoglobin A1c Standing Status: Future Number of Occurrences: 1 Expected Date: 05/09/2025 Expiration Date: 05/09/2026 PSA Screening Standing Status: Future Number of Occurrences: 1 Expected Date: 05/09/2025 Expiration Date: 05/09/2026 [facility] Standing Status: Future Expected Date: 05/09/2025 Expiration Date: 11/09/2025 Referral Priority: Routine Referral Type: Consultation Referral Reason: Specialty Services Required Requested Specialty: Gastroenterology Number of Visits Requested: 1 KETAN Holguin CNP 05/09/2025 9:58 AM [1] Past Medical History: Diagnosis Date Pelvis fracture (HCC) Prostate cancer (HCC) Throat cancer (HCC) [2] Past Surgical History: Procedure Laterality Date PELVIC FRACTURE SURGERY REPAIR INCIS HERNIA W MESH (HISTORICAL) THROAT SURGERY [3] Family History Problem Relation Name Age of Onset Breast cancer Mother Ovarian cancer Mother Prostate cancer Brother Pancreatic cancer Maternal Grandmother [4] Current Outpatient Medications Medication Sig Dispense Refill coenzyme Q-10 10 MG capsule Take 10 mg by mouth daily. KRILL OIL PO Take by mouth. milk thistle 175 MG tablet Take 175 mg by mouth daily. Multiple Vitamin (multivitamin) tablet Take 1 tablet by mouth daily. omeprazole (PriLOSEC) [address] capsule Take 1 capsule (20 mg) by mouth daily. Do not crush or chew.90 capsule 1 tiZANidine (Zanaflex) 2 MG tablet Take 1 tablet by mouth every 8 hours as needed for muscle spasms.May take 2 tablets before bed if needed. 30 tablet 0 No current facility-administered medications for this visit. [5] No Known Allergies documented in this [facility]07-28-2025 Miscellaneous Notes* Addendum Note - KETAN Holguin CNP - 05/09/2025 9:20 AM EDTAddended by: FRANK PEREYRA on: 05/11/2025 09:01 AM Modules accepted: Level of Service documented in this [facility]07-28-2025 Note* Addendum Note - KETAN Holguin CNP - 05/09/2025 9:20 AM EDTAddended by: FRANK PEREYRA on: 05/11/2025 09:01 AM Modules accepted: [id number] Tele[facility] encounter Note* Telephone Encounter - Anshul Deleon - 04/27/2025 3:58 PM EDT Name of caller: Mohini Rodriguez Relation to patient: patient Contact phone number: [phone] Appointment scheduled with: KETAN Holguin CNP Appointment date & time: 06/08/25 @ 1 pm Reason for visit (are you having any symptoms) : Pain in right side of neck 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 Pt declined triage advice. Transportation issues/ concerns: no Special accommodations? ( wheel chair, etc) : no Current medications: Pt takes a muscle relaxer as needed for pain. 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 Pt declined triage advice. Transportation issues/ concerns: no Special accommodations? ( wheel chair, etc) : no Current medications: Pt takes a muscle relaxer as needed for pain. 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 Admitted for Cellulitis of right lower extremity . Contact made with patient: No - next outreach attempt will be on next business day. Radha Lopez September 08, 2024 1:38 PM [facility]11-27-2024 Miscellaneous Notes* Telephone Encounter - Radha Lopez - 09/08/2024 1:36 PM EST Transitional Care Management (TCM) [facility] Provider Action / FYI: N/A SUMMARY: Outreach type: FOLLOW-UP OUTREACH Discharge Network Status: In-Network [facility] Patient discharged from [facility] on 08/18/24. Admitted for Cellulitis of right lower extremity . Contact made with patient: No - next outreach attempt will be on next business day. Radha Lopez September 08, 2024 1:38 PM [facility] Telephone encounter Note * Telephone Encounter - Cleveland Wen - 09/01/2024 2:51 PM EST Transitional Care Management (TCM) [facility] Provider Action / FYI: N/A. SUMMARY: Outreach type: INITIAL OUTREACH Discharge Network Status: In-Network Discharge Source of Patient: [facility] TCM Discharge Report Patient discharged from [facility] on 08/18/2024. Admitted for Cellulitis of right lower extremity . Contact made with patient: No - next outreach attempt will be on next business day. Cleveland Wen September 01, 2024 2:55 PM [facility]11-20-2024 Miscellaneous Notes* Telephone Encounter - Cleveland Wen - 09/01/2024 2:51 PM EST Transitional Care Management (TCM) [facility] Provider Action / FYI: N/A. SUMMARY: Outreach type: INITIAL OUTREACH Discharge Network Status: In-Network Discharge Source of Patient: [facility] TCM Discharge Report Patient discharged from [facility] on 08/18/2024. Admitted for Cellulitis of right lower extremity . Contact made with patient: No - next outreach attempt will be on next business day. Cleveland Wen September 01, 2024 2:55 PM [facility] Telephone encounter Note * Telephone Encounter - Nina - 08/23/2024 6:12 PM EST Record ID: [id number] Patient name: Mohini Rodriguez Date: August 23, 2024 - 01:12 Administered by: NINA Protocol: -> Great! Now we are in a secure chat environment. Protecting your health information is important to us. Ok, let's get started. Please verify your name and date of . Please click on the button with your first name. -> Mohini Got it. On to the next question... Select the button with your last name. -> Srinivas Got it, thank you. Please enter your date of in MM/DD/YYYY format:(e.g., 10/31/1970 for Oct 31, 1970) -> 1960 Thank you for verifying your information. I'd like to ask you a few questions about how your recovery is going. Since leaving the hospital, do you have any new or worsening symptoms? -> No [facility]11-11-2024 Miscellaneous Notes* Telephone Encounter - Nina - 08/23/2024 6:12 PM EST Record ID: [id number] Patient name: Mohini Rodriguez Date: August 23, 2024 - 01:12 Administered by: NINA Protocol: -> Great! Now we are in a secure chat environment. Protecting your health information is important to us. Ok, let's get started. Please verify your name and date of . Please click on the button with your first name. -> Mohini Got it. On to the next question... Select the button with your last name. -> Srinivas Got it, thank you. Please enter your date of in MM/DD/YYYY format:(e.g., 10/31/1970 for Oct 31, 1970) -> 1960 Thank you for verifying your information. I'd like to ask you a few questions about how your recovery is going. Since leaving the hospital, do you have any new or worsening symptoms? -> No [facility]24 NoteHNO ID: [id number] Author: FRANCISCO GALEAS DO Service: Hospital Medicine Author Type: Physician Type: Progress Notes Filed: 08/19/2024 18:25 Note Text: Documentation Query Please clarify the diagnosis associated with the clinical indicators for this patient Hyponatremia This document will become part of the patient's medical record.[facility]11-06-2024 NoteHNO ID: [id number] Author: FRANCISCO GALEAS DO Service: Hospital Medicine Author Type: Physician Type: Progress Notes Filed: 08/19/2024 18:25 Note Text: Documentation Query Please clarify sepsis diagnosis Sepsis Ruled In This document will become part of the patient's medical record.[facility]11-06-2024 NoteHNO ID: [id number] Author: BREEZY LEHMAN [facility] Service: Pharmacy Author Type: Pharmacist Type: Plan of Care Filed: 08/18/2024 15:19 Note Text: DISCHARGE MEDICATION REVIEW BY PHARMACY Patient Name: Mohini Rodriguez Account #: Data Unavailable Admission Date: 08/15/2024 Date of Contact: August 18, 2024 Time of Contact: 3:18 PM Medication list was reviewed by a Pharmacist for drug interactions or drug related problems:Yes Below is a summary of pharmacist recommendations discussed with LIP: No recommendations at this time from discharge medication list. Pt to be discharged home- plan to complete course of abx for cellulitis with cephalexin and doxycycline. Breezy Lehman [facility] Pager: Attila/Jonathan teixeira 08/18/2024 3:18 PM Medication List START taking these medications cephALEXin 500 mg capsule Commonly known as: KEFLEX Take 1 capsule by mouth three times a day for 7 days. diphenhydrAMINE 12.5 mg/5 mL lidocaine visc 2% MAALOX 200-200-20 mg/5 mL oral liquid 1:1:1 ([facility]) Take 5 mL by mouth three times a day as needed for up to 5 days. Swish and spit doxycycline 100 mg tablet Commonly known as: vibra-tabs Take 1 tablet by mouth two times a day for 7 days. Wait 2 hours between other medications/supplements CONTINUE taking these medications acetaminophen 325 mg tablet Commonly known as: TYLENOL Take 2 tablets by mouth every 6 hours as needed for pain. CPAP Initiate Auto PAP @ 6-20 cm of water with heated humidification. Mask (per patient preference) optional chin strap (if indicated) , filters, tubing, humidifier and lifetime supplies. DANDELION ROOT ORAL KRILL OIL ORAL MILK THISTLE ORAL MULTI VITAMIN ORAL NEXIUM ORAL PHOSPHATIDYL SERINE (BULK) MISC TUMS ORAL VITAMIN B-12 ORAL Walker Misc 1 Device once daily. Wheeled walker ZYRTEC-D ORAL Where to Get Your Medications These medications were sent to [facility] [address] [place] [address] Hours: Friday-Friday, 8am-7pm, Friday 9am-1pm cephALEXin 500 mg capsule diphenhydrAMINE 12.5 mg/5 mL lidocaine visc 2% MAALOX 200-200-20 mg/5 mL oral liquid 1:1:1 ([facility]) doxycycline 100 mg tabletSouthern [facility] Care11-06-2024 NoteHNO ID: [id number] Author: MAYURI CHAPPELL RN Service: Care Management Author Type: Registered Nurse Type: Care Mgt Progress Note Filed: 08/18/2024 14:26 Note Text: CARE MANAGEMENT DISCHARGE NOTE SERVICE DATE: August 18, 2024 SERVICE TIME: 2:25 PM Admission Date: 08/15/2024 LOS: 2 days Discharge Arrangement Discharge Arrangement: Home with Relative, Home with Self Care Services Arranged Provider Name: PCP Malik Palacios Caregiver Assessment Caregiver is ready, willing and able to meet the patient's needs as recommended by the inter-professional team: No Caregiver needed Transportation Arrangements Transportation Arrangements: Car Date of Trip: 08/18/24 Destination: home Handoff Communication: Additional Information: Patient is discharging home with self care and spouse. Family to transport. No transitional care needs identified. SIGNATURE: Mayuri Chappell RN PATIENT NAME: Mohini Rodriguez DATE: August 18, 2024 TIME: 2:25 PM CONTACT #: [phone] Note HNO ID: [id number] Author: BERNA PATRICK camacho Service: Pharmacy Author Type: Pharmacist Type: Plan of Care Filed: 08/18/2024 11:57 Note Text: PHARMACY MEDICATION REVIEW Patient Name: Mohini Rodriguez : 1960 The following medications were updated within the REPAIR DEPARTMENT SUPERVISOR medication list: Medications ADDED to REPAIR DEPARTMENT SUPERVISOR medication list Esomeprazole (nexium) oral - Patient was unable to give a strength. Take OTC. Calcium Carbonate (TUMS) - patient was unable to give a strength. OTC Vitamin B12 - patient was unable to provide a strength Phosphatidyl serine (neurops) - patient unable to provide a strength Krill oil - Patient unable to provide a strength Milk Thistle - Patient unable to provide a strength Dandelion Root - Patient unable to provide a strength Medications CHANGED on REPAIR DEPARTMENT SUPERVISOR medication list N/A Medications REMOVED from REPAIR DEPARTMENT SUPERVISOR medication list Ranitidine HCL Additional comments: Patient reports not taking any prescription medications outside of the hospital. He was able to provide a full list of herbal, vitamin, and OTC medications that he takes. Patient was unable to give me strengths but takes his vitamins daily. The below information represents the best possible medication history: Yes Medication history completed by: Pharmacist: Berna Patrick RPh Source of history: Patient: Reliability of source: Appears reliable, clearly identified: Medication name, Medication route, and Medication frequency Medication nonadherence identified: Cost - patient does not have medical insurance currently. Reconciliation completed: Yes Completed by: sound All REPAIR DEPARTMENT SUPERVISOR medications addressed by LIP Patient interested in Bedside Delivery Services or using CC OP Pharmacy at discharge? No Preferred outpatient pharmacy: [facility] [address] [place] [phone] [phone] [place] [address] Pharmacy Allergies: Dogs Cough, Other: See Comments Comment:Nasal congestion Seasonal Allergies Cough, Other: See Comments Comment:Nasal congestion Prior to Admission Medications Prescriptions Last Dose Informant Patient Reported? Taking? CETIRIZINE HCL/PSEUDOEPHEDRINE (ZYRTEC-D ORAL) Yes Yes Sig: Take 1 tablet by mouth once daily as needed (allergies). CPAP No No Sig: Initiate Auto PAP @ 6-20 cm of water with heated humidification. Mask (per patient preference) optional chin strap (if indicated) , filters, tubing, humidifier and lifetime supplies. DANDELION ROOT ORAL Yes Yes Sig: Take by mouth once daily. KRILL OIL ORAL Yes Yes Sig: Take by mouth once daily. MILK THISTLE ORAL Yes Yes Sig: Take by mouth once daily. PHOSPHATIDYL SERINE, BULK, MISC Yes Yes Sig: NeruoPS Walker misc No No Si Device once daily. Wheeled walker acetaminophen (TYLENOL) 325 mg tablet No Yes Sig: Take 2 tablets by mouth every 6 hours as needed for pain. calcium carbonate (TUMS ORAL) Yes Yes Sig: Take by mouth as needed (Heart Burn). cyanocobalamin, vitamin B-12, (VITAMIN B-12 ORAL) Yes Yes Sig: Take by mouth once daily. esomeprazole magnesium (NEXIUM ORAL) Yes Yes Sig: Take by mouth as needed (Heartburn). multivit-min/ferrous fumarate (MULTI VITAMIN ORAL) Yes Yes Sig: Take 1 tablet by mouth once daily. Facility-Administered Medications: None Berna Patrick [facility] 08/18/2024[facility]11-06-2024 NoteHNO ID: [id number] Author: MAYURI CHAPPELL RN Service: Care Management Author Type: Registered Nurse Type: Care Mgt Progress Note Filed: 08/18/2024 08:45 Note Text: CARE MANAGEMENT PROGRESS NOTE SERVICE DATE: 08/18/2024 SERVICE TIME: 8:44 AM LOS: 2 days Chart reviewed. Plan for patient to return home with self care and spouse on discharge. Family to transport. No transitional care needs identified at this time. CM to follow. SIGNATURE: Mayuri Chappell RN PATIENT NAME: Mohini Rodriguez DATE: August 18, 2024 TIME: 8:44 AM PAGER/CONTACT #: [phone] 08-18-2024 NoteHNO ID: [id number] Author: MANUELITO SCHMIDT MD Service: Orthopaedic Surgery Author Type: Resident Type: Progress Notes Filed: 08/18/2024 06:23 Note Text: ORTHOPAEDIC SURGERY DAILY PROGRESS NOTE ASSESSMENT: 63 year old male with lower back and hip pain and Right leg cellulitis PLAN: -Management per primary team. -Pain control -recommend IV antiinflammatories -Weight-bearing status: WBAT -Rest, ice -DVT: per primary -continue IV Antibiotics -Imaging: No further imaging from an orthopedic perspective. -No plan for orthopedic surgery intervention at this time. Will continue to monitor clinically -Disposition: per primary INTERVAL HPI: Patient feeling better this morning. No fevers. Hip and leg pain improving on Toradol. Denies chest pain and shortness of breath. OBJECTIVE: BP 100/69 Pulse 67 Temp 37 ?C (98.6 ?F) (Oral) Resp 18 Ht 189 cm (6' 2.41) Wt 112.5 kg (248 lb) SpO2 94% BMI 31.49 kg/m? Exam: General: NAD, AOx3 Left Lower Extremity: Alignment normal. No gross deformities. No swelling, ecchymosis, or erythema. No open wounds or lacerations. Compartments of the thigh and leg are soft and compressible Tolerates passive stretch of the digits No pain with AROM and PROM of hip, no pain with straight leg raise, no short arc pain TTP along lateral posterior hip SILT Rangel/Sa/DP/SP/T. Motor intact EHL/DF/PF. Toes with BCR Right Lower Extremity: Alignment normal. No gross deformities. Swelling over anterior leg from knee to ankle improving from yesterday's exam, erythema receding from drawn margins, diffuse swelling about ankle without erythema, also improving No open wounds or lacerations. Compartments of the thigh and leg are soft and compressible Tolerates passive stretch of the digits No pain with AROM and PROM of hip, no pain with straight leg raise, no short arc pain, TTP over lateral and posterior hip, anterior leg and lateral ankle. SILT Rangel/Sa/DP/SP/T. Motor intact EHL/DF/PF. Toes with BCR Recent Labs 08/16/24 0559 08/16/24 0430 08/15/24 2224 08/15/24 1826 08/15/24 1718 CREAT 0.96 -- -- -- 1.05 BUN 14 -- -- -- 13 NA 132* -- -- -- 135* K 3.9 -- -- -- 3.8 CHLOR 99 -- -- -- 101 CO2 22 -- -- -- 20* ANION 11 -- -- -- 14 GLUC 117* -- -- -- 119* CA 8.5 -- -- -- 9.2 ALB -- -- -- -- 4.2 AST -- -- -- -- 24 ALT -- -- -- -- 26 ALKPHOS -- -- -- -- 73 TBILI -- -- -- -- 0.7 WBC 12.58* -- -- -- 13.01* HB 13.0 -- -- -- 14.5 HCT 39.1 -- -- -- 43.0 PLT 142* -- -- -- 163 LACT -- 1.6 2.2* 2.4* -- Imaging: RENETTA Schmidt, MD Orthopaedic Surgery 08/18/2024 5:53 [facility]11-05-2024 NoteHNO ID: [id number] Author: ROBERTH GANDHI MD Service: Hospital Medicine Author Type: Physician Type: Progress Notes Filed: 08/17/2024 08:42 Note Text: DEPARTMENT OF HOSPITAL MEDICINE PROGRESS NOTE SERVICE DATE: 08/17/2024 SERVICE TIME: 8:40 AM Hospital Medicine/Primary Attending: Roberth Gandhi MD NIGHT AND WEEKEND COVERAGE: After 7pm please page [phone] SUBJECTIVE: Follow up for hip and leg pain. Pain severe. Infection looks maybe a little better? OBJECTIVE: PHYSICAL EXAM: BP 122/87 Pulse 103 Temp (Src) 98.9 (Oral) Resp 18 Ht 6' 2.409 (1.89m) Wt 248 lb (112.5kg) SpO2 93% BMI 31.49 kg/(m2). O2 Therapy: Room Air General - AANDOx3, NAD, Calm Skin- No new lesions CV - RRR S1 S2, No M/R/G RESP - CTA B/L No wheezes, ronchi, rales ABD - soft, NT, ND +BS ENT- no icterus Ext- It seems redness slightly better from previous lines. Neuro- No dysarthria MEDICATIONS: Current Facility-Administered Medications Medication Dose Route Frequency NaCl 0.9% iv flush bag 20 mL INTRAVENOUS PRN vancomycin 1.75 g in D5W 500 mL (VANCOCIN) 0.015 g/kg/dose INTRAVENOUS q 12 HR vancomycin dosing and monitoring per pharmacy OTHER As Directed cefTRIAXone iv piggyback 1 g in dextrose (iso-osmotic) 50 mL (ROCEPHIN) 1 g INTRAVENOUS q 24 HR HYDROmorphone (PF) 1 mg injection (DILAUDID) 1 mg INTRAVENOUS q 3 H PRN oxyCODONE-acetaminophen 5-325 mg 2 tablet (PERCOCET) 2 tablet ORAL q 6 H PRN DATA: Diagnostic tests reviewed for today's visit: CBC: No results for input(s): WBC, RBC, HB, HCT, PLT, MCV, MCH, MPV, RDW in the last 24 hours. Coags: No results for input(s): PT, INR, APTT in the last 24 hours. BMP: No results for input(s): NA, K, CHLOR, CO2, BUN, CREAT, GLUC in the last 24 hours. CMP: No results for input(s): NA, K, CHLOR, CO2, BUN, CREAT, GLUC, TPROT, CA, MG, ALBUMIN, TBILI, ALKPHOS, ALT, AST, ANION in the last 24 hours. Cardiac Enzymes: No results for input(s): CK, MB, CKMB, TROPT in the last 24 hours. Liver Function, Amylase, Lipase: No results for input(s): TPROT, ALB, ALT, AST, ALKPHOS, TBILI, AMYLASE, LIPASE, LACTATE in the last 24 hours. MG/PHOS: No results for input(s): MG, P in the last 24 hours. Renal Panel: No results for input(s): ALBUMIN, CREAT, BUN, GLUC, CA, P, CHLOR, K, CO2, NA in the last 24 hours. Heme: No results for input(s): RETICP, ABSRETIC, LD, MOOKIE, FE, TIBC,TRANSFERSAT in the last 24 hours. No results found for: UALBCR Active Hospital Problems Diagnosis Date Noted POA Cellulitis of right lower extremity 08/16/2024 Yes Resolved Hospital Problems No resolved problems to display. Assessment/Plan 1) Cellulitis of RLE - Admit to Inpatient - Vancomycin 1.75 g Q12H IV, will monitor BMP daily for renal function - ceftriaxone 1 g IV daily - Dilaudid for breakthru, Percocet for severe - Check DVT US 2) Hip Pain - ortho consult reviewed - Pain control as above - Add Toradol VTE Prophylaxis: Heparin 5000 units Sub Q BID Disposition: To be determined Plan of care discussed with: Provider, RN, Patient SIGNATURE: Roberth Gandhi MD PATIENT NAME: Mohini Rodriguez DATE: August 17, 2024 TIME: 8:40 AM PAGER/CONTACT #: My Pager. Page [phone] after 7PM, as my pager is off.[facility]11-05-2024 NoteHNO ID: [id number] Author: WILD STEWART MD Service: Orthopaedic Surgery Author Type: Physician Type: Progress Notes Filed: 08/17/2024 14:20 Note Text: ORTHOPAEDIC SURGERY DAILY PROGRESS NOTE ASSESSMENT: 63 year old male with lower back and hip pain and Right leg cellulitis PLAN: -Management per primary team. -Pain control. -Weight-bearing status: WBAT -Rest, ice -DVT: per primary -Antibiotic(s): per primary -Imaging: No further imaging from an orthopedic perspective. -No plan for orthopedic surgery intervention at this time. SI and anterior column screws appear stable. Low concern for septic arthritis. Continue with conservative management. Sacroiliac joint pain possible contributing cause. -Disposition: per primary INTERVAL HPI: Patient reports subjective fevers. Pain not well-controlled on current regimen. New pain down front of left leg. Denies chest pain and shortness of breath. OBJECTIVE: BP 124/84 Pulse 109 Temp 37.4 ?C (99.4 ?F) (Oral) Resp 18 Ht 189 cm (6' 2.41) Wt 112.5 kg (248 lb) SpO2 93% BMI 31.49 kg/m? Exam: General: NAD, AOx3 Back: Midline pain to palpation from thoracic to sacral spine and over bilateral SI joints Left Lower Extremity: Alignment normal. No gross deformities. No swelling, ecchymosis, or erythema. No open wounds or lacerations. Compartments of the thigh and leg are soft and compressible Tolerates passive stretch of the digits Painful with AROM and PROM of hip, no pain with straight leg raise, no short arc pain SILT Rangel/Sa/DP/SP/T. Motor intact EHL/DF/PF. DP pulse palpable Right Lower Extremity: Alignment normal. No gross deformities. Swelling and erythema over anterior leg from knee to ankle, diffuse swelling about ankle without erythema No open wounds or lacerations. Compartments of the thigh and leg are soft and compressible Tolerates passive stretch of the digits Painful with AROM and PROM of hip, aching pain with straight leg raise, no short arc pain, TTP over anterior leg and lateral ankle. SILT Rangel/Sa/DP/SP/T. Motor intact EHL/DF/PF. DP pulse palpable Recent Labs 08/16/24 0559 08/16/24 0430 08/15/24 2224 08/15/24 1826 08/15/24 1718 CREAT 0.96 -- -- -- 1.05 BUN 14 -- -- -- 13 NA 132* -- -- -- 135* K 3.9 -- -- -- 3.8 CHLOR 99 -- -- -- 101 CO2 22 -- -- -- 20* ANION 11 -- -- -- 14 GLUC 117* -- -- -- 119* CA 8.5 -- -- -- 9.2 ALB -- -- -- -- 4.2 AST -- -- -- -- 24 ALT -- -- -- -- 26 ALKPHOS -- -- -- -- 73 TBILI -- -- -- -- 0.7 WBC 12.58* -- -- -- 13.01* HB 13.0 -- -- -- 14.5 HCT 39.1 -- -- -- 43.0 PLT 142* -- -- -- 163 LACT -- 1.6 2.2* 2.4* -- COAGS: APTT 25.9 07/27/2023 PT INR 1.0 07/27/2023 SED RATE/CRP: CRP 2.2 08/15/2024 Imaging: NNOI Manuelito Schmidt MD Orthopaedic Surgery 08/17/2024 5:54 AM Attending Note I personally saw and examined the patient. I reviewed the resident's note. I agree with the resident's assessment and plan unless otherwise noted. Patient states he may feel little bit better. Will continue to monitor his clinical progress. IV antibiotics per primary service. IV anti-inflammatory medications. Signature: Wild Stewart MD Date: 08/17/2024 Time: 2:20 [facility]11-04-2024 NoteHNO ID: [id number] Author: ROBERTH GANDHI MD Service: Hospital Medicine Author Type: Physician Type: Progress Notes Filed: 08/16/2024 14:07 Note Text: DEPARTMENT OF HOSPITAL MEDICINE PROGRESS NOTE SERVICE DATE: 08/16/2024 SERVICE TIME: 2:04 PM Hospital Medicine/Primary Attending: Roberth Gandhi MD NIGHT AND WEEKEND COVERAGE: After 7pm please page [phone] SUBJECTIVE: Follow up for Cellulitis. No CP SOB NVD. OBJECTIVE: PHYSICAL EXAM: BP 101/65 Pulse 91 Temp (Src) 98.5 (Oral) Resp 17 Ht 6' 2.409 (1.89m) Wt 248 lb (112.5kg) SpO2 94% BMI 31.49 kg/(m2). O2 Therapy: Room Air General - AANDOx3, NAD, Calm Skin- No new lesions CV - RRR S1 S2, No M/R/G Ext- Leg cellulitis seems to have migrated. Better dorsally, worse at margins on bottom and medially, worse pain under Neuro- No dysarthria MEDICATIONS: Current Facility-Administered Medications Medication Dose Route Frequency NaCl 0.9% iv flush bag 20 mL INTRAVENOUS PRN iv contrast (radiology procedure) INTRAVENOUS DIRECTED PRN iv contrast (radiology procedure) INTRAVENOUS DIRECTED PRN NaCl 0.9% iv flush bag 20 mL INTRAVENOUS PRN vancomycin 1.75 g in D5W 500 mL (VANCOCIN) 0.015 g/kg/dose INTRAVENOUS q 12 HR vancomycin dosing and monitoring per pharmacy OTHER As Directed cefTRIAXone iv piggyback 1 g in dextrose (iso-osmotic) 50 mL (ROCEPHIN) 1 g INTRAVENOUS q 24 HR HYDROmorphone (PF) 1 mg injection (DILAUDID) 1 mg INTRAVENOUS q 3 H PRN Obesity Class I (BMI 30-34.9) DATA: Diagnostic tests reviewed for today's visit: CBC: Recent Labs 08/16/24 0559 WBC 12.58* RBC 4.08* HB 13.0 HCT 39.1 PLT 142* MCV 95.8 MCH 31.9 MPV 9.0 Coags: No results for input(s): PT, INR, APTT in the last 24 hours. BMP: Recent Labs 08/16/24 0559 NA 132* K 3.9 CHLOR 99 CO2 22 BUN 14 CREAT 0.96 GLUC 117* CMP: Recent Labs 08/16/24 0559 08/15/24 1718 NA 132* 135* K 3.9 3.8 CHLOR 99 101 CO2 22 20* BUN 14 13 CREAT 0.96 1.05 GLUC 117* 119* TPROT -- 6.7 CA 8.5 9.2 TBILI -- 0.7 ALKPHOS -- 73 ALT -- 26 AST -- 24 ANION 11 14 Cardiac Enzymes: No results for input(s): CK, MB, CKMB, TROPT in the last 24 hours. Liver Function, Amylase, Lipase: Recent Labs 08/15/24 1718 TPROT 6.7 ALB 4.2 ALT 26 AST 24 ALKPHOS 73 TBILI 0.7 MG/PHOS: No results for input(s): MG, P in the last 24 hours. Renal Panel: Recent Labs 08/16/24 0559 CREAT 0.96 BUN 14 GLUC 117* CA 8.5 CHLOR 99 K 3.9 CO2 22 NA 132* Heme: No results for input(s): RETICP, ABSRETIC, LD, MOOKIE, FE, TIBC,TRANSFERSAT in the last 24 hours. No results found for: UALBCR Active Hospital Problems Diagnosis Date Noted POA Cellulitis of right lower extremity 08/16/2024 Yes Resolved Hospital Problems No resolved problems to display. Assessment/Plan Principal Problem: R Leg Cellulitis - Continue Vancomycin and Ceftriaxone - Follow Cx - New lines demarked - Continue IV Pain meds 24 hours VTE Prophylaxis: As per primary team Disposition: To be determined Plan of care discussed with: Provider, RN, Patient SIGNATURE: Roberth Gandhi MD PATIENT NAME: Mohini Rodriguez DATE: August 16, 2024 TIME: 2:04 PM PAGER/CONTACT #: My Pager. Page [phone] after 7PM, as my pager is off.[facility]11-04-2024 NoteHNO ID: [id number] Author: MAYURI CHAPPELL RN Service: Care Management Author Type: Registered Nurse Type: Care Mgt Initial Assessment Filed: 08/16/2024 13:45 Note Text: CARE MANAGEMENT: ASSESSMENT AND DISCHARGE PLAN SERVICE DATE: August 16, 2024 SERVICE TIME: 1:42 PM PCP: Malik Palacios MD Primary Contact: Extended Emergency Contact Information Primary Emergency Contact: Adriana Rodriguez Address: [address] [place] [address] Mobile Relation: Spouse Admission Status: Inpatient Insurance Provider: N/A Discharge Planning requested by: Per Department Practice Potential Transition Plans Home;To Be Determined Advance Directives Current Advance Directive: Health Care Power of Team Leader/Research Psychologist In Chart: No Customer Operations Associate Attempted to Assist with AD Completion: Yes Action: Education Provided Current Living Arrangements and Support Lives with: Spouse/significant other Type of Residence: Private Residence (House) Support: Family members, Spouse/significant other How do you manage to accomplish the following: Independent: Ambulation;Bathe/Shower;Dress;Meals/Meal Prep;Going to the bathroom;Medication Management;Transportation to appointments/community Current Services/Equipment Current Post-Acute Service(s): None Discharge Planning Patient Goal(s): Independent living, Be able to go home [place] of Choice Explained: [place] of Choice Given: No Reason Not Given: No placements necessary Are you interested in bedside delivery of your medications? Yes Discharge Planning Participant(s): Patient Patient/Family Comments: Caregiver Assessment: Caregiver is ready, willing and able to meet the patient's needs as recommended by the inter-professional team: No Caregiver needed Transport at Discharge: Transportation Arrangements: Car Destination: home Needs Prior to Discharge: Needs Prior to Discharge: To Be Determined Post-Acute Discharge Plan: Spoke with patient at bedside. Patient lives at home with spouse. 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 Concerned with spouse just diagnosed with stage 4 colon cancer that is not curable. CM offered emotional support. +PCP. +medical and prescription coverage through [employer] [employer] [employer]. States he will be transitioning to Medicare in a month as he will be 64 years old. No DME. Plan for patient to return home with self care and spouse on discharge. Patient may benefit from therapy evals prior to discharge. Family to transport. No transitional care needs identified at this time. CM to follow. SIGNATURE: Mayuri Chappell RN PATIENT NAME: Mohini Rodriguez DATE: August 16, 2024 TIME: 1:41 PM CONTACT #: [phone] [facility]11-[facility]23 Miscellaneous Notes* CARE COORDINATION - Kimberlyn Talavera, PT - 08/22/2023 5:30 PM EST pt was evaluated and released from the ED with no DVT or PE pt ok to prodcede with dc [facility] Miscellaneous Notes* PT ROUTINE/REASSESSMENT/RECERT/CASE MGMT - Kimberlyn Talavera, PT - 08/21/2023 9:31 AM EST SITUATION: spouse present during today's visit. patient reports the following since the last homecare visit: medications/allergies--no changes, no fall. patient reports that Friday night he had a sharp pain inhis L shoulder blade. . He then notes shortness of breath. He thought that it would get better. Buttoday he still notes sob and difficulty with taking a deep breath Recommended he go to ER estefania , pt reports he will go when my gets done with her work meeting Pt was scheduled for agency d/c today. I do not feel comfortable with discharging until he is evaluated BACKGROUND: Diagnoses (reason for Home Care): [facility] on 07/27/23- 07/29/2023 . multiple fx from fall off ladder 1. Right superior and inferior pubic rami fractures 2. Right S2 sacral fracture 3. Right L2-L4 transverse process fractures 4. Right posterior 9-12 rib fractures 5. Right lateral 8th rib fracture Weight Bearing/Precaution Changes: no changes ASSESSMENT: Focus of visit reassessment Plan of care, goals, and visit frequency reviewed and agreed upon with patient and/or caregiver. Current Discharge Plan: independent with home exercise program Anticipate discharge by tbd RECOMMENDATION: See intervention summary for intervention/education details. [facility] History of Present illness Narrative* Wild Stewart MD - 08/12/2023 1:22 PM EDT Subjective: Patient returns today follow-up regarding his pelvic ring injury. He had surgical fixation on 07/28/2023. Overall doing well. It was walking with a cane at physical therapy today. Now hassome soreness. Objective: Examination of the right lower extremity shows it to be neuro vas intact. Incision healing well. Ambulatory with walker in the office. Imaging: Please refer to the radiographic interpretation Assessment: #1 pelvic ring injury, unstable. Plan: At this time he is doing well. We discussed good days and bad days after therapy. He will continue with oxycodone as needed. He is also taking Tylenol and anti-inflammatory medications. I will see him back in 4 weeks. If there is any questions or concerns prior to this, they will contact the office. Questions answered. [facility]23 Miscellaneous Notes* PT ROUTINE/REASSESSMENT/RECERT/CASE MGMT - Kati Souza PTA - 08/12/2023 10:05 AM EDT SITUATION: spouse present during today's visit. patient reports the following since the last homecare visit: medications/allergies--got a refill of pain meds, no fall. patient reports he is feeling much better overall. Has f/u w/ Dr today. BACKGROUND: Diagnoses (reason for Home Care): [facility] on 07/27/23-07/29/2023 . multiple fx from fall off ladder 1. Right superior and inferior pubic rami fractures 2. Right S2 sacral fracture 3. Right L2-L4 transverse process fractures 4. Right posterior 9-12 rib fractures 5. Right lateral 8th rib fracture Weight Bearing/Precaution Changes: no changes ASSESSMENT: Focus of visit progression of HEP. Gait training w/ww and walking stick inc;luding steps to exit home. Patient w/ much less reported pain throughout visit today. Plan of care, goals, and visit frequency reviewed and agreed upon with patient and/or caregiver. Current Discharge Plan: independent with home exercise program Anticipate discharge by TBD RECOMMENDATION: Next visit to focus on bilateral standing exercises See intervention summary for intervention/education details. [facility]23 Miscellaneous Notes* OT EVALUATION/REASSESSMENT/RECERT - Radha Silva OT/Adelia - 08/07/2023 1:43 PM EDT SITUATION: OT evaluation only patient present during today's visit. patient reports the following since the last homecare visit: medications/allergies--no changes, no fall. BACKGROUND: Diagnoses (reason for Home Care): [facility] on 07/27/23-07/29/2023 . multiple fx from fall off ladder 1. Right superior and inferior pubic rami fractures 2. Right S2 sacral fracture 3. Right L2-L4 transverse process fractures 4. Right posterior 9-12 rib fractures 5. 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) Radiotherapy Follow-Up Examination Chemotherapy Follow-Up Examination Depression Obstructive Sleep Apnea Nasal Septal Deviation Tinnitus Hearing Loss AdjustmentDisorder With Mixed Anxiety and Depressed Mood Alcohol Abuse, in Remission Prostate Cancer (Hcc) Pneumothorax, Traumatic Fall From Ladder, Initial Encounter Multiple Closed Fractures of Pelvis With Unstable Disruption of Pelvic [place] (Hcc) Closed Fracture of Multiple Ribs of Right Side With Routine Healing Closed Fracture of Transverse Process of Lumbar Vertebra With Routine Healing SPECIFIC ORDERS: WBAT ASSESSMENT: [facility]. Reviewed and explained homecare services. Plan of care, goals and visit frequency developed, reviewed, and agreed upon with patient and/or caregiver. Current Discharge Plan:remain in community with/without caregiver support. Anticipate discharge by 08/07/23 RECOMMENDATION: See intervention summary for intervention/education details. documented in this [facility]10-[facility]-2023 Miscellaneous Notes* PT ROUTINE/REASSESSMENT/RECERT/CASE MGMT - Kati Suoza PTA - 08/06/2023 11:25 AM EDT SITUATION: spouse present during today's visit. patient reports the following since the last homecare visit: medications/allergies--no changes, no fall. patient reports he has another call into regarding pain and [place] trying a different pain meds. BACKGROUND: Diagnoses (reason for Home Care): [facility] on 07/27/23-07/29/2023 . multiple fx from fall off ladder 1. Right superior and inferior pubic rami fractures 2. Right S2 sacral fracture 3. Right L2-L4 transverse process fractures 4. Right posterior 9-12 rib fractures 5. Right lateral 8th rib fracture Weight Bearing/Precaution Changes: no changes ASSESSMENT: Focus of visit bandage removal. No concerns. performed and progressed exercises for HEP. better tolerance to standing hip abd vs supine today. Gait training w/ ww. Plan of care, goals, and visit frequency reviewed and agreed upon with patient and/or caregiver. Current Discharge Plan: outpatient rehab Anticipate discharge by tbd RECOMMENDATION: Next visit to focus on stair training See intervention summary for intervention/education details. [facility]23 Miscellaneous Notes* CARE COORDINATION - Sintia Rosenthal RN - 08/05/2023 4:28 PM EDT Medication review completed. No ineffective drug therapy, significant side effects, significant drug interactions, duplicate drug therapy, or noncompliance with drug therapy noted. Sintia Rosenthal RN documented in this [facility]10-[facility]-2023 Miscellaneous Notes* PT ROUTINE/REASSESSMENT/RECERT/CASE MGMT - Kati Souza PTA - 08/04/2023 11:29 AM EDT SITUATION: spouse present during today's visit. patient and caregiver reports the following since the last homecare visit: medications/allergies--no changes, no fall. patient reports he does not feel pain meds are helping much w/ the pain in pelvis. states he plans to contact Dr for something different so he can better do his HEP. BACKGROUND: Diagnoses (reason for Home Care): [facility] on 07/27/23-07/29/2023 . multiple fx from fall off ladder 1. Right superior and inferior pubic rami fractures 2. Right S2 sacral fracture 3. Right L2-L4 transverse process fractures 4. Right posterior 9-12 rib fractures 5. Right lateral 8th rib fracture * s/p pelvic exam under anesthesia with R SI screw placement and R anterior column screw 07/28 OPERATIONS PERFORMED WHILE IN THE HOSPITAL: 07/28/2023 - Insertion right S1 SI screw and right anterior column screw Weight Bearing/Precaution Changes: no changes ASSESSMENT: Focus of visit Much education on importance of HEP and hourly walking but but pushing into painfulranges with exercises. Also encouraged patient to use ice throughout the day for pain which he said he forgot about. Gait training w/ww for household mobility Plan of care, goals, and visit frequency reviewed and agreed upon with patient and/or caregiver. Current Discharge Plan: outpatient rehab Anticipate discharge by TBD RECOMMENDATION: Next visit to focus on bandage removal See intervention summary for intervention/education details. [facility] this [facility]10[facility]-2023 Miscellaneous Notes* Telephone Encounter - Deborah Valdez - 08/01/2023 3:28 PM EDT Called the patient to get him scheduled. He had me talk with his to get the appointment scheduled. Spoke with Adriana and got the patient scheduled. eDborah Valdez August 01, 2023 3:29 PM * Telephone Encounter - Deborah Valdez - 08/01/2023 3:27 PM EDT ----- Message from Ailyn Seymour sent at 08/01/2023 12:31 PM EDT ----- Regarding: Orthopedics / Open Hip: Pain / Post Op Within 90 Day Period Subject Line Format: Orthopedics / Open Hip: Pain / Post Op Within 90 Day Period Patient has been identified by name and Date of (Y/N): y Patient: Mohini Rodriguez Date of : 1960 Previous Provider Seen: Dr. Stewart Body Part(s) Identified: rt hip Diagnosis/Reason For Visit: freactue-needing to have post op appt scheduled surgery was on 07-28-23 Dr. Stewart Reason for the call/escalation: post op within 90 day period If reason for call/escalation is discharge from ED/ER or Hospital, which facility was the patient seen at: n/a Was an appointment scheduled (Y/N): n Person calling if other than patient: no Return call to if other than patient: no Best contact number: [phone] Thank you, Ailyn Seymour August 01, 2023 12:31 PM documented in this [facility]10-[facility]-2023 Miscellaneous Notes* PT SOC/VITOR/FOLLOW UP/OTHER - Kimberlyn Talavera, PT - 08/01/2023 10:46 AM EDT SITUATION: spouse present during today's visit. patient reports im doing pretty good , i think, but i have a pretty good pain tolerance . BACKGROUND: Diagnoses (reason for Home Care): [facility] on 07/27/23-07/29/2023 . multiple fx from fall off ladder 1. Right superior and inferior pubic rami fractures 2. Right S2 sacral fracture 3. Right L2-L4 transverse process fractures 4. Right posterior 9-12 rib fractures 5. 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 Reviewed and explained homecare services. Plan of care, goals, and visit frequency developed, reviewed, and agreed upon with patient and/or caregiver. Patient Goal: walk without pain Patient will benefit from continued physical therapy to address the following deficits: strength, balance, gait, endurance, transfers, stair negotiation and bed mobility. Current Discharge Plan: outpatient rehab. Anticipate discharge by tbd. RECOMMENDATION: Next visit to focus on ther ex, gait, balance, transfers Agreeable to PT and OT; declining none. See intervention summary for intervention/education details. documented in this [facility]10-[facility]23 History of Present illness Narrative* Domenica Jean Baptiste, SUNIL - 07/30/2023 10:10 AM EDT TCM Home Visit Referral Source of Stratification: [facility] Admission Status: Discharged Readmission Risk Score: 9 FELIX Score: 6 Patient meets program referral criteria: No Patient does not qualify for High Risk TCM Home Visit program due to: Discharged home, does not meet program criteria Domenica Jean Baptiste RN July 30, 2023 10:10 AM TRANSITIONAL CARE MANAGEMENT (TCM) COMMUNITY MONITORING PROGRAM Provider Action/FYI: Spoke to patient. Taking lovenox without difficulty. Denies bleeding. Pt continues to have pain. Taking oxycodone and tylenol for pain Has not had a BM since discharge Taking senna-s as directed. Denies nausea or vomiting. Appetite is good. Slept well last night. Denies chest pain or SOB. Denies fever or chills. Denies s/s of infection. Pt is planning on f/u with PCP in 2 weeks Pt will call. Denies questions or concerns re: medications, self-care, and discharge instructions. Agreeable with recommended plan of care. Call PCP for new/worsening symptoms Pt has no future appts SUMMARY: Discharge Network Status: In-Network Discharge Pt [facility] from [facility] on 07[facility]29[facility]23. Admitted for: Fall from ladder SUMMARY OF WHAT HAPPENED WHILE I WAS IN THE HOSPITAL: Mr. Rodriguez was evaluated following a reported fall from a ladder on 07/27/2023. CT imaging revealed the following traumatic injuries: 1. Right superior and inferior pubic rami fractures 2. Right S2 sacral fracture 3. Right L2-L4 transverse process fractures 4. Right posterior 9-12 rib fractures 5. Right lateral 8th rib fracture Orthopedic surgery was consulted. He underwent insertion of a right S1 SI screw and right anterior column screw on 07/28/2023. He would be permitted to weight- bear as tolerated per orthopedic surgeryand was placed on a 21-day course of Lovenox for DVT prophylaxis. His rib fractures and transverse process fractures were treated conservatively. Pain was controlled with appropriate medications. He was evaluated by physical and occupational therapy who recommended home therapy at discharge. He wasdischarged in stable condition on 07/29/2023. He would require outpatient follow-up with his primary care provider and treating orthopedic surgeon. Contact made with patient: Yes Hi my name is Domenica Jean Baptiste RN and I am calling from the [facility] on behalf of your PCP, Malik Palacios MD I understand you were recently in the hospital so I am calling to check in with you to ensure you are feeling well now that you're home. May I ask you a few questions related to your hospital stay and well-being? Yes Contact with patient post discharge, spoke to patient. Patient identified by name and . Do you feel your health is BETTER, WORSE, or the SAME since leaving the hospital? Same ACTION TAKEN: Patient indicated symptoms are better or same, no action required. Continue outreach. MEDICATIONS: Many patients have questions or concerns about their medications once they are home. Do you have any questions about taking your medications or which medication you should be on? No Do you need any medication refills at this time, including any of the medications you might take only when needed? No ACTION TAKEN: No action required For RNs or Pharmacy completing outreach ONLY, was a medication review completed? Yes SOCIAL: We would like to make sure you have what you need so that your basics needs are met - including your personal safety, food, housing and medications. Would you like to speak with a social work steaming machine operator to help give you support for any of these needs? No It can be normal to feel anxious or down during a time like this. Would you like to talk to a mental health professional about how you have been feeling? No ACTION TAKEN: No action taken DISCHARGE INTRUCTIONS: Your discharge instructions / After Visit Summary (AVS) are important in guiding you through the recovery process. Do you have any questions related to your discharge instructions? No Do you have all the necessary equipment and supplies at home? Yes ACTION TAKEN: No action required I would like to help you schedule a hospital follow-up virtual or telephone visit with your PCP. This is a great way for you to connect with your provider to ensure you have safely transitioned home.If you are agreeable, I will send your request to a radiology scheduler who will contact and assist you with that appointment. This will give you an opportunity to ask any questions or address any concerns youmay have with your PCP. Inform the patient that if they have any questions or concerns prior to that appointment, to call their PCP's office right away. ACTION TAKEN: No action required, patient declines appointment. Your doctor would like us to remind you of the recommendations regarding the coronavirus (Covid19) outbreak: Avoid public places as much as possible. Avoid close contact (within 6 feet) with others you don t live with, especially if they are sick. Stay home if you are sick. Wash your hands regularly for at least 20 seconds with soap and water. Wear a cloth mask in public places to help reduce community spread. Do not go to your Doctor s office unless instructed to do so. For any non- emergency symptoms, call your Doctor s office to get instructions on how to manage (we might recommend a telephone or virtualvisit). For emergency symptoms, proceed to Emergency Department as usual but inform them of cough and fever symptoms ESTEFANIA if present (or call on the way if possible). CASI Education Ordered -: No Domenica Jean Baptiste RN [facility] Miscellaneous Notes* Telephone Encounter - Verna Shannon - 07/29/2023 4:10 PM EDT Welcome Home Call: a. Date and Time: 4:10 PM 07/29/2023 b. Contact name/relationship: TURNBOW, MOHINI Patient Rang Patient's room and no answer Verna Shannon Radiation Protection Specialist [facility] History of Present illness Narrative* Lisa Gonzalez - 11/20/2022 8:57 AM EST 1st attempt. Sent Grafoid message. * Radha Earl APRN.ONDINA - 11/19/2022 3:19 PM EST Please reach out to this patient to see if he is still planning to keep Dr. Palacios as his PCP as hehas not been seen by him since 2019. If so, please schedule a 40 minute appointment for a physical and to review overdue health maintenance items. If the patient has transferred care elsewhere, please remove Dr. Palacios's name from the chart. Radha Earl APRN.CNP [facility] History of Past illness Narrative* Problem Noted Date Resolved Date Fall 02/23/2018 02/24/2018 Trauma 02/22/2018 02/24/2018 Neck mass 11/01/2011 12/06/2011 documented as of this encounter (statuses as of 11/20/2022) [facility] Narrative* Problem Noted Date Diagnosed Date Resolved Date Fall 02/23/2018 02/24/2018 Trauma 02/22/2018 02/24/2018 Neck mass 11/01/2011 12/06/2011 documented as of this encounter (statuses as of 07/30/2023) [facility] Narrative* Problem Noted Date Diagnosed Date Resolved Date Fall 02/23/2018 02/24/2018 Trauma 02/22/2018 02/24/2018 Neck mass 11/01/2011 12/06/2011 documented as of this encounter (statuses as of 08/01/2023) [facility] Narrative* Problem Noted Date Diagnosed Date Resolved Date Fall 02/23/2018 02/24/2018 Trauma 02/22/2018 02/24/2018 Neck mass 11/01/2011 12/06/2011 documented as of this encounter (statuses as of 08/01/2023) [facility] Narrative* Problem Noted Date Diagnosed Date Resolved Date Fall 02/23/2018 02/24/2018 Trauma 02/22/2018 02/24/2018 Neck mass 11/01/2011 12/06/2011 documented as of this encounter (statuses as of 08/05/2023) [facility] Narrative* Problem Noted Date Diagnosed Date Resolved Date Fall 02/23/2018 02/24/2018 Trauma 02/22/2018 02/24/2018 Neck mass 11/01/2011 12/06/2011 documented as of this encounter (statuses as of 08/06/2023) [facility] N[facility]* Problem Noted Date Diagnosed Date Resolved Date Fall 02/23/2018 02/24/2018 Trauma 02/22/2018 02/24/2018 Neck mass 11/01/2011 12/06/2011 documented as of this encounter (statuses as of 08/07/2023) [facility] N[facility]* Problem Noted Date Diagnosed Date Resolved Date Fall 02/23/2018 02/24/2018 Trauma 02/22/2018 02/24/2018 Neck mass 11/01/2011 12/06/2011 documented as of this encounter (statuses as of 08/07/2023) [facility] Narrative* Problem Noted Date Diagnosed Date Resolved Date Fall 02/23/2018 02/24/2018 Trauma 02/22/2018 02/24/2018 Neck mass 11/01/2011 12/06/2011 documented as of this encounter (statuses as of 08/08/2023) [facility] N[facility]* Problem Noted Date Diagnosed Date Resolved Date Fall 02/23/2018 02/24/2018 Trauma 02/22/2018 02/24/2018 Neck mass 11/01/2011 12/06/2011 documented as of this encounter (statuses as of 08/12/2023) [facility] N[facility]* Problem Noted Date Diagnosed Date Resolved Date Fall 02/23/2018 02/24/2018 Trauma 02/22/2018 02/24/2018 Neck mass 11/01/2011 12/06/2011 documented as of this encounter (statuses as of 08/12/2023) [facility] N[facility]* Problem Noted Date Diagnosed Date Resolved Date Fall 02/23/2018 02/24/2018 Trauma 02/22/2018 02/24/2018 Neck mass 11/01/2011 12/06/2011 documented as of this encounter (statuses as of 08/19/2023) [facility] N[facility]ative* Problem Noted Date Diagnosed Date Resolved Date Fall 02/23/2018 02/24/2018 Trauma 02/22/2018 02/24/2018 Neck mass 11/01/2011 12/06/2011 documented as of this encounter (statuses as of 08/22/2023) [facility] Narrative* Problem Noted Date Diagnosed Date Resolved Date Fall 02/23/2018 02/24/2018 Trauma 02/22/2018 02/24/2018 Neck mass 11/01/2011 12/06/2011 documented as of this encounter (statuses as of 08/29/2023) [facility] complaint Narrative - Reported* The patient presents to the office today for an initial evaluation. * The patient presents for evaluation of carotid artery stenosis. * carotid stenosis [id number] Work Phone: Evaluation note* Diagnosis Closed minimally displaced zone I fracture of sacrum, initial encounter ([facility])- Primary documented in this encounter [facility] note* Diagnosis Multiple closed fractures of pelvis with unstable disruption of pelvic ring with routine healing, subsequent encounter- Primary documented in this encounter [facility] note* Diagnosis Encounter to establish care- Primary History of malignant neoplasm of neck Muscle spasms of neck Upper abdominal pain Hyperlipidemia, unspecified hyperlipidemia type Class 1 obesity due to excess calories without serious comorbidity with body mass index (BMI) of 33.0 to 33.9 in adult Pain in right testicle Unspecified disorder of male genital organs Screening for colon cancer Special screening for malignant neoplasms, colon Screening for deficiency anemia Screening for other and unspecified deficiency anemia Screening for diabetes mellitus Screening for prostate cancer Special screening for malignant neoplasm of prostate [facility] Diagnosis Pain in right testicle Unspecified disorder of male genital organs [facility] Diagnosis History of malignant neoplasm of neck Upper abdominal pain [facility]* Diagnosis Fatty liver- Primary Other chronic nonalcoholic liver disease Cyst of epididymis Other specified disorder of male genital organs Hydrocele in adult Compression fracture of L1 vertebra, initial encounter ([facility]) [facility]* Diagnosis Routine general medical examination at health care facility- Primary Routine general medical examination at a health care facility Mixed hyperlipidemia Fatty liver Other chronic nonalcoholic liver disease Compression fracture of L1 vertebra, initial encounter ([facility]) Prediabetes Other abnormal glucose Hydrocele in adult Cyst of epididymis Other specified disorder of male genital organs Pain in right testicle Unspecified disorder of male genital organs Class 1 obesity due to excess calories without serious comorbidity with body mass index (BMI) of 33.0 to 33.9 in adult 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 [facility] Diagnosis Routine general medical examination at health care facility- Primary Routine general medical examination at a health care facility Mixed hyperlipidemia Fatty liver Other chronic nonalcoholic liver disease Compression fracture of L1 vertebra, initial encounter ([facility]) Prediabetes Other abnormal glucose Hydrocele in adult Cyst of epididymis Other specified disorder of male genital organs Pain in right testicle Unspecified disorder of male genital organs Class 1 obesity due to excess calories without serious comorbidity with body mass index (BMI) of 33.0 to 33.9 in adult 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 Closed compression fracture of L3 vertebra, initial encounter ([facility])- Primary Compression fracture of L1 vertebra, initial encounter ([facility]) [facility] Diagnosis Routine general medical examination at health care facility- Primary Routine general medical examination at a health care facility Mixed hyperlipidemia Fatty liver Other chronic nonalcoholic liver disease Compression fracture of L1 vertebra, initial encounter ([facility]) Prediabetes Other abnormal glucose Hydrocele in adult Cyst of epididymis Other specified disorder of male genital organs Pain in right testicle Unspecified disorder of male genital organs Class 1 obesity due to excess calories without serious comorbidity with body mass index (BMI) of 33.0 to 33.9 in adult 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 Testicular pain, right- Primary Unspecified disorder of male genital organs Cyst of epididymis Other specified disorder of male genital organs Hydrocele in adult [facility] Diagnosis Routine general medical examination at health care facility- Primary Routine general medical examination at a health care facility Mixed hyperlipidemia Fatty liver Other chronic nonalcoholic liver disease Compression fracture of L1 vertebra, initial encounter ([facility]) Prediabetes Other abnormal glucose Hydrocele in adult Cyst of epididymis Other specified disorder of male genital organs Pain in right testicle Unspecified disorder of male genital organs Class 1 obesity due to excess calories without serious comorbidity with body mass index (BMI) of 33.0 to 33.9 in adult 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 Testicular pain, right- Primary Unspecified disorder of male genital organs Cyst of epididymis Other specified disorder of male genital organs History of prostate cancer Personal history of malignant neoplasm of prostate Right testicular pain Cyst of epididymis Other specified disorder of male genital organs [facility] Diagnosis Routine general medical examination at health care facility- Primary Routine general medical examination at a health care facility Mixed hyperlipidemia Fatty liver Other chronic nonalcoholic liver disease Compression fracture of L1 vertebra, initial encounter ([facility]) Prediabetes Other abnormal glucose Hydrocele in adult Cyst of epididymis Other specified disorder of male genital organs Pain in right testicle Unspecified disorder of male genital organs Class 1 obesity due to excess calories without serious comorbidity with body mass index (BMI) of 33.0 to 33.9 in adult 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 Compression fracture of L1 vertebra, initial encounter ([facility]) Closed compression fracture of L3 vertebra, initial encounter ([facility]) Right testicular pain Cyst of epididymis Other specified disorder of male genital organs [facility] Diagnosis Routine general medical examination at health care facility- Primary Routine general medical examination at a health care facility Mixed hyperlipidemia Fatty liver Other chronic nonalcoholic liver disease Compression fracture of L1 vertebra, initial encounter ([facility]) Prediabetes Other abnormal glucose Hydrocele in adult Cyst of epididymis Other specified disorder of male genital organs Pain in right testicle Unspecified disorder of male genital organs Class 1 obesity due to excess calories without serious comorbidity with body mass index (BMI) of 33.0 to 33.9 in adult 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 Compression fracture of L1 vertebra, initial encounter ([facility])- Primary Right testicular pain Cyst of epididymis Other specified disorder of male genital organs [facility] Diagnosis Routine general medical examination at health care facility- Primary Routine general medical examination at a health care facility Mixed hyperlipidemia Fatty liver Other chronic nonalcoholic liver disease Compression fracture of L1 vertebra, initial encounter ([facility]) Prediabetes Other abnormal glucose Hydrocele in adult Cyst of epididymis Other specified disorder of male genital organs Pain in right testicle Unspecified disorder of male genital organs Class 1 obesity due to excess calories without serious comorbidity with body mass index (BMI) of 33.0 to 33.9 in adult 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 Compression fracture of L1 vertebra, initial encounter ([facility])- Primary Closed compression fracture of L3 vertebra, initial encounter ([facility]) Right testicular pain Cyst of epididymis Other specified disorder of male genital organs [facility] Diagnosis Routine general medical examination at health care facility- Primary Routine general medical examination at a health care facility Mixed hyperlipidemia Fatty liver Other chronic nonalcoholic liver disease Compression fracture of L1 vertebra, initial encounter ([facility]) Prediabetes Other abnormal glucose Hydrocele in adult Cyst of epididymis Other specified disorder of male genital organs Pain in right testicle Unspecified disorder of male genital organs Class 1 obesity due to excess calories without serious comorbidity with body mass index (BMI) of 33.0 to 33.9 in adult 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- Primary Right testicular pain Cyst of epididymis Other specified disorder of male genital organs [facility] Diagnosis Routine general medical examination at health care facility- Primary Routine general medical examination at a health care facility Mixed hyperlipidemia Fatty liver Other chronic nonalcoholic liver disease Compression fracture of L1 vertebra, initial encounter ([facility]) Prediabetes Other abnormal glucose Hydrocele in adult Cyst of epididymis Other specified disorder of male genital organs Pain in right testicle Unspecified disorder of male genital organs Class 1 obesity due to excess calories without serious comorbidity with body mass index (BMI) of 33.0 to 33.9 in adult 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 Right testicular pain Cyst of epididymis Other specified disorder of male genital organs [facility]* Diagnosis Routine general medical examination at health care facility- Primary Routine general medical examination at a [facility] care facility Mixed hyperlipidemia Fatty liver Other chronic nonalcoholic liver disease Compression fracture of L1 vertebra, initial encounter ([facility]) Prediabetes Other abnormal glucose Hydrocele in adult Cyst of epididymis Other specified disorder of male genital organs Pain in right testicle Unspecified disorder of male genital organs Class 1 obesity due to excess calories without serious comorbidity with body mass index (BMI) of 33.0 to 33.9 in adult 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 Spermatocele- Primary [facility]* Diagnosis Routine general medical examination at health care facility- Primary Routine general medical examination at a health care facility Mixed hyperlipidemia Fatty liver Other chronic nonalcoholic liver disease Compression fracture of L1 vertebra, initial encounter ([facility]) Prediabetes Other abnormal glucose Hydrocele in adult Cyst of epididymis Other specified disorder of male genital organs Pain in right testicle Unspecified disorder of male genital organs Class 1 obesity due to excess calories without serious comorbidity with body mass index (BMI) of 33.0 to 33.9 in adult 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 Amaurosis fugax Transient arterial occlusion of retina [facility]* Diagnosis Routine general medical examination at health care facility- Primary Routine general medical examination at a health care facility Mixed hyperlipidemia Fatty liver Other chronic nonalcoholic liver disease Compression fracture of L1 vertebra, initial encounter ([facility]) Prediabetes Other abnormal glucose Hydrocele in adult Cyst of epididymis Other specified disorder of male genital organs Pain in right testicle Unspecified disorder of male genital organs Class 1 obesity due to excess calories without serious comorbidity with body mass index (BMI) of 33.0 to 33.9 in adult 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 Stenosis of right carotid artery greater than 50%- Primary [facility] Diagnosis Routine general medical examination at health care facility- Primary Routine general medical examination at a [facility] care facility Mixed hyperlipidemia Fatty liver Other chronic nonalcoholic liver disease Compression fracture of L1 vertebra, initial encounter ([facility]) Prediabetes Other abnormal glucose Hydrocele in adult Cyst of epididymis Other specified disorder of male genital organs Pain in right testicle Unspecified disorder of male genital organs Class 1 obesity due to excess calories without serious comorbidity with body mass index (BMI) of 33.0 to 33.9 in adult 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 Stenosis of right carotid artery greater than 50%- Primary [facility] Diagnosis Routine general medical examination at health care facility- Primary Routine general medical examination at a [facility] care facility Mixed hyperlipidemia Fatty liver Other chronic nonalcoholic liver disease Compression fracture of L1 vertebra, initial encounter ([facility]) Prediabetes Other abnormal glucose Hydrocele in adult Cyst of epididymis Other specified disorder of male genital organs Pain in right testicle Unspecified disorder of male genital organs Class 1 obesity due to excess calories without serious comorbidity with body mass index (BMI) of 33.0 to 33.9 in adult 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 Carotid stenosis, symptomatic w/o infarct, right- Primary Symptomatic stenosis of right carotid artery [facility] Diagnosis Routine general medical examination at health care facility- Primary Routine general medical examination at a health care facility Mixed hyperlipidemia Fatty liver Other chronic nonalcoholic liver disease Compression fracture of L1 vertebra, initial encounter ([facility]) Prediabetes Other abnormal glucose Hydrocele in adult Cyst of epididymis Other specified disorder of male genital organs Pain in right testicle Unspecified disorder of male genital organs Class 1 obesity due to excess calories without serious comorbidity with body mass index (BMI) of 33.0 to 33.9 in adult 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 He had radiation and chemotherapy and right tongue/tonsil resection in 2011. He has had a history of prostate cancer as well.He remains cancer free at this time. He had a screening carotid duplex performed that suggested possible R ICA stenosis. He has never had a stroke or TIA. No hx/o CAD. 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 He says he can walk as far as he wants and could run up two flights of stairs without chest pain or having to stop. He has been otherwise healthy and takes no prescribed medications. He is a never smoker.[id number] Work Phone: Hospital Discharge instructions* Attachments The following attachments cannot be sent through Care Everywhere. * Orchiectomy ([place]) * General Anesthesia Discharge Instructions ([place]) [facility] Attachments The following attachments cannot be sent through Care Everywhere. * Neck Stretches ([place]) [facility] Attachments The following attachments cannot be sent through Care Everywhere. * Neck Stretches ([place]) documented in this [facility] Plan of care note* Visit Details Visit Type -PT SOC Discipline -Physical Therapy Problems Problem Description Start Date Status Goals Interve ntions Medication Education Disciplines: Skilled Services 08/01/2023 Active 1 goal linked to scheduled/document ed intervention 1 goal intervention scheduled/document ed in this visit Sepsis Disciplines: Skilled Services 08/01/2023 Active 1 goal linked to scheduled/document ed intervention 1 goal intervention scheduled/document ed in this visit Physician Specific Parameters Disciplines: Skilled Services 08/01/2023 Active 1 goal linked to scheduled/document ed intervention 1 goal intervention scheduled/document ed in this visit Risk for Falls Disciplines: Skilled Services 08/01/2023 Active 1 goal linked to scheduled/document ed intervention 1 goal intervention scheduled/document ed in this visit Pain Disciplines: Skilled Services 08/01/2023 Active 1 goal linked to scheduled/document ed intervention 1 goal intervention scheduled/document ed in this visit High Risk Medications Disciplines: Skilled Services 08/01/2023 Active 1 goal linked to scheduled/document ed intervention 2 goal interventions scheduled/document ed in this visit Advance Directives Disciplines: Skilled Services 08/01/2023 Active 1 goal linked to scheduled/document ed intervention 1 goal intervention scheduled/document ed in this visit PT Impaired muscle performance and/or ROM Disciplines: PT 08/01/2023 Active 1 goal linked to scheduled/document ed intervention 1 goal intervention scheduled/document ed in this visit PT Orthopedic Condition Disciplines: PT 08/01/2023 Active 1 goal linked to scheduled/document ed intervention 3 goal interventions scheduled/document ed in this visit PT Learning Assessment Disciplines: PT 08/01/2023 Active 1 goal linked to scheduled/document ed intervention 1 goal intervention scheduled/document ed in this visit Goals Goal Associated Problem Outcome Goal Met? Visit Notes Patient/caregiver will demonstrate ability to obtain, store, identify and administer ordered medications, keep accurate medication list in home, and adhere to medication schedule Description: Patient/caregiver will demonstrate ability to obtain, store, identify and administer ordered medications, keep accurate medication list in home, and adhere to medication schedule by 09/29/23. Medication Education No Patient/caregiver will be able to identify and report symptoms of sepsis Description: Patient/caregiver will be able to identify signs/symptoms of sepsis infection and will verbalize actions to take if suspected by 09/29/23. . Sepsis No Patient to maintain parameters within physician-specified ranges throughout certification period Physician Specific Parameters No Manage Risk for falls Description: Patient/caregiver will verbalize knowledge of individualized fall prevention strategies by 09/29/23. . Risk for Falls No Manage Pain Description: Patient/caregiver will verbalize knowledge and understanding of appropriate techniques to control pain, including pain medication and non-pharmacological techniques. Patient will verbalize or demonstrate an acceptable level of pain as evidenced by a pain score of <5/10 and improvement in ability to perform activities of daily living to be achieved by 09/29/23. . Pain No Patient/caregiver will teach back high risk medication side effect and precaution education High Risk Medications Completed Yes Patient/caregiver will make healthcare providers aware of and any changes to Advance Directives throughout certification period Advance Directives Completed Yes Improved Muscle Performance and/or ROM Description: LTG: Patient will demonstrate improved muscle performance to meet functional goals as evidenced by ability to tolerate 10 minutes activity, to be achieved by 08/23/23. STG: Patient and/or caregiver will verbalize/demonstrate independence with home exercise program, to improve functional mobility, to be achieved by 08/16/23. PT Impaired muscle performance and/or ROM No Manage Orthopedic Condition Description: Improve patient and/or caregiver understanding of post surgical and/or non-surgical orthopedic intervention management as evidenced by patient and/or caregiver able to verbalize, demonstrate, and teach back instruction, to be achieved by 08/23/23. . PT Orthopedic Condition No Demonstrate understanding of education Description: Patient and/or caregiver will understand educational instruction to be achieved by 08/23/23. . PT Learning Assessment No Interventions Intervention Associated Problem/Goal Status Variance Visit Notes Medication Education Description: Evaluate/instruct patient/caregiver on obtaining, storing, identifying and administering ordered medications as well as keeping accurate medication list in the home and adhereing to medication schedule Problem:Medication Education Goal:Patient/caregive r will demonstrate ability to obtain, store, identify and administer ordered medications, keep accurate medication list in home, and adhere to medication schedule Completed Patient instructed on importance of keeping accurate medication list in home and adhering to medication schedule. Risk of Sepsis Description: Patient is at risk for sepsis. Monitor closely for s/s of sepsis. Problem:Sepsis Goal:Patient/caregive r will be able to identify and report symptoms of sepsis Completed SPO2 Description: Notify Dr. Palacios if pulse ox is <92% at rest. Problem:Physician Specific Parameters Goal:Patient to maintain parameters within physician-specified ranges throughout certification period Completed Instruct on individual fall risk factors and strategies to prevent falls and injuries caused by falls. Problem:Risk for Falls Goal:Manage Risk for falls Completed PT: Patient instructed on Eliminating Environmental Hazards: Keep pathways clear, Remove unsafe rugs, Move furniture from pathways and Keep rooms and walkways well lit Managing Impaired Functional Mobility: Use assistive device(s): front wheeled walker Managing Pain Instruct on pain and instruct on strategies to control pain Problem:Pain Goal:Manage Pain Completed patient instructed on techniques to control pain including Pharmacological measures and Non-Pharmacological measures; rest, positioning/elevation and use of thermal modalities, apply ice to affected area. Opioids- educated on high risk medication Problem:High Risk Medications Goal:Patient/caregive r will teach back high risk medication side effect and precaution education Completed patient educated on taking medication(s) as prescribed by provider. Do not stop medication or alter doses without speaking with your provider. Discuss medication effectiveness or side effect concerns with your provider and home care team. Only take opioids as prescribed, do not share your medications, and take proper precautions in storing and properly disposing of opioids once no longer needed. Possible side effects of opioid medication including sedation, decreased rate of breathing, and constipation. Report over sedation to prescribing provider and practice deep breathing techniques every hour while awake. Prevent constipation by increasing water and fiber intake, increasing activity as tolerated, and use stool softener(s) as prescribed. Antiplatelet- educated on high risk medication Problem:High Risk Medications Goal:Patient/caregive r will teach back high risk medication side effect and precaution education Completed patient educated on taking medication(s) as prescribed by provider. Do not stop medication or alter doses without speaking with your provider. Discuss medication effectiveness or side effect concerns with your provider and home care team. Discuss all medications you are taking, even [id number] medicines, with your provider and pharmacist since many drugs can interact with antiplatelet medications. If you forget to take a dose, DO NOT take a double dose. Take the missed dose as soon as possible on the same day. DO NOT take a double dose the next day to make up for the missed dose. Watch for signs of abnormal or excessive bleeding and bruising (refer to Bleeding Precautions education). Call your health care provider right away if you suspect something is wrong. Determine patient's Advance Directive Status Description: Patient does not have advance directives. Patient/Caregiver declined Advance Directive information. Problem:Advance Directives Goal:Patient/caregive r will make healthcare providers aware of and any changes to Advance Directives throughout certification period Completed Discussed Advance Directives with Patient and/or Caregiver. Referred patient to Home Care handbook for further information on Healthcare DPOA & Living Will. Physical Therapy Therapeutic Exercises Problem:PT Impaired muscle performance and/or ROM Goal:Improved Muscle Performance and/or ROM Completed patient instructed on strengthening exercises including Supine : GS,QS,HS, HIPADD, HIP ABD, HEEL SLIDES, SAQ, X 10 with verbal, tactile and written cues for technique. patient instructed to perform home exercise program twice a day which included hourly ambulation. Instruct on orthopedic precautions and weight bearing restrictions Description: Weight bearing restrictions include: WBAT of involved extremity. Problem:PT Orthopedic Condition Goal:Manage Orthopedic Condition Completed patient instructed on orthopedic precautions and weight bearing restrictions. Instruct on management of edema Problem:PT Orthopedic Condition Goal:Manage Orthopedic Condition Completed Instruct patient on management of edema including elevation of RLE above the level of the heart and ice. Instruct on self-management of post surgical and/or non-surgical orthopedic intervention Problem:PT Orthopedic Condition Goal:Manage Orthopedic Condition Completed patient instructed on managagement of orthopedic condition, eating foods with high protein, signs and symptoms of infection, signs and symptoms of DVT/PE, follow provider guidance for showering and instructed on when to call provider. Instruct and educate on knowledge deficits Problem:PT Learning Assessment Goal:Demonstrate understanding of education Completed patient verbalize and/or demonstrate understanding of physical therapy education including orthopedic condition management, weight bearing precautions, surgical precautions, pain management, fall prevention strategies, home safety, functional activity and home exercise program. Education methods include: verbal cues. Further education required to improve knowledge and compliance with fall prevention strategies, home safety, functional activity and home exercise program. documented in this encounter [facility]'s home Plan of care note* Visit Details Visit Type -REPAIR DEPARTMENT SUPERVISOR ROUTINE Discipline -Physical Therapy Problems Problem Description Start Date Status Goals Interve ntions Medication Education Disciplines: Skilled Services 08/01/2023 Active 1 goal linked to scheduled/document ed intervention 1 goal intervention scheduled/document ed in this visit Sepsis Disciplines: Skilled Services 08/01/2023 Active 1 goal linked to scheduled/document ed intervention 1 goal intervention scheduled/document ed in this visit Physician Specific Parameters Disciplines: Skilled Services 08/01/2023 Active 1 goal linked to scheduled/document ed intervention 1 goal intervention scheduled/document ed in this visit Pain Disciplines: Skilled Services 08/01/2023 Active 1 goal linked to scheduled/document ed intervention 1 goal intervention scheduled/document ed in this visit Discharge Disciplines: Skilled Services 08/01/2023 Active 1 goal linked to scheduled/document ed intervention 1 goal intervention scheduled/document ed in this visit PT Impaired muscle performance and/or ROM Disciplines: PT 08/01/2023 Active 1 goal linked to scheduled/document ed intervention 1 goal intervention scheduled/document ed in this visit PT Impaired mobility Disciplines: PT 08/01/2023 Active 1 goal linked to scheduled/document ed intervention 1 goal intervention scheduled/document ed in this visit PT Impaired gait Disciplines: PT 08/01/2023 Active 2 goals linked to scheduled/document ed interventions 2 goal interventions scheduled/document ed in this visit PT Orthopedic Condition Disciplines: PT 08/01/2023 Active 1 goal linked to scheduled/document ed intervention 3 goal interventions scheduled/document ed in this visit PT Learning Assessment Disciplines: PT 08/01/2023 Active 1 goal linked to scheduled/document ed intervention 1 goal intervention scheduled/document ed in this visit Goals Goal Associated Problem Outcome Goal Met? Visit Notes Patient/caregiver will demonstrate ability to obtain, store, identify and administer ordered medications, keep accurate medication list in home, and adhere to medication schedule Description: Patient/caregiver will demonstrate ability to obtain, store, identify and administer ordered medications, keep accurate medication list in home, and adhere to medication schedule by 09/29/23. Medication Education No Patient/caregiver will be able to identify and report symptoms of sepsis Description: Patient/caregiver will be able to identify signs/symptoms of sepsis infection and will verbalize actions to take if suspected by 09/29/23. . Sepsis No Patient to maintain parameters within physician-specified ranges throughout certification period Physician Specific Parameters No Manage Pain Description: Patient/caregiver will verbalize knowledge and understanding of appropriate techniques to control pain, including pain medication and non-pharmacological techniques. Patient will verbalize or demonstrate an acceptable level of pain as evidenced by a pain score of <5/10 and improvement in ability to perform activities of daily living to be achieved by 09/29/23. . Pain No Manage discharge planning Description: Patient/caregiver will verbalize understanding of ongoing discharge plan provided related to disease management, arrangements for outpatient and/or community services, obtaining medications, supplies, and DME, as needed throughout certification period. Discharge No Improved Muscle Performance and/or ROM Description: LTG: Patient will demonstrate improved muscle performance to meet functional goals as evidenced by ability to tolerate 10 minutes activity, to be achieved by 08/23/23. STG: Patient and/or caregiver will verbalize/demonstrate independence with home exercise program, to improve functional mobility, to be achieved by 08/16/23. PT Impaired muscle performance and/or ROM No Improved Transfers Description: STG: Patient will demonstrate safe transfers to/from bed, chair, toilet, couch, shower/tub and car independently with AD, to be achieved by 08/16/23. PT Impaired mobility No Improved Stair Climbing Description: STG:: Patient will demonstrate improved stair negotiation as evidenced by ascend/descend 1 steps with walker independently, to be achieved by 08/09/23. LTG: Patient will demonstrate improved stair negotiation as evidenced by ascend/descend 13 steps with railing and with cane independently, to safely access all areas of the home and exit home, to be achieved by 08/23/23. . PT Impaired gait No Improved Gait Description: STG: Patient will demonstrate improved gait ability as evidenced by ambulation 150 feet with front wheeled walker independently with AD, in order to maneuver throughout home , to be achieved by 08/16/23. LTG: Patient will demonstrate improved gait ability as evidenced by ambulation 150 feet with single point cane independently with AD, to return to safe household and community ambulation, in order to transition to OP PT , to be achieved by 08/23/23. . PT Impaired gait No Manage Orthopedic Condition Description: Improve patient and/or caregiver understanding of post surgical and/or non-surgical orthopedic intervention management as evidenced by patient and/or caregiver able to verbalize, demonstrate, and teach back instruction, to be achieved by 08/23/23. . PT Orthopedic Condition No Demonstrate understanding of education Description: Patient and/or caregiver will understand educational instruction to be achieved by 08/23/23. . PT Learning Assessment No Interventions Intervention Associated Problem/Goal Status Variance Visit Notes Medication Education Description: Evaluate/instruct patient/caregiver on obtaining, storing, identifying and administering ordered medications as well as keeping accurate medication list in the home and adhereing to medication schedule Problem:Medication Education Goal:Patient/caregive r will demonstrate ability to obtain, store, identify and administer ordered medications, keep accurate medication list in home, and adhere to medication schedule Completed Patient and Caregiver instructed on importance of keeping accurate medication list in home and adhering to medication schedule. Risk of Sepsis Description: Patient is at risk for sepsis. Monitor closely for s/s of sepsis. Problem:Sepsis Goal:Patient/caregive r will be able to identify and report symptoms of sepsis Completed SPO2 Description: Notify Dr. Palacios if pulse ox is <92% at rest. Problem:Physician Specific Parameters Goal:Patient to maintain parameters within physician-specified ranges throughout certification period Completed Instruct on pain and instruct on strategies to control pain Problem:Pain Goal:Manage Pain Completed patient instructed on techniques to control pain including Pharmacological measures and Non-Pharmacological measures; positioning/elevation and use of thermal modalities, apply ice to affected area for the following prescribed frequency: prn. Instruct on ongoing discharge plan Problem:Discharge Goal:Manage discharge planning Completed Ongoing Discharge plan: Discharge plan discussed with patient including frequency and duration for home PT and plan for transition to: outpatient therapy. Physical Therapy Therapeutic Exercises Problem:PT Impaired muscle performance and/or ROM Goal:Improved Muscle Performance and/or ROM Completed patient instructed on strengthening exercises including ankle pumps, quad and glut sets, hip abd w/ bag, add, saq and heel slides with verbal, visual and written cues for correct form and gentle ranges . patient instructed to perform home exercise program twice a day which included above ex. Physical Therapy Transfer Training Problem:PT Impaired mobility Goal:Improved Transfers Completed Transfer training and instruction to patient and caregiver on safe transfers to and from couch with supervision and verbal cues for safety. Physical Therapy Stair Training Problem:PT Impaired gait Goal:Improved Stair Climbing Completed Stair training and instruction to patient on safe stair climbing, ascend/descend 1 steps, without railing and with ww with stand by assist and verbal cues for correct step pattern. Physical Therapy Gait Training Problem:PT Impaired gait Goal:Improved Gait Completed Gait training and instruction to patient on safe ambulation with front wheeled walker for 2x's 50 feet with supervision, with verbal cues for corrections of gait deviations including pacing for safety and energy conservation. Instruct on orthopedic precautions and weight bearing restrictions Description: Weight bearing restrictions include: WBAT of involved extremity. Problem:PT Orthopedic Condition Goal:Manage Orthopedic Condition Completed patient instructed on orthopedic precautions. Instruct on management of edema Problem:PT Orthopedic Condition Goal:Manage Orthopedic Condition Completed Instruct patient and caregiver on management of edema including elevation of RLE above the level of the heart and ice. Instruct on self-management of post surgical and/or non-surgical orthopedic intervention Problem:PT Orthopedic Condition Goal:Manage Orthopedic Condition Completed patient instructed on signs and symptoms of infection, signs and symptoms of DVT/PE, instructed on when to call provider and instructed on when to call 911. Instruct and educate on knowledge deficits Problem:PT Learning Assessment Goal:Demonstrate understanding of education Completed patient verbalize and/or demonstrate understanding of physical therapy education including pain management and home exercise program. Education methods include: verbal cues, written instructions and visual cues. Further education required to improve knowledge and compliance with home exercise program. [facility] Visit Details Visit Type -REPAIR DEPARTMENT SUPERVISOR ROUTINE Discipline -Physical Therapy Problems Problem Description Start Date Status Goals Interve ntions Medication Education Disciplines: Skilled Services 08/01/2023 Active 1 goal linked to scheduled/document ed intervention 1 goal intervention scheduled/document ed in this visit Sepsis Disciplines: Skilled Services 08/01/2023 Active 1 goal linked to scheduled/document ed intervention 1 goal intervention scheduled/document ed in this visit Physician Specific Parameters Disciplines: Skilled Services 08/01/2023 Active 1 goal linked to scheduled/document ed intervention 1 goal intervention scheduled/document ed in this visit Risk for Falls Disciplines: Skilled Services 08/01/2023 Active 1 goal linked to scheduled/document ed intervention 1 goal intervention scheduled/document ed in this visit Pain Disciplines: Skilled Services 08/01/2023 Active 1 goal linked to scheduled/document ed intervention 1 goal intervention scheduled/document ed in this visit Discharge Disciplines: Skilled Services 08/01/2023 Active 1 goal linked to scheduled/document ed intervention 1 goal intervention scheduled/document ed in this visit PT Impaired muscle performance and/or ROM Disciplines: PT 08/01/2023 Active 1 goal linked to scheduled/document ed intervention 1 goal intervention scheduled/document ed in this visit PT Impaired gait Disciplines: PT 08/01/2023 Active 2 goals linked to scheduled/document ed interventions 2 goal interventions scheduled/document ed in this visit PT Orthopedic Condition Disciplines: PT 08/01/2023 Active 1 goal linked to scheduled/document ed intervention 4 goal interventions scheduled/document ed in this visit PT Learning Assessment Disciplines: PT 08/01/2023 Active 1 goal linked to scheduled/document ed intervention 1 goal intervention scheduled/document ed in this visit Goals Goal Associated Problem Outcome Goal Met? Visit Notes Patient/caregiver will demonstrate ability to obtain, store, identify and administer ordered medications, keep accurate medication list in home, and adhere to medication schedule Description: Patient/caregiver will demonstrate ability to obtain, store, identify and administer ordered medications, keep accurate medication list in home, and adhere to medication schedule by 09/29/23. Medication Education No Patient/caregiver will be able to identify and report symptoms of sepsis Description: Patient/caregiver will be able to identify signs/symptoms of sepsis infection and will verbalize actions to take if suspected by 09/29/23. . Sepsis No Patient to maintain parameters within physician-specified ranges throughout certification period Physician Specific Parameters No Manage Risk for falls Description: Patient/caregiver will verbalize knowledge of individualized fall prevention strategies by 09/29/23. . Risk for Falls No Manage Pain Description: Patient/caregiver will verbalize knowledge and understanding of appropriate techniques to control pain, including pain medication and non-pharmacological techniques. Patient will verbalize or demonstrate an acceptable level of pain as evidenced by a pain score of <5/10 and improvement in ability to perform activities of daily living to be achieved by 09/29/23. . Pain No Manage discharge planning Description: Patient/caregiver will verbalize understanding of ongoing discharge plan provided related to disease management, arrangements for outpatient and/or community services, obtaining medications, supplies, and DME, as needed throughout certification period. Discharge No Improved Muscle Performance and/or ROM Description: LTG: Patient will demonstrate improved muscle performance to meet functional goals as evidenced by ability to tolerate 10 minutes activity, to be achieved by 08/23/23. STG: Patient and/or caregiver will verbalize/demonstrate independence with home exercise program, to improve functional mobility, to be achieved by 08/16/23. PT Impaired muscle performance and/or ROM No Improved Stair Climbing Description: STG:: Patient will demonstrate improved stair negotiation as evidenced by ascend/descend 1 steps with walker independently, to be achieved by 08/09/23. LTG: Patient will demonstrate improved stair negotiation as evidenced by ascend/descend 13 steps with railing and with cane independently, to safely access all areas of the home and exit home, to be achieved by 08/23/23. . PT Impaired gait No Improved Gait Description: STG: Patient will demonstrate improved gait ability as evidenced by ambulation 150 feet with front wheeled walker independently with AD, in order to maneuver throughout home , to be achieved by 08/16/23. LTG: Patient will demonstrate improved gait ability as evidenced by ambulation 150 feet with single point cane independently with AD, to return to safe household and community ambulation, in order to transition to OP PT , to be achieved by 08/23/23. . PT Impaired gait No Manage Orthopedic Condition Description: Improve patient and/or caregiver understanding of post surgical and/or non-surgical orthopedic intervention management as evidenced by patient and/or caregiver able to verbalize, demonstrate, and teach back instruction, to be achieved by 08/23/23. . PT Orthopedic Condition No Demonstrate understanding of education Description: Patient and/or caregiver will understand educational instruction to be achieved by 08/23/23. . PT Learning Assessment No Interventions Intervention Associated Problem/Goal Status Variance Visit Notes Medication Education Description: Evaluate/instruct patient/caregiver on obtaining, storing, identifying and administering ordered medications as well as keeping accurate medication list in the home and adhereing to medication schedule Problem:Medication Education Goal:Patient/caregi mickey will demonstrate ability to obtain, store, identify and administer ordered medications, keep accurate medication list in home, and adhere to medication schedule Completed Patient instructed on importance of keeping accurate medication list in home and adhering to medication schedule. Risk of Sepsis Description: Patient is at risk for sepsis. Monitor closely for s/s of sepsis. Problem:Sepsis Goal:Patient/caregi mickey will be able to identify and report symptoms of sepsis Completed SPO2 Description: Notify Dr. Palacios if pulse ox is <92% at rest. Problem:Physician Specific Parameters Goal:Patient to maintain parameters within physician-specified ranges throughout certification period Completed Instruct on individual fall risk factors and strategies to prevent falls and injuries caused by falls. Problem:Risk for Falls Goal:Manage Risk for falls Completed PT: Patient instructed on Managing Impaired Functional Mobility: Use assistive device(s): front wheeled walker Managing Pain Instruct on pain and instruct on strategies to control pain Problem:Pain Goal:Manage Pain Completed patient instructed on techniques to control pain including Pharmacological measures and Non-Pharmacological measures; positioning/elevatio n and use of thermal modalities, apply ice to affected area for the following prescribed frequency: prn. Instruct on ongoing discharge plan Problem:Discharge Goal:Manage discharge planning Completed Ongoing Discharge plan: Discharge plan discussed with patient including frequency and duration for home PT and plan for transition to: live independently at home without ongoing services. Physical Therapy Therapeutic Exercises Problem:PT Impaired muscle performance and/or ROM Goal:Improved Muscle Performance and/or ROM Completed patient instructed on strengthening exercises including ankle pumps, quad and glut sets, hip add, saq and heel slides x's 10 each. standing hams curls and hip abd x's 10 each with verbal, visual and written cues for correct form. patient instructed to perform home exercise program twice a day which included above ex. Physical Therapy Stair Training Problem:PT Impaired gait Goal:Improved Stair Climbing Patient requested to defer to next visit Physical Therapy Gait Training Problem:PT Impaired gait Goal:Improved Gait Completed Gait training and instruction to patient on safe ambulation with front wheeled walker for 50 and 15 feet with supervision, with verbal cues for corrections of gait deviations including increased step length. Instruct on orthopedic precautions and weight bearing restrictions Description: Weight bearing restrictions include: WBAT of involved extremity. Problem:PT Orthopedic Condition Goal:Manage Orthopedic Condition Completed patient instructed on orthopedic precautions. Instruct on management of edema Problem:PT Orthopedic Condition Goal:Manage Orthopedic Condition Completed Instruct patient on management of edema including elevation of RLE above the level of the heart and ice. Physical therapy to perform surgical incision/wound management Description: Removal of post-op dressing on POD 7-10 ( -) If no drainage is present, leave open to air; if drainage is present, cover with clean dressing and contact provider. Problem:PT Orthopedic Condition Goal:Manage Orthopedic Condition Completed Intervention completed this date. No concerns. Picture obtained and uploaded to chart. Instruct on self-management of post surgical and/or non-surgical orthopedic intervention Problem:PT Orthopedic Condition Goal:Manage Orthopedic Condition Completed patient instructed on incision care: no lotions/creams or rubbing, signs and symptoms of infection, signs and symptoms of DVT/PE, follow provider guidance for showering , instructed on when to call provider and instructed on when to call 911. Instruct and educate on knowledge deficits Problem:PT Learning Assessment Goal:Demonstrate understanding of education Completed patient verbalize and/or demonstrate understanding of physical therapy education including weight bearing precautions, surgical precautions and pain management. Education methods include: verbal cues. Further education required to improve knowledge and compliance with HEP documented in this encounter [facility]'s home Plan of care note* Visit Details Visit Type -OT EVAL Discipline -Occupational Therapy Problems Problem Description Start Date Status Goals Interve ntions OT Referral Disciplines: Skilled Services 08/01/2023 Resolved on 08/07/2023 1 goal linked to scheduled/document ed intervention 1 goal intervention scheduled/document ed in this visit Physician Specific Parameters Disciplines: Skilled Services 08/01/2023 Active 1 goal linked to scheduled/document ed intervention 1 goal intervention scheduled/document ed in this visit Pain Disciplines: Skilled Services 08/01/2023 Active 1 goal linked to scheduled/document ed intervention 1 goal intervention scheduled/document ed in this visit OT Learning Assessment Disciplines: OT 08/07/2023 Resolved on 08/07/2023 1 goal linked to scheduled/document ed intervention 1 goal intervention scheduled/document ed in this visit Goals Goal Associated Problem Outcome Goal Met? Visit Notes Patient will be referred to additional discipline as needed OT Referral Completed Yes ot eval completed Patient to maintain parameters within physician-specified ranges throughout certification period Physician Specific Parameters No Manage Pain Description: Patient/caregiver will verbalize knowledge and understanding of appropriate techniques to control pain, including pain medication and non-pharmacological techniques. Patient will verbalize or demonstrate an acceptable level of pain as evidenced by a pain score of <5/10 and improvement in ability to perform activities of daily living to be achieved by 09/29/23. . Pain No Demonstrate understanding of education Description: Patient and/or caregiver will understand educational instruction to be achieved by 08/07/23. OT Learning Assessment Completed Yes goal met Interventions Intervention Associated Problem/Goal Status Variance Visit Notes OT evaluation and treatment Description: Evaluate and treat for the assessment of functional deficits and establishment of appropriate interventions and education to address: I/ADL training, functional transfers, DME/adaptive equipment recommendations, safety awareness, energy conservation and home safety and falls prevention recommendations. Problem:OT Referral Goal:Patient will be referred to additional discipline as needed Completed SPO2 Description: Notify Dr. Palacios if pulse ox is <92% at rest. Problem:Physician Specific Parameters Goal:Patient to maintain parameters within physician-specified ranges throughout certification period Completed Instruct on pain and instruct on strategies to control pain Problem:Pain Goal:Manage Pain Completed patient instructed on techniques to control pain including Pharmacological measures and Non-Pharmacological measures; rest and positioning/elevation. Instruct and educate on knowledge deficits Problem:OT Learning Assessment Goal:Demonstrate understanding of education Completed Education methods include: verbal cues. Patient/Caregiver require further education to improve knowledge and compliance with fall prevention strategies, orthopedic condition management, pain management, home safety and appropriate dme for shower chair . documented in this encounter [facility]'s home Plan of care note* Visit Details Visit Type -REPAIR DEPARTMENT SUPERVISOR ROUTINE Discipline -Physical Therapy Problems Problem Description Start Date Status Goals Interve ntions Medication Education Disciplines: Skilled Services 08/01/2023 Active 1 goal linked to scheduled/document ed intervention 1 goal intervention scheduled/document ed in this visit Sepsis Disciplines: Skilled Services 08/01/2023 Active 1 goal linked to scheduled/document ed intervention 1 goal intervention scheduled/document ed in this visit Physician Specific Parameters Disciplines: Skilled Services 08/01/2023 Active 1 goal linked to scheduled/document ed intervention 1 goal intervention scheduled/document ed in this visit Risk for Falls Disciplines: Skilled Services 08/01/2023 Active 1 goal linked to scheduled/document ed intervention 1 goal intervention scheduled/document ed in this visit Pain Disciplines: Skilled Services 08/01/2023 Active 1 goal linked to scheduled/document ed intervention 1 goal intervention scheduled/document ed in this visit Discharge Disciplines: Skilled Services 08/01/2023 Active 1 goal linked to scheduled/document ed intervention 1 goal intervention scheduled/document ed in this visit PT Impaired muscle performance and/or ROM Disciplines: PT 08/01/2023 Active 1 goal linked to scheduled/document ed intervention 1 goal intervention scheduled/document ed in this visit PT Impaired gait Disciplines: PT 08/01/2023 Active 2 goals linked to scheduled/document ed interventions 2 goal interventions scheduled/document ed in this visit PT Impaired balance Disciplines: PT 08/01/2023 Active 1 goal linked to scheduled/document ed intervention 1 goal intervention scheduled/document ed in this visit PT Orthopedic Condition Disciplines: PT 08/01/2023 Active 1 goal linked to scheduled/document ed intervention 2 goal interventions scheduled/document ed in this visit PT Learning Assessment Disciplines: PT 08/01/2023 Active 1 goal linked to scheduled/document ed intervention 1 goal intervention scheduled/document ed in this visit Goals Goal Associated Problem Outcome Goal Met? Visit Notes Patient/caregiver will demonstrate ability to obtain, store, identify and administer ordered medications, keep accurate medication list in home, and adhere to medication schedule Description: Patient/caregiver will demonstrate ability to obtain, store, identify and administer ordered medications, keep accurate medication list in home, and adhere to medication schedule by 09/29/23. Medication Education No Patient/caregiver will be able to identify and report symptoms of sepsis Description: Patient/caregiver will be able to identify signs/symptoms of sepsis infection and will verbalize actions to take if suspected by 09/29/23. . Sepsis No Patient to maintain parameters within physician-specified ranges throughout certification period Physician Specific Parameters No Manage Risk for falls Description: Patient/caregiver will verbalize knowledge of individualized fall prevention strategies by 09/29/23. . Risk for Falls No Manage Pain Description: Patient/caregiver will verbalize knowledge and understanding of appropriate techniques to control pain, including pain medication and non-pharmacological techniques. Patient will verbalize or demonstrate an acceptable level of pain as evidenced by a pain score of <5/10 and improvement in ability to perform activities of daily living to be achieved by 09/29/23. . Pain No Manage discharge planning Description: Patient/caregiver will verbalize understanding of ongoing discharge plan provided related to disease management, arrangements for outpatient and/or community services, obtaining medications, supplies, and DME, as needed throughout certification period. Discharge No Improved Muscle Performance and/or ROM Description: LTG: Patient will demonstrate improved muscle performance to meet functional goals as evidenced by ability to tolerate 10 minutes activity, to be achieved by 08/23/23. STG: Patient and/or caregiver will verbalize/demonstrate independence with home exercise program, to improve functional mobility, to be achieved by 08/16/23. PT Impaired muscle performance and/or ROM No Improved Stair Climbing Description: STG:: Patient will demonstrate improved stair negotiation as evidenced by ascend/descend 1 steps with walker independently, to be achieved by 08/09/23. LTG: Patient will demonstrate improved stair negotiation as evidenced by ascend/descend 13 steps with railing and with cane independently, to safely access all areas of the home and exit home, to be achieved by 08/23/23. . PT Impaired gait No Improved Gait Description: STG: Patient will demonstrate improved gait ability as evidenced by ambulation 150 feet with front wheeled walker independently with AD, in order to maneuver throughout home , to be achieved by 08/16/23. LTG: Patient will demonstrate improved gait ability as evidenced by ambulation 150 feet with single point cane independently with AD, to return to safe household and community ambulation, in order to transition to OP PT , to be achieved by 08/23/23. . PT Impaired gait No Improved Balance Description: LTG: Patient will demonstrate improved standing balance to meet functional goals as evidenced by TUG score of <20 to be achieved by 08/23/23. PT Impaired balance No Manage Orthopedic Condition Description: Improve patient and/or caregiver understanding of post surgical and/or non-surgical orthopedic intervention management as evidenced by patient and/or caregiver able to verbalize, demonstrate, and teach back instruction, to be achieved by 08/23/23. . PT Orthopedic Condition No Demonstrate understanding of education Description: Patient and/or caregiver will understand educational instruction to be achieved by 08/23/23. . PT Learning Assessment No Interventions Intervention Associated Problem/Goal Status Variance Visit Notes Medication Education Description: Evaluate/instruct patient/caregiver on obtaining, storing, identifying and administering ordered medications as well as keeping accurate medication list in the home and adhereing to medication schedule Problem:Medication Education Goal:Patient/caregive r will demonstrate ability to obtain, store, identify and administer ordered medications, keep accurate medication list in home, and adhere to medication schedule Completed Patient instructed on importance of keeping accurate medication list in home and adhering to medication schedule. Risk of Sepsis Description: Patient is at risk for sepsis. Monitor closely for s/s of sepsis. Problem:Sepsis Goal:Patient/caregive r will be able to identify and report symptoms of sepsis Completed SPO2 Description: Notify Dr. Palacios if pulse ox is <92% at rest. Problem:Physician Specific Parameters Goal:Patient to maintain parameters within physician-specified ranges throughout certification period Completed Instruct on individual fall risk factors and strategies to prevent falls and injuries caused by falls. Problem:Risk for Falls Goal:Manage Risk for falls Completed PT: Patient instructed on Managing Impaired Functional Mobility: Use assistive device(s): front wheeled walker Managing Pain Instruct on pain and instruct on strategies to control pain Problem:Pain Goal:Manage Pain Completed patient instructed on techniques to control pain including Pharmacological measures and Non-Pharmacological measures; positioning/elevation and use of thermal modalities, apply ice to affected area for the following prescribed frequency: prn. Instruct on ongoing discharge plan Problem:Discharge Goal:Manage discharge planning Completed Ongoing Discharge plan: Discharge plan discussed with patient including frequency and duration for home PT and plan for transition to: live independently at home without ongoing services. Physical Therapy Therapeutic Exercises Problem:PT Impaired muscle performance and/or ROM Goal:Improved Muscle Performance and/or ROM Completed patient instructed on strengthening exercises including standing calf raises, RLE hip flexion and abd, 1/2 squats x's 10 each seated faq x's 10 with verbal and visual cues for correct form and for not pushing into pain ranges. patient instructed to perform home exercise program twice a day which included above ex. Physical Therapy Stair Training Problem:PT Impaired gait Goal:Improved Stair Climbing Completed Stair training and instruction to patient on safe stair climbing, ascend/descend 4 steps, without railing and with ww with stand by assist and verbal cues for safety and correct step pattern. Physical Therapy Gait Training Problem:PT Impaired gait Goal:Improved Gait Completed Gait training and instruction to patient on safe ambulation with walking stick for 2x's 25 feet with stand by assist, with verbal cues for corrections of gait deviations including posture and correct step pattern. Gait training outdoors, uneven terrain w/ww and Sup . Physical Therapy Balance Training Problem:PT Impaired balance Goal:Improved Balance Completed Developed, implemented, and instructed patient on standing balance exercises including standing exerises and cane/walking stick traininig. Instruct on orthopedic precautions and weight bearing restrictions Description: Weight bearing restrictions include: WBAT of involved extremity. Problem:PT Orthopedic Condition Goal:Manage Orthopedic Condition Completed patient instructed on orthopedic precautions. Instruct on self-management of post surgical and/or non-surgical orthopedic intervention Problem:PT Orthopedic Condition Goal:Manage Orthopedic Condition Completed patient instructed on managagement of orthopedic condition, signs and symptoms of infection, signs and symptoms of DVT/PE, instructed on when to call provider and instructed on when to call 911. Instruct and educate on knowledge deficits Problem:PT Learning Assessment Goal:Demonstrate understanding of education Completed patient verbalize and/or demonstrate understanding of physical therapy education including pain management, functional activity and home exercise program. Education methods include: verbal cues. Further education required to improve knowledge and compliance with home exercise program. documented in this encounter [facility]'s home Plan of care note* Visit Details Visit Type -REPAIR DEPARTMENT SUPERVISOR ROUTINE Discipline -Physical Therapy Problems Problem Description Start Date Status Goals Interve ntions Medication Education Disciplines: Skilled Services 08/01/2023 Active 1 goal linked to scheduled/document ed intervention 1 goal intervention scheduled/document ed in this visit Sepsis Disciplines: Skilled Services 08/01/2023 Active 1 goal linked to scheduled/document ed intervention 1 goal intervention scheduled/document ed in this visit Physician Specific Parameters Disciplines: Skilled Services 08/01/2023 Active 1 goal linked to scheduled/document ed intervention 1 goal intervention scheduled/document ed in this visit Risk for Falls Disciplines: Skilled Services 08/01/2023 Active 1 goal linked to scheduled/document ed intervention 1 goal intervention scheduled/document ed in this visit Pain Disciplines: Skilled Services 08/01/2023 Active 1 goal linked to scheduled/document ed intervention 1 goal intervention scheduled/document ed in this visit Discharge Disciplines: Skilled Services 08/01/2023 Active 1 goal linked to scheduled/document ed intervention 1 goal intervention scheduled/document ed in this visit PT Impaired muscle performance and/or ROM Disciplines: PT 08/01/2023 Active 1 goal linked to scheduled/document ed intervention 1 goal intervention scheduled/document ed in this visit PT Impaired gait Disciplines: PT 08/01/2023 Active 2 goals linked to scheduled/document ed interventions 2 goal interventions scheduled/document ed in this visit PT Impaired balance Disciplines: PT 08/01/2023 Active 1 goal linked to scheduled/document ed intervention 1 goal intervention scheduled/document ed in this visit PT Orthopedic Condition Disciplines: PT 08/01/2023 Active 1 goal linked to scheduled/document ed intervention 2 goal interventions scheduled/document ed in this visit PT Learning Assessment Disciplines: PT 08/01/2023 Active 1 goal linked to scheduled/document ed intervention 1 goal intervention scheduled/document ed in this visit Goals Goal Associated Problem Outcome Goal Met? Visit Notes Patient/caregiver will demonstrate ability to obtain, store, identify and administer ordered medications, keep accurate medication list in home, and adhere to medication schedule Description: Patient/caregiver will demonstrate ability to obtain, store, identify and administer ordered medications, keep accurate medication list in home, and adhere to medication schedule by 09/29/23. Medication Education No Patient/caregiver will be able to identify and report symptoms of sepsis Description: Patient/caregiver will be able to identify signs/symptoms of sepsis infection and will verbalize actions to take if suspected by 09/29/23. . Sepsis No Patient to maintain parameters within physician-specified ranges throughout certification period Physician Specific Parameters No Manage Risk for falls Description: Patient/caregiver will verbalize knowledge of individualized fall prevention strategies by 09/29/23. . Risk for Falls No Manage Pain Description: Patient/caregiver will verbalize knowledge and understanding of appropriate techniques to control pain, including pain medication and non-pharmacological techniques. Patient will verbalize or demonstrate an acceptable level of pain as evidenced by a pain score of <5/10 and improvement in ability to perform activities of daily living to be achieved by 09/29/23. . Pain No Manage discharge planning Description: Patient/caregiver will verbalize understanding of ongoing discharge plan provided related to disease management, arrangements for outpatient and/or community services, obtaining medications, supplies, and DME, as needed throughout certification period. Discharge No Improved Muscle Performance and/or ROM Description: LTG: Patient will demonstrate improved muscle performance to meet functional goals as evidenced by ability to tolerate 10 minutes activity, to be achieved by 08/23/23. STG: Patient and/or caregiver will verbalize/demonstrate independence with home exercise program, to improve functional mobility, to be achieved by 08/16/23. PT Impaired muscle performance and/or ROM No Improved Stair Climbing Description: STG:: Patient will demonstrate improved stair negotiation as evidenced by ascend/descend 1 steps with walker independently, to be achieved by 08/09/23. LTG: Patient will demonstrate improved stair negotiation as evidenced by ascend/descend 13 steps with railing and with cane independently, to safely access all areas of the home and exit home, to be achieved by 08/23/23. . PT Impaired gait No Improved Gait Description: STG: Patient will demonstrate improved gait ability as evidenced by ambulation 150 feet with front wheeled walker independently with AD, in order to maneuver throughout home , to be achieved by 08/16/23. LTG: Patient will demonstrate improved gait ability as evidenced by ambulation 150 feet with single point cane independently with AD, to return to safe household and community ambulation, in order to transition to OP PT , to be achieved by 08/23/23. . PT Impaired gait No Improved Balance Description: LTG: Patient will demonstrate improved standing balance to meet functional goals as evidenced by TUG score of <20 to be achieved by 08/23/23. PT Impaired balance No Manage Orthopedic Condition Description: Improve patient and/or caregiver understanding of post surgical and/or non-surgical orthopedic intervention management as evidenced by patient and/or caregiver able to verbalize, demonstrate, and teach back instruction, to be achieved by 08/23/23. . PT Orthopedic Condition No Demonstrate understanding of education Description: Patient and/or caregiver will understand educational instruction to be achieved by 08/23/23. . PT Learning Assessment No Interventions Intervention Associated Problem/Goal Status Variance Visit Notes Medication Education Description: Evaluate/instruct patient/caregiver on obtaining, storing, identifying and administering ordered medications as well as keeping accurate medication list in the home and adhereing to medication schedule Problem:Medication Education Goal:Patient/caregive r will demonstrate ability to obtain, store, identify and administer ordered medications, keep accurate medication list in home, and adhere to medication schedule Completed Patient instructed on importance of keeping accurate medication list in home and adhering to medication schedule. Risk of Sepsis Description: Patient is at risk for sepsis. Monitor closely for s/s of sepsis. Problem:Sepsis Goal:Patient/caregive r will be able to identify and report symptoms of sepsis Completed SPO2 Description: Notify Dr. Palacios if pulse ox is <92% at rest. Problem:Physician Specific Parameters Goal:Patient to maintain parameters within physician-specified ranges throughout certification period Completed Instruct on individual fall risk factors and strategies to prevent falls and injuries caused by falls. Problem:Risk for Falls Goal:Manage Risk for falls Completed PT: Patient instructed on Managing Impaired Functional Mobility: Use assistive device(s): walking stick Managing Pain Instruct on pain and instruct on strategies to control pain Problem:Pain Goal:Manage Pain Completed patient instructed on techniques to control pain including Pharmacological measures and Non-Pharmacological measures; positioning/elevation and use of thermal modalities, apply ice to affected area for the following prescribed frequency: prn. Instruct on ongoing discharge plan Problem:Discharge Goal:Manage discharge planning Completed Ongoing Discharge plan: Discharge plan discussed with patient including frequency and duration for home PT and plan for transition to: live independently at home without ongoing services. Physical Therapy Therapeutic Exercises Problem:PT Impaired muscle performance and/or ROM Goal:Improved Muscle Performance and/or ROM Completed patient instructed on strengthening exercises including marty standing heel raises, hip flexion and abd, hams curls and squats x's 10 each. seated laq x's 10 . supine quad and glut sets x's 10 each with verbal and visual cues for correct form and pace and for not pushing into pain regions . patient instructed to perform home exercise program twice a day which included above ex. Physical Therapy Stair Training Problem:PT Impaired gait Goal:Improved Stair Climbing Completed Stair training and instruction to patient on safe stair climbing, ascend/descend 4 steps, without railing with walking stick supervision and verbal cues for safety. Physical Therapy Gait Training Problem:PT Impaired gait Goal:Improved Gait Completed Gait training and instruction to patient on safe ambulation with walking stick for 200 feet with supervision, with verbal cues for corrections of gait deviations including safety. Physical Therapy Balance Training Problem:PT Impaired balance Goal:Improved Balance Completed Developed, implemented, and instructed patient on standing balance exercises including lateral stepping 4feet x's 6. Instruct on orthopedic precautions and weight bearing restrictions Description: Weight bearing restrictions include: WBAT of involved extremity. Problem:PT Orthopedic Condition Goal:Manage Orthopedic Condition Completed patient instructed on orthopedic precautions. Instruct on management of edema Problem:PT Orthopedic Condition Goal:Manage Orthopedic Condition Completed Instruct patient on management of edema including elevation of RLE above the level of the heart and ice. Instruct and educate on knowledge deficits Problem:PT Learning Assessment Goal:Demonstrate understanding of education Completed patient verbalize and/or demonstrate understanding of physical therapy education including surgical precautions, pain management, functional activity and home exercise program. Education methods include: verbal cues. Further education required to improve knowledge and compliance with home exercise program. [facility] Visit Details Visit Type -PT REASSESSMENT Discipline -Physical Therapy Problems Problem Description Start Date Status Goals Interve ntions Sepsis Disciplines: Skilled Services 08/01/2023 Active 1 goal linked to scheduled/document ed intervention 1 goal intervention scheduled/document ed in this visit Physician Specific Parameters Disciplines: Skilled Services 08/01/2023 Active 1 goal linked to scheduled/document ed intervention 1 goal intervention scheduled/document ed in this visit Risk for Falls Disciplines: Skilled Services 08/01/2023 Active 1 goal linked to scheduled/document ed intervention 1 goal intervention scheduled/document ed in this visit Pain Disciplines: Skilled Services 08/01/2023 Active 1 goal linked to scheduled/document ed intervention 1 goal intervention scheduled/document ed in this visit PT Impaired muscle performance and/or ROM Disciplines: PT 08/01/2023 Active 1 goal linked to scheduled/document ed intervention 1 goal intervention scheduled/document ed in this visit PT Impaired mobility Disciplines: PT 08/01/2023 Active 2 goals linked to scheduled/document ed interventions 2 goal interventions scheduled/document ed in this visit PT Impaired gait Disciplines: PT 08/01/2023 Active 2 goals linked to scheduled/document ed interventions 2 goal interventions scheduled/document ed in this visit PT Impaired balance Disciplines: PT 08/01/2023 Active 1 goal linked to scheduled/document ed intervention 1 goal intervention scheduled/document ed in this visit PT Orthopedic Condition Disciplines: PT 08/01/2023 Active 1 goal linked to scheduled/document ed intervention 3 goal interventions scheduled/document ed in this visit PT Learning Assessment Disciplines: PT 08/01/2023 Active 1 goal linked to scheduled/document ed intervention 1 goal intervention scheduled/document ed in this visit Goals Goal Associated Problem Outcome Goal Met? Visit Notes Patient/caregiver will be able to identify and report symptoms of sepsis Description: Patient/caregiver will be able to identify signs/symptoms of sepsis infection and will verbalize actions to take if suspected by 09/29/23. . Sepsis No Patient to maintain parameters within physician-specified ranges throughout certification period Physician Specific Parameters No Manage Risk for falls Description: Patient/caregiver will verbalize knowledge of individualized fall prevention strategies by 09/29/23. . Risk for Falls No Manage Pain Description: Patient/caregiver will verbalize knowledge and understanding of appropriate techniques to control pain, including pain medication and non-pharmacological techniques. Patient will verbalize or demonstrate an acceptable level of pain as evidenced by a pain score of <5/10 and improvement in ability to perform activities of daily living to be achieved by 09/29/23. . Pain No Improved Muscle Performance and/or ROM Description: LTG: Patient will demonstrate improved muscle performance to meet functional goals as evidenced by ability to tolerate 10 minutes activity, to be achieved by 08/23/23. STG: Patient and/or caregiver will verbalize/demonstrate independence with home exercise program, to improve functional mobility, to be achieved by 08/16/23. PT Impaired muscle performance and/or ROM No Improved Transfers Description: STG: Patient will demonstrate safe transfers to/from bed, chair, toilet, couch, shower/tub and car independently with AD, to be achieved by 08/16/23. PT Impaired mobility No Improved Bed Mobility Description: STG: Patient will demonstrate improved bed mobility, ability to position self and supine <> sit independently to be achieved by 08/16/23. PT Impaired mobility No Improved Stair Climbing Description: STG:: Patient will demonstrate improved stair negotiation as evidenced by ascend/descend 1 steps with walker independently, to be achieved by 08/09/23. LTG: Patient will demonstrate improved stair negotiation as evidenced by ascend/descend 13 steps with railing and with cane independently, to safely access all areas of the home and exit home, to be achieved by 08/23/23. . PT Impaired gait No Improved Gait Description: STG: Patient will demonstrate improved gait ability as evidenced by ambulation 150 feet with front wheeled walker independently with AD, in order to maneuver throughout home , to be achieved by 08/16/23. LTG: Patient will demonstrate improved gait ability as evidenced by ambulation 150 feet with single point cane independently with AD, to return to safe household and community ambulation, in order to transition to OP PT , to be achieved by 08/23/23. . PT Impaired gait No Improved Balance Description: LTG: Patient will demonstrate improved standing balance to meet functional goals as evidenced by TUG score of <20 to be achieved by 08/23/23. PT Impaired balance No Manage Orthopedic Condition Description: Improve patient and/or caregiver understanding of post surgical and/or non-surgical orthopedic intervention management as evidenced by patient and/or caregiver able to verbalize, demonstrate, and teach back instruction, to be achieved by 08/23/23. . PT Orthopedic Condition No Demonstrate understanding of education Description: Patient and/or caregiver will understand educational instruction to be achieved by 08/23/23. . PT Learning Assessment No Interventions Intervention Associated Problem/Goal Status Variance Visit Notes Risk of Sepsis Description: Patient is at risk for sepsis. Monitor closely for s/s of sepsis. Problem:Sepsis Goal:Patient/caregive r will be able to identify and report symptoms of sepsis Completed SPO2 Description: Notify Dr. Palacios if pulse ox is <92% at rest. Problem:Physician Specific Parameters Goal:Patient to maintain parameters within physician-specified ranges throughout certification period Completed Instruct on individual fall risk factors and strategies to prevent falls and injuries caused by falls. Problem:Risk for Falls Goal:Manage Risk for falls Completed PT: Patient instructed on Eliminating Environmental Hazards: Keep pathways clear, Remove unsafe rugs and Move furniture from pathways Managing Impaired Functional Mobility: Use assistive device(s): single point cane Managing Pain Instruct on pain and instruct on strategies to control pain Problem:Pain Goal:Manage Pain Completed patient instructed on techniques to control pain including Pharmacological measures and Non-Pharmacological measures; rest, positioning/elevation and use of thermal modalities, apply ice to affected area . Physical Therapy Therapeutic Exercises Problem:PT Impaired muscle performance and/or ROM Goal:Improved Muscle Performance and/or ROM Completed patient instructed on strengthening exercises including marty standing heel raises, hip flexion and abd, hams curls and squats x's 10 each. seated laq x's 10 . supine quad and glut sets x's 10 each with verbal and visual cues for correct form and pace and for not pushing into pain regions . patient instructed to perform home exercise program twice a day which included above ex. Physical Therapy Transfer Training Problem:PT Impaired mobility Goal:Improved Transfers Completed ALEJANDRO transfers with afe/proper technique Physical Therapy Bed Mobility Training Problem:PT Impaired mobility Goal:Improved Bed Mobility Completed ALEJANDRO bed mobility Physical Therapy Stair Training Problem:PT Impaired gait Goal:Improved Stair Climbing Completed up and down 3 steps with cane or 1 flight with rail with recip pattern Physical Therapy Gait Training Problem:PT Impaired gait Goal:Improved Gait Completed Indep amb with st cane with steady adriel pattern x 100 Physical Therapy Balance Training Problem:PT Impaired balance Goal:Improved Balance Completed pt demonstrates improved dynamic balance as evidenced by a tug of 11 Instruct on orthopedic precautions and weight bearing restrictions Description: Weight bearing restrictions include: WBAT of involved extremity. Problem:PT Orthopedic Condition Goal:Manage Orthopedic Condition Completed patient instructed on orthopedic precautions. Instruct on management of edema Problem:PT Orthopedic Condition Goal:Manage Orthopedic Condition Completed Instruct patient on management of edema including elevation of RLE above the level of the heart and ice. Instruct on self-management of post surgical and/or non-surgical orthopedic intervention Problem:PT Orthopedic Condition Goal:Manage Orthopedic Condition Completed patient instructed on managagement of orthopedic condition, staying well hydrated, eating foods with high protein, signs and symptoms of infection, signs and symptoms of DVT/PE, follow provider guidance for showering and instructed on when to call provider. Instruct and educate on knowledge deficits Problem:PT Learning Assessment Goal:Demonstrate understanding of education Completed patient verbalize and/or demonstrate understanding of physical therapy education including fall prevention strategies, home safety, functional activity and home exercise program. Education methods include: verbal cues. [facility] Ani Mcdaniel [facility] Note Date/Time August 02, 2025 1 :14pm [facility] [address] [place] [address] OFFICE VISIT Date of Service: 08/02/25 MR#: [id number] Acct: [id number] Name: MOHINI RODRIGUEZ Rep #: [id number] : [id number] Provider: LUNA Mcdaniel Age/Sex: 64/M Location: [place] Status: Signed Intake Vital Signs 08/02/25 11:22 Height 6 ft 2 in Weight: 262 lb 2 oz BMI 33.6 BP 115/79 Respiration 16 Pulse 80 Temp 98.2 F Temp Source Temporal Pulse Oximetry (%) 95 Oxygen Delivery Method room air Intake Visit Reasons: PRE SCOPE ABDOMINAL ISSUES Chief Complaint: I want to get an upper and lower GI Complex Human Resources Manager Required: No Accompanied by: Is patient in pain?: No Allergies No Known Allergies Allergy (Verified 08/02/25 11:27) Medications ?Medication ?Instructions ?Recorded ?Confirmed ?Type cetirizine 5 mg tablet 5 mg PO QDAY PRN 08/01/25 History coenzyme Q10 10 mg capsule 10 mg PO QDAY 08/01/2507/14 History krill oil 500 mg capsule mg PO .QD 08/01/25 08/01/25 History milk thistle seed extract 175 mg 175 mg PO QDAY 08/01/25 History capsule multivitamin 1 tab PO QAM 08/01/25 History omeprazole 20 mg tablet,delayed 20 mg PO QDAY 08/01/25 08/01/25 History release tizanidine 2 mg capsule 2 mg PO Q8H PRN 08/01/25 History Have you fallen in the past year?: No PFSH Medical History Prostate cancer 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 Nasal septal deviation Stenosis of carotid artery Muscle spasms of neck Obesity History of malignant neoplasm of neck Social History Smoking Status: Never smoker alcohol intake: never substance use type: does not use HPI HPI Chief Complaint: I want to get an upper and lower GI Details: - long history of GERD - esophageal burning - Tums PRN - has not needed this since starting Omeprazole - Omeprazole daily for the past couple months - reports last colon was at least 12 years ago - denies any family h/o colon CA - personal h/o prostate CA and a rare throat CA - surgery, chemo and radiation to throat 2011, constant trouble swallowing, doesnot produce enough saliva - no issues with intubation - denies any coughing with swallowing - denies any change in bowel habits - hemorrhoids, can see blood on toilet tissue - reports he also sees more bleeding when taking NSAIDS ROS Const Constitutional: No fatigue, fever(s) or weight change ENT ENT: No difficulty swallowing Gastro GI: No abdominal pain, belching, bloating, change in bowel habits, change in stool character, coffee ground emesis, constipation, cramping, diarrhea, heartburn, difficulty swallowing, feeling full early, excessive flatus, incontinent of stools, Vomiting blood/hematemesis, Blood in stool, loose stools,Black,tarry stools, nausea/dyspepsia, pain with swallowing, vomiting or other Musc Musculoskeletal: No joint pain Skin Skin: No yellowing of the eye or itchy eyes Psych Psychiatric: No anxiety and No depression Endo Endocrine: No fatigue or weight change Aller/Imm Allergy/Immunologic: No itchy eyes Jordan/Lymp Hematologic/Lymphatic: No easy bleeding or easy bruising ROS Narrative - Gastrointestinal: Reports acid reflux, dysphagia with dry foods, variable bowel habits, hemorrhoid bleeding. Denies recent esophageal pain or blockage. - Otorhinolaryngological: Reports xerostomia; denies recent esophageal pain or obstructive sensations when swallowing. - Neurological: Denies persistent pain but acknowledges dysphagia-related challenges. - Respiratory: Denies current breathing issues or symptoms suggestive of GERD- related lung symptoms. - Musculoskeletal: Reports past significant falls leading to pelvic fractures. - Family history: Reports 's colon cancer stage 4, unspecified cancer history in maternal lineage. Exam Const General: cooperative, healthy appearing, no acute distress and well developed Nutritional Appearance: well nourished and overweight Orientation: alert and oriented x3 HENMT Head: normocephalic Ears: hearing grossly normal bilaterally Mouth: moist mucous membranes Teeth and gingiva: dentition normal Eyes Conjunctivae: conjunctivae normal Sclera: sclerae normal Neck Neck: normal visual inspection, full ROM and trachea midline Resp Effort & Inspection: normal respiratory effort, able to speak in complete sentences and symmetric chest movement Neuro General: patient alert and patient oriented x3 Cranial Nerves: other (CN's grossly intact, non-focal exam) Cognition: normal cognition Speech: speech normal Gait: normal gait Psych Appearance: grossly normal and well kempt Affect: normal affect Attitude: cooperative Thought Process: normal Assessment and Plan Assessment and Plan (1) Screening for colon cancer: Status: Acute (2) GERD (gastroesophageal reflux disease): Status: Acute Plan 64-year-old male with a history of prostate cancer and hybrid throat cancer, nowpresenting with concerns surrounding gastrointestinal health, namely chronic Gastroesophageal Reflux Disease (GERD) and suspected hiatal hernia. His GERD symptoms are presently managed with omeprazole. He also experiences dysphagia secondary to prior throat surgeries and treatments. Given the frequency and nature of his symptoms, appropriate consideration for both upper GI and lower GIendoscopy is warranted at this time. Patient Instructions: Colon & EGD - patient has Golytely at home Coding Level of Care Code Off vis,new,level 4 Diagnoses Screening for colon cancer Z12.11 GERD (gastroesophageal reflux disease) K21.9 Clinical Quality Measures Falls Risk Screening/Assistive Devices Have you fallen in the past year?: No Smoking Screening Smoking Status: Never smoker 08/02/25 1214 <Electronically signed by Ani CARRASCO> Date _ Ani Youssef Signature: Date (if applicable) CC: ~ [facility] Work Phone: [place] for referral (narrative)* Diagnostic Procedure Only (Routine) - Denied Specialty Diagnoses / Procedures Referred By Anne Marie t Referred To Contact XR IMAGING Diagnoses Multiple closed fractures of pelvis with unstable disruption of pelvic ring with routine healing, subsequent encounter Procedures XR PELVIS 1V AP RADIOLOGIC EXAMINATION PELVIS 1/2 VIEWS Wild Stewart MD [address] [address] [place] [id number] Referral ID Status Reason Start Date Expiration Date V isits Requested Visits Authorized [id number] Denied Auto-Generate d Referral 08/12/2023 09/08/2024 1 0 [facility]No reason for referral information availableC[facility] Work Phone: [place] for visit Narrative* Imaging (Routine) - Closed Specialty Diagnoses / Procedures Referred By Anne Marie roberts Referred To Contact Radiology Diagnoses History of malignant neoplasm of neck Upper abdominal pain Procedures CT abdomen w IV contrast Frank Pereyra S, MECHANICAL MANUFACTURING TECHNICIAN - [employer] [address] [place] [address] Phone: tel: fax: Referral ID Status Reason Start Date Expiration Date Visits Re quested Visits Authorized [id number] Closed 05/09/2025 05/09/2026 1 1 [facility] for visit Narrative* Therapy (Routine) - Authorized Specialty Diagnoses / Procedures Referred By Anne Marie t Referred To Contact Physical Therapy Diagnoses Wedge compression fracture of first lumbar vertebra, subsequent encounter for fracture with routine healing Wedge compression fracture of third lumbar vertebra, subsequent encounter for fracture with routine healing Procedures [place] OFFICE/OUTPATIENT NEW HIGH MDM 60 MINUTES Cat Solis PA-C [address] [place] [address] Phone: tel: fax: [facility] at [address] [place] [address] Phone: tel: fax: Referral ID Status Reason Start Date Expiration Date Visits Requested Visits Authorized Authorized Eval and Treat 06/10/2025 12/07/2025 99 99 [facility] for visit Narrative* Auth/Cert (Routine) Specialty Diagnoses / Procedures Referred By Contac t Referred To Contact Diagnoses Right testicular pain Cyst of epididymis Procedures [place] ORCHIECTOMY SIMPLE SCROTAL/INGUINAL APPROACH RIGHT SIMPLE ORCHIECTOMY Nav Mas MD [address] [place] [address] Phone: tel: fax: Referral ID Status Reason Start Date Expiration Date Visits Re quested Visits Authorized [id number] 06/28/2025 1 1 [facility] for visit Narrative* Imaging (Routine) - Closed Specialty Diagnoses / Procedures Referred By Contac t Referred To Contact Cardiology Diagnoses Amaurosis fugax Procedures Vascular US carotid artery duplex bilateral Frank Pereyra S, MECHANICAL MANUFACTURING TECHNICIAN - [employer] [address] [facility] [place] [address] [place] [address] Phone: tel: fax: Referral ID Status Reason Start Date Expiration Date Visits Re quested Visits Authorized [id number] Closed 08/10/2025 08/10/2027 1 1 [facility] for visit Narrative* Imaging (Emergency) - Closed Specialty Diagnoses / Procedures Referred By Contac t Referred To Contact Radiology Diagnoses Stenosis of right carotid artery greater than 50% Procedures CTA neck angio w and wo IV contrast Teri Bose MD [address] [place] [address] Phone: tel: fax: Referral ID Status Reason Start Date Expiration Date Visits Re quested Visits Authorized [id number] Closed 08/17/2025 08/17/2026 1 1 [facility] Summary Purpose Family History No Family History Records FoundNo Family History Records FoundNo Family History Records FoundNo Family History Records FoundNo Family History Records FoundNo Family History Records FoundNo Family History Records Found Advance Directives No Advanced Directives Records FoundLatest Code Status on File Code Status Date Activated Date Inactivated Comments Full Code 08/01/2023 3:43 PM Latest Code Status on File Code Status Date Activated Date Inactivated Comments Full Code 08/01/2023 3:43 PM Latest Code Status on File Code Status Date Activated Date Inactivated Comments Full Code 08/01/2023 3:43 PM 08/21/2023 12:24 PM Date Activated Date Inactivated Comments 08/16/2024 3:50 AM 08/18/2024 8:41 PM Question Answer Comments Full Code Order Discussed With: Patient Date Activated Date Inactivated Comments 08/01/2023 3:43 PM 08/21/2023 12:24 PM Chief Complaint and Reason for Visit Chief Complaint Admit Date PRE SCOPE ABDOMINAL ISSUES August 02, 2025 11:11am Reason for Visit Admit Date GERD (gastroesophageal reflux disease) O ct2024 11:11am Screening for colon cancer August 02, 2025 11:11am Additional Source Comments (unrecognized sect ion and content) No Status Records FoundNo Status Records FoundNo Status Records FoundNo Status Records FoundNo Status Records FoundNo Status Records FoundNo Status Records Found INFORMATION SOURCE (unrecogn ized section and content) DATE CREATED AUTHOR 03/31/2018 [facility] DATE CREATED AUTHOR AUTHOR'S ORGANIZ ATION 10/02/2018 [facility] DATE CREATED AUTHOR AUTHOR'S ORGANIZ ATION 12/22/2021 [facility] DATE CREATED AUTHOR AUTHOR'S ORGANIZ ATION 09/11/2024 [facility] DATE CREATED AUTHOR AUTHOR'S ORGANIZ ATION 09/12/2024 [facility] DATE CREATED AUTHOR AUTHOR'S ORGANIZ ATION 08/23/2025 [facility] DATE CREATED AUTHOR AUTHOR'S ORGANIZ ATION 08/25/2025 [facility] Source Comments (unrecognize d section and content) In the event this informatio n is protected by the Federal Confidentiality of Alcohol and Drug Abuse Patient Records regulations: The Federal rules restrict any use of the information to criminally investigate or prosecute any alcohol or drug abuse patient.[facility] Center[facility] the event this information is protected by the Federal Confidentiality of Alcohol and Drug Abuse Patient Records regulations: The Federal rules restrict any use of the information to criminally investigate or prosecute any alcohol or drug abuse patient.[facility] CenterIn the event this information is protected by the Federal Confidentiality of Alcohol and Drug Abuse Patient Records regulations: The Federal rules restrict any use of the information to criminally investigate or prosecute any alcohol or drug abuse patient.[facility] CenterIn the event this information is protected by the Federal Confidentiality of Alcohol and Drug Abuse Patient Records regulations: The Federal rules restrict any use of the information to criminally investigate or prosecute any alcohol or drug abuse patient.[facility] CenterIn the event this information is protected by the Federal Confidentiality of Alcohol and Drug Abuse Patient Records regulations: The Federal rules restrict any use of the information to criminally investigate or prosecute any alcohol or drug abuse patient.[facility] CenterIn the event this information is protected by the Federal Confidentiality of Alcohol and Drug Abuse Patient Records regulations: The Federal rules restrict any use of the information to criminally investigate or prosecute any alcohol or drug abuse patient.[facility] CenterIn the event this information is protected by the Federal Confidentiality of Alcohol and Drug Abuse Patient Records regulations: The Federal rules restrict any use of the information to criminally investigate or prosecute any alcohol or drug abuse patient.[facility] CenterIn the event this information is protected by the Federal Confidentiality of Alcohol and Drug Abuse Patient Records regulations: The Federal rules restrict any use of the information to criminally investigate or prosecute any alcohol or drug abuse patient.[facility] CenterIn the event this information is protected by the Federal Confidentiality of Alcohol and Drug Abuse Patient Records regulations: The Federal rules restrict any use of the information to criminally investigate or prosecute any alcohol or drug abuse patient.[facility] CenterIn the event this information is protected by the Federal Confidentiality of Alcohol and Drug Abuse Patient Records regulations: The Federal rules restrict any use of the information to criminally investigate or prosecute any alcohol or drug abuse patient.[facility] CenterIn the event this information is protected by the Federal Confidentiality of Alcohol and Drug Abuse Patient Records regulations: The Federal rules restrict any use of the information to criminally investigate or prosecute any alcohol or drug abuse patient.[facility] CenterIn the event this information is protected by the Federal Confidentiality of Alcohol and Drug Abuse Patient Records regulations: The Federal rules restrict any use of the information to criminally investigate or prosecute any alcohol or drug abuse patient.[facility] CenterIn the event this information is protected by the Federal Confidentiality of Alcohol and Drug Abuse Patient Records regulations: The Federal rules restrict any use of the information to criminally investigate or prosecute any alcohol or drug abuse patient.[facility] CenterIn the event this information is protected by the Federal Confidentiality of Alcohol and Drug Abuse Patient Records regulations: The Federal rules restrict any use of the information to criminally investigate or prosecute any alcohol or drug abuse patient.[facility] CenterIn the event this information is protected by the Federal Confidentiality of Alcohol and Drug Abuse Patient Records regulations: The Federal rules restrict any use of the information to criminally investigate or prosecute any alcohol or drug abuse patient.[facility] CenterIn the event this information is protected by the Federal Confidentiality of Alcohol and Drug Abuse Patient Records regulations: The Federal rules restrict any use of the information to criminally investigate or prosecute any alcohol or drug abuse patient.[facility] CenterIn the event this information is protected by the Federal Confidentiality of Alcohol and Drug Abuse Patient Records regulations: The Federal rules restrict any use of the information to criminally investigate or prosecute any alcohol or drug abuse patient.[facility] CenterIn the event this information is protected by the Federal Confidentiality of Alcohol and Drug Abuse Patient Records regulations: The Federal rules restrict any use of the information to criminally investigate or prosecute any alcohol or drug abuse patient.[facility] Care Teams (unrecognized sec tion and content) Numerical Control Machine Tool Operator Relationship Specialty Start Date End Date Malik Palacios MD [address] [place] [address] PCP - General Family Medicine 10/01/11 Numerical Control Machine Tool Operator Relationship Specialty Start Date End Date Malik Palacios MD [address] [place], [place] 274931 PCP - General Family Medicine 10/01/11 Numerical Control Machine Tool Operator Relationship Specialty Start Date End Date Malik Palacios MD [address] [place], [place] 334651 PCP - General Family Medicine 10/01/11 Domenica Jean Baptiste RN [address] [place] [address] Primary Care Roll Cleaner Internal Medicine 07/30/23 08/29/23 Nav Moctezuma PA-C 1 [facility] [place], [place] [id number] Referring General Surgery 07/30/23 Nav Moctezuma PA-C 1 [facility] [place], [place] [phone] Home Care Provider General Surgery 07/30/23 Wild Stewart MD [address] [place] [address] [place] [address] [id number] Consulting Orthopedics 07/30/23 Kimberlyn Talavera, PT [address] [place] [address] Generalist Post Acute Care 07/30/23 Numerical Control Machine Tool Operator Relationship Specialty Start Date End Date Malik Palacios MD [address] [place] [address] PCP - General Family Medicine 10/01/11 Domenica Jean Baptiste RN [address] [place] [address] Primary Care Roll Cleaner Internal Medicine 07/30/23 08/29/23 Nav Moctezuma PA-C 1 [facility] [place], [place] [phone] Referring General Surgery 07/30/23 Nav Moctezuma PA-C 1 [facility] [place], [place] [id number] Home Care Provider General Surgery 07/30/23 Wild Stewart MD [address] [place] [address] Consulting Orthopedics 07/30/23 Kimberlyn Talavera, PT [address] [place] [address] Generalist Post Acute Care 07/30/23 Numerical Control Machine Tool Operator Relationship Specialty Start Date End Date Malik Palacios MD [address] [place], [place] 194671 PCP - General Family Medicine 10/01/11 Domenica Jean Baptiste RN [address] [place], [place] [phone] Primary Care Roll Cleaner Internal Medicine 07/30/23 08/29/23 Nav Moctezuma PA-C 1 [place] [address] Referring General Surgery 07/30/23 Nav Moctezuma PA-C 1 [place] [address] Home Care Provider General Surgery 07/30/23 Wild Stewart MD [address] [address] Consulting Orthopedics 07/30/23 Kimberlyn Talavera, PT [address] [place] [address] Generalist Post Acute Care 07/30/23 Numerical Control Machine Tool Operator Relationship Specialty Start Date End Date Malik Palacios MD [address] [place], [place] 329121 PCP - General Family Medicine 10/01/11 Domenica Jean Baptiste RN [address] [place] [address] Primary Care Roll Cleaner Internal Medicine 07/30/23 08/29/23 Nav Moctezuma PA-C [address] [place], [place] [phone] Referring General Surgery 07/30/23 Nav Moctezuma PA-C 1 [place], [place] [id number] Home Care Provider General Surgery 07/30/23 Wild Stewart MD [address] [place], [place] [phone] Consulting Orthopedics 07/30/23 Kimberlyn Talavera, PT [address] [place] [address] Generalist Post Acute Care 07/30/23 Numerical Control Machine Tool Operator Relationship Specialty Start Date End Date Malik Palacios MD [address] [place] [address] PCP - General Family Medicine 10/01/11 Domenica Jean Baptiste, RN [address] [place], [place] [phone] Primary Care Roll Cleaner Internal Medicine 07/30/23 08/29/23 Nav Moctezuma PA-C 1 [place], [place] [phone] Referring General Surgery 07/30/23 Nav Moctezuma PA-C 1 [place], [place] [phone] Home Care Provider General Surgery 07/30/23 Wild Stewart MD [address] [place], [place] [phone] Consulting Orthopedics 07/30/23 Kimberlyn Talavera, PT [address] [place], [place] [phone] Generalist Post Acute Care 07/30/23 Numerical Control Machine Tool Operator Relationship Specialty Start Date End Date Malik Palacios MD [address] [place], [place] 648911 PCP - General Family Medicine 10/01/11 Domenica Jean Baptiste, RN [address] [place], [place] [phone] Primary Care Roll Cleaner Internal Medicine 07/30/23 08/29/23 Nav Moctezuma PA-C 1 [place] [address] Referring General Surgery 07/30/23 Nav Moctezuma PA-C 1 [place] [address] Home Care Provider General Surgery 07/30/23 Wild Stewart MD [address] [place] [address] Consulting Orthopedics 07/30/23 Kimberlyn Talavera, PT [address] [place] [address] Generalist Post Acute Care 07/30/23 Numerical Control Machine Tool Operator Relationship Specialty Start Date End Date Malik Palacios MD [address] [place], [place] 425261 PCP - General Family Medicine 10/01/11 Domenica Jean Baptiste RN [address] [place], [place] [phone] Primary Care Roll Cleaner Internal Medicine 07/30/23 08/29/23 Nav Moctezuma PA-C 1 [facility] [place] [address] Referring General Surgery 07/30/23 Nav Moctezuma PA-C 1 [facility] [place] [phone] Home Care Provider General Surgery 07/30/23 Wild Stewart MD [address] [place] [address] Consulting Orthopedics 07/30/23 Kimberlyn Talavera, PT [address] [place] [address] Generalist Post Acute Care 07/30/23 Numerical Control Machine Tool Operator Relationship Specialty Start Date End Date Malik Palacios MD [address] [place] [address] PCP - General Family Medicine 10/01/11 Domenica Jean Baptiste, SUNIL [address] [place], [place] [phone] Primary Care Roll Cleaner Internal Medicine 07/30/23 08/29/23 Nav Moctezuma PA-C 1 [place] [address] Referring General Surgery 07/30/23 Nav Moctezuma PA-C 1 [facility] [place], [place] [phone] Home Care Provider General Surgery 07/30/23 Wild Stewart MD [address] [place] [address] Consulting Orthopedics 07/30/23 Kimberlyn Talavera, PT [address] [place] [address] Generalist Post Acute Care 07/30/23 Numerical Control Machine Tool Operator Relationship Specialty Start Date End Date Malik Palacios MD [address] [place] [address] PCP - General Family Medicine 10/01/11 Domenica Jean Baptiste, SUNIL [address] [place] [address] Primary Care Roll Cleaner Internal Medicine 07/30/23 08/29/23 Nav Moctezuma PA-C 1 [place] [address] Referring General Surgery 07/30/23 Nav Moctezuma PA-C 1 [place] [address] Home Care Provider General Surgery 07/30/23 Wild Stewart MD [address] [address] Consulting Orthopedics 07/30/23 Kimberlyn Talavera, PT [address] [place] [address] Generalist Post Acute Care 07/30/23 Numerical Control Machine Tool Operator Relationship Specialty Start Date End Date Malik Palacios MD [address] [place], [place] 505401 PCP - General Family Medicine 10/01/11 Domenica Jean Baptiste RN [address] [place], [place] [phone] Primary Care Roll Cleaner Internal Medicine 07/30/23 08/29/23 Nav Moctezuma PA-C 1 [facility] [place] [address] Referring General Surgery 07/30/23 Nav Moctezuma PA-C 1 [place] [address] Home Care Provider General Surgery 07/30/23 Wild Stewart MD [address] [place] [address] Consulting Orthopedics 07/30/23 Kimberlyn Talavera, PT [address] [place], [place] [phone] Generalist Post Acute Care 07/30/23 Numerical Control Machine Tool Operator Relationship Specialty Start Date End Date Malki Palacios MD [facility] [place], [place] [address]7801 PCP - General Family Medicine 10/01/11 Domenica Jean Baptiste, RN [address] [place], [place] [phone] Primary Care Roll Cleaner Internal Medicine 07/30/23 08/29/23 Nav Moctezuma PA-C 1 [place] [address] Referring General Surgery 07/30/23 Nav Moctezuma PA-C 1 [place] [address] Home Care Provider General Surgery 07/30/23 Wild Stewart MD [address] [place] [address] Consulting Orthopedics 07/30/23 Kimberlyn Talavera, PT [address] [place] [address] Generalist Post Acute Care 07/30/23 Numerical Control Machine Tool Operator Relationship Specialty Start Date End Date Malik Palacios MD [address] [place] [address] PCP - General Family Medicine 10/01/11 Nav Moctezuma PA-C 1 [facility] [place] [phone] Referring General Surgery 07/30/23 Nav Moctezuma PA-C 1 [facility] [place] [phone] Home Care Provider General Surgery 07/30/23 Wild Stewart MD [address] [place], [place] [phone] Consulting Orthopedics 07/30/23 Numerical Control Machine Tool Operator Relationship Specialty Start Date End Date Malik Palacios MD [address] [place] [address] PCP - General Family Medicine 10/01/11 Nav Moctezuma PA-C 1 [facility] [address] [place], [place] [phone] Referring General Surgery 07/30/23 Nav Moctezuma PA-C 1 [facility] [place], [place] [phone] Home Care Provider General Surgery 07/30/23 Wild Stewart MD [address] [place] [address] Consulting Orthopedics 07/30/23 Numerical Control Machine Tool Operator Relationship Specialty Start Date End Date Malik Palacios MD [address] [place] [address] PCP - General Family Medicine 10/01/11 Nav Moctezuma PA-C [address] [place] [address] Referring General Surgery 07/30/23 Nav Moctezuma PA-C [address] [place] [address] Home Care Provider General Surgery 07/30/23 Wild Stewart MD [address] [place] [address] Consulting Orthopedics 07/30/23 Numerical Control Machine Tool Operator Relationship Specialty Start Date End Date Christopher Dejesus MD [address] [place] [address] PCP - General Family Medicine 05/09/25 Frank Pereyra APRN - [place] [address] [place] [address] Nurse Practitioner Nurse Practitioner Family 05/09/25 Numerical Control Machine Tool Operator Relationship Specialty Start Date End Date Christopher Dejesus MD [address] [place] [address] PCP - General Family Medicine 05/09/25 Frank Pereyra APRN - [place] [address] [place] [address] Nurse Practitioner Nurse Practitioner Family 05/09/25 Numerical Control Machine Tool Operator Relationship Specialty Start Date End Date Christopher Dejesus MD [address] [place] [address] PCP - General Family Medicine 05/09/25 Frank Pereyra, MECHANICAL MANUFACTURING TECHNICIAN - [place] [address] [facility] [place] [address] Nurse Practitioner Nurse Practitioner Family 05/09/25 Numerical Control Machine Tool Operator Relationship Specialty Start Date End Date Christopher Dejesus MD [address] [place] [address] PCP - General Family Medicine 05/09/25 Frank Pereyra, MECHANICAL MANUFACTURING TECHNICIAN - [place] [address] [facility] [place] [address] Nurse Practitioner Nurse Practitioner Family 05/09/25 Numerical Control Machine Tool Operator Relationship Specialty Start Date End Date Christopher Dejesus MD [address] [place] [address] PCP - General Family Medicine 05/09/25 Frank Pereyra, MECHANICAL MANUFACTURING TECHNICIAN - [place] [address] [facility] [place] [address] Nurse Practitioner Nurse Practitioner Family 05/09/25 Mihai Thomas MD [address] [place] [address] [address] [place] [address] Surgeon Urology 05/30/25 Numerical Control Machine Tool Operator Relationship Specialty Start Date End Date Christopher Dejesus MD [address] [place] [address] PCP - General Family Medicine 05/09/25 Frank Pereyra APRN - [place] [address] [facility] [place] [address] Nurse Practitioner Nurse Practitioner Family 05/09/25 Mihai Thomas MD [address] [address] Surgeon Urology 05/30/25 Numerical Control Machine Tool Operator Relationship Specialty Start Date End Date Christopher Dejesus MD [address] [place] [address] PCP - General Family Medicine 05/09/25 Frank Pereyra APRN - [place] [address] [place] [address] Nurse Practitioner Nurse Practitioner Family 05/09/25 Mihai Thomas MD [address] [address] Surgeon Urology 05/30/25 Numerical Control Machine Tool Operator Relationship Specialty Start Date End Date Christopher Dejesus MD [address] [place] [address] PCP - General Family Medicine 05/09/25 Frank Pereyra MECHANICAL MANUFACTURING TECHNICIAN - [place] [address] [place] [address] Nurse Practitioner Nurse Practitioner Family 05/09/25 Mihai Thomas MD [address] [address] Surgeon Urology 05/30/25 Numerical Control Machine Tool Operator Relationship Specialty Start Date End Date Christopher Dejesus MD [facility] [place] [address] PCP - General Family Medicine 05/09/25 Frank Pereyra, KETAN - [place] [address] [facility] [address] [facility] [place] [address] Nurse Practitioner Nurse Practitioner Family 05/09/25 Mihai Thomas MD 201 [facility] [address] [place] [address] Surgeon Urology 05/30/25 Numerical Control Machine Tool Operator Relationship Specialty Start Date End Date Christopher Dejesus [place] [address] PCP - General Family Medicine 05/09/25 Frank Pereyra APRN - [place] [facility] [place] [address] Nurse Practitioner Nurse Practitioner Family 05/09/25 Mihai Thomas MD 201 [facility] 3 [place] [address] Surgeon Urology 05/30/25 Nav Mas MD [address] [facility] [address] [place] [address] Surgeon Urology 06/28/25 Numerical Control Machine Tool Operator Relationship Specialty Start Date End Date Christopher Dejesus MD [facility] [place] [address] PCP - General Family Medicine 05/09/25 Frank Pereyra, MECHANICAL MANUFACTURING TECHNICIAN - [place] [address] [place] [address] [facility] [place] [address] Nurse Practitioner Nurse Practitioner Family 05/09/25 Mihai Thomas MD 201 [facility] 3 [place] [address] Surgeon Urology 05/30/25 Nav Mas MD [address] [address] Surgeon Urology 06/28/25 Numerical Control Machine Tool Operator Relationship Specialty Start Date End [place] [address] PCP - General Family Medicine 05/09/25 Frank Pereyra APRN - [place] [facility] [place] [address] Nurse Practitioner Nurse Practitioner Family 05/09/25 Mihai Thomas MD 201 [facility] 3 [place] [address] Surgeon Urology 05/30/25 Nav Mas MD [address] [address] Surgeon Urology 06/28/25 Numerical Control Machine Tool Operator Relationship Specialty Start Date End Date Christopher Dejesus MD [facility] [place] [address] PCP - General Family Medicine 05/09/25 Frank Pereyra MECHANICAL MANUFACTURING TECHNICIAN - [place] S [facility] [address] [facility] [place] [address] Nurse Practitioner Nurse Practitioner Family 05/09/25 Mihai Thomas MD 201 [facility] [address] [place] [address] Surgeon Urology 05/30/25 Nav Mas MD [address] [facility] [address] [place] [address] Surgeon Urology 06/28/25 Numerical Control Machine Tool Operator Relationship Specialty Start Date End Date Christopher Dejesus MD [place] [address] PCP - General Family Medicine 05/09/25 Frank Pereyra MECHANICAL MANUFACTURING TECHNICIAN - [place] S [facility] [place] [address] Nurse Practitioner Nurse Practitioner Family 05/09/25 Mihai Thomas MD 201 [facility] 3 [place] [address] Surgeon Urology 05/30/25 Nav Mas MD [address] [facility] [address] [place] [address] Surgeon Urology 06/28/25 Numerical Control Machine Tool Operator Relationship Specialty Start Date End Date Christopher Dejesus MD [facility] [place] [address] PCP - General Family Medicine 05/09/25 Frank Pereyra MECHANICAL MANUFACTURING TECHNICIAN - [place] S [facility] [address] [facility] [place] [address] Nurse Practitioner Nurse Practitioner Family 05/09/25 Mihai Thomas MD 201 [facility] 3 [place] [address] Surgeon Urology 05/30/25 Nav Mas MD 95 [facility] 165 [place] [address] Surgeon Urology 06/28/25 Numerical Control Machine Tool Operator Relationship Specialty Start Date End Date Christopher Dejesus MD 25 [place] [address] PCP - General Family Medicine 05/09/25 Frank Pereyra APRN - [place] [facility] [place] [address] Nurse Practitioner Nurse Practitioner Family 05/09/25 Mihai Thomas MD [address] [address] Surgeon Urology 05/30/25 Nav Mas MD 95 [facility] 165 [place] [address] Surgeon Urology 06/28/25 Numerical Control Machine Tool Operator Relationship Specialty Start Date End Date Christopher Dejesus MD [address] [place] [address] PCP - General Family Medicine 05/09/25 Frank Pereyra APRN - [place] 25 [facility] [place] [address] Nurse Practitioner Nurse Practitioner Family 05/09/25 Mihai Thomas MD [address] [address] Surgeon Urology 05/30/25 Nav Mas MD 95 [facility] 165 [place] [address] Surgeon Urology 06/28/25 Numerical Control Machine Tool Operator Relationship Specialty Start Date End Date Christopher Dejesus [place] [address] PCP - General Family Medicine 05/09/25 Frank Pereyra, MECHANICAL MANUFACTURING TECHNICIAN - [place] S [facility] [place] [address] Nurse Practitioner Nurse Practitioner Family 05/09/25 Mihai Thomas MD [address] [address] Surgeon Urology 05/30/25 Nav Mas MD [address] [address] Surgeon Urology 06/28/25 Numerical Control Machine Tool Operator Relationship Specialty Start Date End Date Christopher Dejesus [place] [address] PCP - General Family Medicine 05/09/25 Frank Pereyra MECHANICAL MANUFACTURING TECHNICIAN - [place] S [facility] [place] [address] Nurse Practitioner Nurse Practitioner Family 05/09/25 Mihai Thomas MD [address] [address] Surgeon Urology 05/30/25 Nav Mas MD [address] [facility] [address] [place] [address] Surgeon Urology 06/28/25 Numerical Control Machine Tool Operator Relationship Specialty Start Date End Date Christopher Dejesus [place] [address] PCP - General Family Medicine 05/09/25 Frank Pereyra MECHANICAL MANUFACTURING TECHNICIAN - CATTYMAN [facility] [place], [place] [id number] Nurse Practitioner Nurse Practitioner Family 05/09/25 Mihai Thomas MD [address] [address] Surgeon Urology 05/30/25 Nav Mas MD [address] [place] [address] Surgeon Urology 06/28/25 Numerical Control Machine Tool Operator Relationship Specialty Start Date End Date Christopher Dejesus [place] [place] [address] PCP - General Family Medicine 05/09/25 Frank Pereyra APRN - CATTYMAN [address] [place] [address] [place] [address] Nurse Practitioner Nurse Practitioner Family 05/09/25 Mihai Thomas MD 201 [facility] [address] [place] [address] Surgeon Urology 05/30/25 Nav Mas MD [address] [facility] [address] [place] [address] Surgeon Urology 06/28/25 Teri Bose MD [address] [facility] [address] [place] [address] Vascular Surgery 08/17/25 Numerical Control Machine Tool Operator Relationship Specialty Start Date End Date Christopher Dejesus MD [address] [facility] [address] [facility] [place] [address] PCP - General Family Medicine 05/09/25 Frank Pereyra, MECHANICAL MANUFACTURING TECHNICIAN - CATTYMAN [facility] [place] [address] Nurse Practitioner Nurse Practitioner Family 05/09/25 Mihai Thomas MD [address] [place] [address] [address] [place] [address] Surgeon Urology 05/30/25 Nav Mas MD [address] [facility] [address] [place] [address] Surgeon Urology 06/28/25 Teri Bose MD [address] [facility] [address] [place] [address] Vascular Surgery 08/17/25 Numerical Control Machine Tool Operator Relationship Specialty Start Date End Date Christopher Dejesus MD [address] [facility] [address] [facility] [place] [address] PCP - General Family Medicine 05/09/25 Frank Pereyra, MECHANICAL MANUFACTURING TECHNICIAN - CATTYMAN [address] [facility] [address] [facility] [place] [address] Nurse Practitioner Nurse Practitioner Family 05/09/25 Mihai Thomas MD [facility] 3 [place] [address] Surgeon Urology 05/30/25 Nav Mas MD [address] [facility] [address] [place] [address] Surgeon Urology 06/28/25 Teri Bose MD [address] [place] [address] [address] [place] [address] Vascular Surgery 08/17/25 Team Status: Active Member Role/Relationship Status Dates Dr. Lenin Palacios MD Primary care physician Active Team Status: Inactive Member Role/Relationship Status Dates Dr. Lenin Palacios MD Primary care physician Active Start: August 02, 2025 End: August 02, 2025 Dr. Lenin Palacios MD Referring Provider Active Start: August 02, 2025 End: August 02, 2025 Ani Mcdaniel NP-C Attending physician Active Start: August 02, 2025 End: August 02, 2025 Numerical Control Machine Tool Operator Relationship Specialty Start Date End Date Christopher Dejesus MD [address] [place] [address] [place] [address] PCP - General Family Medicine 05/09/25 Frank Pereyra, MECHANICAL MANUFACTURING TECHNICIAN - CATTYMAN [address] [place] [address] [place] [address] Nurse Practitioner Nurse Practitioner Family 05/09/25 Mihai Thomas MD [facility] 3 [place] [address] Surgeon Urology 05/30/25 Nav Mas MD [address] [facility] [address] [place] [address] Surgeon Urology 06/28/25 Teri Bose MD [address] [place] [address] Vascular Surgery 08/17/25 Reason for Visit (unrecogniz ed section and content) Reason Comments Home Care Confirmation call Reason Onset Date Comments Transition Of Care 07/30/2023 TCM Initial A [facility] Discharge 07/29/23 Reason Comments Appointment Reason Comments Post Op Follow Up Pain Reason Comments Transition Of Care Reason Onset Date Comments New Patient 04/27/2025 Reason Comments New Patient 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 (jim horse sensation in neck) Other CRS- agreeMMR- refus edHep C- [id number]-xsoxhqmEhitbs-refusedCOVID- refused Heartburn Acid reflex Fatigue Leg Pain At joints in right l eg Reason Comments Results Discuss results Medicare Annual Wellness Visit Initial M ole on back that is changing in color and size Discuss ordering of colonoscopy Reason Comments New Patient Compression fracture of L1 vertebr Specialty Diagnoses / Procedures Referred By Anne Marie roberts Referred To Contact Neurosurgery Diagnoses Compression fracture of L1 vertebra, initial encounter ([facility]) Frank Pereyra MECHANICAL MANUFACTURING TECHNICIAN - CATTYMAN [address] [place] [address] Phone: tel: fax: Milan Steele MD [address] [facility] [address] [place] [address] Phone: tel: fax: Referral ID Status Reason Start Date Expiration Date V isits Requested Visits Authorized [id number] Closed Specialty Services Required 05/30/2025 05/30/2026 1 1 Reason Comments New Patient Testicle Pain Patient states he miguel s pain in the right testicle and some cysts on that side Specialty Diagnoses / Procedures Referred By Anne Marie roberts Referred To Contact Urology Diagnoses Cyst of epididymis Hydrocele in adult Procedures [place] OFFICE/OUTPATIENT NEW HIGH MDM 60 MINUTES Frank Pereyra, MECHANICAL MANUFACTURING TECHNICIAN - CATTYMAN [address] [facility] [place] [address] Phone: tel: fax: [facility] [place] [address] [place] [address] [place] [address] Phone: tel: fax: Referral ID Status Reason Start Date Expiration Date Visits Requested Visits Authorized [id number] Pending Review Specialty Services Required 05/30/2025 05/30/2026 1 1 Reason Comments Other Scrotal cyst Reason Onset Date Comments Other 06/27/2025 Scheduling Reason Onset Date Comments Surgery Scheduling 06/28/2025 Reason Comments Procedure Shave biopsy- back Reason Comments Post-op Orchiectomy Reason Onset Date Comments Record Request 08/17/2025 Reason Comments New Patient (ref Frank Pereyra SHORTHAND REPORTER) SHORTHAND REPORTER eval for carotid stenosis over 70%- amaurosis fugax 08/12/25, CU 08/12/25 Specialty Diagnoses / Procedures Referred By Anne Marie roberts Referred To Contact Vascular Surgery Diagnoses Stenosis of right carotid artery greater than 50% Procedures [place] OFFICE/OUTPATIENT NEW HIGH MDM 60 MINUTES Frank Pereyra S, MECHANICAL MANUFACTURING TECHNICIAN - CATTYMAN [address] [place] [address] [place] [address] Phone: tel: fax: [facility] [place] [address] [place] [address] Phone: tel: fax: Referral ID Status Reason Start Date Expiration Date Visits Requested Visits Authorized [id number] Pending Review Specialty Services Required 08/15/2025 08/15/2026 1 1 Scheduled Active and Recently Administ ered Medications (unrecognized section and content) Medication Order 07/17/2025 07/18/2025 07/19/2025 acetaminophen (Tylenol) tablet 1,000 mg (COMPLETED) 1,000 mg, Oral, Once, On Fri07/19/25 at 0745, For 1 dose, Preprocedure, Administer 60 minutes prior to surgery. 0755 (Given - Provid er: Alberto Grimaldo RN) famotidine (Pepcid) tablet 20 mg (COMPLETED)(Linked Group 1) 20 mg, Oral, Once, On Fri07/19/25 at 0745, For 1 dose, Preprocedure, IV or Oral - Use PO option as first line. If unable to tolerate PO, then okay to use IV. 0755 (Given - Provid er: Alberto Grimaldo RN) sodium chloride 0.9% (NS) flush 5-40 mL 5-40 mL, IntraVENous, Every 12 hours, First dose on Fri07/19/25 at 0745, Preprocedure, For Line Patency: Peripheral IV = 5 mL; Midline or Central Line = 10 mL/lumen. If following IV push medication, administer flush at same rate as the IV push. Flush volume is determined by type of infusion therapy being given. For non-viscous solutions use: Peripheral IV = 5 mL Midline or Central Line = 10 mL/lumen For viscous solutions (i.e. blood components, parenteral nutrition, contrast media, or after obtaining blood sample) use: Peripheral IV = 10 mL Midline or Central Line = 20 mL/lumen 0745 (Canceled Entry - Provider: Automatic Discharge Provider - Comment: Automatically canceled at discontinue of medication order) Continuous Medication Order 07/17/2025 07/18/2025 07/19/2025 lactated Ringer's (LR) infusion 50 mL/hr, IntraVENous, Continuous, Starting on Fri07/19/25 at 0745, Preprocedure, Upon admission to sameday - please start iv if patient does not have iv access. Use 500ml NS for patients on dialysis. 0817 (New Bag - Prov ider: Alberto Grimaldo RN)0847 (Continued by Anesthesia - Provider: KETAN Palacios CRNA)0925 (Anesthesia Volume Adjustment - Provider: KETAN Palacios CRNA)0937 (Anesthesia Volume Adjustment - Provider: KETAN Palacios CRNA)1337 (Due: Order Ending - Provider: Automatic Discharge Provider - Comment: [Order ends at this time. Document the following action when infusion is complete: Stopped]) PRN Medication Order 07/17/2025 07/18/2025 07/19/2025 bupivacaine (Marcaine) 0.25 % injection (CANCELED) As needed, Starting on Fri07/19/25 at 0908, Intraprocedure 0908 (Given - Provid er: Nav Mas MD) diphenhydrAMINE (BENADryl) injection 12.5 mg 12.5 mg, IntraVENous, Once PRN, itching, Starting on Fri07/19/25 at 0944, For 1 dose, Recovery (only) hydrALAZINE (Apresoline) injection 5 mg(Linked Group 2) 5 mg, IntraVENous, Every 15 min PRN, high blood pressure, for SBP greater than 160 mmHg for 2 consecutive measurements taken from different sites, Starting on Fri07/19/25 at 0944, For 2 doses, Recovery (only), PRN for SBP > 160 for 2 consecutive measurements, and if one of the following conditions is met: 1) If IV labetolol is ineffective. 2) If HR is under 60. 3) If patient has heart block, COPD or asthma. If both labetalol and hydralazine ineffective, notify anesthesia provider. HYDROmorphone (Dilaudid) injection 0.25 mg 0.25 mg, IntraVENous, Every 5 min PRN, moderate pain (4-6), Starting on Fri07/19/25 at 0944, For 4 doses, Recovery (only), For Phase I. If Phase II oral narcotics have been administered in the last 60 minutes, do not administer IV narcotics unless specifically approved by provider. HYDROmorphone (Dilaudid) injection 0.5 mg 0.5 mg, IntraVENous, Every 5 min PRN, severe pain (7-10), Starting on Fri07/19/25 at 0944, For 4 doses, Recovery (only), For Phase I. If Phase II oral narcotics have been administered in the last 60 minutes, do not administer IV narcotics unless specifically approved by provider. labetalol (Normodyne,Trandate) injection 5 mg(Linked Group 2) 5 mg, IntraVENous, Every 10 min PRN, high blood pressure, for SBP greater than 160 mmHg for 2 consecutive measurements taken from different sites., Starting on Fri07/19/25 at 0944, For 2 doses, Recovery (only), PRN for SBP >160 for 2 consecutive measurements, if HR is 60 or greater. If beta angela is contraindicated (HR less than 60, heart block, COPD or asthma) use hydralazine IV order. LORazepam (Ativan) injection 0.5 mg 0.5 mg, IntraVENous, Once PRN, for anxiety or muscle spasm., Starting on Fri07/19/25 at 0944, For 1 dose, Recovery (only), For IV doses dilute dose with 1ml NS. ondansetron (Zofran) injection 4 mg 4 mg, IntraVENous, Once PRN, nausea, Starting on Fri07/19/25 at 0944, For 1 dose, Recovery (only), Initial antiemetic therapy. oxyCODONE (Roxicodone) immediate release tablet 10 mg(Linked Group 3) 10 mg, Oral, Every 4 hours PRN, severe pain (7-10), Starting on Fri07/19/25 at 0944, For 1 dose, Recovery (only), PHASE II oxyCODONE (Roxicodone) immediate release tablet 5 mg(Linked Group 3) 5 mg, Oral, Every 4 hours PRN, moderate pain (4-6), Starting on Fri07/19/25 at 0944, For 1 dose, Recovery (only), PHASE II sodium chloride 0.9 % bolus 500 mL 500 mL, IntraVENous, at 1,000 mL/hr, Administer over 0.5 Hours, PRN, Anti-nausea, Starting on Fri07/19/25 at 0944, Recovery (only), Indications: Anti-nausea sodium chloride 0.9 % infusion 5-250 mL/hr, IntraVENous, PRN, if patient receiving piggyback infusions and maintenance fluids are not ordered OR KVO fluids to protect IV site / prevent frequent line interruptions / long duration, Starting on Fri07/19/25 at 0735, Preprocedure, For piggyback infusion, administer at same rate as piggyback for a total of 25 mL. Enter 25 mL into dose field and piggyback rate into rate field of order. If piggyback is infusing at a rate less than 100 mL/hr, enter 25 mL into dose field and 100 mL/hr into rate field of order. For KVO fluids, enter rate of 20 mL/hr or less into rate field of order. sodium chloride 0.9% (NS) flush 5-40 mL 5-40 mL, IntraVENous, PRN, line care, After every IV line use, Starting on Fri07/19/25 at 0735, Preprocedure, For Line Patency: Peripheral IV = 5 mL; Midline or Central Line = 10 mL/lumen. If following IV push medication, administer flush at same rate as the IV push. Flush volume is determined by type of infusion therapy being given. For non-viscous solutions use: Peripheral IV = 5 mL Midline or Central Line = 10 mL/lumen For viscous solutions (i.e. blood components, parenteral nutrition, contrast media, or after obtaining blood sample) use: Peripheral IV = 10 mL Midline or Central Line = 20 mL/lumen Linked Groups Order Group 1: famotidine (Pepcid) tablet 20 mg (COMPLETED)Jump to med 20 mg, Oral, Once, On Fri07/19/25 at 0745, For 1 dose, Preprocedure, IV or Oral - Use PO option as first line. If unable to tolerate PO, then okay to use IV. Or famotidine (Pepcid) 20 mg in sodium chloride (PF) 0.9 % 10 mL injection (COMPLETED) 20 mg, IntraVENous, Administer over 2 Minutes, Once, On Fri07/19/25 at 0745, For 1 dose, Preprocedure, IV or Oral Group 2: labetalol (Normodyne,Trandate) injection 5 mgJump to med 5 mg, IntraVENous, Every 10 min PRN, high blood pressure, for SBP greater than 160 mmHg for 2 consecutive measurements taken from different sites., Starting on Fri07/19/25 at 0944, For 2 doses, Recovery (only), PRN for SBP >160 for 2 consecutive measurements, if HR is 60 or greater. If beta angela is contraindicated (HR less than 60, heart block, COPD or asthma) use hydralazine IV order. Or hydrALAZINE (Apresoline) injection 5 mgJump to med 5 mg, IntraVENous, Every 15 min PRN, high blood pressure, for SBP greater than 160 mmHg for 2 consecutive measurements taken from different sites, Starting on Fri07/19/25 at 0944, For 2 doses, Recovery (only), PRN for SBP > 160 for 2 consecutive measurements, and if one of the following conditions is met: 1) If IV labetolol is ineffective. 2) If HR is under 60. 3) If patient has heart block, COPD or asthma. If both labetalol and hydralazine ineffective, notify anesthesia provider. Group 3: oxyCODONE (Roxicodone) immediate release tablet 5 mgJump to med 5 mg, Oral, Every 4 hours PRN, moderate pain (4-6), Starting on Fri07/19/25 at 0944, For 1 dose, Recovery (only), PHASE II Or oxyCODONE (Roxicodone) immediate release tablet 10 mgJump to med 10 mg, Oral, Every 4 hours PRN, severe pain (7-10), Starting on Fri07/19/25 at 0944, For 1 dose, Recovery (only), PHASE II Goals (unrecognized section and content) Goals may be documented in a n alternate section FOR RECORDS PERTAINING TO PATIENTS WHO ARE OR HAVE BEEN ENROLLED IN A CHEMICAL DEPENDENCY/SUBSTANCEABUSE PROGRAM, SOME INFORMATION MAY BE OMITTED. This clinical summary was aggregated from multiple sources. Caution should be exercised in using it in the provision of clinical care. This summary normalizes information from multiple sources, and as a consequence, information in this document may materially change the coding, format and clinical context of patient data. In addition, data may be omitted in some cases. CLINICAL DECISIONS SHOULD BE BASED ON THE PRIMARY CLINICAL RECORDS. [facility]. provides no warranty or guarantee of the accuracy or completeness of information in this document.
[2025-09-22] MEDS: Lactated Ringers 1,000 ML 15 ML IV (08:00)
--- NOTE | 2025-09-22 08:28 | PCM.PRE.AN2 ---
ASA Classification* ASA Classification ASA Classification: 2 Assessment & Plan Anesthesia* Anesthesia Assessment Anesthesia Assessment: Discussed sedation and/or anesthesia options, risks, benefits, and alternatives with patient/parents/legal guardian/POA. Questions invited. The patient/parents/legal guardian/POA seems to understand and agrees to proceed with anesthesia plan. Reviewed the physical assessment, medical history, allergy history and patient home medications list prior to surgery/procedure/anesthetic and documented any changes. Performed airway and anesthesia risk assessments. Anesthesia Type Anesthesia Type: MAC History Source History Obtained from:: Patient and Chart Anesthesia Focused Assessment* Temperature: 98.2 F Pulse Rate: 85 Blood Pressure: 116/86 Respiratory Rate: 18 Pulse Ox: 98 Oxygen Delivery Method: Room Air Airway Assessment Mouth opens: >3 cm Mallampati Score: I Teeth Condition: Lower (Patient has a lower permanent bridge. 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 When Was Last Pacemaker Check QUESTION #4 FULL TEXT: You/Your Family Experience fever (hyperthermia) with Anesthesia Last Oral Intake Last Oral intake: Last Oral Intake NPO since 03:00 09/22/25 07:53 Meds taken in AM with sips of Yes 09/22/25 07:53 water? 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 operator Female No 09/21/25 14:07 HX of Motion Sickness No 09/21/25 14:07 HX of N/V After Surgery No 09/21/25 14:07 Non-Smoker Yes 09/21/25 14:07 Duration of Surgery greater No 09/21/25 14:07 than 60 minutes Number of Risk Factors 1 09/21/25 14:07 PONV Score Low Risk 09/21/25 14:07 Height & Weight Height & Weight: Anesthesia: Height & Weight Height 6 ft 2 in 09/22/25 07:53 Weight: 119 kg 09/22/25 07:53 Body Mass Index (BMI) 33.7 09/22/25 07:53 Respiratory Assessment Respiratory Assessment - 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 Has anyone observed you stop No 09/21/25 14:07 breathing during sleep? STOP Results Negative 09/21/25 14:07 QUESTION #5 FULL TEXT : Do you snore loudly (louder than talking or can be heard through closed doors)? 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 Specify any problems Hx of Preganancy in last 3 N/A 09/21/25 14:07 Months Nurse Filling Out Transfusion DSCHRIBER 09/21/25 14:07 & Questions: Date: 09/21/25 09/21/25 14:07 Time: 14:09 09/21/25 14:07 Patient unable to answer at this time (ie. confused, unrespo /Reproduction History /Reproductive History - longwall shearer operator: /Reproductive Hx- longwall shearer operator Hx Now No 09/21/25 14:07 Gestational Age (in weeks): EDC: Hx Hx Para Hx Section SAB No 09/21/25 14:07 Does the father of the baby or his family experience fever w Father of the baby Malignant Hypertension history comment Active Medications Active Medications: Current Medications Generic Name Dose Route Start Last Admin Trade Name Freq PRN Reason Stop Dose Admin Lactated Ringer's 1,000 mls @ 15 mls/hr 09/22/25 08:00 09/22/25 08:00 IV 15 mls/hr .Q48H SONAL Administration PFSH Medical History Loss of hearing Wears glasses Cancer Arthritis High cholesterol Back pain Difficulty swallowing History of diverticulitis Gastric reflux Non-smoker Leg cramps History of edema Hx of fracture of pelvis History of deviated nasal septum Prostate cancer 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 Obesity Home Medications ?Medication ?Instructions ?Recorded ?Last Taken ?Type cetirizine 5 mg tablet 5 mg PO QDAY PRN allergy symptoms 08/01/25 09/19/25 History coenzyme Q10 10 mg capsule 10 mg PO QDAY 08/01/25 09/20/25 History krill oil 500 mg capsule 500 mg PO DAILY 08/01/25 09/20/25 History milk thistle seed extract 175 mg 175 mg PO QDAY 08/01/25 09/18/25 History capsule multivitamin 1 tab PO QAM 08/01/25 09/20/25 History omeprazole 20 mg tablet,delayed 20 mg PO QDAY 08/01/25 09/22/25 History release tizanidine 2 mg capsule 2 mg PO Q8H PRN muscle spasticity 08/01/25 Unknown History aspirin 81 mg tablet,delayed 81 mg PO DAILY 09/21/25 09/21/25 History release clopidogrel 75 mg tablet 75 mg PO DAILY 09/21/25 09/21/25 History Allergy/AdvReac Type Severity Reaction Status Date / Time No Known Allergies Allergy Verified 09/22/25 07:48 Surgical History Hx of vascular surgery History of umbilical hernia repair Hx of colonoscopy History of throat surgery Social History Smoking Status: Never smoker alcohol intake: never substance use type: does not use Review of Systems (Anesthesia) ROS Narrative System reviewed and no additional complaints, except as documented.
--- NOTE | 2025-09-22 08:30 | COLBX_PTH ---
PATIENT: MOHINI RODRIGUEZ LOC: EN U#:[id number] AGE/SX: 65/M ROOM: RE09/22/[address]: Dr. Crow Becker DO : 1960 BED: DIS: 09/22/2025 SPEC #: [id number] RECD: 09/22/25 11:50 STATUS: MARICARMEN REMichelle #: [id number] ISSAC: 09/22/25 08:[address]: Crow Becker DEPT: SURGICAL PATHOLOGY RECD BY: Donavon Landers ENTERED: 09/22/25 13:23 SP TYPE: COLON BX OT DR: Dr. Christopher Mckinney MD Tissues: A - Esophagus, NOS B - Gastric mucous membrane C - Duodenum, NOS Procedures: Immunohistochemical Stains Surgery Specimen Level IV HEADER OPERATION: Colonoscopy, EGD, biopsy PRE-OP DIAGNOSIS: Screening for colon cancer, GERD TISSUE SUBMITTED: A- Distal esophagus biopsy, B- Gastric body biopsy, C- Duodenum biopsy MICROSCOPIC DIAGNOSIS A. Esophagus, distal, biopsy: - Columnar mucosa with focal goblet cell metaplasia - see note. - Scant squamous mucosa with reactive changes. - Negative for dysplasia. Note: The diagnosis depends on the location of the biopsy and the extent of the mucosal irregularity. If the biopsy originates from the tubular esophagus and the mucosal irregularity extends at least 1 cm above the top of the gastric folds, this represents Thompson mucosa. If the biopsy originates from the gastric cardia and or the mucosal irregularity is less than 1 cm in extent, this represents intestinal metaplasia. B. Stomach, body, biopsy: - Marked active chronic gastritis. - IHC positive for H. pylori organisms. C. Small intestine, duodenum, biopsy: - Normal villous architecture with Stanley gland hyperplasia and gastric mucin cell metaplasia, suggestive of peptic injury. - Negative for increased intraepithelial lymphocytes. MICROSCOPIC DESCRIPTION Slides are reviewed. All matched controls reacted appropriately. These tests were developed and their performance characteristics determined by [facility]. They may not have been cleared or approved by the U.[place]. Food and Drug Administration. The FDA has determined that such clearance or approval is not necessary. The above immunohistochemical markers and/or special?stains have been reviewed by the Pathologist. GROSS DESCRIPTION A. Received in fixative is one container labeled with the patient's name and designated Distal esophagus biopsy. The specimen consists of two irregular fragments of cabrera tissue that measure 0.4 and 0.6 cm. The specimen is totally submitted in one cassette. B. Received in fixative is one container labeled with the patient's name and designated Gastric body biopsy. The specimen consists of two irregular fragments of cabrera tissue that measure 0.6 and 0.7 cm. The specimen is totally submitted in one cassette. C. Received in fixative is one container labeled with the patient's name and designated Duodenum biopsy. The specimen consists of one irregular fragment of cabrera tissue that measures 0.6 cm. The specimen is totally submitted in one cassette. PR 09/22/2025 CPT:[id number]
--- NOTE | 2025-09-22 09:15 | OP.PROVAT_ITS ---
09/22/2025 Christopher Mckinney Re : Upper GI endoscopy procedure for Mariano Espino Dear Hank This procedure was performed on September. My impressions and recommendations are as follows: Impressions : - Z-line irregular, 40 cm from the incisors. Biopsied. - Erythematous mucosa in the gastric body. Biopsied. - Erythematous duodenopathy. Biopsied. Recommendations : - Discharge patient to home. - Resume previous diet. - Continue present medications. My findings are described in the full procedure note, which is enclosed. If I can be of further assistance, please feel free to contact me at . Sincerely, Crow Becker, 09/22/2025 9:15:06 AM This report has been signed electronically.
--- NOTE | 2025-09-22 09:15 | OP.EGD_ITS ---
Patient Name: Mariano Espino Procedure Date: 09/22/2025 8:41 AM Date of : 1960 Age: 65 Procedure: Upper GI endoscopy Indications: Epigastric abdominal pain, Heartburn Providers: Crow Becker DO Referring MD: Christopher Mckinney Medicines: Monitored Anesthesia Care Patient Profile: This is a 65 year old male. Refer to note in patient chart for documentation of history and physical. Patient has symptoms of acute epigastric abdominal pain and chronic heartburn. Complications: No immediate complications. Procedure: Pre-Anesthesia Assessment: - Prior to the procedure, a History and Physical was performed, and patient medications and allergies were reviewed. The patient is competent. The risks and benefits of the procedure and the sedation options and risks were discussed with the patient. All questions were answered and informed consent was obtained. Patient identification and proposed procedure were verified by the physician in the pre-procedure area. Mental Status Examination: alert and oriented. Airway Examination: normal oropharyngeal airway and neck mobility. Respiratory Examination: clear to auscultation. CV Examination: normal. Prophylactic Antibiotics: The patient does not require prophylactic antibiotics. Prior Anticoagulants: The patient has taken no anticoagulant or antiplatelet agents except for NSAID medication. ASA Grade Assessment: II - A patient with mild systemic disease. After reviewing the risks and benefits, the patient was deemed in satisfactory condition to undergo the procedure. The anesthesia plan was to use monitored anesthesia care (MAC). Immediately prior to administration of medications, the patient was re-assessed for adequacy to receive sedatives. The heart rate, respiratory rate, oxygen saturations, blood pressure, adequacy of pulmonary ventilation, and response to care were monitored throughout the procedure. The physical status of the patient was re-assessed after the procedure. After obtaining informed consent, the endoscope was passed under direct vision. Throughout the procedure, the patient's blood pressure, pulse, and oxygen saturations were monitored continuously. The pediatric colonoscope was introduced through the mouth, and advanced to the third part of the duodenum. Small bowel enteroscopy was deemed necessary. The upper GI endoscopy was accomplished without difficulty. The patient tolerated the procedure well. Scope In: 8:52:49 AM Scope Out: 8:56:34 AM Total Procedure Duration Time 0 hours 3 minutes 45 seconds Findings: The Z-line was irregular and was found 40 cm from the incisors. Biopsies were taken with a cold forceps for histology. Verification of patient identification for the specimen was done. Estimated blood loss was minimal. Patchy mildly erythematous mucosa without bleeding was found in the gastric body. Biopsies were taken with a cold forceps for histology. Biopsies were taken with a cold forceps for Helicobacter pylori testing. Verification of patient identification for the specimen was done. Estimated blood loss was minimal. Patchy mildly erythematous mucosa without active bleeding and with no stigmata of bleeding was found in the entire duodenum. Biopsies were taken with a cold forceps for histology. Verification of patient identification for the specimen was done. Estimated blood loss was minimal. Impression: - Z-line irregular, 40 cm from the incisors. Biopsied. - Erythematous mucosa in the gastric body. Biopsied. - Erythematous duodenopathy. Biopsied. Recommendation: - Discharge patient to home. - Resume previous diet. - Continue present medications. Procedure Code(s): --- Professional --- 27226, Small intestinal endoscopy, enteroscopy beyond second portion of duodenum, not including ileum; with biopsy, single or multiple CPT copyright 2021 [employer]. All rights reserved. The codes documented in this report are preliminary and upon bus dispatcher interstate review may be revised to meet current compliance requirements. Crow Becker DO 09/22/2025 9:15:06 AM This report has been signed electronically. Number of Addenda: 0 Note Initiated On: 09/22/2025 8:41 AM
--- NOTE | 2025-09-22 09:15 | PCM.POST.ANE ---
Anesthesia: Postop Eval I Current Vital Signs Temperature: 98.4 F Pulse Rate: 74 Blood Pressure: 94/59 Respiratory Rate: 16 Pulse Ox: 95 Oxygen Delivery Method: Room Air Assessment Airway patent: Yes Spontaneous unlabored respirations: Yes Mental status: Asleep nausea: No Vomiting: No Anesthesia Complication: No Fluid Hydration Crystalloid volume administer (ml): 800 Total IV fluid infused: 800 Progress Note Anesthesia document: Postop Eval 1 completed: Yes
--- NOTE | 2025-09-22 09:17 | OP.PROVAT_ITS ---
09/22/2025 Christopher Mckinney Re : Colonoscopy procedure for Mariano Espino Dear Hank This procedure was performed on September. My impressions and recommendations are as follows: Impressions : - Diverticulosis in the recto-sigmoid colon and in the sigmoid colon. - The examination was otherwise normal on direct and retroflexion views. - Non-bleeding internal hemorrhoids. - The examination was otherwise normal on direct and retroflexion views. - No specimens collected. Recommendations : - Discharge patient to home. - Resume previous diet. - Continue present medications. - Repeat colonoscopy in 10 years for screening purposes. My findings are described in the full procedure note, which is enclosed. If I can be of further assistance, please feel free to contact me at . Sincerely, Crow Friend, 09/22/2025 9:17:04 AM This report has been signed electronically.
--- NOTE | 2025-09-22 09:17 | OP.COLON_ITS ---
Patient Name: Mariano Espino Procedure Date: 09/22/2025 8:56 AM Date of : 1960 Age: 65 Procedure: Colonoscopy Indications: Screening for colorectal malignant neoplasm Providers: Crow Becker DO Referring MD: Christopher Mckinney Medicines: Monitored Anesthesia Care Patient Profile: This is a 65 year old male. Refer to note in patient chart for documentation of history and physical. Patient has symptoms of acute epigastric abdominal pain and chronic heartburn. Last Colonoscopy: several years ago. Complications: No immediate complications. Procedure: Pre-Anesthesia Assessment: - Prior to the procedure, a History and Physical was performed, and patient medications and allergies were reviewed. The patient is competent. The risks and benefits of the procedure and the sedation options and risks were discussed with the patient. All questions were answered and informed consent was obtained. Patient identification and proposed procedure were verified by the physician in the pre-procedure area. Mental Status Examination: alert and oriented. Airway Examination: normal oropharyngeal airway and neck mobility. Respiratory Examination: clear to auscultation. CV Examination: normal. Prophylactic Antibiotics: The patient does not require prophylactic antibiotics. Prior Anticoagulants: The patient has taken no anticoagulant or antiplatelet agents except for NSAID medication. ASA Grade Assessment: II - A patient with mild systemic disease. After reviewing the risks and benefits, the patient was deemed in satisfactory condition to undergo the procedure. The anesthesia plan was to use monitored anesthesia care (MAC). Immediately prior to administration of medications, the patient was re-assessed for adequacy to receive sedatives. The heart rate, respiratory rate, oxygen saturations, blood pressure, adequacy of pulmonary ventilation, and response to care were monitored throughout the procedure. The physical status of the patient was re-assessed after the procedure. After I obtained informed consent, the scope was passed under direct vision. Throughout the procedure, the patient's blood pressure, pulse, and oxygen saturations were monitored continuously. The pediatric colonoscope was introduced through the anus and advanced to the cecum, identified by appendiceal orifice and ileocecal valve. The colonoscopy was performed without difficulty. The patient tolerated the procedure well. The quality of the bowel preparation was adequate. The ileocecal valve, appendiceal orifice, and rectum were photographed. Scope In: 8:57:42 AM Scope Withdrawal Time 0 hours 6 minutes 31 seconds Scope Out: 9:06:52 AM Total Procedure Duration Time 0 hours 9 minutes 10 seconds Findings: The perianal and digital rectal examinations were normal. Multiple small-mouthed diverticula were found in the recto-sigmoid colon and sigmoid colon. The exam was otherwise without abnormality on direct and retroflexion views. Non-bleeding internal hemorrhoids were found during retroflexion. The hemorrhoids were Grade III (internal hemorrhoids that prolapse but require manual reduction). The exam was otherwise without abnormality on direct and retroflexion views. Impression: - Diverticulosis in the recto-sigmoid colon and in the sigmoid colon. - The examination was otherwise normal on direct and retroflexion views. - Non-bleeding internal hemorrhoids. - The examination was otherwise normal on direct and retroflexion views. - No specimens collected. Recommendation: - Discharge patient to home. - Resume previous diet. - Continue present medications. - Repeat colonoscopy in 10 years for screening purposes. Procedure Code(s): --- Professional --- G0121, Colorectal cancer screening; colonoscopy on individual not meeting criteria for high risk CPT copyright 2021 [employer]. All rights reserved. The codes documented in this report are preliminary and upon braille coder review may be revised to meet current compliance requirements. Crow Becker DO 09/22/2025 9:17:04 AM This report has been signed electronically. Number of Addenda: 0 Note Initiated On: 09/22/2025 8:56 AM
--- NOTE | 2025-09-22 12:33 | PCM.POSTANE2 ---
Anesthesia Postop Eval I Sum Postop Eval Completion status Anesthesia document: Postop Eval 1 completed: Yes Anesthesia Postop Eval I Summary Anesthesia Postop Eval I Summary: Anesthesia Postop Eval I: Assessment Summary Airway patent Yes 09/22/25 09:16 [email or web address] Spontaneous unlabored Yes 09/22/25 09:16 [email or web address] respirations Mental status Asleep 09/22/25 09:16 [email or web address] nausea No 09/22/25 09:16 [email or web address] Vomiting No 09/22/25 09:16 [email or web address] Anesthesia Postop Eval I: Fluid Summary Crystalloid volume administer 800 09/22/25 09:16 [email or web address] (ml) Colloids volume administered ( ml) Blood Product volume administered (ml) Total IV fluid infused 800 09/22/25 09:16 [email or web address] Anesthesia Postop Eval I: Summary Notes Anesthesia Complication No 09/22/25 09:16 [email or web address] Anesthesia Complication Comment: Post-operative progress note Anesthesia: Postop Eval II Evaluation Mental status: Awake Pain Level: 0 nausea: No Vomiting: No
== END 2025-09-22 10:15 | disposition home or self-care (01) ==
LOC: EN 07:36 → AC 07:36
PROVIDERS: PCP Family Medicine; Referring Provider Family Medicine; Visit Provider Internal Medicine Gastroenterology
PROC: 0DJD8ZZ Inspection of Lower Intestinal Tract, Via Natural or Artificial Opening Endoscopic (ICD-10-PCS; CPT 45378; principal; 2025-09-22 08:25)
DX: Z12.11 Encounter for screening for malignant neoplasm of colon (principal); K21.9 Gastro-esophageal reflux disease without esophagitis; Z92.3 Personal history of irradiation; K64.2 Third degree hemorrhoids; K57.30 Diverticulosis of large intestine without perforation or abscess without bleeding; E78.00 Pure hypercholesterolemia, unspecified; Z85.46 Personal history of malignant neoplasm of prostate; Z85.89 Personal history of malignant neoplasm of other organs and systems; Z92.21 Personal history of antineoplastic chemotherapy; Z79.899 Other long term (current) drug therapy; R10.13 Epigastric pain; K22.89 Other specified disease of esophagus; A04.8 Other specified bacterial intestinal infections; K29.50 Unspecified chronic gastritis without bleeding; K31.A19 Gastric intestinal metaplasia without dysplasia, unspecified site; D13.2 Benign neoplasm of duodenum
CPT/HCPCS: 44361; 45378; 88305; 88342; J2405